=== PATIENT | female | born 1995 | race American Indian/Alaskan Native ===

== ENCOUNTER 2016-09-30 19:11 | Emergency (ER) | payer MEDICAID ==
[2016-09-30 20:48] VITALS: BP 125/92
[2016-09-30 21:47] LABS: Basophils % (Auto) 1.4 % (0.0-1.8); White Blood Count 12.9 K/mm3 (4.5-11.0)
[2016-09-30 21:54] LABS: Hematocrit 52.4 % (30.3-42.9); Mean Corpuscular HGB Conc 34 % (30-34); Mean Corpuscular Hemoglobin 28 pg (28-32); Mean Corpuscular Volume 81 fl (79-97); Platelet Count 429 K/mm3 (140-440); Red Blood Count 6.44 M/mm3 (3.65-5.03); Red Cell Distribution Width 13.1 % (13.2-15.2)
[2016-09-30 21:59] LABS: B-Hydroxybutyrate 11.6 mg/dL (0.2-2.8); BUN/Creatinine Ratio 46.31; Calcium 10.3 mg/dL (8.4-10.2); Chloride 86.8 mmol/L (98-107); Potassium 4.2 mmol/L (3.6-5.0)
--- NOTE | 2016-10-03 19:11 | ED Elopement Review ---
ED Pt Elopement review - Results review Lab results: Laboratory Tests 09/30/16 09/30/16 09/30/16 20:45 21:27 21:27 WBC 12.9 H RBC 6.44 H Hgb 18.0 H Hct 52.4 H MCV 81 MCH 28 MCHC 34 RDW 13.1 L Plt Count 429 Lymph % (Auto) 14.2 [place] % (Auto) 13.1 H Eos % (Auto) 0.0 Baso % (Auto) 1.4 Lymph # 1.8 Grady # 1.7 H Eos # 0.0 Baso # 0.2 H Seg Neutrophils % 71.3 H Seg Neutrophils # 9.2 H Sodium 133 L Potassium 4.2 Chloride 86.8 L Carbon Dioxide 21 L Anion Gap 29 BUN 88 H Creatinine 1.9 H Estimated GFR 41 BUN/Creatinine Ratio 46.31 Glucose 344 H POC Glucose 304 H Calcium 10.3 H Ketones 11.6 H - Call Back decision Pt Call Back Decision: Call pt to return to ED LYN (tachycardia and hemoconcentration should be addressed)
== END 2016-10-01 01:35 | disposition left against medical advice (07) ==
LOC: ED 19:11
DX: R11.2 Nausea with vomiting, unspecified (principal); Z53.21 Procedure and treatment not carried out due to patient leaving prior to being seen by health care provider
CPT/HCPCS: 36415; 80048; 82010; 82962; 85025

== ENCOUNTER 2018-02-28 01:21 | Emergency (ER) | payer MEDICAID ==
[2018-02-28 01:37] VITALS: BP 136/91
== END 2018-02-28 02:50 | disposition left against medical advice (07) ==
LOC: ED 01:21
DX: R11.10 Vomiting, unspecified (principal); Z53.21 Procedure and treatment not carried out due to patient leaving prior to being seen by health care provider

== ENCOUNTER 2018-11-10 20:10 | Emergency (ER) | payer OTHER ==
[2018-11-10 21:15] VITALS: BP 135/80
[2018-11-10] MEDS ORDERED: NACL 0.9% 1000 ML 1,000 ML IV ONE (21:15)
[2018-11-10] MEDS ORDERED: REGLAN IV ONE (21:15)
--- NOTE | 2018-11-10 21:16 | Emergency Department Report ---
Blank Doc - Documentation Documentation: 23 y o female presents at 11 weeks with n/v x 3 weeks, states worsening to day states nausea meds not working [facility] follows labs acc eval
[2018-11-10 21:31] LABS: Basophils # (Auto) 0.1 K/mm3 (0.0-0.1); Basophils % (Auto) 0.5 % (0.0-1.8); Eosinophils % (Auto) 0.2 % (0.0-4.3); Hematocrit 38.7 % (30.3-42.9); Hemoglobin 13.1 gm/dl (10.1-14.3); Lymphocytes # (Auto) 1.6 K/mm3 (1.2-5.4); Lymphocytes % (Auto) 11.5 % (13.4-35.0); Mean Corpuscular HGB Conc 34 % (30-34); Mean Corpuscular Volume 85 fl (79-97); Monocytes # (Auto) 0.6 K/mm3 (0.0-0.8); Monocytes % (Auto) 4.1 % (0.0-7.3); Platelet Count 295 K/mm3 (140-440); Red Blood Count 4.54 M/mm3 (3.65-5.03); Red Cell Distribution Width 12.4 % (13.2-15.2)
[2018-11-10 21:44] LABS: BUN/Creatinine Ratio 20; Blood Urea Nitrogen 14 mg/dL (7-17); Calcium 10.3 mg/dL (8.4-10.2); Hemolysis Index 7
[2018-11-10 23:21] LABS: Amorphous Crystals,Urine Few; Bilirubin,Urine NEG (Negative); Blood,Urine SM (Negative); Color,Urine Yellow (Yellow); Mucus,Urine FEW /HPF; Urobilinogen,Urine < 2.0 mg/dL (<2.0)
[2018-11-10 23:22] LABS: Protein,Urine >500 mg/dL (Negative)
--- NOTE | 2018-11-10 23:54 | Emergency Department Report ---
ED General Adult HPI - General Chief complaint: Nausea/Vomiting/Diarrhea Stated complaint: VOMITING Time Seen by Provider: 11/10/18 21:11 Source: patient Mode of arrival: Ambulatory Limitations: No Limitations - History of Present Illness Initial comments: 23-year-old -[place] female with a current history of diabetes type 1 that is 11 weeks comes in for abdominal pain nausea and vomiting. Patient reports that she is on NovoLog but uses are in scale. Patient reports that she's had her insulin this morning. Patient reports that she's been having nausea and vomiting since she was 6 weeks . This is 1 para 0. Patient is followed by [facility]. -: This morning Location: abdomen Radiation: non-radiation Severity scale (0 -10): 10 Quality: other (cramping) Consistency: constant Worsens with: none Associated Symptoms: nausea/vomiting. denies: fever/chills Treatments Prior to Arrival: none - Related Data Previous Rx's Medication Instructions Recorded Last Taken Type Famotidine [Pepcid] 10 mg PO BID #30 tablet 05/25/16 Unknown Rx Insulin Glargine [Lantus VIAL] 15 units SUB-Q QAMDIAB 30 Days 05/25/16 Unknown Rx units Insulin Regular, Human [HumuLIN R] 5 units SUB-Q ACHS 30 Days units 05/25/16 Unknown Rx Metoclopramide [Reglan] 10 mg PO TID PRN #20 tab 10/04/16 Unknown Rx Ondansetron [Zofran TAB] 4 mg PO Q8HR PRN #15 tablet 10/04/16 Unknown Rx guaiFENesin [Robitussin] 200 mg PO TID #90 ml 06/06/18 Unknown Rx prednisoLONE SOD PHOSPHAT [Orapred] 15 mg PO DAILY #30 ml 06/06/18 Unknown Rx Allergies Allergy/AdvReac Type Severity Reaction Status Date / Time Penicillins Allergy Rash Verified 07/20/13 00:39 ED Review of Systems ROS: Stated complaint: VOMITING Other details as noted in HPI Comment: All other systems reviewed and negative Gastrointestinal: abdominal pain, nausea, vomiting ED Past Medical Hx - Past Medical History Previous Medical History?: Yes Hx Congestive Heart Failure: No Hx Diabetes: Yes Hx Renal Disease: No Hx Asthma: No Hx COPD: No Additional medical history: gastroparesis. neuropathy - Surgical History Past Surgical History?: Yes Additional Surgical History: Insulin pump - Social History Smoking Status: Never Smoker Substance Use Type: None - Medications Home Medications: Home Medications Medication Instructions Recorded Confirmed Last Taken Type Famotidine [Pepcid] 10 mg PO BID #30 tablet 05/25/16 10/03/16 Unknown Rx Insulin Glargine [Lantus VIAL] 15 units SUB-Q QAMDIAB 30 Days 05/25/16 10/03/16 Unknown Rx units Insulin Regular, Human [HumuLIN R] 5 units SUB-Q ACHS 30 Days units 05/25/16 10/03/16 Unknown Rx Metoclopramide [Reglan] 10 mg PO TID PRN #20 tab 10/04/16 Unknown Rx Ondansetron [Zofran TAB] 4 mg PO Q8HR PRN #15 tablet 10/04/16 Unknown Rx guaiFENesin [Robitussin] 200 mg PO TID #90 ml 06/06/18 Unknown Rx prednisoLONE SOD PHOSPHAT [Orapred] 15 mg PO DAILY #30 ml 06/06/18 Unknown Rx ED Physical Exam - General Limitations: No Limitations General appearance: alert, in no apparent distress - Head Head exam: Present: atraumatic, normocephalic - Eye Eye exam: Present: EOMI - ENT ENT exam: Present: mucous membranes moist - Neck Neck exam: Present: normal inspection - Respiratory Respiratory exam: Present: normal lung sounds bilaterally. Absent: respiratory distress - Cardiovascular Cardiovascular Exam: Present: regular rate, normal rhythm. Absent: systolic murmur, diastolic murmur, rubs, gallop - GI/Abdominal GI/Abdominal exam: Present: soft, normal bowel sounds. Absent: distended, tenderness - Extremities Exam Extremities exam: Present: normal inspection - Back Exam Back exam: Present: normal inspection - Neurological Exam Neurological exam: Present: alert, oriented X3 - Psychiatric Psychiatric exam: Present: normal affect, normal mood - Skin Skin exam: Present: warm, dry, intact, normal color. Absent: rash ED Course Vital Signs 11/10/18 21:13 Temperature 98 F Pulse Rate 78 Respiratory 20 Rate Blood Pressure 135/80 O2 Sat by Pulse 99 Oximetry ED Medical Decision Making - Lab Data Result diagrams: 11/10/18 21:18 11/10/18 21:18 - Radiology Data Radiology results: report reviewed Patient: EVELIN NUNEZ MR#: [id number] : 1995 Acct:[id number] Age/Sex: 23 / F ADM Date: 11/10/18 Loc: ED Attending Dr: Ordering Physician: MARIELENA ADAMS Date of Service: 11/10/18 Procedure(s): US OB <= 14 weeks fetus Accession Number(s): [id number] cc: MARIELENA ADAMS PROCEDURE: US OB <= 14 WEEKS FETUS TECHNIQUE: Routine transabdominal imaging was obtained of the pelvis. HISTORY: abd pain preg COMPARISONS: None FINDINGS: The uterus is anteverted measuring 9.7 x 8.0 x 6.4 cm. Within the uterus is a gestational sac containing a pole with a crown-rump length of 49.4 mm. This corresponds to an 11 week 5 day . The heart rate is 176 BPM. There is no evidence of subchorionic hemorrhage. Free fluid is not seen. Both ovaries are normal in size contour and echotexture. The right ovary me asures 2.5 x 1.9 x 1.6 cm. Left ovary measures 3.2 x 1.4 x 1.5 cm. The blood flow is normal to both ovaries. The EDC is 05/28/2019. IMPRESSION: Single viable IUP, 11 weeks 5 days. The heart rate is 176 BPM. The EDC is 05/28/2019. This document is electronically signed by Anat Borden MD., November 11 2018 12:54:51 AM ET Transcribed By: RB Dictated By: ANAT BORDEN MD Electronically Authenticated By: ANAT BORDEN MD Signed Date/Time: 11/11/18 0056 DD/ TD/TT: 11/11/18 0048 Critical care attestation.: If time is entered above; I have spent that time in minutes in the direct care of this critically ill patient, excluding procedure time. ED Disposition Clinical Impression: Dehydration Disposition: DC-07 LEFT AGAINST MED ADVICE Is pt being admited?: No Does the pt Need Aspirin: No Condition: Stable Referrals: IHSAN MCKEON MD [Primary Care Provider] - 3-5 Days Forms: AMA Form
[2018-11-10] MEDS ORDERED: REGLAN ONE (23:56)
--- NOTE | 2018-11-11 00:56 | Ultrasound Report ---
PROCEDURE: US OB <= 14 WEEKS FETUS TECHNIQUE: Routine transabdominal imaging was obtained of the pelvis. HISTORY: abd pain preg COMPARISONS: None FINDINGS: The uterus is anteverted measuring 9.7 x 8.0 x 6.4 cm. Within the uterus is a gestational sac contain ing a pole with a crown-rump length of 49.4 mm. This corresponds to an 11 week 5 day . The heart rate is 176 BPM. There is no evidence of subchorionic hemorrhage. Free fluid is not seen. Both ovaries are normal in size contour and echotexture. The right ovary measures 2.5 x 1.9 x 1.6 cm. Left ovary measures 3.2 x 1.4 x 1.5 cm. The blood flow is normal to both ovaries. The EDC is 019. IMPRESSION: Single viable IUP, 11 weeks 5 days. The heart rate is 176 BPM. The EDC is 05/28/2019. This document is electronically signed by Tony Borden MD., November 11 2018 12:54:51 AM ET
[2018-11-11] MEDS ORDERED: ZOFRAN IV ONE (01:00)
[2018-11-11] MEDS ORDERED: ZOFRAN ONE (01:01)
[2018-11-11] MEDS ORDERED: NACL 0.9% 1000 ML 1,000 ML IV ONE (02:23)
[2018-11-11] MEDS ORDERED: HumuLIN R IV ONE (02:23)
== END 2018-11-11 02:42 ==
LOC: ED 20:10
DX: O21.9 Vomiting of pregnancy, unspecified (principal); O26.891 Other specified pregnancy related conditions, first trimester; R10.9 Unspecified abdominal pain; O24.911 Unspecified diabetes mellitus in pregnancy, first trimester; Z3A.11 11 weeks gestation of pregnancy; Z79.4 Long term (current) use of insulin; Z88.0 Allergy status to penicillin
CPT/HCPCS: 36415; 76801; 80048; 81001; 82150; 82962; 83690; 84702; 85025; 96361; 96374; 96375; 99284; J2405; J2765; J7030; J1815

== ENCOUNTER 2019-02-27 16:12 | Outpatient (CLI) | payer OTHER ==
[2019-02-27 17:39] LABS: Hematocrit 28.4 % (30.3-42.9); Hemoglobin 9.7 gm/dl (10.1-14.3); Mean Corpuscular HGB Conc 34 % (30-34); Mean Corpuscular Volume 88 fl (79-97); Platelet Count 277 K/mm3 (140-440); Red Blood Count 3.24 M/mm3 (3.65-5.03); Red Cell Distribution Width 12.7 % (13.2-15.2)
[2019-02-27] MEDS ORDERED: NACL 0.9% 1000 ML 1,000 ML ONE (17:59)
[2019-02-27] MEDS ORDERED: NACL 0.9% IV SCH (18:00)
[2019-02-27 18:01] LABS: Alanine Aminotransferase 8 units/L (7-56); Albumin 3.1 g/dL (3.9-5); BUN/Creatinine Ratio 18; Blood Urea Nitrogen 11 mg/dL (7-17); Calcium 8.9 mg/dL (8.4-10.2); Hemolysis Index 7
[2019-02-27 19:33] LABS: Total Cells Counted 100
[2019-02-27 19:34] LABS: Band Neutrophils # (Manual) 0.5 K/mm3; Basophils % (Manual) 0 % (0.0-1.8); Eosinophils % (Manual) 0 % (0.0-4.3); Ovalocytes Few; Platelet Estimate Consistent w Auto
--- NOTE | 2019-02-27 19:40 | Ultrasound Report ---
ULTRASOUND ABDOMEN, COMPLETE INDICATION: Diffuse pain in the upper abdomen. COMPARISON: No relevant prior imaging study available. FINDINGS: Pancreas: No significant abnormality. Abdominal Aorta: No significant abnormality. IVC: No significant abnormality. Liver: No significant abnormality. Normal hepatopedal blood flow in the main portal vein. Gallbladder: Mild gallbladder sludge. Bile ducts: No significant abnormality. Common bile duct measures 3 mm. Kidneys: Right: Slight prominence of the right collecting system.. Left: No significant abnormality. Spleen: No significant abnormality. Free fluid: None. Additional Findings: None. IMPRESSION: Slight prominence of the right collecting system which could be seen with mild right hydronephrosis. Signer Name: Chad Neil MD Signed: 02/27/2019 7:35 PM Workstation Name: [id number]
--- NOTE | 2019-02-27 19:43 | Ultrasound Report ---
ULTRASOUND BIOPHYSICAL PROFILE INDICATION / CLINICAL INFORMATION: well being. COMPARISON: None available. FINDINGS: BREATHING MOVEMENT = 2 GROSS BODY MOVEMENT = 2 TONE = 2 QUALITATIVE AMNIOTIC FLUID VOLUME = 2 TOTAL BIOPHYSICAL SCORE = 03/09 AMNIOTIC FLUID INDEX (cm) = 13.5 PRESENTATION: Cephalic. HEART RATE (beats per minute): 152 IMPRESSION: 1. biophysical profile = 03/09 Signer Name: Chad Neil MD Signed: 02/27/2019 7:38 PM Workstation Name: [email or web address]
[2019-02-27 20:27] VITALS: BP 131/85
[2019-02-27 22:19] LABS: Bilirubin,Urine NEG (Negative); Blood,Urine SM (Negative); Color,Urine Yellow (Yellow); Urobilinogen,Urine < 2.0 mg/dL (<2.0)
[2019-02-27 22:21] LABS: Protein,Urine >500 mg/dL (Negative)
== END 2019-02-27 22:13 | disposition home or self-care (01) ==
LOC: TRG 16:12
PROVIDERS: ATTEND Obstetrics & Gynecology
DX: O21.2 Late vomiting of pregnancy (principal); O26.892 Other specified pregnancy related conditions, second trimester; R07.9 Chest pain, unspecified; R10.10 Upper abdominal pain, unspecified; O47.02 False labor before 37 completed weeks of gestation, second trimester; O24.312 Unspecified pre-existing diabetes mellitus in pregnancy, second trimester; E11.9 Type 2 diabetes mellitus without complications; Z3A.27 27 weeks gestation of pregnancy; Z79.4 Long term (current) use of insulin
CPT/HCPCS: 36415; 59025; 76700; 76815; 76819; 80053; 81001; 82150; 82962; 83690; 85007; 85025; 85027; 96361; 96365; 96366; 96368; 96372; 96375; J1815; J2405; J2765; J3480; J7030; 96360; 96374

== ENCOUNTER 2019-04-12 11:35 | Inpatient (IN) | payer OTHER ==
[~2019-04-12 11:35] MED LIST: AMBIEN PO PRN
[2019-04-12] MEDS ORDERED: LACTATED RINGERS 500 ML IV ONE (12:24)
[2019-04-12] MEDS ORDERED: NACL 0.9% 1000 ML 1,000 ML ONE (13:33)
[2019-04-12] MEDS ORDERED: ZOFRAN IM ONE (14:00)
[2019-04-12 14:11] LABS: Hematocrit 32.6 % (30.3-42.9); Hemoglobin 11.1 gm/dl (10.1-14.3); Mean Corpuscular HGB Conc 34 % (30-34); Mean Corpuscular Volume 84 fl (79-97); Platelet Count 305 K/mm3 (140-440); Red Blood Count 3.86 M/mm3 (3.65-5.03); Red Cell Distribution Width 12.5 % (13.2-15.2)
--- NOTE | 2019-04-12 14:30 | History and Physical Report ---
History of Present Illness Date of examination: 04/12/19 Date of admission: 04/12/19. Chief complaint: SIUP at 33 weeks with nauseas, vomiting. Pre-gestational diabetes type 1 with insulin pump. History of present illness: Patient is a 23 year old , LMP 08/04/18, EDC 05/29/19 who presented to triage complaining of having nausea, vomiting and inability to retain PO intake for several days. She denies any fever, chills, contractions, fluid leakage or bleeding, urinary symptoms. URI symptoms. She reports good movement. She is a pre-gestational diabetic type-1 on insulin pump for years. Her glucose has not been controlled prior to this . She sees an community organization worker and [facility]. On admission, her vitals were stable. Labs showed WBC of 14.3, K+ 3.4, +RBC in the urine, glucose 284. tracing is CAT1. Past History Past Medical History: diabetes, other (gastroparesis) RN INVASIVE History: abnormal PAP smear, chlamydia, gonorrhea - Obstetrical History Expected Date of Delivery: 05/29/19 Actual Gestation: 33 Week(s) 2 Day(s) : 1 Number of Living Children: 0 Medications and Allergies Allergies Allergy/AdvReac Type Severity Reaction Status Date / Time Penicillins AdvReac Severe Rash Verified 02/27/19 16:40 Home Medications Medication Instructions Recorded Confirmed Last Taken Type Famotidine [Pepcid] 10 mg PO BID #30 tablet 05/25/16 10/03/16 Unknown Rx Insulin Glargine [Lantus VIAL] 15 units SUB-Q QAMDIAB 30 Days 05/25/16 10/03/16 Unknown Rx units Insulin Regular, Human [HumuLIN R] 5 units SUB-Q ACHS 30 Days units 05/25/16 10/03/16 Unknown Rx Metoclopramide [Reglan] 10 mg PO TID PRN #20 tab 10/04/16 Unknown Rx Ondansetron [Zofran TAB] 4 mg PO Q8HR PRN #15 tablet 10/04/16 Unknown Rx guaiFENesin [Robitussin] 200 mg PO TID #90 ml 06/06/18 Unknown Rx prednisoLONE SOD PHOSPHAT [Orapred] 15 mg PO DAILY #30 ml 06/06/18 Unknown Rx Active Meds: Active Medications Sodium Chloride (Nacl 0.9% 1000 Ml) 125 ml IV DIRECT JENNIE - Vital Signs Vital signs: Vital Signs Temp Pulse Resp BP Pulse Ox 99.3 F 103 H 18 118/77 100 04/12/19 12:50 04/12/19 12:50 04/12/19 12:50 04/12/19 12:50 04/12/19 12:50 Temp Pulse Resp BP Pulse Ox 99.3 F 102 H 18 118/77 100 04/12/19 12:50 04/12/19 13:08 04/12/19 12:50 04/12/19 13:05 04/12/19 13:08 - Physical Exam Cardiovascular: Normal S1, Normal S2 Lungs: Positive: Clear to auscultation Vulva: both: normal Deep Tendon Reflex Grade: Normal +2 - Obstetrical FHR: category 1 Uterine Contraction Monitor Mode: External Uterine Contraction Pattern: Absent Results Result Diagrams: 04/12/19 13:37 04/12/19 13:37 Abnormal lab results 04/12/19 04/12/19 Range/Units 12:06 13:37 WBC 14.3 H (4.5-11.0) K/mm3 RDW 12.5 L (13.2-15.2) % POC Glucose 270 H (70-105) All other labs normal. Assessment and Plan - Patient Problems (1) 33 weeks gestation of Current Visit: Yes Status: Acute (2) Vomiting Current Visit: Yes Status: Acute Plan to address problem: Admit to antepartum. Keep NPO. Labs done. IVF with normal saline, bolus given. Will maintain at 125 cc/hr. Zofran Q6-8 hrs PRN. Insulin pump was not working yesterday as per pt's mother. But she had a new one placed. I am not sure if that is working properly at this time. Will stop the pump and manage her with FS Q4 hrs with sliding scale insulin. Medical consult Dr. Brar called. (3) Diabetes 1.5, managed as type 1 Current Visit: Yes Status: Acute (4) UTI (urinary tract infection) Current Visit: Yes Status: Acute Plan to address problem: IV antibiotics given. Urine culture ordered. (5) Uncontrolled blood glucose Current Visit: Yes Status: Acute Plan to address problem: Manage with sliding scale. [facility] consult. Medical consult called. Sonogram for BPP and ANGIE. (6) Dehydration Current Visit: No Status: Acute (7) Hypokalemia Current Visit: No Status: Acute Plan to address problem: K-rider ordered. Will repeat potassium in 4 hrs. (8) Abnormal renal function Current Visit: Yes Status: Acute
[2019-04-12 14:34] LABS: Albumin 3.3 g/dL (3.9-5); Calcium 9.4 mg/dL (8.4-10.2)
[2019-04-12 14:42] LABS: Bacteria,Urine 1+ /HPF (Negative); Bilirubin,Urine NEG (Negative); Blood,Urine NEG (Negative); Color,Urine Yellow (Yellow); Urobilinogen,Urine < 2.0 mg/dL (<2.0)
[2019-04-12] MEDS: NACL 0.9% 1000 ML IV SCH (15:39)
[2019-04-12] MEDS: ZOFRAN IV PRN ×2 (15:51→17:40)
[2019-04-12] MEDS ORDERED: ZOFRAN IV PRN (16:40)
[2019-04-12] MEDS ORDERED: COLACE PO PRN (16:40)
[2019-04-12] MEDS ORDERED: MYLICON PO PRN (16:40)
[2019-04-12] MEDS ORDERED: TYLENOL PO PRN (16:40)
[2019-04-12] MEDS ORDERED: KCL 10MEQ/100ML 10 MEQ/100 ML BAG IV ONE (16:46)
[2019-04-12] MEDS: CLEOCIN 600 MG/50 mL 600 MG/50 ML BAG IV SCH (22:53)
[2019-04-13] MEDS ORDERED: ANCEF/NS 1 GM/50 ML 1 GM/50 ML BAG IV SCH (00:42)
--- NOTE | 2019-04-13 01:13 | Ultrasound Report ---
biophysical profile INDICATION: , diabetes, vomiting for one week breathing movements, movements, posturing tone, and qualitative amniotic fluid volu me are all scored at 2/2 for a total biophysical profile score of 8/8 which is within normal limits. heart rate was recorded at 162 bpm. Signer Name: Miguel Javed MD Signed: 04/13/2019 1:09 AM Workstation Name: [id number]
[2019-04-13] MEDS: HumaLOG SUB-Q SCH ×3 (01:28→10:26)
[2019-04-13] MEDS: NACL 0.9% 1000 ML IV SCH (01:48)
--- NOTE | 2019-04-13 06:05 | Event Note ---
Date: 04/12/19 Medical consult dictated Poorly controlled IDDM --Type 1 On Insulin pump Switch over to accucheks q4h and coverage
--- NOTE | 2019-04-13 06:27 | Consultation ---
MEDICAL CONSULT REASON FOR MEDICAL CONSULT: Management of poorly controlled diabetes. HISTORY OF PRESENT ILLNESS: A 23-year-old G1, P0 with LMP of 08/04/2018 and expected date of delivery is 05/29/2019, comes into labor and delivery for nausea, vomiting and unable to retain p.o. intake for the last one week. The patient has insulin-dependent diabetes from a young age around 8 years and the patient is on insulin pump. No fever or chills. Reports good movement. Her glucose levels have been running in the 300 levels. PAST MEDICAL HISTORY: Significant for diabetes and gastroparesis. GYNECOLOGIC HISTORY: Abnormal Pap smear. Chlamydia and gonorrhea in the past, but not clear. PAST SURGICAL HISTORY: None. FAMILY HISTORY: No significant family history. SOCIAL HISTORY: Does not smoke. No alcohol, no recreational drugs. REVIEW OF SYSTEMS: Significant for nausea and vomiting. Unable to tolerate p.o. food. Review of systems is otherwise negative. Feels weak. PHYSICAL EXAMINATION: GENERAL: Young female, cooperative during examination. VITAL SIGNS: Pulse is 112-122, blood pressure is 140/92, heart rate is 110. HEENT: Unremarkable. Slightly dry tongue. NECK: Supple, no lymphadenopathy, no thyromegaly. LUNGS: Clear to auscultation and percussion. Good air entry. CARDIOVASCULAR: S1, S2 heard. No gallop, no murmur, no rub. Apical impulse in left fifth intercostal space and midclavicular line. ABDOMEN: Soft and benign. No hepatosplenomegaly. No guarding, no rigidity. Hernial orifices are normal. EXTREMITIES: Good pedal pulses. No pedal edema. CENTRAL NERVOUS SYSTEM: Alert and oriented x 4, nonfocal exam. SKIN: Normal. LABORATORY DATA: Significant for white count of 14,300, hemoglobin of 11.1, hematocrit of 32.6, platelet count of 305,000. Sodium is 132, potassium is 3.4, BUN and creatinine is 18 and 1.6, glucose is 286. A1c is pending. Albumin is 3.3. Urine shows glucose of more than 500, but no urinary tract infection. ASSESSMENT AND PLAN: 1. Poorly controlled insulin-dependent diabetes, insulin pump to be stopped, Accu-Cheks q.4 hours with high dose sliding scale coverage. 2. Gastroparesis. The patient on IV Zofran and IV Reglan. IV fluids. 3. Hyponatremia should correct with correction of blood glucose levels. 4. Hypokalemia, supplemented. 5. Deep venous thrombosis prophylaxis, SCDs. In summary, the patient has poorly controlled insulin-dependent diabetes, to be controlled with high dose insulin sliding scale coverage and stop the insulin pump and gastroparesis, once the symptoms are controlled for gastroparesis, the patient can be discharged and the patient to follow up with a perinatologist and social staff worker. Hypokalemia and hyponatremia. Hypokalemia supplemented. Thank you for the consult Dr. Pooja Moreau. JOB# [id number] KADY/LOTTIE RIOS
[2019-04-13] MEDS ORDERED: K-DUR PO ONE ×2 (06:32→18:05)
[2019-04-13 07:08] LABS: Basophils % (Auto) 0.3 % (0.0-1.8); Hematocrit 34.9 % (30.3-42.9); Hemoglobin 11.9 gm/dl (10.1-14.3); Lymphocytes # (Auto) 1.6 K/mm3 (1.2-5.4); Lymphocytes % (Auto) 10.8 % (13.4-35.0); Mean Corpuscular HGB Conc 34 % (30-34); Mean Corpuscular Volume 85 fl (79-97); Monocytes # (Auto) 0.7 K/mm3 (0.0-0.8); Monocytes % (Auto) 4.9 % (0.0-7.3); Platelet Count 290 K/mm3 (140-440); Red Blood Count 4.09 M/mm3 (3.65-5.03); Red Cell Distribution Width 12.6 % (13.2-15.2)
[2019-04-13] MEDS ORDERED: HumuLIN R SUB-Q SCH (07:30)
[2019-04-13 07:37] LABS: Alanine Aminotransferase 8 units/L (7-56); Albumin 3.6 g/dL (3.9-5); BUN/Creatinine Ratio 12; Blood Urea Nitrogen 15 mg/dL (7-17); Calcium 10.2 mg/dL (8.4-10.2); Hemolysis Index 4
[2019-04-13] MEDS: PRENATAL VITAMIN PO SCH (10:07)
[2019-04-13] MEDS: CLEOCIN 600 MG/50 mL 600 MG/50 ML BAG IV SCH ×3 (12:50→21:14)
[2019-04-13 14:35] LABS: Basophils % (Manual) 0 % (0.0-1.8); Eosinophils % (Manual) 0 % (0.0-4.3); RBC Morphology Normal; Total Cells Counted 100
[2019-04-13 14:36] LABS: Platelet Estimate Consistent w Auto
--- NOTE | 2019-04-13 14:36 | Progress Note ---
Assessment and Plan Assessment and plan: --Diabetic ketoacidosis; Initiate DKA protocol, insulin drip IV fluids, sodium bicarbonate, monitor electrolytes Clear liquid diet, supportive care --Severe metabolic acidosis; IV fluids Dictated the underlying cause, sodium bicarbonate --Severe dehydration; IV fluids, clear liquid diet Supportive care --Hyponatremia/pseudohyponatremia Secondary to hyperglycemia, treated the underlying cause Monitor electrolytes --Hypokalemia; replace per protocol and monitor levels --Acute kidney injury; getting more vasomotor nephropathy IV fluids, monitor renal function, avoid nephrotoxins --Leukocytosis; probably secondary to dehydration Patient is already on empiric antibiotics clindamycin per ENVIRONMENTAL AUDITOR Follow cultures --33 weeks ; Management per WOOD MACHINE CARVER --DVT prophylaxis; SCDs/Lovenox Admit to ICU Critical care consult, discussed with the assistant grocery Dr. Kaur Monitor closely and adjust the management as needed Critical care time 40 minutes History Interval history: Patient seen and examined medical records reviewed Hospitalist service was consulted for management of diabetes mellitus Patient's blood sugars are uncontrolled, elevated anion gap, metabolic acidosis Patient is in DKA, we will start DKA protocol Transfer the patient to ICU Patient is in severe distress, severely dehydrated, cachectic Vital signs noted Hospitalist Physical - Constitutional Vitals: Temp Pulse Resp BP Pulse Ox 97.4 F L 103 H 18 133/73 100 04/13/19 12:57 04/13/19 12:57 04/13/19 12:57 04/13/19 12:57 04/12/19 13:08 General appearance: Present: severe distress, cachectic, disheveled, other (for dehydration) - EENT Eyes: Present: PERRL, EOM intact - Neck Neck: Present: supple, normal ROM - Respiratory Respiratory effort: normal Respiratory: bilateral: diminished, rhonchi, negative: rales, wheezing - Cardiovascular Rhythm: regular Heart Sounds: Present: S1 & S2 - Extremities Extremities: no ischemia, No edema - Abdominal General gastrointestinal: soft, non-tender, non-distended, normal bowel sounds - Integumentary Integumentary: Present: clear, warm - Psychiatric Psychiatric: appropriate mood/affect, cooperative - Neurologic Neurologic: moves all extremities Results - Labs CBC & Chem 7: 04/13/19 19:30 04/13/19 19:30 Labs: Laboratory Last Values WBC 14.9 K/mm3 (4.5-11.0) H 04/13/19 06:37 RBC 4.09 M/mm3 (3.65-5.03) 04/13/19 06:37 Hgb 11.9 gm/dl (10.1-14.3) 04/13/19 06:37 Hct 34.9 % (30.3-42.9) 04/13/19 06:37 MCV 85 fl (79-97) 04/13/19 06:37 MCH 29 pg (28-32) 04/13/19 06:37 MCHC 34 % (30-34) 04/13/19 06:37 RDW 12.6 % (13.2-15.2) L 04/13/19 06:37 Plt Count 290 K/mm3 (140-440) 04/13/19 06:37 Lymph % (Auto) 10.8 % (13.4-35.0) L 04/13/19 06:37 [place] % (Auto) 4.9 % (0.0-7.3) 04/13/19 06:37 Eos % (Auto) 0.0 % (0.0-4.3) 04/13/19 06:37 Baso % (Auto) 0.3 % (0.0-1.8) 04/13/19 06:37 Lymph # 1.6 K/mm3 (1.2-5.4) 04/13/19 06:37 [place] # 0.7 K/mm3 (0.0-0.8) 04/13/19 06:37 Eos # 0.0 K/mm3 (0.0-0.4) 04/13/19 06:37 Baso # 0.0 K/mm3 (0.0-0.1) 04/13/19 06:37 Seg Neutrophils % 84.0 % (40.0-70.0) H 04/13/19 06:37 Seg Neutrophils # 12.5 K/mm3 (1.8-7.7) H 04/13/19 06:37 VBG pH 7.322 (7.320-7.420) 04/13/19 13:55 Sodium 135 mmol/L (137-145) L 04/13/19 06:37 Potassium 3.3 mmol/L (3.6-5.0) L 04/13/19 06:37 Chloride 90.4 mmol/L (98-107) L 04/13/19 06:37 Carbon Dioxide 9 mmol/L (22-30) L* 04/13/19 06:37 39 mmol/L 04/13/19 06:37 BUN 15 mg/dL (7-17) 04/13/19 06:37 1.3 mg/dL (0.7-1.2) H 04/13/19 06:37 Estimated GFR > 60 ml/min 04/13/19 06:37 12 % 04/13/19 06:37 Glucose 309 mg/dL (65-100) H 04/13/19 06:37 POC Glucose 261 (70-105) H 04/13/19 12:13 Moderate (Negative) 04/12/19 13:37 Calcium 10.2 mg/dL (8.4-10.2) 04/13/19 06:37 0.60 mg/dL (0.1-1.2) 04/13/19 06:37 AST 9 units/L (5-40) 04/13/19 06:37 ALT 8 units/L (7-56) 04/13/19 06:37 98 units/L (35-129) 04/13/19 06:37 6.8 g/dL (6.3-8.2) 04/13/19 06:37 3.6 g/dL (3.9-5) L 04/13/19 06:37 1.1 % 04/13/19 06:37 Amylase 32 units/L (27-131) 04/12/19 13:37 19 units/L (13-60) 04/12/19 13:37 Yellow (Yellow) 04/12/19 14:00 Slightly-cloudy (Clear) 04/12/19 14:00 5.0 (5.0-7.0) 04/12/19 14:00 Ur Specific [place] 1.014 (1.003-1.030) 04/12/19 14:00 100 mg/dl mg/dL (Negative) 04/12/19 14:00 >=500 mg/dL (Negative) 04/12/19 14:00 80 mg/dL (Negative) 04/12/19 14:00 Neg (Negative) 04/12/19 14:00 Neg (Negative) 04/12/19 14:00 Neg (Negative) 04/12/19 14:00 < 2.0 mg/dL (<2.0) 04/12/19 14:00 Ur Leukocyte Esterase Neg (Negative) 04/12/19 14:00 2.0 /HPF (0.0-6.0) 04/12/19 14:00 2.0 /HPF (0.0-6.0) 04/12/19 14:00 U Epithel Cells (Auto) 11.0 /HPF (0-13.0) 04/12/19 14:00 1+ /HPF (Negative) 04/12/19 14:00 Active Medications - Current Medications Current Medications: Generic Name Dose Route Start Last Admin Trade Name Freq PRN Reason Stop Dose Admin Acetaminophen 650 mg 04/12/19 16:40 Tylenol PO Q4H PRN Pain MILD(1-3)/Fever >100.5/RICH Dextrose 0 ml 04/13/19 14:09 D50w (25gm) Syringe IV PRN PRN Hypoglycemia Docusate Sodium 100 mg 04/12/19 16:40 Colace PO Q12H PRN Constipation Clindamycin HCl 600 mg in 50 mls @ 100 mls/hr 04/12/19 20:00 04/13/19 12:50 Cleocin 600 Mg/50 Ml IV 100 mls/hr Q8H JENNIE Administration Protocol Insulin Human Regular 100 100 mls @ 1 mls/hr 04/13/19 15:00 units/ Sodium Chloride IV TITR JENNIE Protocol 1 UNITS/HR Sodium Bicarbonate 50 meq/ 1,050 mls @ 100 mls/hr 04/13/19 15:00 Sodium Chloride IV DIRECT [facility] Metoclopramide HCl 10 mg 04/13/19 06:17 Reglan IV Q6H PRN Nausea And Vomiting Multivitamins/Iron/Calcium 1 each 04/13/19 10:00 04/13/19 10:07 Vitamin PO Not Given QDAY [facility] Ondansetron HCl 4 mg 04/13/19 06:17 Zofran IV Q4H PRN Nausea And Vomiting Simethicone 80 mg 04/12/19 16:40 Mylicon PO Q6H PRN Gas pain Sodium Chloride 125 ml 04/12/19 14:00 04/13/19 01:48 Nacl 0.9% 1000 Ml IV 125 ml DIRECT JENNIE Administration Zolpidem Tartrate 2.5 mg 04/12/19 10:00 Ambien PO QHS PRN Sleep
[2019-04-13] MEDS ORDERED: ZOFRAN ONE (15:50)
[2019-04-13] MEDS: ZOFRAN IV PRN (15:51)
--- NOTE | 2019-04-13 15:53 | Consultation ---
History of Present Illness Consult date: 04/13/19 Reason for consult: other (Poorly Controlled Type 1 DM) History of present illness: Ms. Mcdonough is a 23 year old , STACY 05/29/19, who presented to [facility] on 04/12/19 due to nausea, vomiting and inability to retain PO intake for several days. She has been followed by [facility] outpatient due her Type 1 DM history, but she has been noncompliant with her care. Endocrinology referral was made for patient due to continued poor management of Type 1 DM, but patient never made appointment. She denies contractions, leaking of fluid, or bleeding. She admits to positive, but sluggish movement. Currently she is being followed by [facility] while hospitalized for Diabetic management. 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: abnormal PAP smear, chlamydia, gonorrhea - Obstetrical History : 1 Medications and Allergies Allergies Allergy/AdvReac Type Severity Reaction Status Date / Time Penicillins AdvReac Severe Rash Verified 02/27/19 16:40 Home Medications Medication Instructions Recorded Confirmed Last Taken Type Famotidine [Pepcid] 10 mg PO BID #30 tablet 05/25/16 10/03/16 Unknown Rx RX: Insulin Glargine [Lantus VIAL] 15 units SUB-Q QAMDIAB 30 Days 05/25/16 10/03/16 Unknown Rx units RX: Insulin Regular, Human 5 units SUB-Q ACHS 30 Days units 05/25/16 10/03/16 Unknown Rx [HumuLIN R] Metoclopramide [Reglan] 10 mg PO TID PRN #20 tab 10/04/16 Unknown Rx Ondansetron [Zofran TAB] 4 mg PO Q8HR PRN #15 tablet 10/04/16 Unknown Rx RX: guaiFENesin [Robitussin] 200 mg PO TID #90 ml 06/06/18 Unknown Rx RX: prednisoLONE SOD PHOSPHAT 15 mg PO DAILY #30 ml 06/06/18 Unknown Rx [Orapred] Active Meds: Active Medications Acetaminophen (Tylenol) 650 mg PO Q4H PRN PRN Reason: Pain MILD(1-3)/Fever >100.5/RICH Dextrose (D50w (25gm) Syringe) 0 ml IV PRN PRN PRN Reason: Hypoglycemia Docusate Sodium (Colace) 100 mg PO Q12H PRN PRN Reason: Constipation Clindamycin HCl (Cleocin 600 Mg/50 Ml) 600 mg in 50 mls @ 100 mls/hr IV Q8H JENNIE; Protocol Last Admin: 04/13/19 12:50 Dose: 100 mls/hr Documented by: Insulin Human Regular 100 (units/ Sodium Chloride) 100 mls @ 1 mls/hr IV TITR JENNIE; Protocol Sodium Bicarbonate 50 meq/ (Sodium Chloride) 1,050 mls @ 100 mls/hr IV DIRECT JENNIE Metoclopramide HCl (Reglan) 10 mg IV Q6H PRN PRN Reason: Nausea And Vomiting Multivitamins/Iron/Calcium ( Vitamin) 1 each PO QDAY JENNIE Last Admin: 04/13/19 10:07 Dose: Not Given Documented by: Ondansetron HCl (Zofran) 4 mg IV Q4H PRN PRN Reason: Nausea And Vomiting Simethicone (Mylicon) 80 mg PO Q6H PRN PRN Reason: Gas pain Zolpidem Tartrate (Ambien) 2.5 mg PO QHS PRN PRN Reason: Sleep Review of Systems Constitutional: fatigue, other (denies fever, chills) Eyes: other (denies visual disturbances) Ears, nose, mouth and throat: deferred Cardiovascular: other (denies chest pain, palpitations, edema) Respiratory: other (denies SOB, wheezing, coughing) Breasts: deferred Gastrointestinal: nausea, vomiting, other (denies constipation, diarrhea, RUQ pain) Genitourinary: other (denies contractions, leaking of fluid, vaginal bleeding) Rectal Exam: deferred Neurological: other (denies headaches) - Vital Signs Vital signs: Vital Signs Temp Pulse Resp BP Pulse Ox 99.3 F 103 H 18 118/77 100 04/12/19 12:50 04/12/19 12:50 04/12/19 12:50 04/12/19 12:50 04/12/19 12:50 Temp Pulse Resp BP Pulse Ox 97.4 F L 103 H 18 133/73 100 04/13/19 12:57 04/13/19 12:57 04/13/19 12:57 04/13/19 12:57 04/12/19 13:08 - Physical Exam Breasts: Positive: deferred Cardiovascular: Regular rate, Normal S1, Normal S2 Lungs: Positive: Clear to auscultation, Normal air movement Abdomen: Positive: soft, other (nontender, gravid) Results Result Diagrams: 04/13/19 06:37 04/13/19 06:37 Abnormal lab results 04/12/19 04/12/19 04/13/19 Range/Units 13:37 18:34 00:49 WBC (4.5-11.0) K/mm3 RDW (13.2-15.2) % Lymph % (Auto) (13.4-35.0) % Seg Neutrophils % (40.0-70.0) % Seg Neuts % (Manual) 84.0 H (40.0-70.0) % Lymphocytes % (Manual) 12.0 L (13.4-35.0) % Seg Neutrophils # (1.8-7.7) K/mm3 Seg Neutrophils # Man 12.0 H (1.8-7.7) K/mm3 Sodium (137-145) mmol/L Potassium (3.6-5.0) mmol/L Chloride (98-107) mmol/L Carbon Dioxide (22-30) mmol/L Creatinine (0.7-1.2) mg/dL Glucose (65-100) mg/dL POC Glucose 201 H 227 H (70-105) Albumin (3.9-5) g/dL 04/13/19 04/13/19 04/13/19 Range/Units 05:30 06:37 06:37 WBC 14.9 H (4.5-11.0) K/mm3 RDW 12.6 L (13.2-15.2) % Lymph % (Auto) 10.8 L (13.4-35.0) % Seg Neutrophils % 84.0 H (40.0-70.0) % Seg Neuts % (Manual) (40.0-70.0) % Lymphocytes % (Manual) (13.4-35.0) % Seg Neutrophils # 12.5 H (1.8-7.7) K/mm3 Seg Neutrophils # Man (1.8-7.7) K/mm3 Sodium 135 L (137-145) mmol/L Potassium 3.3 L (3.6-5.0) mmol/L Chloride 90.4 L (98-107) mmol/L Carbon Dioxide 9 L* (22-30) mmol/L Creatinine 1.3 H (0.7-1.2) mg/dL Glucose 309 H (65-100) mg/dL POC Glucose 258 H (70-105) Albumin 3.6 L (3.9-5) g/dL 04/13/19 04/13/19 04/13/19 Range/Units 10:24 12:13 14:46 WBC (4.5-11.0) K/mm3 RDW (13.2-15.2) % Lymph % (Auto) (13.4-35.0) % Seg Neutrophils % (40.0-70.0) % Seg Neuts % (Manual) (40.0-70.0) % Lymphocytes % (Manual) (13.4-35.0) % Seg Neutrophils # (1.8-7.7) K/mm3 Seg Neutrophils # Man (1.8-7.7) K/mm3 Sodium (137-145) mmol/L Potassium (3.6-5.0) mmol/L Chloride (98-107) mmol/L Carbon Dioxide (22-30) mmol/L Creatinine (0.7-1.2) mg/dL Glucose (65-100) mg/dL POC Glucose 302 H 261 H 190 H (70-105) Albumin (3.9-5) g/dL 04/13/19 Range/Units 15:49 WBC (4.5-11.0) K/mm3 RDW (13.2-15.2) % Lymph % (Auto) (13.4-35.0) % Seg Neutrophils % (40.0-70.0) % Seg Neuts % (Manual) (40.0-70.0) % Lymphocytes % (Manual) (13.4-35.0) % Seg Neutrophils # (1.8-7.7) K/mm3 Seg Neutrophils # Man (1.8-7.7) K/mm3 Sodium (137-145) mmol/L Potassium (3.6-5.0) mmol/L Chloride (98-107) mmol/L Carbon Dioxide (22-30) mmol/L Creatinine (0.7-1.2) mg/dL Glucose (65-100) mg/dL POC Glucose 174 H (70-105) Albumin (3.9-5) g/dL All other labs normal. Assessment and Plan A- Youssef IUP 33.0 weeks- STACY 05/29/19 Poorly Controlled Type 1 DM/ DKA Transferred to ICU today for Insulin drip for management Labs- NA 135, K+ 3.3, Cl 90.4, CO2 9, Anion Gap 39, BUN 15, Cr 1.3, Glucose 309 U/A and culture pending Denies PIH symptoms Denies PTL symptoms Admits positive, but sluggish movements Noncompliant with [facility] visits and with outpatient Endocrinology referral- last [facility] visit March 06, 2019 I discussed maternal and risks of poorly controlled DM in with pt. I discussed that in addition to her having DKA, she has additional maternal risks for kidney dysfuction, hypertension/Preeclampsia, as well as poor outcomes, especially IUFD. She verbalized understanding. She is aware that she will remain hospitalized until glucose levels are controlled. P- Continue with plan of care in ICU IMS to manage DM on Insulin gtt monitoring Qshift Document ultrasound for weight - STACY 05/29/19 BPP and Dopplers biweekly while hospitalized for surveillance Thank you for your consult. For any additional questions/concerns, please contact [facility] fusion juncture grinder ( Dr. Martinez). Carla Ruelas NP
[2019-04-13] MEDS ORDERED: HumuLIN R 100 UNITS in NACL 0.9% 99 ML IV SCH (16:00)
--- NOTE | 2019-04-13 16:10 | Progress Note ---
Assessment and Plan - Patient Problems (1) 33 weeks gestation of Current Visit: Yes Status: Acute Plan to address problem: A- Youssef IUP 33.0 weeks- STACY 05/29/19 Poorly Controlled Type 1 DM/ DKA Admitted to ICU today for Insulin drip for management Denies PIH symptoms P- Continue with plan of care IMS to manage DM on Insulin gtt monitoring Q 8 hours BPP biweekly while hospitalized (2) Diabetes 1.5, managed as type 1 Current Visit: Yes Status: Acute (3) Uncontrolled blood glucose Current Visit: Yes Status: Acute (4) Vomiting Current Visit: Yes Status: Acute Subjective Date of service: 04/13/19 Principal diagnosis: Interval history: Patient is a 23 year old , LMP 08/04/18, EDC 05/29/19 who presented to [facility] complaining of having nausea, vomiting and inability to retain PO intake for several days. She denies any fever, chills, contractions, fluid leakage or bleeding, urinary symptoms. URI symptoms. She reports good movement. She is a pre-gestational diabetic type-1 on insulin pump for years. Her glucose has not been controlled prior to this . 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 She was restless during rounding this morning and requesting to be allowed to shower. Objective - Constitutional Vitals: Vital Signs - 12hr 04/13/19 04/13/19 04/13/19 06:00 09:24 12:56 Temperature Pulse Rate 112 H 113 H 103 H Respiratory Rate Blood Pressure 128/69 125/67 133/73 Blood Pressure [Right] 04/13/19 12:57 Temperature 97.4 F L Pulse Rate 103 H Respiratory 18 Rate Blood Pressure Blood Pressure 133/73 [Right] General appearance: Present: mild distress - Respiratory Respiratory effort: normal - Breasts Breasts: deferred - Cardiovascular Rhythm: regular - Gastrointestinal General gastrointestinal: Present: non-tender - Genitourinary Female genitourinary: deferred - Labs CBC & Chem 7: 04/13/19 06:37 04/13/19 06:37 Labs: Abnormal lab results 04/12/19 04/12/19 04/13/19 Range/Units 13:37 18:34 00:49 WBC (4.5-11.0) K/mm3 RDW (13.2-15.2) % Lymph % (Auto) (13.4-35.0) % Seg Neutrophils % (40.0-70.0) % Seg Neuts % (Manual) 84.0 H (40.0-70.0) % Lymphocytes % (Manual) 12.0 L (13.4-35.0) % Seg Neutrophils # (1.8-7.7) K/mm3 Seg Neutrophils # Man 12.0 H (1.8-7.7) K/mm3 Sodium (137-145) mmol/L Potassium (3.6-5.0) mmol/L Chloride (98-107) mmol/L Carbon Dioxide (22-30) mmol/L Creatinine (0.7-1.2) mg/dL Glucose (65-100) mg/dL POC Glucose 201 H 227 H (70-105) Albumin (3.9-5) g/dL 04/13/19 04/13/19 04/13/19 Range/Units 05:30 06:37 06:37 WBC 14.9 H (4.5-11.0) K/mm3 RDW 12.6 L (13.2-15.2) % Lymph % (Auto) 10.8 L (13.4-35.0) % Seg Neutrophils % 84.0 H (40.0-70.0) % Seg Neuts % (Manual) (40.0-70.0) % Lymphocytes % (Manual) (13.4-35.0) % Seg Neutrophils # 12.5 H (1.8-7.7) K/mm3 Seg Neutrophils # Man (1.8-7.7) K/mm3 Sodium 135 L (137-145) mmol/L Potassium 3.3 L (3.6-5.0) mmol/L Chloride 90.4 L (98-107) mmol/L Carbon Dioxide 9 L* (22-30) mmol/L Creatinine 1.3 H (0.7-1.2) mg/dL Glucose 309 H (65-100) mg/dL POC Glucose 258 H (70-105) Albumin 3.6 L (3.9-5) g/dL 04/13/19 04/13/19 04/13/19 Range/Units 10:24 12:13 14:46 WBC (4.5-11.0) K/mm3 RDW (13.2-15.2) % Lymph % (Auto) (13.4-35.0) % Seg Neutrophils % (40.0-70.0) % Seg Neuts % (Manual) (40.0-70.0) % Lymphocytes % (Manual) (13.4-35.0) % Seg Neutrophils # (1.8-7.7) K/mm3 Seg Neutrophils # Man (1.8-7.7) K/mm3 Sodium (137-145) mmol/L Potassium (3.6-5.0) mmol/L Chloride (98-107) mmol/L Carbon Dioxide (22-30) mmol/L Creatinine (0.7-1.2) mg/dL Glucose (65-100) mg/dL POC Glucose 302 H 261 H 190 H (70-105) Albumin (3.9-5) g/dL 04/13/19 Range/Units 15:49 WBC (4.5-11.0) K/mm3 RDW (13.2-15.2) % Lymph % (Auto) (13.4-35.0) % Seg Neutrophils % (40.0-70.0) % Seg Neuts % (Manual) (40.0-70.0) % Lymphocytes % (Manual) (13.4-35.0) % Seg Neutrophils # (1.8-7.7) K/mm3 Seg Neutrophils # Man (1.8-7.7) K/mm3 Sodium (137-145) mmol/L Potassium (3.6-5.0) mmol/L Chloride (98-107) mmol/L Carbon Dioxide (22-30) mmol/L Creatinine (0.7-1.2) mg/dL Glucose (65-100) mg/dL POC Glucose 174 H (70-105) Albumin (3.9-5) g/dL Medications & Allergies - Medications Allergies/Adverse Reactions: Allergies Penicillins Adverse Reaction (Severe, Verified 02/27/19 16:40) Rash Home Medications: Home Medications Medication Instructions Recorded Confirmed Last Taken Type Famotidine [Pepcid] 10 mg PO BID #30 tablet 05/25/16 10/03/16 Unknown Rx Insulin Glargine [Lantus VIAL] 15 units SUB-Q QAMDIAB 30 Days 05/25/16 10/03/16 Unknown Rx units Insulin Regular, Human [HumuLIN R] 5 units SUB-Q ACHS 30 Days units 05/25/16 10/03/16 Unknown Rx Metoclopramide [Reglan] 10 mg PO TID PRN #20 tab 10/04/16 Unknown Rx Ondansetron [Zofran TAB] 4 mg PO Q8HR PRN #15 tablet 10/04/16 Unknown Rx guaiFENesin [Robitussin] 200 mg PO TID #90 ml 06/06/18 Unknown Rx prednisoLONE SOD PHOSPHAT [Orapred] 15 mg PO DAILY #30 ml 06/06/18 Unknown Rx Active Medications: Generic Name Dose Route Start Last Admin Trade Name Freq PRN Reason Stop Dose Admin Acetaminophen 650 mg 04/12/19 16:40 Tylenol PO Q4H PRN Pain MILD(1-3)/Fever >100.5/RICH Dextrose 0 ml 04/13/19 15:00 D50w (25gm) Syringe IV PRN PRN Hypoglycemia Docusate Sodium 100 mg 04/12/19 16:40 Colace PO Q12H PRN Constipation Clindamycin HCl 600 mg in 50 mls @ 100 mls/hr 04/12/19 20:00 04/13/19 12:50 Cleocin 600 Mg/50 Ml IV 100 mls/hr Q8H JENNIE Administration Protocol Insulin Human Regular 100 100 mls @ 1 mls/hr 04/13/19 16:00 units/ Sodium Chloride IV TITR JENNIE Protocol 1 UNITS/HR Sodium Bicarbonate 50 meq/ 1,050 mls @ 100 mls/hr 04/13/19 15:00 Sodium Chloride IV DIRECT JENNIE Metoclopramide HCl 10 mg 04/13/19 06:17 Reglan IV Q6H PRN Nausea And Vomiting Multivitamins/Iron/Calcium 1 each 04/13/19 10:00 04/13/19 10:07 Vitamin PO Not Given QDAY JENNIE Ondansetron HCl 4 mg 04/13/19 06:17 04/13/19 15:51 Zofran IV 4 mg Q4H PRN Administration Nausea And Vomiting Simethicone 80 mg 04/12/19 16:40 Mylicon PO Q6H PRN Gas pain Zolpidem Tartrate 2.5 mg 04/12/19 10:00 Ambien PO QHS PRN Sleep
[2019-04-13 16:58] LABS: BUN/Creatinine Ratio 12; Blood Urea Nitrogen 16 mg/dL (7-17); Calcium 10.6 mg/dL (8.4-10.2); Hemolysis Index 3
[2019-04-13] MEDS: NACL 0.9% 1000 ML 1,000 ML with SODIUM BICARBONATE 50 MEQ IV SCH (17:02)
[2019-04-13] MEDS: KCL 10MEQ/100ML 10 MEQ/100 ML BAG IV SCH ×4 (18:35→22:29)
[2019-04-13 18:42] LABS: BUN/Creatinine Ratio 12; Blood Urea Nitrogen 14 mg/dL (7-17); Calcium 10.2 mg/dL (8.4-10.2); Hemolysis Index 8
[2019-04-13] MEDS: REGLAN IV PRN ×2 (18:42→23:46)
[2019-04-13] MEDS: D50W (25GM) Syringe IV PRN (19:20)
[2019-04-13 19:45] LABS: Hematocrit 35.9 % (30.3-42.9); Hemoglobin 12.2 gm/dl (10.1-14.3); Mean Corpuscular HGB Conc 34 % (30-34); Mean Corpuscular Volume 83 fl (79-97); Platelet Count 304 K/mm3 (140-440); Red Blood Count 4.32 M/mm3 (3.65-5.03); Red Cell Distribution Width 12.2 % (13.2-15.2)
[2019-04-13 20:08] LABS: Alanine Aminotransferase 7 units/L (7-56); Albumin 3.5 g/dL (3.9-5); BUN/Creatinine Ratio 12; Blood Urea Nitrogen 14 mg/dL (7-17); Calcium 10.3 mg/dL (8.4-10.2); Hemolysis Index 22
[2019-04-13] MEDS ORDERED: KPHOS 30 MMOL in NACL 0.9% 500 ML 500 ML IV ONE (20:29)
[2019-04-13 21:22] LABS: Band Neutrophils # (Manual) 0.4 K/mm3; Basophils % (Manual) 0 % (0.0-1.8); Eosinophils % (Manual) 0 % (0.0-4.3); RBC Morphology Normal; Total Cells Counted 100
[2019-04-13 23:25] LABS: BUN/Creatinine Ratio 12; Blood Urea Nitrogen 13 mg/dL (7-17); Calcium 9.8 mg/dL (8.4-10.2); Hemolysis Index 6
[2019-04-14] MEDS: NACL 0.9% 1000 ML 1,000 ML with SODIUM BICARBONATE 50 MEQ IV SCH ×2 (03:45→15:20)
[2019-04-14] MEDS: CLEOCIN 600 MG/50 mL 600 MG/50 ML BAG IV SCH ×3 (04:01→19:45)
[2019-04-14 06:36] LABS: BUN/Creatinine Ratio 12; Blood Urea Nitrogen 12 mg/dL (7-17); Calcium 9.4 mg/dL (8.4-10.2); Hemolysis Index 2
[2019-04-14] MEDS: HumaLOG SUB-Q SCH ×2 (08:22→21:04)
[2019-04-14] MEDS: PRENATAL VITAMIN PO SCH (10:36)
--- NOTE | 2019-04-14 11:12 | Progress Note ---
Assessment and Plan Assessment and plan: --Diabetic ketoacidosis; On DKA protocol, insulin drip Acidosis and anion gap significantly improved Start ADA diet, be seen sibling, low-dose long-acting insulin IV fluids, sodium bicarbonate, monitor electrolytes Advance to ADA diet --Severe metabolic acidosis; IV fluids Dictated the underlying cause, sodium bicarbonate --Severe dehydration; IV fluids, clear liquid diet Supportive care --Hyponatremia/pseudohyponatremia Secondary to hyperglycemia, treated the underlying cause Monitor electrolytes --Hypokalemia; replace per protocol and monitor levels --Acute kidney injury; getting more vasomotor nephropathy IV fluids, monitor renal function, avoid nephrotoxins --Leukocytosis; probably secondary to dehydration Patient is already on empiric antibiotics clindamycin per ORTHODONTIST VICE PRESIDENT Follow cultures --33 weeks ; Management per MECHANICAL ESTIMATOR --DVT prophylaxis; SCDs/Lovenox Admit to ICU Critical care consult, discussed with the housekeeper/laundry assistant Dr. Kaur Monitor closely and adjust the management as needed Critical care time 40 minutes History Interval history: Patient seen and examined medical records reviewed Patient feels better vomited once since morning Still has intermittent nausea Admitted for DKA on insulin drip Blood sugars reasonable level Patient feels better, wants to go home Vital signs noted Hospitalist Physical - Constitutional Vitals: Temp Pulse Resp BP Pulse Ox 98.2 F 106 H 16 130/77 98 04/14/19 08:00 04/14/19 09:00 04/14/19 09:00 04/14/19 09:00 04/14/19 09:00 General appearance: Present: severe distress, cachectic, disheveled, other (for dehydration) - EENT Eyes: Present: PERRL, EOM intact - Neck Neck: Present: supple, normal ROM - Respiratory Respiratory effort: normal Respiratory: bilateral: diminished, negative: rales, rhonchi, wheezing - Cardiovascular Rhythm: regular Heart Sounds: Present: S1 & S2 - Extremities Extremities: no ischemia, No edema - Abdominal General gastrointestinal: soft, non-tender, non-distended, normal bowel sounds - Integumentary Integumentary: Present: clear, warm - Psychiatric Psychiatric: appropriate mood/affect, cooperative - Neurologic Neurologic: CNII-XII intact, moves all extremities Results - Labs CBC & Chem 7: 04/13/19 19:30 04/14/19 05:54 Labs: Laboratory Last Values WBC 14.2 K/mm3 (4.5-11.0) H 04/13/19 19:30 RBC 4.32 M/mm3 (3.65-5.03) 04/13/19 19:30 Hgb 12.2 gm/dl (10.1-14.3) 04/13/19 19:30 Hct 35.9 % (30.3-42.9) 04/13/19 19:30 MCV 83 fl (79-97) 04/13/19 19:30 MCH 28 pg (28-32) 04/13/19 19:30 MCHC 34 % (30-34) 04/13/19 19:30 RDW 12.2 % (13.2-15.2) L 04/13/19 19:30 Plt Count 304 K/mm3 (140-440) 04/13/19 19:30 Lymph % (Auto) 10.8 % (13.4-35.0) L 04/13/19 06:37 Hooker % (Auto) 4.9 % (0.0-7.3) 04/13/19 06:37 Eos % (Auto) 0.0 % (0.0-4.3) 04/13/19 06:37 Baso % (Auto) 0.3 % (0.0-1.8) 04/13/19 06:37 Lymph # 1.6 K/mm3 (1.2-5.4) 04/13/19 06:37 Hooker # 0.7 K/mm3 (0.0-0.8) 04/13/19 06:37 Eos # 0.0 K/mm3 (0.0-0.4) 04/13/19 06:37 Baso # 0.0 K/mm3 (0.0-0.1) 04/13/19 06:37 Add Manual Diff Complete 04/13/19 19:30 Total Counted 100 04/13/19 19:30 Seg Neutrophils % 84.0 % (40.0-70.0) H 04/13/19 06:37 Seg Neuts % (Manual) 77.0 % (40.0-70.0) H 04/13/19 19:30 3.0 % 04/13/19 19:30 15.0 % (13.4-35.0) 04/13/19 19:30 Reactive Lymphs % (Man) 0 % 04/13/19 19:30 5.0 % (0.0-7.3) 04/13/19 19:30 0 % (0.0-4.3) 04/13/19 19:30 0 % (0.0-1.8) 04/13/19 19:30 0 % 04/13/19 19:30 0 % 04/13/19 19:30 0 % 04/13/19 19:30 0 % 04/13/19 19:30 Nucleated RBC % Not Reportable 04/13/19 19:30 Seg Neutrophils # 12.5 K/mm3 (1.8-7.7) H 04/13/19 06:37 Seg Neutrophils # Man 10.9 K/mm3 (1.8-7.7) H 04/13/19 19:30 Band Neutrophils # 0.4 K/mm3 04/13/19 19:30 2.1 K/mm3 (1.2-5.4) 04/13/19 19:30 Abs React Lymphs (Man) 0.0 K/mm3 04/13/19 19:30 0.7 K/mm3 (0.0-0.8) 04/13/19 19:30 0.0 K/mm3 (0.0-0.4) 04/13/19 19:30 0.0 K/mm3 (0.0-0.1) 04/13/19 19:30 0.0 K/mm3 04/13/19 19:30 0.0 K/mm3 04/13/19 19:30 0.0 K/mm3 04/13/19 19:30 Blast Cells # 0.0 K/mm3 04/13/19 19:30 WBC Morphology Not Reportable 04/13/19 19:30 Hypersegmented Neuts Not Reportable 04/13/19 19:30 Hyposegmented Neuts Not Reportable 04/13/19 19:30 Hypogranular Neuts Not Reportable 04/13/19 19:30 Not Reportable 04/13/19 19:30 Not Reportable 04/13/19 19:30 Not Reportable 04/13/19 19:30 Not Reportable 04/13/19 19:30 Not Reportable 04/13/19 19:30 Not Reportable 04/13/19 19:30 Appears normal 04/13/19 19:30 Not Reportable 04/13/19 19:30 Plt Clumps, EDTA Not Reportable 04/13/19 19:30 Not Reportable 04/13/19 19:30 Not Reportable 04/13/19 19:30 Not Reportable 04/13/19 19:30 Plt Morphology Comment Not Reportable 04/13/19 19:30 RBC Morphology Normal 04/13/19 19:30 Dimorphic RBCs Not Reportable 04/13/19 19:30 Not Reportable 04/13/19 19:30 Not Reportable 04/13/19 19:30 Not Reportable 04/13/19 19:30 Not Reportable 04/13/19 19:30 Not Reportable 04/13/19 19:30 Not Reportable 04/13/19 19:30 Not Reportable 04/13/19 19:30 Not Reportable 04/13/19 19:30 Not Reportable 04/13/19 19:30 Not Reportable 04/13/19 19:30 Not Reportable 04/13/19 19:30 Not Reportable 04/13/19 19:30 Not Reportable 04/13/19 19:30 Not Reportable 04/13/19 19:30 Not Reportable 04/13/19 19:30 Not Reportable 04/13/19 19:30 Not Reportable 04/13/19 19:30 Not Reportable 04/13/19 19:30 Not Reportable 04/13/19 19:30 Acanthocytes (Spur) Not Reportable 04/13/19 19:30 Rouleaux Not Reportable 04/13/19 19:30 Not Reportable 04/13/19 19:30 Not Reportable 04/13/19 19:30 Not Reportable 04/13/19 19:30 Not Reportable 04/13/19 19:30 Hem Pathologist Commnt No 04/13/19 19:30 VBG pH 7.322 (7.320-7.420) 04/13/19 13:55 Sodium 136 mmol/L (137-145) L 04/14/19 05:54 Potassium 3.5 mmol/L (3.6-5.0) L 04/14/19 05:54 Chloride 92.4 mmol/L (98-107) L 04/14/19 05:54 Carbon Dioxide 19 mmol/L (22-30) L 04/14/19 05:54 28 mmol/L 04/14/19 05:54 BUN 12 mg/dL (7-17) 04/14/19 05:54 1.0 mg/dL (0.7-1.2) 04/14/19 05:54 Estimated GFR > 60 ml/min 04/14/19 05:54 12 % 04/14/19 05:54 Glucose 138 mg/dL (65-100) H 04/14/19 05:54 POC Glucose 148 (70-105) H 04/14/19 07:37 6.6 % (4-6) H 04/13/19 16:07 Moderate (Negative) 04/12/19 13:37 Calcium 9.4 mg/dL (8.4-10.2) 04/14/19 05:54 Phosphorus 2.80 mg/dL (2.5-4.5) D 04/14/19 04:10 Magnesium 1.90 mg/dL (1.7-2.3) 04/14/19 04:10 0.50 mg/dL (0.1-1.2) 04/13/19 19:30 AST 12 units/L (5-40) 04/13/19 19:30 ALT 7 units/L (7-56) 04/13/19 19:30 85 units/L (35-129) 04/13/19 19:30 6.6 g/dL (6.3-8.2) 04/13/19 19:30 3.5 g/dL (3.9-5) L 04/13/19 19:30 1.1 % 04/13/19 19:30 Amylase 32 units/L (27-131) 04/12/19 13:37 19 units/L (13-60) 04/12/19 13:37 Yellow (Yellow) 04/12/19 14:00 Slightly-cloudy (Clear) 04/12/19 14:00 5.0 (5.0-7.0) 04/12/19 14:00 Ur Specific Hammond 1.014 (1.003-1.030) 04/12/19 14:00 100 mg/dl mg/dL (Negative) 04/12/19 14:00 >=500 mg/dL (Negative) 04/12/19 14:00 80 mg/dL (Negative) 04/12/19 14:00 Neg (Negative) 04/12/19 14:00 Neg (Negative) 04/12/19 14:00 Neg (Negative) 04/12/19 14:00 < 2.0 mg/dL (<2.0) 04/12/19 14:00 Ur Leukocyte Esterase Neg (Negative) 04/12/19 14:00 2.0 /HPF (0.0-6.0) 04/12/19 14:00 2.0 /HPF (0.0-6.0) 04/12/19 14:00 U Epithel Cells (Auto) 11.0 /HPF (0-13.0) 04/12/19 14:00 1+ /HPF (Negative) 04/12/19 14:00 Active Medications - Current Medications Current Medications: Generic Name Dose Route Start Last Admin Trade Name Freq PRN Reason Stop Dose Admin Acetaminophen 650 mg 04/12/19 16:40 Tylenol PO Q4H PRN Pain MILD(1-3)/Fever >100.5/RICH Dextrose 0 ml 04/13/19 15:00 04/13/19 19:20 D50w (25gm) Syringe IV 10 ml PRN PRN Administration Hypoglycemia Docusate Sodium 100 mg 04/12/19 16:40 Colace PO Q12H PRN Constipation Clindamycin HCl 600 mg in 50 mls @ 100 mls/hr 04/12/19 20:00 04/14/19 04:01 Cleocin 600 Mg/50 Ml IV 100 mls/hr Q8H JENNIE Administration Protocol Insulin Human Regular 100 100 mls @ 1 mls/hr 04/13/19 16:00 04/14/19 10:30 units/ Sodium Chloride IV 1 units/hr TITR JENNIE 1 mls/hr Titration Protocol 1 UNITS/HR Sodium Bicarbonate 50 meq/ 1,050 mls @ 100 mls/hr 04/13/19 15:00 04/14/19 03:45 Sodium Chloride IV 100 mls/hr DIRECT JENNIE Administration Metoclopramide HCl 10 mg 04/13/19 06:17 04/13/19 23:46 Reglan IV 10 mg Q6H PRN Administration Nausea And Vomiting Multivitamins/Iron/Calcium 1 each 04/13/19 10:00 04/14/19 10:36 Vitamin PO 1 each QDAY JENNIE Administration Ondansetron HCl 4 mg 04/13/19 06:17 04/13/19 15:51 Zofran IV 4 mg Q4H PRN Administration Nausea And Vomiting Simethicone 80 mg 04/12/19 16:40 Mylicon PO Q6H PRN Gas pain Zolpidem Tartrate 2.5 mg 04/12/19 10:00 Ambien PO QHS PRN Sleep
[2019-04-14] MEDS ORDERED: ALUM-MAG HYDROX-SIMETH 200-200-20MG/5ML PO ONE (11:44)
--- NOTE | 2019-04-14 12:37 | Consultation ---
History of Present Illness Consult date: 04/14/19 Requesting physician: PORFIRIO SUE Medications and Allergies Allergies Allergy/AdvReac Type Severity Reaction Status Date / Time Penicillins AdvReac Severe Rash Verified 02/27/19 16:40 Home Medications Medication Instructions Recorded Confirmed Last Taken Type Famotidine [Pepcid] 10 mg PO BID #30 tablet 05/25/16 04/13/19 Unknown Rx Insulin Glargine [Lantus VIAL] 15 units SUB-Q QAMDIAB 30 Days 05/25/16 04/13/19 Unknown Rx units Insulin Regular, Human [HumuLIN R] 5 units SUB-Q ACHS 30 Days units 05/25/16 04/13/19 Unknown Rx Metoclopramide [Reglan] 10 mg PO TID PRN #20 tab 10/04/16 04/13/19 Unknown Rx Ondansetron [Zofran TAB] 4 mg PO Q8HR PRN #15 tablet 10/04/16 04/13/19 Unknown Rx guaiFENesin [Robitussin] 200 mg PO TID #90 ml 06/06/18 04/13/19 Unknown Rx prednisoLONE SOD PHOSPHAT [Orapred] 15 mg PO DAILY #30 ml 06/06/18 04/13/19 Unknown Rx Infusion Set For Insulin Pump 0.01 1000units SC PRN 04/13/19 04/13/19 04/12/19 19:00 History Protonix TAB 40 mg PO PRN PRN 04/13/19 04/13/19 Unknown History Active Meds: Active Medications Acetaminophen (Tylenol) 650 mg PO Q4H PRN PRN Reason: Pain MILD(1-3)/Fever >100.5/RICH Al Hydrox/Mg Hydrox/Simethicone (Alum-Mag Hydrox-Simeth [phone]/5ml) 30 ml PO Q4H PRN PRN Reason: Indigestion Dextrose (D50w (25gm) Syringe) 0 ml IV PRN PRN PRN Reason: Hypoglycemia Last Admin: 04/13/19 19:20 Dose: 10 ml Documented by: Docusate Sodium (Colace) 100 mg PO Q12H PRN PRN Reason: Constipation Clindamycin HCl (Cleocin 600 Mg/50 Ml) 600 mg in 50 mls @ 100 mls/hr IV Q8H JENNIE; Protocol Last Admin: 04/14/19 11:57 Dose: 100 mls/hr Documented by: Insulin Human Regular 100 (units/ Sodium Chloride) 100 mls @ 1 mls/hr IV TITR JENNIE; Protocol Last Titration: 04/14/19 11:42 Dose: 2 units/hr, 2 mls/hr Documented by: Sodium Bicarbonate 50 meq/ (Sodium Chloride) 1,050 mls @ 100 mls/hr IV DIRECT JENNIE Last Admin: 04/14/19 03:45 Dose: 100 mls/hr Documented by: Metoclopramide HCl (Reglan) 10 mg IV Q6H PRN PRN Reason: Nausea And Vomiting Last Admin: 04/13/19 23:46 Dose: 10 mg Documented by: Morphine Sulfate (Morphine) 2 mg IV Q6H PRN PRN Reason: Pain, Moderate (4-6) Multivitamins/Iron/Calcium ( Vitamin) 1 each PO [facility]DAY [facility] Last Admin: 04/14/19 10:36 Dose: 1 each Documented by: Ondansetron HCl (Zofran) 4 mg IV Q4H PRN PRN Reason: Nausea And Vomiting Last Admin: 04/13/19 15:51 Dose: 4 mg Documented by: Simethicone (Mylicon) 80 mg PO Q6H PRN PRN Reason: Gas pain Zolpidem Tartrate (Ambien) 2.5 mg PO QHS PRN PRN Reason: Sleep Physical Examination Vital signs: Vital Signs Temp Pulse Resp BP Pulse Ox 99.3 F 103 H 18 118/77 100 04/12/19 12:50 04/12/19 12:50 04/12/19 12:50 04/12/19 12:50 04/12/19 12:50 Vital Signs - 24 hr 04/13/19 04/13/19 04/13/19 12:56 12:57 15:42 Temperature 97.4 F L Pulse Rate 103 H 103 H 129 H Pulse Rate [ From Monitor] Pulse Rate [ Right Dorsalis Pedis] Respiratory 18 13 Rate Blood Pressure 133/73 Blood Pressure 133/73 [Right] O2 Sat by Pulse Oximetry 04/13/19 04/13/19 04/13/19 15:50 16:00 16:11 Temperature Pulse Rate 117 H 93 H 109 H Pulse Rate [ From Monitor] Pulse Rate [ Right Dorsalis Pedis] Respiratory 18 22 22 Rate Blood Pressure 143/101 Blood Pressure [Right] O2 Sat by Pulse 100 99 Oximetry 04/13/19 04/13/19 04/13/19 16:21 16:31 16:53 Temperature 97.8 F Pulse Rate 99 H 101 H 112 H Pulse Rate [ From Monitor] Pulse Rate [ Right Dorsalis Pedis] Respiratory 21 16 Rate Blood Pressure 130/97 130/97 130/97 Blood Pressure [Right] O2 Sat by Pulse 100 99 Oximetry 04/13/19 04/13/19 04/13/19 17:00 17:10 17:21 Temperature Pulse Rate 105 H 111 H 104 H Pulse Rate [ From Monitor] Pulse Rate [ Right Dorsalis Pedis] Respiratory 17 17 14 Rate Blood Pressure 144/107 130/97 144/107 Blood Pressure [Right] O2 Sat by Pulse 100 100 99 Oximetry 04/13/19 04/13/19 04/13/19 17:31 17:41 17:51 Temperature Pulse Rate 96 H 93 H 101 H Pulse Rate [ From Monitor] Pulse Rate [ Right Dorsalis Pedis] Respiratory 19 17 12 Rate Blood Pressure 144/107 144/107 144/107 Blood Pressure [Right] O2 Sat by Pulse 100 100 99 Oximetry 04/13/19 04/13/19 04/13/19 18:00 18:11 18:21 Temperature Pulse Rate 93 H 101 H 111 H Pulse Rate [ From Monitor] Pulse Rate [ Right Dorsalis Pedis] Respiratory 16 15 14 Rate Blood Pressure 136/96 136/96 136/96 Blood Pressure [Right] O2 Sat by Pulse 100 100 Oximetry 04/13/19 04/13/19 04/13/19 18:29 18:31 18:41 Temperature Pulse Rate 107 H 102 H Pulse Rate [ From Monitor] Pulse Rate [ Right Dorsalis Pedis] Respiratory 14 18 17 Rate Blood Pressure 136/96 136/96 Blood Pressure [Right] O2 Sat by Pulse 100 100 99 Oximetry 04/13/19 04/13/19 04/13/19 18:51 19:00 19:11 Temperature Pulse Rate 110 H 119 H 113 H Pulse Rate [ From Monitor] Pulse Rate [ Right Dorsalis Pedis] Respiratory 21 16 17 Rate Blood Pressure 136/96 129/88 129/88 Blood Pressure [Right] O2 Sat by Pulse 100 100 Oximetry 04/13/19 04/13/19 04/13/19 19:21 19:31 19:41 Temperature Pulse Rate 109 H 102 H 128 H Pulse Rate [ From Monitor] Pulse Rate [ Right Dorsalis Pedis] Respiratory 19 19 15 Rate Blood Pressure 129/88 129/88 129/88 Blood Pressure [Right] O2 Sat by Pulse 99 100 100 Oximetry 04/13/19 04/13/19 04/13/19 19:51 20:00 20:01 Temperature Pulse Rate 119 H 123 H Pulse Rate [ 101 H From Monitor] Pulse Rate [ 101 H Right Dorsalis Pedis] Respiratory 19 22 17 Rate Blood Pressure 129/88 129/88 Blood Pressure [Right] O2 Sat by Pulse 99 100 99 Oximetry 04/13/19 04/13/19 04/13/19 20:11 20:19 20:21 Temperature 98.4 F Pulse Rate 118 H 117 H Pulse Rate [ From Monitor] Pulse Rate [ Right Dorsalis Pedis] Respiratory 15 15 Rate Blood Pressure 129/88 129/88 Blood Pressure [Right] O2 Sat by Pulse 100 100 Oximetry 04/13/19 04/13/19 04/13/19 20:31 20:41 20:51 Temperature Pulse Rate 108 H 116 H 116 H Pulse Rate [ From Monitor] Pulse Rate [ Right Dorsalis Pedis] Respiratory 18 16 19 Rate Blood Pressure 129/88 129/88 129/88 Blood Pressure [Right] O2 Sat by Pulse 100 100 100 Oximetry 04/13/19 04/13/19 04/13/19 21:00 21:11 21:21 Temperature Pulse Rate 112 H 116 H 108 H Pulse Rate [ From Monitor] Pulse Rate [ Right Dorsalis Pedis] Respiratory 18 15 17 Rate Blood Pressure 130/89 130/89 130/89 Blood Pressure [Right] O2 Sat by Pulse 100 100 100 Oximetry 04/13/19 04/13/19 04/13/19 21:31 21:41 21:51 Temperature Pulse Rate 126 H 119 H 105 H Pulse Rate [ From Monitor] Pulse Rate [ Right Dorsalis Pedis] Respiratory 10 L 16 24 Rate Blood Pressure 130/89 130/89 130/89 Blood Pressure [Right] O2 Sat by Pulse 99 100 100 Oximetry 04/13/19 04/13/19 04/13/19 22:00 22:11 22:21 Temperature Pulse Rate 101 H 102 H 113 H Pulse Rate [ From Monitor] Pulse Rate [ Right Dorsalis Pedis] Respiratory 22 23 23 Rate Blood Pressure 139/86 139/86 139/86 Blood Pressure [Right] O2 Sat by Pulse 99 98 98 Oximetry 04/13/19 04/13/19 04/13/19 22:31 22:41 22:51 Temperature Pulse Rate 124 H 129 H 111 H Pulse Rate [ From Monitor] Pulse Rate [ Right Dorsalis Pedis] Respiratory 14 16 21 Rate Blood Pressure 139/86 139/86 139/86 Blood Pressure [Right] O2 Sat by Pulse 97 100 98 Oximetry 04/13/19 04/13/19 04/13/19 23:00 23:11 23:21 Temperature Pulse Rate 108 H 103 H 123 H Pulse Rate [ From Monitor] Pulse Rate [ Right Dorsalis Pedis] Respiratory 19 22 Rate Blood Pressure 132/90 132/90 132/90 Blood Pressure [Right] O2 Sat by Pulse 99 99 98 Oximetry 04/13/19 04/13/19 04/13/19 23:31 23:41 23:51 Temperature Pulse Rate 89 125 H 92 H Pulse Rate [ From Monitor] Pulse Rate [ Right Dorsalis Pedis] Respiratory 21 18 22 Rate Blood Pressure 132/90 132/90 132/90 Blood Pressure [Right] O2 Sat by Pulse 100 99 100 Oximetry 04/14/19 04/14/19 04/14/19 00:00 00:01 00:11 Temperature 98.9 F Pulse Rate 96 H 97 H Pulse Rate [ 101 H From Monitor] Pulse Rate [ 101 H Right Dorsalis Pedis] Respiratory 22 21 20 Rate Blood Pressure 132/90 132/90 Blood Pressure [Right] O2 Sat by Pulse 100 99 99 Oximetry 04/14/19 04/14/19 04/14/19 00:21 00:31 00:41 Temperature Pulse Rate 114 H 120 H 120 H Pulse Rate [ From Monitor] Pulse Rate [ Right Dorsalis Pedis] Respiratory 22 18 20 Rate Blood Pressure 132/90 139/78 139/78 Blood Pressure [Right] O2 Sat by Pulse 98 98 99 Oximetry 04/14/19 04/14/19 04/14/19 00:51 01:01 01:11 Temperature Pulse Rate 125 H 124 H 111 H Pulse Rate [ From Monitor] Pulse Rate [ Right Dorsalis Pedis] Respiratory 16 12 21 Rate Blood Pressure 139/78 139/78 136/90 Blood Pressure [Right] O2 Sat by Pulse 100 100 99 Oximetry 04/14/19 04/14/19 04/14/19 01:21 01:31 01:41 Temperature Pulse Rate 112 H 116 H 122 H Pulse Rate [ From Monitor] Pulse Rate [ Right Dorsalis Pedis] Respiratory 19 20 20 Rate Blood Pressure 136/90 136/90 136/90 Blood Pressure [Right] O2 Sat by Pulse 99 99 99 Oximetry 04/14/19 04/14/19 04/14/19 01:51 02:00 02:11 Temperature Pulse Rate 123 H 118 H 97 H Pulse Rate [ From Monitor] Pulse Rate [ Right Dorsalis Pedis] Respiratory 22 18 18 Rate Blood Pressure 136/90 110/66 110/66 Blood Pressure [Right] O2 Sat by Pulse 98 99 99 Oximetry 04/14/19 04/14/19 04/14/19 02:21 02:31 02:41 Temperature Pulse Rate 101 H 92 H 93 H Pulse Rate [ From Monitor] Pulse Rate [ Right Dorsalis Pedis] Respiratory 14 19 16 Rate Blood Pressure 110/66 110/66 110/66 Blood Pressure [Right] O2 Sat by Pulse 99 99 99 Oximetry 04/14/19 04/14/19 04/14/19 02:51 03:01 03:11 Temperature Pulse Rate 116 H 97 H 96 H Pulse Rate [ From Monitor] Pulse Rate [ Right Dorsalis Pedis] Respiratory 17 16 19 Rate Blood Pressure 110/66 110/66 110/66 Blood Pressure [Right] O2 Sat by Pulse 100 100 99 Oximetry 04/14/19 04/14/19 04/14/19 03:21 03:31 03:41 Temperature Pulse Rate 99 H 107 H 109 H Pulse Rate [ From Monitor] Pulse Rate [ Right Dorsalis Pedis] Respiratory 20 21 21 Rate Blood Pressure 110/66 110/66 110/66 Blood Pressure [Right] O2 Sat by Pulse 99 98 98 Oximetry 04/14/19 04/14/19 04/14/19 03:51 04:00 04:01 Temperature 98.4 F Pulse Rate 105 H 123 H Pulse Rate [ 101 H From Monitor] Pulse Rate [ 101 H Right Dorsalis Pedis] Respiratory 20 22 14 Rate Blood Pressure 137/95 137/95 Blood Pressure [Right] O2 Sat by Pulse 99 100 99 Oximetry 04/14/19 04/14/19 04/14/19 04:11 04:21 04:31 Temperature Pulse Rate 107 H 106 H 108 H Pulse Rate [ From Monitor] Pulse Rate [ Right Dorsalis Pedis] Respiratory 12 21 19 Rate Blood Pressure 137/95 137/93 137/93 Blood Pressure [Right] O2 Sat by Pulse 99 99 99 Oximetry 04/14/19 04/14/19 04/14/19 04:41 04:51 05:00 Temperature Pulse Rate 111 H 115 H 109 H Pulse Rate [ From Monitor] Pulse Rate [ Right Dorsalis Pedis] Respiratory 25 H 21 19 Rate Blood Pressure 137/93 137/93 128/85 Blood Pressure [Right] O2 Sat by Pulse 98 98 98 Oximetry 04/14/19 04/14/19 04/14/19 05:11 05:20 05:30 Temperature Pulse Rate 107 H 131 H Pulse Rate [ From Monitor] Pulse Rate [ Right Dorsalis Pedis] Respiratory 19 19 Rate Blood Pressure 128/85 128/85 128/85 Blood Pressure [Right] O2 Sat by Pulse 99 85 100 Oximetry 04/14/19 04/14/19 04/14/19 05:54 06:00 06:15 Temperature Pulse Rate Pulse Rate [ From Monitor] Pulse Rate [ Right Dorsalis Pedis] Respiratory Rate Blood Pressure 128/85 128/85 128/85 Blood Pressure [Right] O2 Sat by Pulse 85 100 Oximetry 04/14/19 04/14/19 04/14/19 06:21 06:31 06:41 Temperature Pulse Rate 99 H 101 H 105 H Pulse Rate [ From Monitor] Pulse Rate [ Right Dorsalis Pedis] Respiratory 19 19 21 Rate Blood Pressure 137/95 137/95 128/85 Blood Pressure [Right] O2 Sat by Pulse 100 99 99 Oximetry 04/14/19 04/14/19 04/14/19 06:51 07:00 07:11 Temperature Pulse Rate 114 H 110 H 97 H Pulse Rate [ From Monitor] Pulse Rate [ Right Dorsalis Pedis] Respiratory 19 19 20 Rate Blood Pressure 128/85 148/99 148/99 Blood Pressure [Right] O2 Sat by Pulse 99 77 L 53 L Oximetry 04/14/19 04/14/19 04/14/19 07:21 07:31 07:41 Temperature Pulse Rate 109 H 98 H 88 Pulse Rate [ From Monitor] Pulse Rate [ Right Dorsalis Pedis] Respiratory 16 15 15 Rate Blood Pressure 148/99 148/99 148/99 Blood Pressure [Right] O2 Sat by Pulse 99 100 100 Oximetry 04/14/19 04/14/19 04/14/19 07:51 08:00 08:11 Temperature 98.2 F Pulse Rate 76 78 96 H Pulse Rate [ 96 H From Monitor] Pulse Rate [ Right Dorsalis Pedis] Respiratory 20 19 18 Rate Blood Pressure 148/99 122/74 122/74 Blood Pressure [Right] O2 Sat by Pulse 98 99 94 Oximetry 04/14/19 04/14/19 04/14/19 08:21 08:31 08:41 Temperature Pulse Rate 101 H 110 H 109 H Pulse Rate [ From Monitor] Pulse Rate [ Right Dorsalis Pedis] Respiratory 20 20 19 Rate Blood Pressure 122/74 122/74 122/74 Blood Pressure [Right] O2 Sat by Pulse 98 99 99 Oximetry 04/14/19 04/14/19 08:51 09:00 Temperature Pulse Rate 114 H 106 H Pulse Rate [ From Monitor] Pulse Rate [ Right Dorsalis Pedis] Respiratory 21 16 Rate Blood Pressure 122/74 130/77 Blood Pressure [Right] O2 Sat by Pulse 98 98 Oximetry Results - Laboratory Findings CBC and BMP: 04/13/19 19:30 04/14/19 05:54 Abnormal lab findings: Abnormal Labs 04/12/19 04/12/19 04/12/19 12:06 13:37 13:37 WBC 14.3 H RDW 12.5 L Lymph % (Auto) Seg Neutrophils % Seg Neuts % (Manual) 84.0 H Lymphocytes % (Manual) 12.0 L Seg Neutrophils # Seg Neutrophils # Man 12.0 H Sodium 132 L Potassium 3.4 L Chloride 85.6 L Carbon Dioxide 13 L BUN 18 H Creatinine 1.6 H Glucose 286 H POC Glucose 270 H Hemoglobin A1c Calcium Phosphorus Albumin 3.3 L 04/12/19 04/13/19 04/13/19 18:34 00:49 05:30 WBC RDW Lymph % (Auto) Seg Neutrophils % Seg Neuts % (Manual) Lymphocytes % (Manual) Seg Neutrophils # Seg Neutrophils # Man Sodium Potassium Chloride Carbon Dioxide BUN Creatinine Glucose POC Glucose 201 H 227 H 258 H Hemoglobin A1c Calcium Phosphorus Albumin 04/13/19 04/13/19 04/13/19 06:37 06:37 10:24 WBC 14.9 H RDW 12.6 L Lymph % (Auto) 10.8 L Seg Neutrophils % 84.0 H Seg Neuts % (Manual) Lymphocytes % (Manual) Seg Neutrophils # 12.5 H Seg Neutrophils # Man Sodium 135 L Potassium 3.3 L Chloride 90.4 L Carbon Dioxide 9 L* BUN Creatinine 1.3 H Glucose 309 H POC Glucose 302 H Hemoglobin A1c Calcium Phosphorus Albumin 3.6 L 04/13/19 04/13/19 04/13/19 12:13 14:46 15:49 WBC RDW Lymph % (Auto) Seg Neutrophils % Seg Neuts % (Manual) Lymphocytes % (Manual) Seg Neutrophils # Seg Neutrophils # Man Sodium Potassium Chloride Carbon Dioxide BUN Creatinine Glucose POC Glucose 261 H 190 H 174 H Hemoglobin A1c Calcium Phosphorus Albumin 04/13/19 04/13/19 04/13/19 16:07 16:07 17:12 WBC RDW Lymph % (Auto) Seg Neutrophils % Seg Neuts % (Manual) Lymphocytes % (Manual) Seg Neutrophils # Seg Neutrophils # Man Sodium 136 L Potassium 3.5 L Chloride 90.7 L Carbon Dioxide 15 L BUN Creatinine 1.3 H Glucose 159 H POC Glucose 123 H Hemoglobin A1c 6.6 H Calcium 10.6 H Phosphorus Albumin 04/13/19 04/13/19 04/13/19 18:06 19:30 19:30 WBC 14.2 H RDW 12.2 L Lymph % (Auto) Seg Neutrophils % Seg Neuts % (Manual) 77.0 H Lymphocytes % (Manual) Seg Neutrophils # Seg Neutrophils # Man 10.9 H Sodium Potassium 2.9 L* 3.2 L Chloride 90.7 L 90.2 L Carbon Dioxide 16 L 18 L BUN Creatinine Glucose 109 H POC Glucose Hemoglobin A1c Calcium 10.3 H Phosphorus 2.30 L Albumin 3.5 L 04/13/19 04/13/19 04/13/19 22:00 22:44 23:01 WBC RDW Lymph % (Auto) Seg Neutrophils % Seg Neuts % (Manual) Lymphocytes % (Manual) Seg Neutrophils # Seg Neutrophils # Man Sodium 136 L Potassium Chloride 90.6 L Carbon Dioxide 14 L BUN Creatinine Glucose 179 H POC Glucose 136 H 183 H Hemoglobin A1c Calcium Phosphorus Albumin 04/13/19 04/14/19 04/14/19 23:54 01:09 02:20 WBC RDW Lymph % (Auto) Seg Neutrophils % Seg Neuts % (Manual) Lymphocytes % (Manual) Seg Neutrophils # Seg Neutrophils # Man Sodium Potassium Chloride Carbon Dioxide BUN Creatinine Glucose POC Glucose 206 H 160 H 108 H Hemoglobin A1c Calcium Phosphorus Albumin 04/14/19 04/14/19 04/14/19 04:58 05:54 06:12 WBC RDW Lymph % (Auto) Seg Neutrophils % Seg Neuts % (Manual) Lymphocytes % (Manual) Seg Neutrophils # Seg Neutrophils # Man Sodium 136 L Potassium 3.5 L Chloride 92.4 L Carbon Dioxide 19 L BUN Creatinine Glucose 138 H POC Glucose 130 H 131 H Hemoglobin A1c Calcium Phosphorus Albumin 04/14/19 04/14/19 04/14/19 07:37 08:14 11:49 WBC RDW Lymph % (Auto) Seg Neutrophils % Seg Neuts % (Manual) Lymphocytes % (Manual) Seg Neutrophils # Seg Neutrophils # Man Sodium Potassium Chloride Carbon Dioxide BUN Creatinine Glucose POC Glucose 148 H 121 H 160 H Hemoglobin A1c Calcium Phosphorus Albumin
[2019-04-14 14:54] LABS: BUN/Creatinine Ratio 9; Blood Urea Nitrogen 8 mg/dL (7-17); Calcium 8.7 mg/dL (8.4-10.2); Hemolysis Index 3
[2019-04-14] MEDS ORDERED: K-DUR PO ONE (15:05)
[2019-04-14] MEDS: KCL 10MEQ/100ML 10 MEQ/100 ML BAG IV SCH ×4 (15:31→19:37)
--- NOTE | 2019-04-14 17:13 | Progress Note ---
Subjective - Subjective Date of service: 04/14/19 Principal diagnosis: Patient reports: other (Patient seen and examined. Havnig irregular ctx, no lof, no vagnal bleedng.Ctx mild to palpation probale second to metabolic disturbace and dehydration. Not in Labor. status reassuring overall. Plan for continued expectanat managment, IV pain meds PRN. Maternal/ well being reassuring. Appreciate CCU managment of medical issues. ) Objective - Vital Signs Vital Signs: Vital Signs - 12hr 04/14/19 04/14/19 04/14/19 05:11 05:20 05:30 Temperature Pulse Rate 107 H 131 H Pulse Rate [ From Monitor] Respiratory 19 19 Rate Blood Pressure 128/85 128/85 128/85 O2 Sat by Pulse 99 85 100 Oximetry 04/14/19 04/14/19 04/14/19 05:54 06:00 06:15 Temperature Pulse Rate Pulse Rate [ From Monitor] Respiratory Rate Blood Pressure 128/85 128/85 128/85 O2 Sat by Pulse 85 100 Oximetry 04/14/19 04/14/19 04/14/19 06:21 06:31 06:41 Temperature Pulse Rate 99 H 101 H 105 H Pulse Rate [ From Monitor] Respiratory 19 19 21 Rate Blood Pressure 137/95 137/95 128/85 O2 Sat by Pulse 100 99 99 Oximetry 04/14/19 04/14/19 04/14/19 06:51 07:00 07:11 Temperature Pulse Rate 114 H 110 H 97 H Pulse Rate [ From Monitor] Respiratory 19 19 20 Rate Blood Pressure 128/85 148/99 148/99 O2 Sat by Pulse 99 77 L 53 L Oximetry 04/14/19 04/14/19 04/14/19 07:21 07:31 07:41 Temperature Pulse Rate 109 H 98 H 88 Pulse Rate [ From Monitor] Respiratory 16 15 15 Rate Blood Pressure 148/99 148/99 148/99 O2 Sat by Pulse 99 100 100 Oximetry 04/14/19 04/14/19 04/14/19 07:51 08:00 08:11 Temperature 98.2 F Pulse Rate 76 78 96 H Pulse Rate [ 96 H From Monitor] Respiratory 20 19 18 Rate Blood Pressure 148/99 122/74 122/74 O2 Sat by Pulse 98 99 94 Oximetry 04/14/19 04/14/19 04/14/19 08:21 08:31 08:41 Temperature Pulse Rate 101 H 110 H 109 H Pulse Rate [ From Monitor] Respiratory 20 20 19 Rate Blood Pressure 122/74 122/74 122/74 O2 Sat by Pulse 98 99 99 Oximetry 04/14/19 04/14/19 04/14/19 08:51 09:00 09:11 Temperature Pulse Rate 114 H 106 H 99 H Pulse Rate [ From Monitor] Respiratory 21 16 15 Rate Blood Pressure 122/74 130/77 130/77 O2 Sat by Pulse 98 98 99 Oximetry 04/14/19 04/14/19 04/14/19 09:21 09:31 09:41 Temperature Pulse Rate 94 H 105 H 117 H Pulse Rate [ From Monitor] Respiratory 21 16 10 L Rate Blood Pressure 130/77 130/77 130/77 O2 Sat by Pulse 100 100 100 Oximetry 04/14/19 04/14/19 04/14/19 09:51 10:01 10:11 Temperature Pulse Rate 93 H 98 H 111 H Pulse Rate [ From Monitor] Respiratory 20 18 19 Rate Blood Pressure 130/77 130/77 130/77 O2 Sat by Pulse 99 99 99 Oximetry 04/14/19 04/14/19 04/14/19 10:21 10:31 10:51 Temperature Pulse Rate 113 H 113 H 106 H Pulse Rate [ From Monitor] Respiratory 21 14 Rate Blood Pressure 130/77 130/77 111/77 O2 Sat by Pulse 99 99 Oximetry 04/14/19 04/14/19 04/14/19 11:00 11:11 11:21 Temperature Pulse Rate 100 H 103 H 105 H Pulse Rate [ From Monitor] Respiratory 19 19 15 Rate Blood Pressure 129/89 129/89 129/89 O2 Sat by Pulse 100 Oximetry 04/14/19 04/14/19 04/14/19 11:31 11:41 11:52 Temperature Pulse Rate 110 H 104 H Pulse Rate [ From Monitor] Respiratory 12 14 Rate Blood Pressure 111/77 111/77 111/77 O2 Sat by Pulse 98 Oximetry 04/14/19 04/14/19 04/14/19 12:00 12:11 12:21 Temperature 98 F Pulse Rate 94 H 92 H 94 H Pulse Rate [ 94 H From Monitor] Respiratory 16 13 15 Rate Blood Pressure 121/79 121/79 121/79 O2 Sat by Pulse 100 99 100 Oximetry 04/14/19 04/14/1919 12:31 12:41 12:51 Temperature Pulse Rate 75 95 H 98 H Pulse Rate [ From Monitor] Respiratory 19 16 18 Rate Blood Pressure 121/79 121/79 121/79 O2 Sat by Pulse 100 100 100 Oximetry 04/14/19 04/14/19 04/14/19 13:00 13:11 13:21 Temperature Pulse Rate 105 H 101 H 118 H Pulse Rate [ From Monitor] Respiratory 19 18 13 Rate Blood Pressure 141/80 141/80 141/80 O2 Sat by Pulse 99 100 100 Oximetry 04/14/19 04/14/19 04/14/19 13:31 13:41 13:51 Temperature Pulse Rate 111 H 108 H 103 H Pulse Rate [ From Monitor] Respiratory 22 18 21 Rate Blood Pressure 141/80 141/80 141/80 O2 Sat by Pulse 99 99 99 Oximetry 04/14/19 04/14/19 04/14/19 14:00 14:11 14:21 Temperature Pulse Rate 111 H 115 H 121 H Pulse Rate [ From Monitor] Respiratory 21 Rate Blood Pressure 135/86 135/86 135/86 O2 Sat by Pulse 97 98 98 Oximetry 04/14/19 04/14/19 04/14/19 14:31 14:45 14:51 Temperature Pulse Rate 114 H 110 H 100 H Pulse Rate [ From Monitor] Respiratory 18 14 20 Rate Blood Pressure 135/86 135/86 135/86 O2 Sat by Pulse 99 Oximetry 04/14/19 04/14/19 04/14/19 15:01 15:11 15:21 Temperature Pulse Rate 104 H 109 H 111 H Pulse Rate [ From Monitor] Respiratory 17 13 15 Rate Blood Pressure 135/86 135/86 131/82 O2 Sat by Pulse Oximetry 04/14/19 04/14/19 04/14/19 15:31 15:41 15:51 Temperature Pulse Rate 107 H 100 H 93 H Pulse Rate [ From Monitor] Respiratory 14 15 16 Rate Blood Pressure 131/82 131/82 131/82 O2 Sat by Pulse 99 99 Oximetry 04/14/19 04/14/19 04/14/19 16:00 16:11 16:21 Temperature Pulse Rate 93 H 115 H 95 H Pulse Rate [ From Monitor] Respiratory 20 18 20 Rate Blood Pressure 138/96 138/96 138/96 O2 Sat by Pulse 99 98 98 Oximetry 04/14/19 16:31 Temperature Pulse Rate 93 H Pulse Rate [ From Monitor] Respiratory 22 Rate Blood Pressure 138/96 O2 Sat by Pulse 97 Oximetry - Labs Labs: Abnormal Labs 04/12/19 04/12/19 04/12/19 12:06 13:37 13:37 WBC 14.3 H RDW 12.5 L Lymph % (Auto) Seg Neutrophils % Seg Neuts % (Manual) 84.0 H Lymphocytes % (Manual) 12.0 L Seg Neutrophils # Seg Neutrophils # Man 12.0 H Sodium 132 L Potassium 3.4 L Chloride 85.6 L Carbon Dioxide 13 L BUN 18 H Creatinine 1.6 H Glucose 286 H POC Glucose 270 H Hemoglobin A1c Calcium Phosphorus Albumin 3.3 L 04/12/19 04/13/19 04/13/19 18:34 00:49 05:30 WBC RDW Lymph % (Auto) Seg Neutrophils % Seg Neuts % (Manual) Lymphocytes % (Manual) Seg Neutrophils # Seg Neutrophils # Man Sodium Potassium Chloride Carbon Dioxide BUN Creatinine Glucose POC Glucose 201 H 227 H 258 H Hemoglobin A1c Calcium Phosphorus Albumin 04/13/19 04/13/19 04/13/19 06:37 06:37 10:24 WBC 14.9 H RDW 12.6 L Lymph % (Auto) 10.8 L Seg Neutrophils % 84.0 H Seg Neuts % (Manual) Lymphocytes % (Manual) Seg Neutrophils # 12.5 H Seg Neutrophils # Man Sodium 135 L Potassium 3.3 L Chloride 90.4 L Carbon Dioxide 9 L* BUN Creatinine 1.3 H Glucose 309 H POC Glucose 302 H Hemoglobin A1c Calcium Phosphorus Albumin 3.6 L 04/13/19 04/13/19 04/13/19 12:13 14:46 15:49 WBC RDW Lymph % (Auto) Seg Neutrophils % Seg Neuts % (Manual) Lymphocytes % (Manual) Seg Neutrophils # Seg Neutrophils # Man Sodium Potassium Chloride Carbon Dioxide BUN Creatinine Glucose POC Glucose 261 H 190 H 174 H Hemoglobin A1c Calcium Phosphorus Albumin 04/13/19 04/13/19 04/13/19 16:07 16:07 17:12 WBC RDW Lymph % (Auto) Seg Neutrophils % Seg Neuts % (Manual) Lymphocytes % (Manual) Seg Neutrophils # Seg Neutrophils # Man Sodium 136 L Potassium 3.5 L Chloride 90.7 L Carbon Dioxide 15 L BUN Creatinine 1.3 H Glucose 159 H POC Glucose 123 H Hemoglobin A1c 6.6 H Calcium 10.6 H Phosphorus Albumin 04/13/19 04/13/19 04/13/19 18:06 19:30 19:30 WBC 14.2 H RDW 12.2 L Lymph % (Auto) Seg Neutrophils % Seg Neuts % (Manual) 77.0 H Lymphocytes % (Manual) Seg Neutrophils # Seg Neutrophils # Man 10.9 H Sodium Potassium 2.9 L* 3.2 L Chloride 90.7 L 90.2 L Carbon Dioxide 16 L 18 L BUN Creatinine Glucose 109 H POC Glucose Hemoglobin A1c Calcium 10.3 H Phosphorus 2.30 L Albumin 3.5 L 04/13/19 04/13/19 04/13/19 22:00 22:44 23:01 WBC RDW Lymph % (Auto) Seg Neutrophils % Seg Neuts % (Manual) Lymphocytes % (Manual) Seg Neutrophils # Seg Neutrophils # Man Sodium 136 L Potassium Chloride 90.6 L Carbon Dioxide 14 L BUN Creatinine Glucose 179 H POC Glucose 136 H 183 H Hemoglobin A1c Calcium Phosphorus Albumin 04/13/19 04/14/19 04/14/19 23:54 01:09 02:20 WBC RDW Lymph % (Auto) Seg Neutrophils % Seg Neuts % (Manual) Lymphocytes % (Manual) Seg Neutrophils # Seg Neutrophils # Man Sodium Potassium Chloride Carbon Dioxide BUN Creatinine Glucose POC Glucose 206 H 160 H 108 H Hemoglobin A1c Calcium Phosphorus Albumin 04/14/19 04/14/19 04/14/19 04:58 05:54 06:12 WBC RDW Lymph % (Auto) Seg Neutrophils % Seg Neuts % (Manual) Lymphocytes % (Manual) Seg Neutrophils # Seg Neutrophils # Man Sodium 136 L Potassium 3.5 L Chloride 92.4 L Carbon Dioxide 19 L BUN Creatinine Glucose 138 H POC Glucose 130 H 131 H Hemoglobin A1c Calcium Phosphorus Albumin 04/14/19 04/14/19 04/14/19 07:37 08:14 11:49 WBC RDW Lymph % (Auto) Seg Neutrophils % Seg Neuts % (Manual) Lymphocytes % (Manual) Seg Neutrophils # Seg Neutrophils # Man Sodium Potassium Chloride Carbon Dioxide BUN Creatinine Glucose POC Glucose 148 H 121 H 160 H Hemoglobin A1c Calcium Phosphorus Albumin 04/14/19 04/14/19 04/14/19 13:35 14:26 14:45 WBC RDW Lymph % (Auto) Seg Neutrophils % Seg Neuts % (Manual) Lymphocytes % (Manual) Seg Neutrophils # Seg Neutrophils # Man Sodium 130 L Potassium 2.7 L* D Chloride 89.9 L Carbon Dioxide BUN Creatinine Glucose 238 H POC Glucose 241 H 245 H Hemoglobin A1c Calcium Phosphorus Albumin Laboratory Results - last 24 hr 04/13/19 04/13/19 04/13/19 17:12 18:06 18:17 WBC RBC Hgb Hct MCV MCH MCHC RDW Plt Count Add Manual Diff Total Counted Seg Neuts % (Manual) Band Neutrophils % Lymphocytes % (Manual) Reactive Lymphs % (Man) Monocytes % (Manual) Eosinophils % (Manual) Basophils % (Manual) Metamyelocytes % Myelocytes % Promyelocytes % Blast Cells % Nucleated RBC % Seg Neutrophils # Man Band Neutrophils # Lymphocytes # (Manual) Abs React Lymphs (Man) Monocytes # (Manual) Eosinophils # (Manual) Basophils # (Manual) Metamyelocytes # Myelocytes # Promyelocytes # Blast Cells # WBC Morphology Hypersegmented Neuts Hyposegmented Neuts Hypogranular Neuts Smudge Cells Toxic Granulation Toxic Vacuolation Dohle Bodies Pelger-Huet Anomaly Rebecca Rods Platelet Estimate Clumped Platelets Plt Clumps, EDTA Large Platelets Giant Platelets Platelet Satelliting Plt Morphology Comment RBC Morphology Dimorphic RBCs Polychromasia Hypochromasia Poikilocytosis Anisocytosis Microcytosis Macrocytosis Spherocytes Pappenheimer Bodies Sickle Cells Target Cells Tear Drop Cells Ovalocytes Helmet Cells [place] Bodies [place] Rings Coats Cells Bite Cells Crenated Cell Elliptocytes Acanthocytes (Spur) Rouleaux Hemoglobin C Crystals Schistocytes Malaria parasites Marco [place] Bodies Hem Pathologist Commnt Sodium 137 Potassium 2.9 L* Chloride 90.7 L Carbon Dioxide 16 L Anion Gap 33 BUN 14 Creatinine 1.2 Estimated GFR > 60 BUN/Creatinine Ratio 12 Glucose 94 POC Glucose 123 H 97 Calcium 10.2 Phosphorus Magnesium Total Bilirubin AST ALT Alkaline Phosphatase Total Protein Albumin Albumin/Globulin Ratio 04/13/19 04/13/19 04/13/19 19:22 19:30 19:30 WBC 14.2 H RBC 4.32 Hgb 12.2 Hct 35.9 MCV 83 MCH 28 MCHC 34 RDW 12.2 L Plt Count 304 Add Manual Diff Complete Total Counted 100 Seg Neuts % (Manual) 77.0 H Band Neutrophils % 3.0 Lymphocytes % (Manual) 15.0 Reactive Lymphs % (Man) 0 Monocytes % (Manual) 5.0 Eosinophils % (Manual) 0 Basophils % (Manual) 0 Metamyelocytes % 0 Myelocytes % 0 Promyelocytes % 0 Blast Cells % 0 Nucleated RBC % Not Reportable Seg Neutrophils # Man 10.9 H Band Neutrophils # 0.4 Lymphocytes # (Manual) 2.1 Abs React Lymphs (Man) 0.0 Monocytes # (Manual) 0.7 Eosinophils # (Manual) 0.0 Basophils # (Manual) 0.0 Metamyelocytes # 0.0 Myelocytes # 0.0 Promyelocytes # 0.0 Blast Cells # 0.0 WBC Morphology Not Reportable Hypersegmented Neuts Not Reportable Hyposegmented Neuts Not Reportable Hypogranular Neuts Not Reportable Smudge Cells Not Reportable Toxic Granulation Not Reportable Toxic Vacuolation Not Reportable Dohle Bodies Not Reportable Pelger-Huet Anomaly Not Reportable Rebecca Rods Not Reportable Platelet Estimate Appears normal Clumped Platelets Not Reportable Plt Clumps, EDTA Not Reportable Large Platelets Not Reportable Giant Platelets Not Reportable Platelet Satelliting Not Reportable Plt Morphology Comment Not Reportable RBC Morphology Normal Dimorphic RBCs Not Reportable Polychromasia Not Reportable Hypochromasia Not Reportable Poikilocytosis Not Reportable Anisocytosis Not Reportable Microcytosis Not Reportable Macrocytosis Not Reportable Spherocytes Not Reportable Pappenheimer Bodies Not Reportable Sickle Cells Not Reportable Target Cells Not Reportable Tear Drop Cells Not Reportable Ovalocytes Not Reportable Helmet Cells Not Reportable [place] Bodies Not Reportable [place] Rings Not Reportable Coats Cells Not Reportable Bite Cells Not Reportable Crenated Cell Not Reportable Elliptocytes Not Reportable Acanthocytes (Spur) Not Reportable Rouleaux Not Reportable Hemoglobin C Crystals Not Reportable Schistocytes Not Reportable Malaria parasites Not Reportable [place] Bodies Not Reportable Hem Pathologist Commnt No Sodium 137 Potassium 3.2 L Chloride 90.2 L Carbon Dioxide 18 L Anion Gap 32 BUN 14 Creatinine 1.2 Estimated GFR > 60 BUN/Creatinine Ratio 12 Glucose 109 H POC Glucose 77 Calcium 10.3 H Phosphorus 2.30 L Magnesium 1.90 Total Bilirubin 0.50 AST 12 ALT 7 Alkaline Phosphatase 85 Total Protein 6.6 Albumin 3.5 L Albumin/Globulin Ratio 1.1 04/13/19 04/13/19 04/13/19 20:17 21:14 22:00 WBC RBC Hgb Hct MCV MCH MCHC RDW Plt Count Add Manual Diff Total Counted Seg Neuts % (Manual) Band Neutrophils % Lymphocytes % (Manual) Reactive Lymphs % (Man) Monocytes % (Manual) Eosinophils % (Manual) Basophils % (Manual) Metamyelocytes % Myelocytes % Promyelocytes % Blast Cells % Nucleated RBC % Seg Neutrophils # Man Band Neutrophils # Lymphocytes # (Manual) Abs React Lymphs (Man) Monocytes # (Manual) Eosinophils # (Manual) Basophils # (Manual) Metamyelocytes # Myelocytes # Promyelocytes # Blast Cells # WBC Morphology Hypersegmented Neuts Hyposegmented Neuts Hypogranular Neuts Smudge Cells Toxic Granulation Toxic Vacuolation Dohle Bodies Pelger-Huet Anomaly Rebecca Rods Platelet Estimate Clumped Platelets Plt Clumps, EDTA Large Platelets Giant Platelets Platelet Satelliting Plt Morphology Comment RBC Morphology Dimorphic RBCs Polychromasia Hypochromasia Poikilocytosis Anisocytosis Microcytosis Macrocytosis Spherocytes Pappenheimer Bodies Sickle Cells Target Cells Tear Drop Cells Ovalocytes Helmet Cells [place] Bodies [place] Rings Priscilla Cells Bite Cells Crenated Cell Elliptocytes Acanthocytes (Spur) Rouleaux Hemoglobin C Crystals Schistocytes Malaria parasites [place] Bodies Hem Pathologist Commnt Sodium Potassium Chloride Carbon Dioxide Anion Gap BUN Creatinine Estimated GFR BUN/Creatinine Ratio Glucose POC Glucose 101 97 136 H Calcium Phosphorus Magnesium Total Bilirubin AST ALT Alkaline Phosphatase Total Protein Albumin Albumin/Globulin Ratio 04/13/19 04/13/19 04/13/19 22:44 23:01 23:54 WBC RBC Hgb Hct MCV MCH MCHC RDW Plt Count Add Manual Diff Total Counted Seg Neuts % (Manual) Band Neutrophils % Lymphocytes % (Manual) Reactive Lymphs % (Man) Monocytes % (Manual) Eosinophils % (Manual) Basophils % (Manual) Metamyelocytes % Myelocytes % Promyelocytes % Blast Cells % Nucleated RBC % Seg Neutrophils # Man Band Neutrophils # Lymphocytes # (Manual) Abs React Lymphs (Man) Monocytes # (Manual) Eosinophils # (Manual) Basophils # (Manual) Metamyelocytes # Myelocytes # Promyelocytes # Blast Cells # WBC Morphology Hypersegmented Neuts Hyposegmented Neuts Hypogranular Neuts Smudge Cells Toxic Granulation Toxic Vacuolation Dohle Bodies Pelger-Huet Anomaly Rebecca Rods Platelet Estimate Clumped Platelets Plt Clumps, EDTA Large Platelets Giant Platelets Platelet Satelliting Plt Morphology Comment RBC Morphology Dimorphic RBCs Polychromasia Hypochromasia Poikilocytosis Anisocytosis Microcytosis Macrocytosis Spherocytes Pappenheimer Bodies Sickle Cells Target Cells Tear Drop Cells Ovalocytes Helmet Cells [place] Bodies [place] Rings Priscilla Cells Bite Cells Crenated Cell Elliptocytes Acanthocytes (Spur) Rouleaux Hemoglobin C Crystals Schistocytes Malaria parasites [place] Bodies Hem Pathologist Commnt Sodium 136 L Potassium 4.0 D Chloride 90.6 L Carbon Dioxide 14 L Anion Gap 35 BUN 13 Creatinine 1.1 Estimated GFR > 60 BUN/Creatinine Ratio 12 Glucose 179 H POC Glucose 183 H 206 H Calcium 9.8 Phosphorus Magnesium Total Bilirubin AST ALT Alkaline Phosphatase Total Protein Albumin Albumin/Globulin Ratio 04/14/19 04/14/19 04/14/19 01:09 02:20 03:07 WBC RBC Hgb Hct MCV MCH MCHC RDW Plt Count Add Manual Diff Total Counted Seg Neuts % (Manual) Band Neutrophils % Lymphocytes % (Manual) Reactive Lymphs % (Man) Monocytes % (Manual) Eosinophils % (Manual) Basophils % (Manual) Metamyelocytes % Myelocytes % Promyelocytes % Blast Cells % Nucleated RBC % Seg Neutrophils # Man Band Neutrophils # Lymphocytes # (Manual) Abs React Lymphs (Man) Monocytes # (Manual) Eosinophils # (Manual) Basophils # (Manual) Metamyelocytes # Myelocytes # Promyelocytes # Blast Cells # WBC Morphology Hypersegmented Neuts Hyposegmented Neuts Hypogranular Neuts Smudge Cells Toxic Granulation Toxic Vacuolation Dohle Bodies Pelger-Huet Anomaly Rebecca Rods Platelet Estimate Clumped Platelets Plt Clumps, EDTA Large Platelets Giant Platelets Platelet Satelliting Plt Morphology Comment RBC Morphology Dimorphic RBCs Polychromasia Hypochromasia Poikilocytosis Anisocytosis Microcytosis Macrocytosis Spherocytes Pappenheimer Bodies Sickle Cells Target Cells Tear Drop Cells Ovalocytes Helmet Cells [place] Bodies [place] Rings Priscilla Cells Bite Cells Crenated Cell Elliptocytes Acanthocytes (Spur) Rouleaux Hemoglobin C Crystals Schistocytes Malaria parasites [place] Bodies Hem Pathologist Commnt Sodium Potassium Chloride Carbon Dioxide Anion Gap BUN Creatinine Estimated GFR BUN/Creatinine Ratio Glucose POC Glucose 160 H 108 H 95 Calcium Phosphorus Magnesium Total Bilirubin AST ALT Alkaline Phosphatase Total Protein Albumin Albumin/Globulin Ratio 04/14/19 04/14/19 04/14/19 04:08 04:10 04:58 WBC RBC Hgb Hct MCV MCH MCHC RDW Plt Count Add Manual Diff Total Counted Seg Neuts % (Manual) Band Neutrophils % Lymphocytes % (Manual) Reactive Lymphs % (Man) Monocytes % (Manual) Eosinophils % (Manual) Basophils % (Manual) Metamyelocytes % Myelocytes % Promyelocytes % Blast Cells % Nucleated RBC % Seg Neutrophils # Man Band Neutrophils # Lymphocytes # (Manual) Abs React Lymphs (Man) Monocytes # (Manual) Eosinophils # (Manual) Basophils # (Manual) Metamyelocytes # Myelocytes # Promyelocytes # Blast Cells # WBC Morphology Hypersegmented Neuts Hyposegmented Neuts Hypogranular Neuts Smudge Cells Toxic Granulation Toxic Vacuolation Dohle Bodies Pelger-Huet Anomaly Rebecca Rods Platelet Estimate Clumped Platelets Plt Clumps, EDTA Large Platelets Giant Platelets Platelet Satelliting Plt Morphology Comment RBC Morphology Dimorphic RBCs Polychromasia Hypochromasia Poikilocytosis Anisocytosis Microcytosis Macrocytosis Spherocytes Pappenheimer Bodies Sickle Cells Target Cells Tear Drop Cells Ovalocytes Helmet Cells [place] Bodies [place] Rings Priscilla Cells Bite Cells Crenated Cell Elliptocytes Acanthocytes (Spur) Rouleaux Hemoglobin C Crystals Schistocytes Malaria parasites [place] Bodies Hem Pathologist Commnt Sodium Potassium Chloride Carbon Dioxide Anion Gap BUN Creatinine Estimated GFR BUN/Creatinine Ratio Glucose POC Glucose 97 130 H Calcium Phosphorus 2.80 D Magnesium 1.90 Total Bilirubin AST ALT Alkaline Phosphatase Total Protein Albumin Albumin/Globulin Ratio 04/14/19 04/14/19 04/14/19 05:54 06:12 07:37 WBC RBC Hgb Hct MCV MCH MCHC RDW Plt Count Add Manual Diff Total Counted Seg Neuts % (Manual) Band Neutrophils % Lymphocytes % (Manual) Reactive Lymphs % (Man) Monocytes % (Manual) Eosinophils % (Manual) Basophils % (Manual) Metamyelocytes % Myelocytes % Promyelocytes % Blast Cells % Nucleated RBC % Seg Neutrophils # Man Band Neutrophils # Lymphocytes # (Manual) Abs React Lymphs (Man) Monocytes # (Manual) Eosinophils # (Manual) Basophils # (Manual) Metamyelocytes # Myelocytes # Promyelocytes # Blast Cells # WBC Morphology Hypersegmented Neuts Hyposegmented Neuts Hypogranular Neuts Smudge Cells Toxic Granulation Toxic Vacuolation Dohle Bodies Pelger-Huet Anomaly Rebecca Rods Platelet Estimate Clumped Platelets Plt Clumps, EDTA Large Platelets Giant Platelets Platelet Satelliting Plt Morphology Comment RBC Morphology Dimorphic RBCs Polychromasia Hypochromasia Poikilocytosis Anisocytosis Microcytosis Macrocytosis Spherocytes Pappenheimer Bodies Sickle Cells Target Cells Tear Drop Cells Ovalocytes Helmet Cells [place] Bodies [place] Rings Coats Cells Bite Cells Crenated Cell Elliptocytes Acanthocytes (Spur) Rouleaux Hemoglobin C Crystals Schistocytes Malaria parasites [place] Bodies Hem Pathologist Commnt Sodium 136 L Potassium 3.5 L Chloride 92.4 L Carbon Dioxide 19 L Anion Gap 28 BUN 12 Creatinine 1.0 Estimated GFR > 60 BUN/Creatinine Ratio 12 Glucose 138 H POC Glucose 131 H 148 H Calcium 9.4 Phosphorus Magnesium Total Bilirubin AST ALT Alkaline Phosphatase Total Protein Albumin Albumin/Globulin Ratio 04/14/19 04/14/19 04/14/19 08:14 11:49 13:35 WBC RBC Hgb Hct MCV MCH MCHC RDW Plt Count Add Manual Diff Total Counted Seg Neuts % (Manual) Band Neutrophils % Lymphocytes % (Manual) Reactive Lymphs % (Man) Monocytes % (Manual) Eosinophils % (Manual) Basophils % (Manual) Metamyelocytes % Myelocytes % Promyelocytes % Blast Cells % Nucleated RBC % Seg Neutrophils # Man Band Neutrophils # Lymphocytes # (Manual) Abs React Lymphs (Man) Monocytes # (Manual) Eosinophils # (Manual) Basophils # (Manual) Metamyelocytes # Myelocytes # Promyelocytes # Blast Cells # WBC Morphology Hypersegmented Neuts Hyposegmented Neuts Hypogranular Neuts Smudge Cells Toxic Granulation Toxic Vacuolation Dohle Bodies Pelger-Huet Anomaly Rebecca Rods Platelet Estimate Clumped Platelets Plt Clumps, EDTA Large Platelets Giant Platelets Platelet Satelliting Plt Morphology Comment RBC Morphology Dimorphic RBCs Polychromasia Hypochromasia Poikilocytosis Anisocytosis Microcytosis Macrocytosis Spherocytes Pappenheimer Bodies Sickle Cells Target Cells Tear Drop Cells Ovalocytes Helmet Cells [place] Bodies [place] Rings Priscilla Cells Bite Cells Crenated Cell Elliptocytes Acanthocytes (Spur) Rouleaux Hemoglobin C Crystals Schistocytes Malaria parasites [place] Bodies Hem Pathologist Commnt Sodium Potassium Chloride Carbon Dioxide Anion Gap BUN Creatinine Estimated GFR BUN/Creatinine Ratio Glucose POC Glucose 121 H 160 H 241 H Calcium Phosphorus Magnesium Total Bilirubin AST ALT Alkaline Phosphatase Total Protein Albumin Albumin/Globulin Ratio 04/14/19 04/14/19 14:26 14:45 WBC RBC Hgb Hct MCV MCH MCHC RDW Plt Count Add Manual Diff Total Counted Seg Neuts % (Manual) Band Neutrophils % Lymphocytes % (Manual) Reactive Lymphs % (Man) Monocytes % (Manual) Eosinophils % (Manual) Basophils % (Manual) Metamyelocytes % Myelocytes % Promyelocytes % Blast Cells % Nucleated RBC % Seg Neutrophils # Man Band Neutrophils # Lymphocytes # (Manual) Abs React Lymphs (Man) Monocytes # (Manual) Eosinophils # (Manual) Basophils # (Manual) Metamyelocytes # Myelocytes # Promyelocytes # Blast Cells # WBC Morphology Hypersegmented Neuts Hyposegmented Neuts Hypogranular Neuts Smudge Cells Toxic Granulation Toxic Vacuolation Dohle Bodies Pelger-Huet Anomaly Rebecca Rods Platelet Estimate Clumped Platelets Plt Clumps, EDTA Large Platelets Giant Platelets Platelet Satelliting Plt Morphology Comment RBC Morphology Dimorphic RBCs Polychromasia Hypochromasia Poikilocytosis Anisocytosis Microcytosis Macrocytosis Spherocytes Pappenheimer Bodies Sickle Cells Target Cells Tear Drop Cells Ovalocytes Helmet Cells [place] Bodies [place] Rings Priscilla Cells Bite Cells Crenated Cell Elliptocytes Acanthocytes (Spur) Rouleaux Hemoglobin C Crystals Schistocytes Malaria parasites [place] Bodies Hem Pathologist Commnt Sodium 130 L Potassium 2.7 L* D Chloride 89.9 L Carbon Dioxide 23 Anion Gap 20 BUN 8 Creatinine 0.9 Estimated GFR > 60 BUN/Creatinine Ratio 9 Glucose 238 H POC Glucose 245 H Calcium 8.7 Phosphorus Magnesium Total Bilirubin AST ALT Alkaline Phosphatase Total Protein Albumin Albumin/Globulin Ratio
[2019-04-14] MEDS: MORPHINE IV PRN ×2 (17:17→23:44)
[2019-04-14] MEDS: REGLAN IV PRN (17:23)
[2019-04-14] MEDS ORDERED: MAGNESIUM SULFATE 2GM/50ML 2 GM/50 ML BAG IV ONE (17:38)
[2019-04-14] MEDS: ZOFRAN IV PRN (20:57)
[2019-04-15] MEDS: CLEOCIN 600 MG/50 mL 600 MG/50 ML BAG IV SCH ×3 (04:47→20:04)
[2019-04-15] MEDS: ZOFRAN IV PRN (04:50)
[2019-04-15] MEDS: NACL 0.9% 1000 ML 1,000 ML with SODIUM BICARBONATE 50 MEQ IV SCH (06:25)
[2019-04-15] MEDS: HumaLOG SUB-Q SCH ×3 (06:32→17:15)
[2019-04-15 07:47] LABS: Hematocrit 29.6 % (30.3-42.9); Hemoglobin 10.3 gm/dl (10.1-14.3); Mean Corpuscular HGB Conc 35 % (30-34); Mean Corpuscular Volume 83 fl (79-97); Platelet Count 184 K/mm3 (140-440); Red Blood Count 3.56 M/mm3 (3.65-5.03); Red Cell Distribution Width 12.2 % (13.2-15.2)
[2019-04-15 08:04] LABS: BUN/Creatinine Ratio 6; Blood Urea Nitrogen 5 mg/dL (7-17); Calcium 8.6 mg/dL (8.4-10.2); Hemolysis Index 3
[2019-04-15] MEDS ORDERED: K-DUR PO ONE (08:16)
[2019-04-15] MEDS: PRENATAL VITAMIN PO SCH (10:23)
[2019-04-15] MEDS: REGLAN IV PRN (10:30)
--- NOTE | 2019-04-15 10:58 | Progress Note ---
Assessment and Plan Assessment and plan: --Diabetic ketoacidosis; resolved Patient tolerating ADA diet Accu-Chek sliding scale coverage ADA diet 70/30 insulin 4 units twice a day, increase as needed Patient's sugars are stable, patient may go back to using insulin pump --Severe metabolic acidosis; significantly improved --Severe dehydration; resolved --Hyponatremia/pseudohyponatremia Sodium levels improving --Hypokalemia; replace per protocol and monitor levels --Hypophosphatemia; IV sodium phosphate closely monitors Electrolytes --Acute kidney injury; due to vasomotor nephropathy Resolved, currently oral fluids --Leukocytosis; resolved --33 weeks ; Management per [facility] --DVT prophylaxis; SCDs/Lovenox Patient is stable to be transferred back to [facility]. Patient is medically stable for discharge home Patient advised to continue insulin pump as before Follow-up with primary care physician in 3-4 days' upon discharge I will sign off, thank you for this consult History Interval history: Assessment examined medical records reviewed Patient feels better no new complaints DKA resolved, blood sugars reasonable level Patient is alert awake oriented 3 Having her ADA diet breakfast this morning Vital signs noted Hospitalist Physical - Constitutional Vitals: Temp Pulse Resp BP Pulse Ox 97.2 F L 91 H 15 152/100 100 04/15/19 08:00 04/15/19 08:31 04/15/19 08:20 04/15/19 08:31 04/15/19 08:20 General appearance: Present: no acute distress, well-nourished - EENT Eyes: Present: PERRL, EOM intact - Neck Neck: Present: supple, normal ROM - Respiratory Respiratory effort: normal Respiratory: negative: rales, rhonchi, wheezing - Cardiovascular Rhythm: regular Heart Sounds: Present: S1 & S2 - Extremities Extremities: no ischemia, No edema - Abdominal General gastrointestinal: soft, non-tender, non-distended, normal bowel sounds - Integumentary Integumentary: Present: clear, warm - Psychiatric Psychiatric: appropriate mood/affect, cooperative - Neurologic Neurologic: CNII-XII intact, moves all extremities Results - Labs CBC & Chem 7: 04/15/19 07:27 04/15/19 07:27 Labs: Laboratory Last Values WBC 9.9 K/mm3 (4.5-11.0) 04/15/19 07:27 RBC 3.56 M/mm3 (3.65-5.03) L 04/15/19 07:27 Hgb 10.3 gm/dl (10.1-14.3) 04/15/19 07:27 Hct 29.6 % (30.3-42.9) L D 04/15/19 07:27 MCV 83 fl (79-97) 04/15/19 07:27 MCH 29 pg (28-32) 04/15/19 07:27 MCHC 35 % (30-34) H 04/15/19 07:27 RDW 12.2 % (13.2-15.2) L 04/15/19 07:27 Plt Count 184 K/mm3 (140-440) 04/15/19 07:27 Lymph % (Auto) 10.8 % (13.4-35.0) L 04/13/19 06:37 [place] % (Auto) 4.9 % (0.0-7.3) 04/13/19 06:37 Eos % (Auto) 0.0 % (0.0-4.3) 04/13/19 06:37 Baso % (Auto) 0.3 % (0.0-1.8) 04/13/19 06:37 Lymph # 1.6 K/mm3 (1.2-5.4) 04/13/19 06:37 [place] # 0.7 K/mm3 (0.0-0.8) 04/13/19 06:37 Eos # 0.0 K/mm3 (0.0-0.4) 04/13/19 06:37 Baso # 0.0 K/mm3 (0.0-0.1) 04/13/19 06:37 Add Manual Diff Complete 04/13/19 19:30 Total Counted 100 04/13/19 19:30 Seg Neutrophils % 84.0 % (40.0-70.0) H 04/13/19 06:37 Seg Neuts % (Manual) 77.0 % (40.0-70.0) H 04/13/19 19:30 3.0 % 04/13/19 19:30 15.0 % (13.4-35.0) 04/13/19 19:30 Reactive Lymphs % (Man) 0 % 04/13/19 19:30 5.0 % (0.0-7.3) 04/13/19 19:30 0 % (0.0-4.3) 04/13/19 19:30 0 % (0.0-1.8) 04/13/19 19:30 0 % 04/13/19 19:30 0 % 04/13/19 19:30 0 % 04/13/19 19:30 0 % 04/13/19 19:30 Nucleated RBC % Not Reportable 04/13/19 19:30 Seg Neutrophils # 12.5 K/mm3 (1.8-7.7) H 04/13/19 06:37 Seg Neutrophils # Man 10.9 K/mm3 (1.8-7.7) H 04/13/19 19:30 Band Neutrophils # 0.4 K/mm3 04/13/19 19:30 2.1 K/mm3 (1.2-5.4) 04/13/19 19:30 Abs React Lymphs (Man) 0.0 K/mm3 04/13/19 19:30 0.7 K/mm3 (0.0-0.8) 04/13/19 19:30 0.0 K/mm3 (0.0-0.4) 04/13/19 19:30 0.0 K/mm3 (0.0-0.1) 04/13/19 19:30 0.0 K/mm3 04/13/19 19:30 0.0 K/mm3 04/13/19 19:30 0.0 K/mm3 04/13/19 19:30 Blast Cells # 0.0 K/mm3 04/13/19 19:30 WBC Morphology Not Reportable 04/13/19 19:30 Hypersegmented Neuts Not Reportable 04/13/19 19:30 Hyposegmented Neuts Not Reportable 04/13/19 19:30 Hypogranular Neuts Not Reportable 04/13/19 19:30 Not Reportable 04/13/19 19:30 Not Reportable 04/13/19 19:30 Not Reportable 04/13/19 19:30 Not Reportable 04/13/19 19:30 Not Reportable 04/13/19 19:30 Not Reportable 04/13/19 19:30 Appears normal 04/13/19 19:30 Not Reportable 04/13/19 19:30 Plt Clumps, EDTA Not Reportable 04/13/19 19:30 Not Reportable 04/13/19 19:30 Not Reportable 04/13/19 19:30 Not Reportable 04/13/19 19:30 Plt Morphology Comment Not Reportable 04/13/19 19:30 RBC Morphology Normal 04/13/19 19:30 Dimorphic RBCs Not Reportable 04/13/19 19:30 Not Reportable 04/13/19 19:30 Not Reportable 04/13/19 19:30 Not Reportable 04/13/19 19:30 Not Reportable 04/13/19 19:30 Not Reportable 04/13/19 19:30 Not Reportable 04/13/19 19:30 Not Reportable 04/13/19 19:30 Not Reportable 04/13/19 19:30 Not Reportable 04/13/19 19:30 Not Reportable 04/13/19 19:30 Not Reportable 04/13/19 19:30 Not Reportable 04/13/19 19:30 Not Reportable 04/13/19 19:30 Not Reportable 04/13/19 19:30 Not Reportable 04/13/19 19:30 Not Reportable 04/13/19 19:30 Not Reportable 04/13/19 19:30 Not Reportable 04/13/19 19:30 Not Reportable 04/13/19 19:30 Acanthocytes (Spur) Not Reportable 04/13/19 19:30 Rouleaux Not Reportable 04/13/19 19:30 Not Reportable 04/13/19 19:30 Not Reportable 04/13/19 19:30 Not Reportable 04/13/19 19:30 Not Reportable 04/13/19 19:30 Hem Pathologist Commnt No 04/13/19 19:30 VBG pH 7.322 (7.320-7.420) 04/13/19 13:55 Sodium 134 mmol/L (137-145) L 04/15/19 07:27 Potassium 3.4 mmol/L (3.6-5.0) L D 04/15/19 07:27 Chloride 96.3 mmol/L (98-107) L 04/15/19 07:27 Carbon Dioxide 27 mmol/L (22-30) 04/15/19 07:27 14 mmol/L 04/15/19 07:27 BUN 5 mg/dL (7-17) L 04/15/19 07:27 0.9 mg/dL (0.7-1.2) 04/15/19 07:27 Estimated GFR > 60 ml/min 04/15/19 07:27 6 % 04/15/19 07:27 Glucose 93 mg/dL (65-100) 04/15/19 07:27 POC Glucose 91 (70-105) 04/15/19 05:52 6.6 % (4-6) H 04/13/19 16:07 Moderate (Negative) 04/12/19 13:37 Calcium 8.6 mg/dL (8.4-10.2) 04/15/19 07:27 Phosphorus 1.60 mg/dL (2.5-4.5) L D 04/15/19 07:27 Magnesium 2.10 mg/dL (1.7-2.3) 04/15/19 07:27 0.50 mg/dL (0.1-1.2) 04/13/19 19:30 AST 12 units/L (5-40) 04/13/19 19:30 ALT 7 units/L (7-56) 04/13/19 19:30 85 units/L (35-129) 04/13/19 19:30 6.6 g/dL (6.3-8.2) 04/13/19 19:30 3.5 g/dL (3.9-5) L 04/13/19 19:30 1.1 % 04/13/19 19:30 Amylase 32 units/L (27-131) 04/12/19 13:37 19 units/L (13-60) 04/12/19 13:37 Yellow (Yellow) 04/12/19 14:00 Slightly-cloudy (Clear) 04/12/19 14:00 5.0 (5.0-7.0) 04/12/19 14:00 Ur Specific [place] 1.014 (1.003-1.030) 04/12/19 14:00 100 mg/dl mg/dL (Negative) 04/12/19 14:00 >=500 mg/dL (Negative) 04/12/19 14:00 80 mg/dL (Negative) 04/12/19 14:00 Neg (Negative) 04/12/19 14:00 Neg (Negative) 04/12/19 14:00 Neg (Negative) 04/12/19 14:00 < 2.0 mg/dL (<2.0) 04/12/19 14:00 Ur Leukocyte Esterase Neg (Negative) 04/12/19 14:00 2.0 /HPF (0.0-6.0) 04/12/19 14:00 2.0 /HPF (0.0-6.0) 04/12/19 14:00 U Epithel Cells (Auto) 11.0 /HPF (0-13.0) 04/12/19 14:00 1+ /HPF (Negative) 04/12/19 14:00 Active Medications - Current Medications Current Medications: Generic Name Dose Route Start Last Admin Trade Name Freq PRN Reason Stop Dose Admin Acetaminophen 650 mg 04/12/19 16:40 Tylenol PO Q4H PRN Pain MILD(1-3)/Fever >100.5/RICH Al Hydrox/Mg Hydrox/Simethicone 30 ml 04/14/19 11:44 Alum-Mag Hydrox-Simeth 740-998-29eo/5ml PO Q4H PRN Indigestion Dextrose 0 ml 04/13/19 15:00 04/13/19 19:20 D50w (25gm) Syringe IV 10 ml PRN PRN Administration Hypoglycemia Docusate Sodium 100 mg 04/12/19 16:40 Colace PO Q12H PRN Constipation Clindamycin HCl 600 mg in 50 mls @ 100 mls/hr 04/12/19 20:00 04/15/19 04:47 Cleocin 600 Mg/50 Ml IV 100 mls/hr Q8H JENNIE Administration Protocol Sodium Bicarbonate 50 meq/ 1,050 mls @ 100 mls/hr 04/13/19 15:00 04/15/19 06:25 Sodium Chloride IV 100 mls/hr DIRECT JENNIE Administration Sodium Phosphate 45 mmol/ 515 mls @ 84 mls/hr 04/15/19 12:00 Sodium Chloride IV 04/15/19 18:07 ONCE ONE Insulin Human Isoph/Insulin Regular 4 unit 04/15/19 09:00 04/15/19 10:23 Humulin 70/30 SUB-Q 4 unit BIDDIAB JENNEI Administration Insulin Human Lispro 0 unit 04/14/19 22:00 04/15/19 06:32 Humalog SUB-Q Not Given ACHS [facility] Protocol Metoclopramide HCl 10 mg 04/13/19 06:17 04/15/19 10:30 Reglan IV 10 mg Q6H PRN Administration Nausea And Vomiting Morphine Sulfate 2 mg 04/14/19 11:44 04/14/19 23:44 Morphine IV 2 mg Q6H PRN Administration Pain, Moderate (4-6) Multivitamins/Iron/Calcium 1 each 04/13/19 10:00 04/15/19 10:23 Vitamin PO 1 each QDAY JENNIE Administration Ondansetron HCl 4 mg 04/13/19 06:17 04/15/19 04:50 Zofran IV 4 mg Q4H PRN Administration Nausea And Vomiting Simethicone 80 mg 04/12/19 16:40 Mylicon PO Q6H PRN Gas pain Zolpidem Tartrate 2.5 mg 04/12/19 10:00 Ambien PO QHS PRN Sleep Nutrition/Malnutrition Assess - Dietary Evaluation Nutrition/Malnutrition Findings: Nutrition Notes Start: 04/14/19 12:17 Freq: Status: Active Protocol: Document 04/14/19 12:17 PS (Rec: 04/14/19 13:14 PS [id number]) Co-Sign 04/14/19 12:17 LP Nutrition Notes Need for Assessment generated from: MD Order Initial or Follow up Assessment Current Diagnosis Acute Kidney Injury,Diabetes Other Pertinent Diagnosis DKA Current Diet Consistent Carb Labs/Tests Glucose 148 Na 136 K 3.5 Cl 92.4 A1C 6.6 Pertinent Medications Insulin Human Regular Height 5 ft 2 in Weight 61.235 kg Usual Body Weight 59 kg [place] Body Weight (kg) 50.00 BMI 24.7 Intake Prior to Admission Poor Weight change and time frame Pt. stated lost weight in the past 7 days. Not sure how much . Wt was 130 before . Weight Status Appropriate Subjective/Other Information Pt. was not eating before coming in. Vomiting when trying to eat [employer]. Admitted and given CLiq diet, still not tolerating. Weighed 130 lbs before . 33 weeks , currently 135 lbs. Pt stated was using insulin pump until admission and taking her medications until admission. Burn Absent Trauma Absent GI Symptoms Nausea,Vomiting Food Allergy No Current % PO Negligible Minimum of two criteria Yes Energy Intake (non-severe) <75% Estimated Energy Requirement >7 days Interpretation of Weight Loss (non- 1-2% in 1 week severe) #2 Nutrition Diagnosis Malnutrition Etiology poor oral intake As Evidenced by Signs and Symptoms 1-2% wt loss in a week. <75% estimated energy requirements > 7 days. #1 Nutrition Diagnosis Inadequate oral intake Etiology vomiting when eating and high blood sugar As Evidenced by Signs and Symptoms pt. stating she has not eaten in a week [employer] and not tolerating CLiq diet. Glu 160 . Is patient on ventilator? No Is Patient Ambulatory and/or Out of Bed Yes REE-([place]-St. Jeor-ambulatory/OOB) [ 1723.280 NUTR.[id number]] Calculation Used for Recommendations [place]-St Jeor Additional Notes Pro 67-73 g (1.1-1.2 g/kg) Fluid 1723 ml Nutrition Intervention Change Diet Order: Continue current diet Teaching Recipient Patient Learning Readiness Poor Response to Teaching Refuses to learn RD phone number provided Yes Patient aware of follow up options Yes Goal #1 to meet at least 80% kcal and protein needs Anticipated Discharge Needs: Consistent carb diet Follow-Up By: 04/17/19 Additional Comments Following up for intakes.
[2019-04-15] MEDS ORDERED: SODIUM PHOSPHATE 45 MMOL in NACL 0.9% 500 ML 500 ML IV ONE (12:00)
--- NOTE | 2019-04-15 12:34 | Progress Note ---
Assessment and Plan Impression: DKA, resolved Hypokalemia and hypo-phosphatemia, being replaced Third trimester Recommendation: Patient is off the insulin drip and being placed on long-acting insulin. Potassium and phosphates being replaced Stable for transfer out of ICU. Critical care time 31 minute Subjective Date of service: 04/15/19 Principal diagnosis: Interval history: Patient feeling better severe nausea and vomiting has resolved. Did have mild degree of morning sickness Objective Vital Signs - 12hr 04/15/19 04/15/19 04/15/19 00:41 00:51 01:01 Temperature Pulse Rate 78 89 87 Pulse Rate [ From Monitor] Pulse Rate [ Right Dorsalis Pedis] Respiratory 19 16 17 Rate Blood Pressure 121/82 121/82 121/82 O2 Sat by Pulse 98 98 98 Oximetry 04/15/19 04/15/19 04/15/19 01:11 01:21 01:31 Temperature Pulse Rate 90 93 H 94 H Pulse Rate [ From Monitor] Pulse Rate [ Right Dorsalis Pedis] Respiratory 17 18 17 Rate Blood Pressure 121/82 121/82 121/82 O2 Sat by Pulse 98 98 97 Oximetry 04/15/19 04/15/19 04/15/19 01:41 01:51 02:01 Temperature Pulse Rate 94 H 95 H 88 Pulse Rate [ From Monitor] Pulse Rate [ Right Dorsalis Pedis] Respiratory 17 17 20 Rate Blood Pressure 121/82 121/82 121/82 O2 Sat by Pulse 97 97 98 Oximetry 04/15/19 04/15/19 04/15/19 02:11 02:21 02:31 Temperature Pulse Rate 88 91 H 90 Pulse Rate [ From Monitor] Pulse Rate [ Right Dorsalis Pedis] Respiratory 19 18 17 Rate Blood Pressure 121/82 121/82 121/82 O2 Sat by Pulse 97 98 98 Oximetry 04/15/19 04/15/19 04/15/19 02:41 02:51 03:00 Temperature 97.8 F Pulse Rate 91 H 84 Pulse Rate [ From Monitor] Pulse Rate [ Right Dorsalis Pedis] Respiratory 16 18 Rate Blood Pressure 121/82 121/82 O2 Sat by Pulse 98 98 Oximetry 04/15/19 04/15/19 04/15/19 03:01 03:11 03:21 Temperature Pulse Rate 75 78 88 Pulse Rate [ From Monitor] Pulse Rate [ Right Dorsalis Pedis] Respiratory 16 17 18 Rate Blood Pressure 121/82 121/82 121/82 O2 Sat by Pulse 97 98 98 Oximetry 04/15/19 04/15/19 04/15/19 03:31 03:41 03:51 Temperature Pulse Rate 84 84 74 Pulse Rate [ From Monitor] Pulse Rate [ Right Dorsalis Pedis] Respiratory 17 18 17 Rate Blood Pressure 121/82 121/82 121/82 O2 Sat by Pulse 99 98 98 Oximetry 04/15/19 04/15/19 04/15/19 04:00 04:01 04:11 Temperature Pulse Rate 85 80 Pulse Rate [ 89 From Monitor] Pulse Rate [ 87 Right Dorsalis Pedis] Respiratory 18 21 17 Rate Blood Pressure 121/82 121/82 O2 Sat by Pulse 100 98 98 Oximetry 04/15/19 04/15/19 04/15/19 04:21 04:31 04:41 Temperature Pulse Rate 100 H 111 H 83 Pulse Rate [ From Monitor] Pulse Rate [ Right Dorsalis Pedis] Respiratory 20 20 19 Rate Blood Pressure 122/85 122/85 122/85 O2 Sat by Pulse 97 90 97 Oximetry 04/15/19 04/15/19 04/15/19 04:51 05:00 05:11 Temperature Pulse Rate 82 78 98 H Pulse Rate [ From Monitor] Pulse Rate [ Right Dorsalis Pedis] Respiratory 17 18 19 Rate Blood Pressure 122/85 122/78 122/78 O2 Sat by Pulse 97 97 Oximetry 04/15/19 04/15/19 04/15/19 05:21 05:31 05:41 Temperature Pulse Rate 97 H 90 95 H Pulse Rate [ From Monitor] Pulse Rate [ Right Dorsalis Pedis] Respiratory 17 18 21 Rate Blood Pressure 122/78 122/78 122/78 O2 Sat by Pulse 98 98 98 Oximetry 04/15/19 04/15/19 04/15/19 05:51 06:01 06:11 Temperature Pulse Rate 70 70 78 Pulse Rate [ From Monitor] Pulse Rate [ Right Dorsalis Pedis] Respiratory 18 18 18 Rate Blood Pressure 122/78 154/92 154/92 O2 Sat by Pulse 95 98 99 Oximetry 04/15/19 04/15/19 04/15/19 06:21 06:31 06:41 Temperature Pulse Rate 88 83 82 Pulse Rate [ From Monitor] Pulse Rate [ Right Dorsalis Pedis] Respiratory 19 18 16 Rate Blood Pressure 154/92 154/92 154/92 O2 Sat by Pulse 98 98 98 Oximetry 04/15/19 04/15/19 04/15/19 06:51 07:00 07:11 Temperature Pulse Rate 99 H 83 92 H Pulse Rate [ From Monitor] Pulse Rate [ Right Dorsalis Pedis] Respiratory 28 H 17 17 Rate Blood Pressure 154/92 114/75 114/75 O2 Sat by Pulse 96 96 97 Oximetry 04/15/19 04/15/19 04/15/19 07:20 07:30 07:40 Temperature Pulse Rate 84 82 73 Pulse Rate [ From Monitor] Pulse Rate [ Right Dorsalis Pedis] Respiratory 20 16 18 Rate Blood Pressure 114/75 114/75 114/75 O2 Sat by Pulse 98 98 99 Oximetry 04/15/19 04/15/19 04/15/19 07:50 08:00 08:10 Temperature 97.2 F L Pulse Rate 75 81 76 Pulse Rate [ 81 From Monitor] Pulse Rate [ Right Dorsalis Pedis] Respiratory 14 18 15 Rate Blood Pressure 114/75 166/102 166/102 O2 Sat by Pulse 99 99 100 Oximetry 04/15/19 04/15/19 04/15/19 08:20 08:31 08:40 Temperature Pulse Rate 68 91 H 75 Pulse Rate [ From Monitor] Pulse Rate [ Right Dorsalis Pedis] Respiratory 15 23 Rate Blood Pressure 166/102 152/100 152/100 O2 Sat by Pulse 100 100 Oximetry 04/15/19 04/15/19 04/15/19 08:50 09:00 09:10 Temperature Pulse Rate 90 84 72 Pulse Rate [ From Monitor] Pulse Rate [ Right Dorsalis Pedis] Respiratory 15 16 18 Rate Blood Pressure 152/100 152/100 152/100 O2 Sat by Pulse 100 95 Oximetry 04/15/19 04/15/19 04/15/19 09:20 09:30 09:40 Temperature Pulse Rate 76 75 76 Pulse Rate [ From Monitor] Pulse Rate [ Right Dorsalis Pedis] Respiratory 15 17 21 Rate Blood Pressure 152/100 132/85 132/85 O2 Sat by Pulse 99 98 Oximetry 04/15/19 04/15/19 04/15/19 09:50 10:00 10:10 Temperature Pulse Rate 83 78 75 Pulse Rate [ From Monitor] Pulse Rate [ Right Dorsalis Pedis] Respiratory 19 14 18 Rate Blood Pressure 132/85 129/84 129/84 O2 Sat by Pulse 99 99 99 Oximetry 04/15/19 04/15/19 04/15/19 10:20 10:30 10:40 Temperature Pulse Rate 74 69 74 Pulse Rate [ From Monitor] Pulse Rate [ Right Dorsalis Pedis] Respiratory 18 16 16 Rate Blood Pressure 129/84 129/84 129/84 O2 Sat by Pulse 99 100 99 Oximetry 04/15/19 04/15/19 04/15/19 10:50 11:00 11:10 Temperature Pulse Rate 76 76 83 Pulse Rate [ From Monitor] Pulse Rate [ Right Dorsalis Pedis] Respiratory 18 17 17 Rate Blood Pressure 129/84 119/86 119/86 O2 Sat by Pulse 98 98 99 Oximetry 04/15/19 04/15/19 04/15/19 11:20 11:30 11:42 Temperature Pulse Rate 81 82 Pulse Rate [ From Monitor] Pulse Rate [ Right Dorsalis Pedis] Respiratory 19 18 Rate Blood Pressure 119/86 119/86 119/86 O2 Sat by Pulse 99 99 89 Oximetry 04/15/19 04/15/19 11:51 12:00 Temperature 97.4 F L Pulse Rate 80 Pulse Rate [ From Monitor] Pulse Rate [ Right Dorsalis Pedis] Respiratory 16 Rate Blood Pressure 119/86 135/91 O2 Sat by Pulse 89 100 Oximetry Constitutional: no acute distress ENT: oropharynx moist Neck: supple Ascultation: Bilateral: clear Cardiovascular: regular rate and rhythm Gastrointestinal: normoactive bowel sounds, non-distended, other Integumentary: normal Extremities: no cyanosis Neurologic: normal mental status Psychiatric: mood appropriate CBC and BMP: 04/15/19 07:27 04/15/19 07:27 Abnormal lab findings: Abnormal Labs 04/12/19 04/12/19 04/12/19 12:06 13:37 13:37 WBC 14.3 H RBC Hct MCHC RDW 12.5 L Lymph % (Auto) Seg Neutrophils % Seg Neuts % (Manual) 84.0 H Lymphocytes % (Manual) 12.0 L Seg Neutrophils # Seg Neutrophils # Man 12.0 H Sodium 132 L Potassium 3.4 L Chloride 85.6 L Carbon Dioxide 13 L BUN 18 H Creatinine 1.6 H Glucose 286 H POC Glucose 270 H Hemoglobin A1c Calcium Phosphorus Magnesium Albumin 3.3 L 04/12/19 04/13/19 04/13/19 18:34 00:49 05:30 WBC RBC Hct MCHC RDW Lymph % (Auto) Seg Neutrophils % Seg Neuts % (Manual) Lymphocytes % (Manual) Seg Neutrophils # Seg Neutrophils # Man Sodium Potassium Chloride Carbon Dioxide BUN Creatinine Glucose POC Glucose 201 H 227 H 258 H Hemoglobin A1c Calcium Phosphorus Magnesium Albumin 04/13/19 04/13/19 04/13/19 06:37 06:37 10:24 WBC 14.9 H RBC Hct MCHC RDW 12.6 L Lymph % (Auto) 10.8 L Seg Neutrophils % 84.0 H Seg Neuts % (Manual) Lymphocytes % (Manual) Seg Neutrophils # 12.5 H Seg Neutrophils # Man Sodium 135 L Potassium 3.3 L Chloride 90.4 L Carbon Dioxide 9 L* BUN Creatinine 1.3 H Glucose 309 H POC Glucose 302 H Hemoglobin A1c Calcium Phosphorus Magnesium Albumin 3.6 L 04/13/19 04/13/19 04/13/19 12:13 14:46 15:49 WBC RBC Hct MCHC RDW Lymph % (Auto) Seg Neutrophils % Seg Neuts % (Manual) Lymphocytes % (Manual) Seg Neutrophils # Seg Neutrophils # Man Sodium Potassium Chloride Carbon Dioxide BUN Creatinine Glucose POC Glucose 261 H 190 H 174 H Hemoglobin A1c Calcium Phosphorus Magnesium Albumin 04/13/19 04/13/19 04/13/19 16:07 16:07 17:12 WBC RBC Hct MCHC RDW Lymph % (Auto) Seg Neutrophils % Seg Neuts % (Manual) Lymphocytes % (Manual) Seg Neutrophils # Seg Neutrophils # Man Sodium 136 L Potassium 3.5 L Chloride 90.7 L Carbon Dioxide 15 L BUN Creatinine 1.3 H Glucose 159 H POC Glucose 123 H Hemoglobin A1c 6.6 H Calcium 10.6 H Phosphorus Magnesium Albumin 04/13/19 04/13/19 04/13/19 18:06 19:30 19:30 WBC 14.2 H RBC Hct MCHC RDW 12.2 L Lymph % (Auto) Seg Neutrophils % Seg Neuts % (Manual) 77.0 H Lymphocytes % (Manual) Seg Neutrophils # Seg Neutrophils # Man 10.9 H Sodium Potassium 2.9 L* 3.2 L Chloride 90.7 L 90.2 L Carbon Dioxide 16 L 18 L BUN Creatinine Glucose 109 H POC Glucose Hemoglobin A1c Calcium 10.3 H Phosphorus 2.30 L Magnesium Albumin 3.5 L 04/13/19 04/13/19 04/13/19 22:00 22:44 23:01 WBC RBC Hct MCHC RDW Lymph % (Auto) Seg Neutrophils % Seg Neuts % (Manual) Lymphocytes % (Manual) Seg Neutrophils # Seg Neutrophils # Man Sodium 136 L Potassium Chloride 90.6 L Carbon Dioxide 14 L BUN Creatinine Glucose 179 H POC Glucose 136 H 183 H Hemoglobin A1c Calcium Phosphorus Magnesium Albumin 04/13/19 04/14/19 04/14/19 23:54 01:09 02:20 WBC RBC Hct MCHC RDW Lymph % (Auto) Seg Neutrophils % Seg Neuts % (Manual) Lymphocytes % (Manual) Seg Neutrophils # Seg Neutrophils # Man Sodium Potassium Chloride Carbon Dioxide BUN Creatinine Glucose POC Glucose 206 H 160 H 108 H Hemoglobin A1c Calcium Phosphorus Magnesium Albumin 04/14/19 04/14/19 04/14/19 04:58 05:54 06:12 WBC RBC Hct MCHC RDW Lymph % (Auto) Seg Neutrophils % Seg Neuts % (Manual) Lymphocytes % (Manual) Seg Neutrophils # Seg Neutrophils # Man Sodium 136 L Potassium 3.5 L Chloride 92.4 L Carbon Dioxide 19 L BUN Creatinine Glucose 138 H POC Glucose 130 H 131 H Hemoglobin A1c Calcium Phosphorus Magnesium Albumin 04/14/19 04/14/19 04/14/19 07:37 08:14 09:17 WBC RBC Hct MCHC RDW Lymph % (Auto) Seg Neutrophils % Seg Neuts % (Manual) Lymphocytes % (Manual) Seg Neutrophils # Seg Neutrophils # Man Sodium Potassium Chloride Carbon Dioxide BUN Creatinine Glucose POC Glucose 148 H 121 H 112 H Hemoglobin A1c Calcium Phosphorus Magnesium Albumin 04/14/19 04/14/19 04/14/19 10:43 11:49 12:50 WBC RBC Hct MCHC RDW Lymph % (Auto) Seg Neutrophils % Seg Neuts % (Manual) Lymphocytes % (Manual) Seg Neutrophils # Seg Neutrophils # Man Sodium Potassium Chloride Carbon Dioxide BUN Creatinine Glucose POC Glucose 113 H 160 H 174 H Hemoglobin A1c Calcium Phosphorus Magnesium Albumin 04/14/19 04/14/19 04/14/19 13:35 14:26 14:45 WBC RBC Hct MCHC RDW Lymph % (Auto) Seg Neutrophils % Seg Neuts % (Manual) Lymphocytes % (Manual) Seg Neutrophils # Seg Neutrophils # Man Sodium 130 L Potassium 2.7 L* D Chloride 89.9 L Carbon Dioxide BUN Creatinine Glucose 238 H POC Glucose 241 H 245 H Hemoglobin A1c Calcium Phosphorus Magnesium Albumin 04/14/19 04/14/19 04/14/19 16:50 16:51 20:11 WBC RBC Hct MCHC RDW Lymph % (Auto) Seg Neutrophils % Seg Neuts % (Manual) Lymphocytes % (Manual) Seg Neutrophils # Seg Neutrophils # Man Sodium Potassium Chloride Carbon Dioxide BUN Creatinine Glucose POC Glucose 232 H 136 H Hemoglobin A1c Calcium Phosphorus Magnesium 1.60 L Albumin 04/15/19 04/15/19 04/15/19 07:27 07:27 07:27 WBC RBC 3.56 L Hct 29.6 L D MCHC 35 H RDW 12.2 L Lymph % (Auto) Seg Neutrophils % Seg Neuts % (Manual) Lymphocytes % (Manual) Seg Neutrophils # Seg Neutrophils # Man Sodium 134 L Potassium 3.4 L D Chloride 96.3 L Carbon Dioxide BUN 5 L Creatinine Glucose POC Glucose Hemoglobin A1c Calcium Phosphorus 1.60 L D Magnesium Albumin
[2019-04-15 13:23] LABS: Band Neutrophils # (Manual) 0.2 K/mm3; Basophils % (Manual) 0 % (0.0-1.8); Eosinophils % (Manual) 0 % (0.0-4.3); Platelet Estimate Consistent w Auto; RBC Morphology Normal; Total Cells Counted 100
--- NOTE | 2019-04-15 15:34 | Progress Note ---
Assessment and Plan - Patient Problems (1) 33 weeks gestation of Current Visit: Yes Status: Acute (2) Diabetes 1.5, managed as type 1 Current Visit: Yes Status: Acute Plan to address problem: Non compliance with MD's has been an issue with patient during this . Guidance from M is needed re whether to allow home and if so when. For BPP and doppler studies today. Subjective - Subjective Date of service: 04/15/19 Principal diagnosis: Interval history: Patient is a 23 year old , 33+5 wks, LMP 08/04/18, EDC 05/29/19 who presented to triage complaining of having nausea, vomiting and inability to retain PO intake for several days. She denies any fever, chills, contractions, fluid leakage or bleeding, urinary symptoms. URI symptoms. She reports good movement. She is a pre-gestational diabetic type-1 on insulin pump for years. Her glucose has not been controlled prior to this . 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 Discharged out of the ICU earlier today after being managed for diabetic ketoacidosis. Non compliance with MD's has been an issue with patient during this . She had no complaints today and was resting comfortably in her bed and wanting to know when she could go home. Patient reports: other (Patient seen and examined. Havnig irregular ctx, no lof, no vagnal bleedng.Ctx mild to palpation probale second to metabolic disturbace and dehydration. Not in Labor. status reassuring overall. Plan for continued expectanat managment, IV pain meds PRN. Maternal/ well being reassuring. Appreciate CCU managment of medical issues. ) Objective - Vital Signs Vital Signs: Vital Signs - 12hr 04/15/19 04/15/19 04/15/19 03:41 03:51 04:00 Temperature Pulse Rate 84 74 Pulse Rate [ 89 From Monitor] Pulse Rate [ 87 Right Dorsalis Pedis] Respiratory 18 17 18 Rate Blood Pressure 121/82 121/82 O2 Sat by Pulse 98 98 100 Oximetry 04/15/19 04/15/19 04/15/19 04:01 04:11 04:21 Temperature Pulse Rate 85 80 100 H Pulse Rate [ From Monitor] Pulse Rate [ Right Dorsalis Pedis] Respiratory 21 17 20 Rate Blood Pressure 121/82 121/82 122/85 O2 Sat by Pulse 98 98 97 Oximetry 04/15/19 04/15/19 04/15/19 04:31 04:41 04:51 Temperature Pulse Rate 111 H 83 82 Pulse Rate [ From Monitor] Pulse Rate [ Right Dorsalis Pedis] Respiratory 20 19 17 Rate Blood Pressure 122/85 122/85 122/85 O2 Sat by Pulse 90 97 97 Oximetry 04/15/19 04/15/19 04/15/19 05:00 05:11 05:21 Temperature Pulse Rate 78 98 H 97 H Pulse Rate [ From Monitor] Pulse Rate [ Right Dorsalis Pedis] Respiratory 18 19 17 Rate Blood Pressure 122/78 122/78 122/78 O2 Sat by Pulse 97 98 Oximetry 04/15/19 04/15/19 04/15/19 05:31 05:41 05:51 Temperature Pulse Rate 90 95 H 70 Pulse Rate [ From Monitor] Pulse Rate [ Right Dorsalis Pedis] Respiratory 18 21 18 Rate Blood Pressure 122/78 122/78 122/78 O2 Sat by Pulse 98 98 95 Oximetry 04/15/19 04/15/19 04/15/19 06:01 06:11 06:21 Temperature Pulse Rate 70 78 88 Pulse Rate [ From Monitor] Pulse Rate [ Right Dorsalis Pedis] Respiratory 18 18 19 Rate Blood Pressure 154/92 154/92 154/92 O2 Sat by Pulse 98 99 98 Oximetry 04/15/19 04/15/19 04/15/19 06:31 06:41 06:51 Temperature Pulse Rate 83 82 99 H Pulse Rate [ From Monitor] Pulse Rate [ Right Dorsalis Pedis] Respiratory 18 16 28 H Rate Blood Pressure 154/92 154/92 154/92 O2 Sat by Pulse 98 98 96 Oximetry 04/15/19 04/15/19 04/15/19 07:00 07:11 07:20 Temperature Pulse Rate 83 92 H 84 Pulse Rate [ From Monitor] Pulse Rate [ Right Dorsalis Pedis] Respiratory 17 17 20 Rate Blood Pressure 114/75 114/75 114/75 O2 Sat by Pulse 96 97 98 Oximetry 04/15/19 04/15/19 04/15/19 07:30 07:40 07:50 Temperature Pulse Rate 82 73 75 Pulse Rate [ From Monitor] Pulse Rate [ Right Dorsalis Pedis] Respiratory 16 18 14 Rate Blood Pressure 114/75 114/75 114/75 O2 Sat by Pulse 98 99 99 Oximetry 04/15/19 04/15/19 04/15/19 08:00 08:10 08:20 Temperature 97.2 F L Pulse Rate 81 76 68 Pulse Rate [ 81 From Monitor] Pulse Rate [ Right Dorsalis Pedis] Respiratory 18 15 15 Rate Blood Pressure 166/102 166/102 166/102 O2 Sat by Pulse 99 100 100 Oximetry 04/15/19 04/15/19 04/15/19 08:31 08:40 08:50 Temperature Pulse Rate 91 H 75 90 Pulse Rate [ From Monitor] Pulse Rate [ Right Dorsalis Pedis] Respiratory 23 15 Rate Blood Pressure 152/100 152/100 152/100 O2 Sat by Pulse 100 100 Oximetry 04/15/19 04/15/19 04/15/19 09:00 09:10 09:20 Temperature Pulse Rate 84 72 76 Pulse Rate [ From Monitor] Pulse Rate [ Right Dorsalis Pedis] Respiratory 16 18 15 Rate Blood Pressure 152/100 152/100 152/100 O2 Sat by Pulse 95 Oximetry 04/15/19 04/15/19 04/15/19 09:30 09:40 09:50 Temperature Pulse Rate 75 76 83 Pulse Rate [ From Monitor] Pulse Rate [ Right Dorsalis Pedis] Respiratory 17 21 19 Rate Blood Pressure 132/85 132/85 132/85 O2 Sat by Pulse 99 98 99 Oximetry 04/15/19 04/15/19 04/15/19 10:00 10:10 10:20 Temperature Pulse Rate 80 75 74 Pulse Rate [ From Monitor] Pulse Rate [ Right Dorsalis Pedis] Respiratory 14 18 18 Rate Blood Pressure 129/84 129/84 129/84 O2 Sat by Pulse 99 99 99 Oximetry 04/15/19 04/15/19 04/15/19 10:30 10:40 10:50 Temperature Pulse Rate 69 74 76 Pulse Rate [ From Monitor] Pulse Rate [ Right Dorsalis Pedis] Respiratory 16 16 18 Rate Blood Pressure 129/84 129/84 129/84 O2 Sat by Pulse 100 99 98 Oximetry 04/15/19 04/15/19 04/15/19 11:00 11:10 11:20 Temperature Pulse Rate 76 83 81 Pulse Rate [ From Monitor] Pulse Rate [ Right Dorsalis Pedis] Respiratory 17 17 19 Rate Blood Pressure 119/86 119/86 119/86 O2 Sat by Pulse 98 99 99 Oximetry 04/15/19 04/15/19 04/15/19 11:30 11:42 11:51 Temperature Pulse Rate 82 Pulse Rate [ From Monitor] Pulse Rate [ Right Dorsalis Pedis] Respiratory 18 Rate Blood Pressure 119/86 119/86 119/86 O2 Sat by Pulse 99 89 89 Oximetry 04/15/19 04/15/19 12:00 12:30 Temperature 97.4 F L 97.8 F Pulse Rate 80 Pulse Rate [ From Monitor] Pulse Rate [ Right Dorsalis Pedis] Respiratory 16 18 Rate Blood Pressure 135/91 O2 Sat by Pulse 100 Oximetry - Exam Lungs: Normal air movement Uterus: Present: normal. Absent: tenderness FHR: category 1 - Labs Labs: Abnormal Labs 04/12/19 04/12/19 04/12/19 12:06 13:37 13:37 WBC 14.3 H RBC Hct MCHC RDW 12.5 L Lymph % (Auto) Seg Neutrophils % Seg Neuts % (Manual) 84.0 H Lymphocytes % (Manual) 12.0 L Seg Neutrophils # Seg Neutrophils # Man 12.0 H Sodium 132 L Potassium 3.4 L Chloride 85.6 L Carbon Dioxide 13 L BUN 18 H Creatinine 1.6 H Glucose 286 H POC Glucose 270 H Hemoglobin A1c Calcium Phosphorus Magnesium Albumin 3.3 L 04/12/19 04/13/19 04/13/19 18:34 00:49 05:30 WBC RBC Hct MCHC RDW Lymph % (Auto) Seg Neutrophils % Seg Neuts % (Manual) Lymphocytes % (Manual) Seg Neutrophils # Seg Neutrophils # Man Sodium Potassium Chloride Carbon Dioxide BUN Creatinine Glucose POC Glucose 201 H 227 H 258 H Hemoglobin A1c Calcium Phosphorus Magnesium Albumin 04/13/19 04/13/19 04/13/19 06:37 06:37 10:24 WBC 14.9 H RBC Hct MCHC RDW 12.6 L Lymph % (Auto) 10.8 L Seg Neutrophils % 84.0 H Seg Neuts % (Manual) Lymphocytes % (Manual) Seg Neutrophils # 12.5 H Seg Neutrophils # Man Sodium 135 L Potassium 3.3 L Chloride 90.4 L Carbon Dioxide 9 L* BUN Creatinine 1.3 H Glucose 309 H POC Glucose 302 H Hemoglobin A1c Calcium Phosphorus Magnesium Albumin 3.6 L 04/13/19 04/13/19 04/13/19 12:13 14:46 15:49 WBC RBC Hct MCHC RDW Lymph % (Auto) Seg Neutrophils % Seg Neuts % (Manual) Lymphocytes % (Manual) Seg Neutrophils # Seg Neutrophils # Man Sodium Potassium Chloride Carbon Dioxide BUN Creatinine Glucose POC Glucose 261 H 190 H 174 H Hemoglobin A1c Calcium Phosphorus Magnesium Albumin 04/13/19 04/13/19 04/13/19 16:07 16:07 17:12 WBC RBC Hct MCHC RDW Lymph % (Auto) Seg Neutrophils % Seg Neuts % (Manual) Lymphocytes % (Manual) Seg Neutrophils # Seg Neutrophils # Man Sodium 136 L Potassium 3.5 L Chloride 90.7 L Carbon Dioxide 15 L BUN Creatinine 1.3 H Glucose 159 H POC Glucose 123 H Hemoglobin A1c 6.6 H Calcium 10.6 H Phosphorus Magnesium Albumin 04/13/19 04/13/19 04/13/19 18:06 19:30 19:30 WBC 14.2 H RBC Hct MCHC RDW 12.2 L Lymph % (Auto) Seg Neutrophils % Seg Neuts % (Manual) 77.0 H Lymphocytes % (Manual) Seg Neutrophils # Seg Neutrophils # Man 10.9 H Sodium Potassium 2.9 L* 3.2 L Chloride 90.7 L 90.2 L Carbon Dioxide 16 L 18 L BUN Creatinine Glucose 109 H POC Glucose Hemoglobin A1c Calcium 10.3 H Phosphorus 2.30 L Magnesium Albumin 3.5 L 04/13/19 04/13/19 04/13/19 22:00 22:44 23:01 WBC RBC Hct MCHC RDW Lymph % (Auto) Seg Neutrophils % Seg Neuts % (Manual) Lymphocytes % (Manual) Seg Neutrophils # Seg Neutrophils # Man Sodium 136 L Potassium Chloride 90.6 L Carbon Dioxide 14 L BUN Creatinine Glucose 179 H POC Glucose 136 H 183 H Hemoglobin A1c Calcium Phosphorus Magnesium Albumin 04/13/19 04/14/19 04/14/19 23:54 01:09 02:20 WBC RBC Hct MCHC RDW Lymph % (Auto) Seg Neutrophils % Seg Neuts % (Manual) Lymphocytes % (Manual) Seg Neutrophils # Seg Neutrophils # Man Sodium Potassium Chloride Carbon Dioxide BUN Creatinine Glucose POC Glucose 206 H 160 H 108 H Hemoglobin A1c Calcium Phosphorus Magnesium Albumin 04/14/19 04/14/19 04/14/19 04:58 05:54 06:12 WBC RBC Hct MCHC RDW Lymph % (Auto) Seg Neutrophils % Seg Neuts % (Manual) Lymphocytes % (Manual) Seg Neutrophils # Seg Neutrophils # Man Sodium 136 L Potassium 3.5 L Chloride 92.4 L Carbon Dioxide 19 L BUN Creatinine Glucose 138 H POC Glucose 130 H 131 H Hemoglobin A1c Calcium Phosphorus Magnesium Albumin 04/14/19 04/14/19 04/14/19 07:37 08:14 09:17 WBC RBC Hct MCHC RDW Lymph % (Auto) Seg Neutrophils % Seg Neuts % (Manual) Lymphocytes % (Manual) Seg Neutrophils # Seg Neutrophils # Man Sodium Potassium Chloride Carbon Dioxide BUN Creatinine Glucose POC Glucose 148 H 121 H 112 H Hemoglobin A1c Calcium Phosphorus Magnesium Albumin 04/14/19 04/14/19 04/14/19 10:43 11:49 12:50 WBC RBC Hct MCHC RDW Lymph % (Auto) Seg Neutrophils % Seg Neuts % (Manual) Lymphocytes % (Manual) Seg Neutrophils # Seg Neutrophils # Man Sodium Potassium Chloride Carbon Dioxide BUN Creatinine Glucose POC Glucose 113 H 160 H 174 H Hemoglobin A1c Calcium Phosphorus Magnesium Albumin 04/14/19 04/14/19 04/14/19 13:35 14:26 14:45 WBC RBC Hct MCHC RDW Lymph % (Auto) Seg Neutrophils % Seg Neuts % (Manual) Lymphocytes % (Manual) Seg Neutrophils # Seg Neutrophils # Man Sodium 130 L Potassium 2.7 L* D Chloride 89.9 L Carbon Dioxide BUN Creatinine Glucose 238 H POC Glucose 241 H 245 H Hemoglobin A1c Calcium Phosphorus Magnesium Albumin 04/14/19 04/14/19 04/14/19 16:50 16:51 20:11 WBC RBC Hct MCHC RDW Lymph % (Auto) Seg Neutrophils % Seg Neuts % (Manual) Lymphocytes % (Manual) Seg Neutrophils # Seg Neutrophils # Man Sodium Potassium Chloride Carbon Dioxide BUN Creatinine Glucose POC Glucose 232 H 136 H Hemoglobin A1c Calcium Phosphorus Magnesium 1.60 L Albumin 04/15/19 04/15/19 04/15/19 07:27 07:27 07:27 WBC RBC 3.56 L Hct 29.6 L D MCHC 35 H RDW 12.2 L Lymph % (Auto) Seg Neutrophils % Seg Neuts % (Manual) 77.0 H Lymphocytes % (Manual) Seg Neutrophils # Seg Neutrophils # Man Sodium 134 L Potassium 3.4 L D Chloride 96.3 L Carbon Dioxide BUN 5 L Creatinine Glucose POC Glucose Hemoglobin A1c Calcium Phosphorus 1.60 L D Magnesium Albumin 04/15/19 11:56 WBC RBC Hct MCHC RDW Lymph % (Auto) Seg Neutrophils % Seg Neuts % (Manual) Lymphocytes % (Manual) Seg Neutrophils # Seg Neutrophils # Man Sodium Potassium Chloride Carbon Dioxide BUN Creatinine Glucose POC Glucose 167 H Hemoglobin A1c Calcium Phosphorus Magnesium Albumin Laboratory Results - last 24 hr 04/14/19 04/14/19 04/14/19 09:17 10:43 12:50 WBC RBC Hgb Hct MCV MCH MCHC RDW Plt Count Add Manual Diff Total Counted Seg Neuts % (Manual) Band Neutrophils % Lymphocytes % (Manual) Reactive Lymphs % (Man) Monocytes % (Manual) Eosinophils % (Manual) Basophils % (Manual) Metamyelocytes % Myelocytes % Promyelocytes % Blast Cells % Nucleated RBC % Seg Neutrophils # Man Band Neutrophils # Lymphocytes # (Manual) Abs React Lymphs (Man) Monocytes # (Manual) Eosinophils # (Manual) Basophils # (Manual) Metamyelocytes # Myelocytes # Promyelocytes # Blast Cells # WBC Morphology Hypersegmented Neuts Hyposegmented Neuts Hypogranular Neuts Smudge Cells Toxic Granulation Toxic Vacuolation Dohle Bodies Pelger-Huet Anomaly Rebecca Rods Platelet Estimate Clumped Platelets Plt Clumps, EDTA Large Platelets Giant Platelets Platelet Satelliting Plt Morphology Comment RBC Morphology Dimorphic RBCs Polychromasia Hypochromasia Poikilocytosis Anisocytosis Microcytosis Macrocytosis Spherocytes Pappenheimer Bodies Sickle Cells Target Cells Tear Drop Cells Ovalocytes Helmet Cells Marie[place] Bodies [place] Rings Priscilla Cells Bite Cells Crenated Cell Elliptocytes Acanthocytes (Spur) Rouleaux Hemoglobin C Crystals Schistocytes Malaria parasites Marco Antonio Bodies Hem Pathologist Commnt Sodium Potassium Chloride Carbon Dioxide Anion Gap BUN Creatinine Estimated GFR BUN/Creatinine Ratio Glucose POC Glucose 112 H 113 H 174 H Calcium Phosphorus Magnesium 04/14/19 04/14/19 04/14/19 14:45 16:50 16:51 WBC RBC Hgb Hct MCV MCH MCHC RDW Plt Count Add Manual Diff Total Counted Seg Neuts % (Manual) Band Neutrophils % Lymphocytes % (Manual) Reactive Lymphs % (Man) Monocytes % (Manual) Eosinophils % (Manual) Basophils % (Manual) Metamyelocytes % Myelocytes % Promyelocytes % Blast Cells % Nucleated RBC % Seg Neutrophils # Man Band Neutrophils # Lymphocytes # (Manual) Abs React Lymphs (Man) Monocytes # (Manual) Eosinophils # (Manual) Basophils # (Manual) Metamyelocytes # Myelocytes # Promyelocytes # Blast Cells # WBC Morphology Hypersegmented Neuts Hyposegmented Neuts Hypogranular Neuts Smudge Cells Toxic Granulation Toxic Vacuolation Dohle Bodies Pelger-Huet Anomaly Rebecca Rods Platelet Estimate Clumped Platelets Plt Clumps, EDTA Large Platelets Giant Platelets Platelet Satelliting Plt Morphology Comment RBC Morphology Dimorphic RBCs Polychromasia Hypochromasia Poikilocytosis Anisocytosis Microcytosis Macrocytosis Spherocytes Pappenheimer Bodies Sickle Cells Target Cells Tear Drop Cells Ovalocytes Helmet Cells Marie[place] Bodies [place] Rings Priscilla Cells Bite Cells Crenated Cell Elliptocytes Acanthocytes (Spur) Rouleaux Hemoglobin C Crystals Schistocytes Malaria parasites Marco Antonio Bodies Hem Pathologist Commnt Sodium Potassium Chloride Carbon Dioxide Anion Gap BUN Creatinine Estimated GFR BUN/Creatinine Ratio Glucose POC Glucose 245 H 232 H Calcium Phosphorus Magnesium 1.60 L 04/14/19 04/14/19 04/15/19 20:11 23:36 05:52 WBC RBC Hgb Hct MCV MCH MCHC RDW Plt Count Add Manual Diff Total Counted Seg Neuts % (Manual) Band Neutrophils % Lymphocytes % (Manual) Reactive Lymphs % (Man) Monocytes % (Manual) Eosinophils % (Manual) Basophils % (Manual) Metamyelocytes % Myelocytes % Promyelocytes % Blast Cells % Nucleated RBC % Seg Neutrophils # Man Band Neutrophils # Lymphocytes # (Manual) Abs React Lymphs (Man) Monocytes # (Manual) Eosinophils # (Manual) Basophils # (Manual) Metamyelocytes # Myelocytes # Promyelocytes # Blast Cells # WBC Morphology Hypersegmented Neuts Hyposegmented Neuts Hypogranular Neuts Smudge Cells Toxic Granulation Toxic Vacuolation Dohle Bodies Pelger-Huet Anomaly Rebecca Rods Platelet Estimate Clumped Platelets Plt Clumps, EDTA Large Platelets Giant Platelets Platelet Satelliting Plt Morphology Comment RBC Morphology Dimorphic RBCs Polychromasia Hypochromasia Poikilocytosis Anisocytosis Microcytosis Macrocytosis Spherocytes Pappenheimer Bodies Sickle Cells Target Cells Tear Drop Cells Ovalocytes Helmet Cells Marie[place] Bodies [place] Rings Priscilla Cells Bite Cells Crenated Cell Elliptocytes Acanthocytes (Spur) Rouleaux Hemoglobin C Crystals Schistocytes Malaria parasites Marco Antonio Bodies Hem Pathologist Commnt Sodium Potassium Chloride Carbon Dioxide Anion Gap BUN Creatinine Estimated GFR BUN/Creatinine Ratio Glucose POC Glucose 136 H 78 91 Calcium Phosphorus Magnesium 04/15/19 04/15/19 04/15/19 07:27 07:27 07:27 WBC 9.9 RBC 3.56 L Hgb 10.3 Hct 29.6 L D MCV 83 MCH 29 MCHC 35 H RDW 12.2 L Plt Count 184 Add Manual Diff Complete Total Counted 100 Seg Neuts % (Manual) 77.0 H Band Neutrophils % 2.0 Lymphocytes % (Manual) 14.0 Reactive Lymphs % (Man) 0 Monocytes % (Manual) 7.0 Eosinophils % (Manual) 0 Basophils % (Manual) 0 Metamyelocytes % 0 Myelocytes % 0 Promyelocytes % 0 Blast Cells % 0 Nucleated RBC % Not Reportable Seg Neutrophils # Man 7.6 Band Neutrophils # 0.2 Lymphocytes # (Manual) 1.4 Abs React Lymphs (Man) 0.0 Monocytes # (Manual) 0.7 Eosinophils # (Manual) 0.0 Basophils # (Manual) 0.0 Metamyelocytes # 0.0 Myelocytes # 0.0 Promyelocytes # 0.0 Blast Cells # 0.0 WBC Morphology Not Reportable Hypersegmented Neuts Not Reportable Hyposegmented Neuts Not Reportable Hypogranular Neuts Not Reportable Smudge Cells Not Reportable Toxic Granulation Not Reportable Toxic Vacuolation Not Reportable Dohle Bodies Not Reportable Pelger-Huet Anomaly Not Reportable Rebecca Rods Not Reportable Platelet Estimate Consistent w auto Clumped Platelets Not Reportable Plt Clumps, EDTA Not Reportable Large Platelets Not Reportable Giant Platelets Not Reportable Platelet Satelliting Not Reportable Plt Morphology Comment Not Reportable RBC Morphology Normal Dimorphic RBCs Not Reportable Polychromasia Not Reportable Hypochromasia Not Reportable Poikilocytosis Not Reportable Anisocytosis Not Reportable Microcytosis Not Reportable Macrocytosis Not Reportable Spherocytes Not Reportable Pappenheimer Bodies Not Reportable Sickle Cells Not Reportable Target Cells Not Reportable Tear Drop Cells Not Reportable Ovalocytes Not Reportable Helmet Cells Not Reportable Marie[place] Bodies Not Reportable [place] Rings Not Reportable Priscilla Cells Not Reportable Bite Cells Not Reportable Crenated Cell Not Reportable Elliptocytes Not Reportable Acanthocytes (Spur) Not Reportable Rouleaux Not Reportable Hemoglobin C Crystals Not Reportable Schistocytes Not Reportable Malaria parasites Not Reportable Marco Antonio Bodies Not Reportable Hem Pathologist Commnt No Sodium 134 L Potassium 3.4 L D Chloride 96.3 L Carbon Dioxide 27 Anion Gap 14 BUN 5 L Creatinine 0.9 Estimated GFR > 60 BUN/Creatinine Ratio 6 Glucose 93 POC Glucose Calcium 8.6 Phosphorus 1.60 L D Magnesium 2.10 04/15/19 11:56 WBC RBC Hgb Hct MCV MCH MCHC RDW Plt Count Add Manual Diff Total Counted Seg Neuts % (Manual) Band Neutrophils % Lymphocytes % (Manual) Reactive Lymphs % (Man) Monocytes % (Manual) Eosinophils % (Manual) Basophils % (Manual) Metamyelocytes % Myelocytes % Promyelocytes % Blast Cells % Nucleated RBC % Seg Neutrophils # Man Band Neutrophils # Lymphocytes # (Manual) Abs React Lymphs (Man) Monocytes # (Manual) Eosinophils # (Manual) Basophils # (Manual) Metamyelocytes # Myelocytes # Promyelocytes # Blast Cells # WBC Morphology Hypersegmented Neuts Hyposegmented Neuts Hypogranular Neuts Smudge Cells Toxic Granulation Toxic Vacuolation Dohle Bodies Pelger-Huet Anomaly Rebecca Rods Platelet Estimate Clumped Platelets Plt Clumps, EDTA Large Platelets Giant Platelets Platelet Satelliting Plt Morphology Comment RBC Morphology Dimorphic RBCs Polychromasia Hypochromasia Poikilocytosis Anisocytosis Microcytosis Macrocytosis Spherocytes Pappenheimer Bodies Sickle Cells Target Cells Tear Drop Cells Ovalocytes Helmet Cells [place] Bodies [place] Rings Priscilla Cells Bite Cells Crenated Cell Elliptocytes Acanthocytes (Spur) Rouleaux Hemoglobin C Crystals Schistocytes Malaria parasites Marco Antonio Bodies Hem Pathologist Commnt Sodium Potassium Chloride Carbon Dioxide Anion Gap BUN Creatinine Estimated GFR BUN/Creatinine Ratio Glucose POC Glucose 167 H Calcium Phosphorus Magnesium
--- NOTE | 2019-04-15 17:20 | Ultrasound Report ---
Biophysical profile Ultrasound Umbilical arterial ultrasound HISTORY: DKA. TECHNIQUE: Grayscale and color Doppler imaging performed. COMPARISON: Limited OB ultrasound from 04/12/2019 and BPP from 02/27/2019 FINDINGS: Biophysical profile: Fetus received a score of 2 out of 2 for breathing movement, movement, posture/t one, and ANGIE. Total score was 8 out of 8. Umbilical arterial ultrasound: 3 free loops of umbilical cord were evaluated. The systolic to diastol ic ratio of these loops was 2.47, 4.22, and 3.58. The systolic to diastolic average ratio is 3.42 (i. e. less than 4). There was persistent flow during diastole. The resistive indices ranged from 0.59-0. 76 with an average of 0.69. Diastolic flow pattern was persistent. Normal waveforms. IMPRESSION: 1. Normal AP PE. 2. Normal umbilical arterial findings. Signer Name: Bill Eugene MD Signed: 04/15/2019 5:15 PM Workstation Name: [id number]
[2019-04-15] MEDS ORDERED: AMPICILLIN/NS 2 GM/100 ML 2 GM/100 ML BAG IV ONE (22:55)
[2019-04-15] MEDS ORDERED: CELESTONE SOLUSPAN IM SCH (23:00)
[2019-04-15] MEDS ORDERED: MAGNESIUM SULFATE 40GM/1000ML 40 GM/1,000 ML BAG IV SCH ×3 (23:00)
[2019-04-15] MEDS ORDERED: MAGNESIUM SULFATE 4GM/100ML 4 GM/100 ML BAG IV ONE (23:02)
[2019-04-15] MEDS ORDERED: LACTATED RINGERS 1,000 ML ONE (23:15)
[2019-04-15] MEDS: CELESTONE SOLUSPAN IM SCH (23:33)
[2019-04-16] MEDS: HumaLOG SUB-Q SCH ×5 (00:01→22:47)
[2019-04-16 01:27] LABS: Alanine Aminotransferase 12 units/L (7-56); Albumin 2.8 g/dL (3.9-5); BUN/Creatinine Ratio 8; Blood Urea Nitrogen 6 mg/dL (7-17); Calcium 8.2 mg/dL (8.4-10.2); Hemolysis Index 11
[2019-04-16] MEDS: ZOFRAN IV PRN ×2 (01:54→14:37)
[2019-04-16] MEDS ORDERED: D5LR 1,000 ML IV ONE (03:56)
[2019-04-16] MEDS: D50W (25GM) Syringe IV PRN (03:56)
[2019-04-16] MEDS: REGLAN IV PRN ×3 (04:42→20:39)
[2019-04-16] MEDS: CLEOCIN 600 MG/50 mL 600 MG/50 ML BAG IV SCH ×2 (07:15→15:35)
--- NOTE | 2019-04-16 11:20 | Consultation ---
History of Present Illness Consult date: 04/16/19 Requesting physician: KELLY WOODARD History of present illness: Ms. Mcdonough is a 23 year old , STACY [birth year], who presented to [facility] on 04/12/19 due to nausea, vomiting and inability to retain PO intake for several days. Now 33 6/7 weeks She has been followed by [facility] outpatient due her Type 1 DM history, but she has been noncompliant with her care. Endocrinology referral was made for patient due to continued poor management of Type 1 DM, but patient never made appointment. Patient reports over past week prior to admission had increased N/V secondary to Gastroporesis - was on Reglan Reports when arrived to hospital her Insulin Pump had been discontinued and not receiving Insulin for ? 12 to 24 Hours started throwing up "coffee grains" Entered DKA sent to ICU now BS better - taking Insulin 70/30 and Reg sliding scale HgA1c on 04/13/19 at 6.6% Her mother Willa Lea and KERRI Artis present in room to provide history [facility] called and placed on Speaker Phone while I was in the Room - [facility] states they tried to call patient for over a week without success - Patient states when she is not feeling well she cannot answer phone and her boyfriend usually answers phone but at work Her Mother Willa Lea at [phone] - will have patient come home with her to help [facility] [employer] BS Control and answer phone if patient unable to BS's 04/15/19 12N - 167 1630 - 241 - got 70/30 4units and 4 units R 1200 - 212 - got 4 units R 4am - 30 - got D50 20 ml 4:30 am - 101 6am - 132 8an 203 EFM 120 - Categ I BPP 8/[address] at 3.42 EFW - ? Impression: 1. 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 DKA Resolved 4. Noncompliance 5. Gastroporesis 6. Weight Gain of 5# during Preg 130# to 135# Recommendations: 1. [facility] ) phone conference place with her mother Willa Lea ([phone]) and [facility] Chandra and Nurses Sheri and Dasia Brice (charge Nurse) present 2. Patient to stop SQ Insulin and restart Insulin Pump in House - Chandra ([facility]) to bring supplies - they will call [facility] and [facility] will assist with restarting basal rate and boluses 3. [facility] to call patient daily once stable on Pump and hopefully can be discharged to her mother (states she will contact [facility] daily) 4. Nutrition Consult 5. Consider GI consult while in House for Gastroporesis not responding to Reglan - (states she has GI consult scheduled 04/26/19) 6. Please Obtain US EFW before discharge if not done 7. Mg Discontinued (level at 6.9 and patient not klaudia) 8. Follow up with [facility] weekly once discharge Past History Past Medical History: diabetes, other (gastroparesis) [employer] History: abnormal PAP smear, chlamydia, gonorrhea - Obstetrical History : 1 Medications and Allergies Allergies Allergy/AdvReac Type Severity Reaction Status Date / Time Penicillins AdvReac Severe Rash Verified 02/27/19 16:40 Home Medications Medication Instructions Recorded Confirmed Last Taken Type Famotidine [Pepcid] 10 mg PO BID #30 tablet 05/25/16 04/13/19 Unknown Rx Insulin Glargine [Lantus VIAL] 15 units SUB-Q QAMDIAB 30 Days 05/25/16 04/13/19 Unknown Rx units Insulin Regular, Human [HumuLIN R] 5 units SUB-Q ACHS 30 Days units 05/25/16 04/13/19 Unknown Rx Metoclopramide [Reglan] 10 mg PO TID PRN #20 tab 10/04/16 04/13/19 Unknown Rx Ondansetron [Zofran TAB] 4 mg PO Q8HR PRN #15 tablet 10/04/16 04/13/19 Unknown Rx guaiFENesin [Robitussin] 200 mg PO TID #90 ml 06/06/18 04/13/19 Unknown Rx prednisoLONE SOD PHOSPHAT [Orapred] 15 mg PO DAILY #30 ml 06/06/18 04/13/19 Unknown Rx Infusion Set For Insulin Pump 0.01 1000units SC PRN 04/13/19 04/13/19 04/12/19 19:00 History Protonix TAB 40 mg PO PRN PRN 04/13/19 04/13/19 Unknown History Active Meds: Active Medications Acetaminophen (Tylenol) 650 mg PO Q4H PRN PRN Reason: Pain MILD(1-3)/Fever >100.5/RICH Last Admin: 04/15/19 21:10 Dose: 650 mg Documented by: Al Hydrox/Mg Hydrox/Simethicone (Alum-Mag Hydrox-Simeth [id number]/5ml) 30 ml PO Q4H PRN PRN Reason: Indigestion Betamethasone Acet/Betameth SodPhos (Celestone Soluspan) 12 mg IM Q24H JENNIE Stop: 04/16/19 23:01 Last Admin: 04/15/19 23:33 Dose: 12 mg Documented by: Dextrose (D50w (25gm) Syringe) 0 ml IV PRN PRN PRN Reason: Hypoglycemia Last Admin: 04/16/19 03:56 Dose: 20 ml Documented by: Docusate Sodium (Colace) 100 mg PO Q12H PRN PRN Reason: Constipation Magnesium Sulfate (Magnesium Sulfate 40gm/1000ml) 40 gm in 1,000 mls @ 50 mls/hr IV DIRECT JENNIE Last Admin: 04/16/19 00:05 Dose: 2 gm/hr, 50 mls/hr Documented by: Insulin Human Isoph/Insulin Regular (Humulin 70/30) 6 unit SUB-Q BIDDIAB [facility] Insulin Human Lispro (Humalog) 0 unit SUB-Q ACHS [facility]; Protocol Last Admin: 04/16/19 08:24 Dose: 4 unit Documented by: Metoclopramide HCl (Reglan) 10 mg IV Q6H PRN PRN Reason: Nausea And Vomiting Last Admin: 04/16/19 04:42 Dose: 10 mg Documented by: Morphine Sulfate (Morphine) 2 mg IV Q6H PRN PRN Reason: Pain, Moderate (4-6) Last Admin: 04/14/19 23:44 Dose: 2 mg Documented by: Multivitamins/Iron/Calcium ( Vitamin) 1 each PO QDAY JENNIE Last Admin: 04/15/19 10:23 Dose: 1 each Documented by: Ondansetron HCl (Zofran) 4 mg IV Q4H PRN PRN Reason: Nausea And Vomiting Last Admin: 04/16/19 01:54 Dose: 4 mg Documented by: Simethicone (Mylicon) 80 mg PO Q6H PRN PRN Reason: Gas pain Zolpidem Tartrate (Ambien) 2.5 mg PO QHS PRN PRN Reason: Sleep - Vital Signs Vital signs: Vital Signs Temp Pulse Resp BP Pulse Ox 99.3 F 103 H 18 118/77 100 04/12/19 12:50 04/12/19 12:50 04/12/19 12:50 04/12/19 12:50 04/12/19 12:50 Temp Pulse Resp BP Pulse Ox 97.3 F L 98 H 18 128/88 96 04/16/19 08:10 04/16/19 10:53 04/16/19 09:28 04/16/19 09:28 04/16/19 10:53 Results Result Diagrams: 04/15/19 07:27 04/15/19 07:27 Abnormal lab results 04/15/19 04/15/19 04/15/19 Range/Units 00:20 07:27 07:27 Seg Neuts % (Manual) 77.0 H (40.0-70.0) % Sodium 131 L 134 L (137-145) mmol/L Potassium 3.3 L D 3.4 L (3.6-5.0) mmol/L Chloride 91.4 L 96.3 L (98-107) mmol/L BUN 6 L 5 L (7-17) mg/dL Glucose 223 H (65-100) mg/dL POC Glucose (70-105) Calcium 8.2 L (8.4-10.2) mg/dL Magnesium (1.7-2.3) mg/dL Total Protein 4.9 L D (6.3-8.2) g/dL Albumin 2.8 L (3.9-5) g/dL 04/15/19 04/15/19 04/15/19 Range/Units 11:56 17:00 23:57 Seg Neuts % (Manual) (40.0-70.0) % Sodium (137-145) mmol/L Potassium (3.6-5.0) mmol/L Chloride (98-107) mmol/L BUN (7-17) mg/dL Glucose (65-100) mg/dL POC Glucose 167 H 241 H 212 H (70-105) Calcium (8.4-10.2) mg/dL Magnesium (1.7-2.3) mg/dL Total Protein (6.3-8.2) g/dL Albumin (3.9-5) g/dL 04/16/19 04/16/19 04/16/19 Range/Units 00:20 03:54 05:51 Seg Neuts % (Manual) (40.0-70.0) % Sodium (137-145) mmol/L Potassium (3.6-5.0) mmol/L Chloride (98-107) mmol/L BUN (7-17) mg/dL Glucose (65-100) mg/dL POC Glucose < 40 L 132 H (70-105) Calcium (8.4-10.2) mg/dL Magnesium 3.80 H (1.7-2.3) mg/dL Total Protein (6.3-8.2) g/dL Albumin (3.9-5) g/dL 04/16/19 04/16/19 Range/Units 06:02 08:18 Seg Neuts % (Manual) (40.0-70.0) % Sodium (137-145) mmol/L Potassium (3.6-5.0) mmol/L Chloride (98-107) mmol/L BUN (7-17) mg/dL Glucose (65-100) mg/dL POC Glucose 203 H (70-105) Calcium (8.4-10.2) mg/dL Magnesium 6.90 H (1.7-2.3) mg/dL Total Protein (6.3-8.2) g/dL Albumin (3.9-5) g/dL All other labs normal.
[2019-04-16] MEDS: PRENATAL VITAMIN PO SCH (11:50)
--- NOTE | 2019-04-16 17:12 | Progress Note ---
Assessment and Plan - Patient Problems (1) 33 weeks gestation of Current Visit: Yes Status: Acute (2) Diabetes 1.5, managed as type 1 Current Visit: Yes Status: Acute Plan to address problem: [facility] Recommendations: 1. [facility] ( [phone]) phone conference place with her mother Willa Lea ([phone]) and [facility] Chandra and Nurses Sheri and Dasia Brice (charge Nurse) present 2. Patient to stop SQ Insulin and restart Insulin Pump in House - Chandra ([facility]) to bring supplies - they will call [facility] and [facility] will assist with restarting basal rate and boluses 3. [facility] to call patient daily once stable on Pump and hopefully can be discharged to her mother (states she will contact [facility] daily) 4. Nutrition Consult: placed. 5. Consider GI consult while in House for Gastroporesis not responding to Reglan - (states she has GI consult scheduled 04/26/19): PATIENT WAS ENCOURAGED TO KEEP THIS APPT. 6. Please Obtain US EFW before discharge if not done: ORDERED by me today . 7. Mg Discontinued (level at 6.9 and patient not klaudia) 8. Follow up with [facility] weekly once discharge Subjective - Subjective Date of service: 04/16/19 Principal diagnosis: Interval history: Patient is a 23 year old , 33+6wks, LMP 08/04/18, EDC 05/29/19 who presented to triage complaining of having nausea, vomiting and inability to retain PO intake for several days. She denies any fever, chills, contractions, fluid leakage or bleeding, urinary symptoms. URI symptoms. She reports good movement. She is a pre-gestational diabetic type-1 on insulin pump for years. Her glucose has not been controlled prior to this . She sees an surgical assist and [facility]. Discharged out of the ICU earlier 04/15/2019 after being managed for diabetic ketoacidosis. Non compliance with MD's has been an issue with patient during this . She had no complaints today and was resting comfortably in her bed. Understood why she was being retained in the hospital which was to allow for better control of her diabetes. Patient reports: new complaints, movement normal, other (Patient seen and examined. Havnig irregular ctx, no lof, no vagnal bleedng.Ctx mild to palpation probale second to metabolic disturbace and dehydration. Not in Labor. status reassuring overall. Plan for continued expectanat managment, IV pain meds PRN. Maternal/ well being reassuring. Appreciate CCU managment of medical issues. ), no loss of fluid, no vaginal bleeding, no contractions Objective - Vital Signs Vital Signs: Vital Signs - 12hr 04/16/19 04/16/19 04/16/19 05:13 05:18 05:21 Temperature Pulse Rate 87 88 100 H Respiratory Rate Blood Pressure Blood Pressure [Right] O2 Sat by Pulse 99 100 92 Oximetry 04/16/19 04/16/19 04/16/19 05:23 05:25 05:28 Temperature Pulse Rate 89 96 H 92 H Respiratory Rate Blood Pressure 133/77 Blood Pressure [Right] O2 Sat by Pulse 100 100 Oximetry 04/16/19 04/16/19 04/16/19 05:33 05:38 05:43 Temperature Pulse Rate 96 H 96 H 94 H Respiratory Rate Blood Pressure Blood Pressure [Right] O2 Sat by Pulse 100 100 99 Oximetry 04/16/19 04/16/19 04/16/19 05:48 05:53 05:54 Temperature Pulse Rate 89 86 85 Respiratory Rate Blood Pressure 133/93 Blood Pressure [Right] O2 Sat by Pulse 98 99 Oximetry 04/16/19 04/16/19 04/16/19 05:58 06:03 06:08 Temperature Pulse Rate 82 91 H 87 Respiratory Rate Blood Pressure Blood Pressure [Right] O2 Sat by Pulse 99 98 99 Oximetry 04/16/19 04/16/19 04/16/19 06:13 06:18 06:23 Temperature Pulse Rate 88 86 89 Respiratory Rate Blood Pressure Blood Pressure [Right] O2 Sat by Pulse 99 99 98 Oximetry 04/16/19 04/16/19 04/16/19 06:24 06:28 06:33 Temperature Pulse Rate 88 86 86 Respiratory Rate Blood Pressure 130/87 Blood Pressure [Right] O2 Sat by Pulse 98 98 Oximetry 04/16/19 04/16/19 04/16/19 06:38 06:43 06:48 Temperature Pulse Rate 83 86 77 Respiratory Rate Blood Pressure Blood Pressure [Right] O2 Sat by Pulse 98 98 98 Oximetry 04/16/19 04/16/19 04/16/19 06:53 06:54 06:58 Temperature Pulse Rate 82 84 83 Respiratory Rate Blood Pressure 129/87 Blood Pressure [Right] O2 Sat by Pulse 97 98 Oximetry 04/16/19 04/16/19 04/16/19 07:03 07:08 07:13 Temperature Pulse Rate 79 75 89 Respiratory Rate Blood Pressure Blood Pressure [Right] O2 Sat by Pulse 97 97 97 Oximetry 04/16/19 04/16/19 04/16/19 07:18 07:23 07:24 Temperature Pulse Rate 83 78 77 Respiratory Rate Blood Pressure 156/105 Blood Pressure [Right] O2 Sat by Pulse 98 100 Oximetry 04/16/19 04/16/19 04/16/19 07:28 07:33 07:38 Temperature Pulse Rate 83 83 79 Respiratory Rate Blood Pressure Blood Pressure [Right] O2 Sat by Pulse 99 99 99 Oximetry 04/16/19 04/16/19 04/16/19 07:43 07:48 07:53 Temperature Pulse Rate 82 85 82 Respiratory Rate Blood Pressure Blood Pressure [Right] O2 Sat by Pulse 98 98 98 Oximetry 04/16/19 04/16/19 04/16/19 07:54 07:56 08:01 Temperature Pulse Rate 89 162 H 80 Respiratory Rate Blood Pressure 167/113 Blood Pressure [Right] O2 Sat by Pulse 79 L 85 Oximetry 04/16/19 04/16/19 04/16/19 08:04 08:06 08:07 Temperature Pulse Rate 96 H 93 H 95 H Respiratory Rate Blood Pressure 160/105 Blood Pressure [Right] O2 Sat by Pulse 100 87 Oximetry 04/16/19 04/16/19 04/16/19 08:10 08:11 08:13 Temperature 97.3 F L Pulse Rate 95 H 100 H Respiratory 18 Rate Blood Pressure Blood Pressure [Right] O2 Sat by Pulse 99 90 Oximetry 04/16/19 04/16/19 04/16/19 08:16 08:21 08:25 Temperature Pulse Rate 98 H 96 H 94 H Respiratory Rate Blood Pressure 148/102 Blood Pressure [Right] O2 Sat by Pulse 99 87 Oximetry 04/16/19 04/16/19 04/16/19 08:26 08:29 08:31 Temperature Pulse Rate 93 H 94 H 89 Respiratory Rate Blood Pressure Blood Pressure [Right] O2 Sat by Pulse 100 90 94 Oximetry 04/16/19 04/16/19 04/16/19 08:34 08:36 08:41 Temperature Pulse Rate 92 H 87 95 H Respiratory Rate Blood Pressure Blood Pressure [Right] O2 Sat by Pulse 94 91 97 Oximetry 04/16/19 04/16/19 04/16/19 08:44 08:46 08:51 Temperature Pulse Rate 96 H 94 H 86 Respiratory Rate Blood Pressure Blood Pressure [Right] O2 Sat by Pulse 92 99 97 Oximetry 04/16/19 04/16/19 04/16/19 08:54 08:56 09:01 Temperature Pulse Rate 91 H 94 H 100 H Respiratory Rate Blood Pressure Blood Pressure [Right] O2 Sat by Pulse 93 99 100 Oximetry 04/16/19 04/16/19 04/16/19 09:02 09:06 09:11 Temperature Pulse Rate 98 H 86 87 Respiratory Rate Blood Pressure Blood Pressure [Right] O2 Sat by Pulse 93 100 98 Oximetry 04/16/19 04/16/19 04/16/19 09:16 09:21 09:26 Temperature Pulse Rate 87 88 94 H Respiratory Rate Blood Pressure Blood Pressure [Right] O2 Sat by Pulse 98 95 99 Oximetry 04/16/19 04/16/19 04/16/19 09:28 09:31 09:36 Temperature Pulse Rate 93 H 88 96 H Respiratory 18 Rate Blood Pressure 128/88 Blood Pressure 128/88 [Right] O2 Sat by Pulse 99 100 Oximetry 04/16/19 04/16/19 04/16/19 09:41 09:46 09:51 Temperature Pulse Rate 90 90 92 H Respiratory Rate Blood Pressure Blood Pressure [Right] O2 Sat by Pulse 100 99 98 Oximetry 04/16/19 04/16/19 04/16/19 09:56 10:01 10:06 Temperature Pulse Rate 95 H 94 H 94 H Respiratory Rate Blood Pressure Blood Pressure [Right] O2 Sat by Pulse 98 97 96 Oximetry 04/16/19 04/16/19 04/16/19 10:11 10:16 10:28 Temperature Pulse Rate 96 H 96 H 104 H Respiratory Rate Blood Pressure Blood Pressure [Right] O2 Sat by Pulse 99 98 99 Oximetry 04/16/19 04/16/19 04/16/19 10:33 10:37 10:38 Temperature Pulse Rate 96 H 98 H 97 H Respiratory Rate Blood Pressure Blood Pressure [Right] O2 Sat by Pulse 97 94 94 Oximetry 04/16/19 04/16/19 04/16/19 10:42 10:43 10:48 Temperature Pulse Rate 95 H 95 H 95 H Respiratory Rate Blood Pressure Blood Pressure [Right] O2 Sat by Pulse 93 97 93 Oximetry 04/16/19 04/16/19 04/16/19 10:53 10:58 11:03 Temperature Pulse Rate 98 H 99 H 98 H Respiratory Rate Blood Pressure Blood Pressure [Right] O2 Sat by Pulse 96 96 98 Oximetry 04/16/19 04/16/19 04/16/19 11:08 11:13 11:19 Temperature Pulse Rate 101 H Respiratory Rate Blood Pressure Blood Pressure [Right] O2 Sat by Pulse 99 74 L 76 L Oximetry 04/16/19 04/16/19 04/16/19 11:24 11:31 11:33 Temperature Pulse Rate 52 L 129 H 86 Respiratory Rate Blood Pressure 140/98 Blood Pressure [Right] O2 Sat by Pulse 82 L 76 L Oximetry 04/16/19 04/16/19 04/16/19 11:34 11:39 11:40 Temperature 97.7 F Pulse Rate 83 90 Respiratory 18 Rate Blood Pressure Blood Pressure [Right] O2 Sat by Pulse 99 99 Oximetry 04/16/19 04/16/19 04/16/19 11:44 11:49 11:54 Temperature Pulse Rate 90 93 H 84 Respiratory Rate Blood Pressure Blood Pressure [Right] O2 Sat by Pulse 99 100 100 Oximetry 04/16/19 04/16/19 04/16/19 11:59 12:04 12:09 Temperature Pulse Rate 92 H 88 95 H Respiratory Rate Blood Pressure Blood Pressure [Right] O2 Sat by Pulse 99 99 100 Oximetry 04/16/19 04/16/19 04/16/19 12:14 12:19 12:24 Temperature Pulse Rate 87 83 86 Respiratory Rate Blood Pressure Blood Pressure [Right] O2 Sat by Pulse 100 99 99 Oximetry 04/16/19 04/16/19 04/16/19 12:29 12:34 12:39 Temperature Pulse Rate 90 87 88 Respiratory Rate Blood Pressure Blood Pressure [Right] O2 Sat by Pulse 99 99 99 Oximetry 04/16/19 04/16/19 04/16/19 12:44 12:49 12:51 Temperature Pulse Rate 91 H 93 H 116 H Respiratory Rate Blood Pressure Blood Pressure [Right] O2 Sat by Pulse 99 100 75 L Oximetry 04/16/19 04/16/19 04/16/19 12:57 12:59 13:05 Temperature Pulse Rate 56 L 87 Respiratory Rate Blood Pressure Blood Pressure [Right] O2 Sat by Pulse 80 L 80 L 80 L Oximetry 04/16/19 04/16/19 04/16/19 13:11 13:25 13:26 Temperature Pulse Rate 91 H Respiratory Rate Blood Pressure Blood Pressure [Right] O2 Sat by Pulse 85 81 L 80 L Oximetry 04/16/19 04/16/19 04/16/19 13:30 14:20 14:24 Temperature Pulse Rate 57 L 27 L 139 H Respiratory Rate Blood Pressure Blood Pressure [Right] O2 Sat by Pulse 0 L 69 L 85 Oximetry 04/16/19 04/16/19 04/16/19 14:25 14:29 14:30 Temperature Pulse Rate Respiratory Rate Blood Pressure Blood Pressure [Right] O2 Sat by Pulse 84 84 86 Oximetry 04/16/19 04/16/19 15:32 15:33 Temperature 98.1 F Pulse Rate 94 H 94 H Respiratory 18 Rate Blood Pressure 132/80 Blood Pressure 132/80 [Right] O2 Sat by Pulse Oximetry - Exam Lungs: Normal air movement Abdomen: Present: normal appearance, soft. Absent: tenderness (BPP and umbilical doppler negative) Uterine Contraction Pattern: Irregular Uterine Contraction Intensity: Mild Deep Tendon Reflex Grade: Normal +2 - Labs Labs: Abnormal Labs 04/12/19 04/12/19 04/12/19 12:06 13:37 13:37 WBC 14.3 H RBC Hct MCHC RDW 12.5 L Lymph % (Auto) Seg Neutrophils % Seg Neuts % (Manual) 84.0 H Lymphocytes % (Manual) 12.0 L Seg Neutrophils # Seg Neutrophils # Man 12.0 H Sodium 132 L Potassium 3.4 L Chloride 85.6 L Carbon Dioxide 13 L BUN 18 H Creatinine 1.6 H Glucose 286 H POC Glucose 270 H Hemoglobin A1c Calcium Phosphorus Magnesium Total Protein Albumin 3.3 L 04/12/19 04/13/19 04/13/19 18:34 00:49 05:30 WBC RBC Hct MCHC RDW Lymph % (Auto) Seg Neutrophils % Seg Neuts % (Manual) Lymphocytes % (Manual) Seg Neutrophils # Seg Neutrophils # Man Sodium Potassium Chloride Carbon Dioxide BUN Creatinine Glucose POC Glucose 201 H 227 H 258 H Hemoglobin A1c Calcium Phosphorus Magnesium Total Protein Albumin 04/13/19 04/13/19 04/13/19 06:37 06:37 10:24 WBC 14.9 H RBC Hct MCHC RDW 12.6 L Lymph % (Auto) 10.8 L Seg Neutrophils % 84.0 H Seg Neuts % (Manual) Lymphocytes % (Manual) Seg Neutrophils # 12.5 H Seg Neutrophils # Man Sodium 135 L Potassium 3.3 L Chloride 90.4 L Carbon Dioxide 9 L* BUN Creatinine 1.3 H Glucose 309 H POC Glucose 302 H Hemoglobin A1c Calcium Phosphorus Magnesium Total Protein Albumin 3.6 L 04/13/19 04/13/19 04/13/19 12:13 14:46 15:49 WBC RBC Hct MCHC RDW Lymph % (Auto) Seg Neutrophils % Seg Neuts % (Manual) Lymphocytes % (Manual) Seg Neutrophils # Seg Neutrophils # Man Sodium Potassium Chloride Carbon Dioxide BUN Creatinine Glucose POC Glucose 261 H 190 H 174 H Hemoglobin A1c Calcium Phosphorus Magnesium Total Protein Albumin 04/13/19 04/13/19 04/13/19 16:07 16:07 17:12 WBC RBC Hct MCHC RDW Lymph % (Auto) Seg Neutrophils % Seg Neuts % (Manual) Lymphocytes % (Manual) Seg Neutrophils # Seg Neutrophils # Man Sodium 136 L Potassium 3.5 L Chloride 90.7 L Carbon Dioxide 15 L BUN Creatinine 1.3 H Glucose 159 H POC Glucose 123 H Hemoglobin A1c 6.6 H Calcium 10.6 H Phosphorus Magnesium Total Protein Albumin 04/13/19 04/13/19 04/13/19 18:06 19:30 19:30 WBC 14.2 H RBC Hct MCHC RDW 12.2 L Lymph % (Auto) Seg Neutrophils % Seg Neuts % (Manual) 77.0 H Lymphocytes % (Manual) Seg Neutrophils # Seg Neutrophils # Man 10.9 H Sodium Potassium 2.9 L* 3.2 L Chloride 90.7 L 90.2 L Carbon Dioxide 16 L 18 L BUN Creatinine Glucose 109 H POC Glucose Hemoglobin A1c Calcium 10.3 H Phosphorus 2.30 L Magnesium Total Protein Albumin 3.5 L 04/13/19 04/13/19 04/13/19 22:00 22:44 23:01 WBC RBC Hct MCHC RDW Lymph % (Auto) Seg Neutrophils % Seg Neuts % (Manual) Lymphocytes % (Manual) Seg Neutrophils # Seg Neutrophils # Man Sodium 136 L Potassium Chloride 90.6 L Carbon Dioxide 14 L BUN Creatinine Glucose 179 H POC Glucose 136 H 183 H Hemoglobin A1c Calcium Phosphorus Magnesium Total Protein Albumin 04/13/19 04/14/19 04/14/19 23:54 01:09 02:20 WBC RBC Hct MCHC RDW Lymph % (Auto) Seg Neutrophils % Seg Neuts % (Manual) Lymphocytes % (Manual) Seg Neutrophils # Seg Neutrophils # Man Sodium Potassium Chloride Carbon Dioxide BUN Creatinine Glucose POC Glucose 206 H 160 H 108 H Hemoglobin A1c Calcium Phosphorus Magnesium Total Protein Albumin 04/14/19 04/14/19 04/14/19 04:58 05:54 06:12 WBC RBC Hct MCHC RDW Lymph % (Auto) Seg Neutrophils % Seg Neuts % (Manual) Lymphocytes % (Manual) Seg Neutrophils # Seg Neutrophils # Man Sodium 136 L Potassium 3.5 L Chloride 92.4 L Carbon Dioxide 19 L BUN Creatinine Glucose 138 H POC Glucose 130 H 131 H Hemoglobin A1c Calcium Phosphorus Magnesium Total Protein Albumin 04/14/19 04/14/19 04/14/19 07:37 08:14 09:17 WBC RBC Hct MCHC RDW Lymph % (Auto) Seg Neutrophils % Seg Neuts % (Manual) Lymphocytes % (Manual) Seg Neutrophils # Seg Neutrophils # Man Sodium Potassium Chloride Carbon Dioxide BUN Creatinine Glucose POC Glucose 148 H 121 H 112 H Hemoglobin A1c Calcium Phosphorus Magnesium Total Protein Albumin 04/14/19 04/14/19 04/14/19 10:43 11:49 12:50 WBC RBC Hct MCHC RDW Lymph % (Auto) Seg Neutrophils % Seg Neuts % (Manual) Lymphocytes % (Manual) Seg Neutrophils # Seg Neutrophils # Man Sodium Potassium Chloride Carbon Dioxide BUN Creatinine Glucose POC Glucose 113 H 160 H 174 H Hemoglobin A1c Calcium Phosphorus Magnesium Total Protein Albumin 04/14/19 04/14/19 04/14/19 13:35 14:26 14:45 WBC RBC Hct MCHC RDW Lymph % (Auto) Seg Neutrophils % Seg Neuts % (Manual) Lymphocytes % (Manual) Seg Neutrophils # Seg Neutrophils # Man Sodium 130 L Potassium 2.7 L* D Chloride 89.9 L Carbon Dioxide BUN Creatinine Glucose 238 H POC Glucose 241 H 245 H Hemoglobin A1c Calcium Phosphorus Magnesium Total Protein Albumin 04/14/19 04/14/19 04/14/19 16:50 16:51 20:11 WBC RBC Hct MCHC RDW Lymph % (Auto) Seg Neutrophils % Seg Neuts % (Manual) Lymphocytes % (Manual) Seg Neutrophils # Seg Neutrophils # Man Sodium Potassium Chloride Carbon Dioxide BUN Creatinine Glucose POC Glucose 232 H 136 H Hemoglobin A1c Calcium Phosphorus Magnesium 1.60 L Total Protein Albumin 04/15/19 04/15/19 04/15/19 00:20 07:27 07:27 WBC RBC 3.56 L Hct 29.6 L D MCHC 35 H RDW 12.2 L Lymph % (Auto) Seg Neutrophils % Seg Neuts % (Manual) 77.0 H Lymphocytes % (Manual) Seg Neutrophils # Seg Neutrophils # Man Sodium 131 L 134 L Potassium 3.3 L D 3.4 L Chloride 91.4 L 96.3 L Carbon Dioxide BUN 6 L 5 L Creatinine Glucose 223 H POC Glucose Hemoglobin A1c Calcium 8.2 L Phosphorus Magnesium Total Protein 4.9 L D Albumin 2.8 L 04/15/19 04/15/19 04/15/19 07:27 11:56 17:00 WBC RBC Hct MCHC RDW Lymph % (Auto) Seg Neutrophils % Seg Neuts % (Manual) Lymphocytes % (Manual) Seg Neutrophils # Seg Neutrophils # Man Sodium Potassium Chloride Carbon Dioxide BUN Creatinine Glucose POC Glucose 167 H 241 H Hemoglobin A1c Calcium Phosphorus 1.60 L D Magnesium Total Protein Albumin 04/15/19 04/16/19 04/16/19 23:57 00:20 03:54 WBC RBC Hct MCHC RDW Lymph % (Auto) Seg Neutrophils % Seg Neuts % (Manual) Lymphocytes % (Manual) Seg Neutrophils # Seg Neutrophils # Man Sodium Potassium Chloride Carbon Dioxide BUN Creatinine Glucose POC Glucose 212 H < 40 L Hemoglobin A1c Calcium Phosphorus Magnesium 3.80 H Total Protein Albumin 04/16/19 04/16/19 04/16/19 05:51 06:02 08:18 WBC RBC Hct MCHC RDW Lymph % (Auto) Seg Neutrophils % Seg Neuts % (Manual) Lymphocytes % (Manual) Seg Neutrophils # Seg Neutrophils # Man Sodium Potassium Chloride Carbon Dioxide BUN Creatinine Glucose POC Glucose 132 H 203 H Hemoglobin A1c Calcium Phosphorus Magnesium 6.90 H Total Protein Albumin 04/16/19 04/16/19 04/16/19 11:42 11:47 17:10 WBC RBC Hct MCHC RDW Lymph % (Auto) Seg Neutrophils % Seg Neuts % (Manual) Lymphocytes % (Manual) Seg Neutrophils # Seg Neutrophils # Man Sodium Potassium Chloride Carbon Dioxide BUN Creatinine Glucose POC Glucose 267 H 304 H Hemoglobin A1c Calcium Phosphorus Magnesium 6.40 H Total Protein Albumin Laboratory Results - last 24 hr 04/15/19 04/15/19 04/15/19 00:20 07:27 17:00 Sodium 131 L 134 L Potassium 3.3 L D 3.4 L Chloride 91.4 L 96.3 L Carbon Dioxide 24 27 Anion Gap 19 14 BUN 6 L 5 L Creatinine 0.8 0.9 Estimated GFR > 60 > 60 BUN/Creatinine Ratio 8 6 Glucose 223 H 93 POC Glucose 241 H Calcium 8.2 L 8.6 Magnesium 2.10 Total Bilirubin 0.50 AST 21 ALT 12 Alkaline Phosphatase 95 Total Protein 4.9 L D Albumin 2.8 L Albumin/Globulin Ratio 1.3 Blood Type Antibody Screen 04/15/19 04/15/19 04/16/19 20:40 23:57 00:20 Sodium Potassium Chloride Carbon Dioxide Anion Gap BUN Creatinine Estimated GFR BUN/Creatinine Ratio Glucose POC Glucose 212 H Calcium Magnesium 3.80 H Total Bilirubin AST ALT Alkaline Phosphatase Total Protein Albumin Albumin/Globulin Ratio Blood Type AB POSITIVE Antibody Screen Negative 04/16/19 04/16/19 04/16/19 03:54 04:29 05:51 Sodium Potassium Chloride Carbon Dioxide Anion Gap BUN Creatinine Estimated GFR BUN/Creatinine Ratio Glucose POC Glucose < 40 L 101 132 H Calcium Magnesium Total Bilirubin AST ALT Alkaline Phosphatase Total Protein Albumin Albumin/Globulin Ratio Blood Type Antibody Screen 04/16/19 04/16/19 04/16/19 06:02 08:18 11:42 Sodium Potassium Chloride Carbon Dioxide Anion Gap BUN Creatinine Estimated GFR BUN/Creatinine Ratio Glucose POC Glucose 203 H Calcium Magnesium 6.90 H 6.40 H Total Bilirubin AST ALT Alkaline Phosphatase Total Protein Albumin Albumin/Globulin Ratio Blood Type Antibody Screen 04/16/19 04/16/19 11:47 17:10 Sodium Potassium Chloride Carbon Dioxide Anion Gap BUN Creatinine Estimated GFR BUN/Creatinine Ratio Glucose POC Glucose 267 H 304 H Calcium Magnesium Total Bilirubin AST ALT Alkaline Phosphatase Total Protein Albumin Albumin/Globulin Ratio Blood Type Antibody Screen
[2019-04-16] MEDS: CELESTONE SOLUSPAN IM SCH (22:49)
[2019-04-17] MEDS ORDERED: D5LR 1,000 ML IV ONE (02:29)
[2019-04-17] MEDS: CLEOCIN 600 MG/50 mL 600 MG/50 ML BAG IV SCH ×3 (02:37→18:07)
[2019-04-17] MEDS: HumaLOG SUB-Q SCH (07:30)
[2019-04-17] MEDS: ALUM-MAG HYDROX-SIMETH 200-200-20MG/5ML PO PRN (08:58)
[2019-04-17] MEDS: ZOFRAN IV PRN ×2 (08:59→21:41)
[2019-04-17] MEDS: PRENATAL VITAMIN PO SCH (10:00)
--- NOTE | 2019-04-17 10:18 | Progress Note ---
Assessment and Plan - Patient Problems (1) 34 weeks gestation of Current Visit: Yes Status: Acute (2) Type 1 diabetes mellitus Current Visit: No Status: Acute Qualifiers: Diabetes mellitus complication status: with hypoglycemia (3) Uncontrolled blood glucose Current Visit: Yes Status: Acute Plan to address problem: Insulin pump was discontinued. She is on insulin sliding scale. [facility] and [facility] saw her yesterday. Plan is to restart the pump and to have [facility] service 3 times weekly. (4) DKA (diabetic ketoacidoses) Current Visit: No Status: Acute Qualifiers: Diabetes mellitus type: type 1 Diabetes mellitus complication detail: without coma Qualified Code(s): E10.10 - Type 1 diabetes mellitus with ketoacidosis without coma Plan to address problem: Resolved. (5) Hypokalemia Current Visit: Yes Status: Acute Plan to address problem: Resolved. Subjective - Subjective Date of service: 04/17/19 Principal diagnosis: 34 weeks gestation, DM-1, pre-eclampsia, s/p DKA Interval history: Patient is a 23 year old , LMP 08/04/18, EDC 05/29/19 at 34 weeks gestation who was admitted on 04/12 for nausea, vomiting and inability to retain PO intake for several days. She denies any fever, chills, contractions, fluid leakage or bleeding, urinary symptoms. URI symptoms. She reports good movement. She is a pre-gestational diabetic type-1 on insulin pump for years. Her glucose has not been controlled prior to this . She states that she sees an vice president of brand management routinely but as per [facility], they recommended that she follow with endocrine but she did not go. On admission, her glucose was 286. The insulin pump was discontinued and she was switched to sliding scale. She was later diagnosed with DKA as her electrolytes were worsening. She was transferred to the medical ICU for DKA management. Her labs became stable and she was sent back to the labor floor. [facility] service has seen her. [facility] consult done. Patient reports: new complaints, movement normal, other (Patient seen and examined. Havnig irregular ctx, no lof, no vagnal bleedng.Ctx mild to palpation probale second to metabolic disturbace and dehydration. Not in Labor. status reassuring overall. Plan for continued expectanat managment, IV pain meds PRN. Maternal/ well being reassuring. Appreciate CCU managment of medical issues. ), no loss of fluid, no vaginal bleeding, no contractions Objective - Vital Signs Vital Signs: Vital Signs - 12hr 04/17/19 09:21 Temperature 98.6 F - Exam Cardiovascular: Normal S1, Normal S2 Lungs: Clear to auscultation Vulva: both: normal FHR: category 1 Uterine Contraction Monitor Mode: External Uterine Contraction Pattern: Absent Deep Tendon Reflex Grade: Normal +2 - Labs Labs: Abnormal Labs 04/12/19 04/12/19 04/12/19 12:06 13:37 13:37 WBC 14.3 H RBC Hct MCHC RDW 12.5 L Lymph % (Auto) Seg Neutrophils % Seg Neuts % (Manual) 84.0 H Lymphocytes % (Manual) 12.0 L Seg Neutrophils # Seg Neutrophils # Man 12.0 H Sodium 132 L Potassium 3.4 L Chloride 85.6 L Carbon Dioxide 13 L BUN 18 H Creatinine 1.6 H Glucose 286 H POC Glucose 270 H Hemoglobin A1c Calcium Phosphorus Magnesium Total Protein Albumin 3.3 L 04/12/19 04/13/19 04/13/19 18:34 00:49 05:30 WBC RBC Hct MCHC RDW Lymph % (Auto) Seg Neutrophils % Seg Neuts % (Manual) Lymphocytes % (Manual) Seg Neutrophils # Seg Neutrophils # Man Sodium Potassium Chloride Carbon Dioxide BUN Creatinine Glucose POC Glucose 201 H 227 H 258 H Hemoglobin A1c Calcium Phosphorus Magnesium Total Protein Albumin 04/13/19 04/13/19 04/13/19 06:37 06:37 10:24 WBC 14.9 H RBC Hct MCHC RDW 12.6 L Lymph % (Auto) 10.8 L Seg Neutrophils % 84.0 H Seg Neuts % (Manual) Lymphocytes % (Manual) Seg Neutrophils # 12.5 H Seg Neutrophils # Man Sodium 135 L Potassium 3.3 L Chloride 90.4 L Carbon Dioxide 9 L* BUN Creatinine 1.3 H Glucose 309 H POC Glucose 302 H Hemoglobin A1c Calcium Phosphorus Magnesium Total Protein Albumin 3.6 L 04/13/19 04/13/19 04/13/19 12:13 14:46 15:49 WBC RBC Hct MCHC RDW Lymph % (Auto) Seg Neutrophils % Seg Neuts % (Manual) Lymphocytes % (Manual) Seg Neutrophils # Seg Neutrophils # Man Sodium Potassium Chloride Carbon Dioxide BUN Creatinine Glucose POC Glucose 261 H 190 H 174 H Hemoglobin A1c Calcium Phosphorus Magnesium Total Protein Albumin 04/13/19 04/13/19 04/13/19 16:07 16:07 17:12 WBC RBC Hct MCHC RDW Lymph % (Auto) Seg Neutrophils % Seg Neuts % (Manual) Lymphocytes % (Manual) Seg Neutrophils # Seg Neutrophils # Man Sodium 136 L Potassium 3.5 L Chloride 90.7 L Carbon Dioxide 15 L BUN Creatinine 1.3 H Glucose 159 H POC Glucose 123 H Hemoglobin A1c 6.6 H Calcium 10.6 H Phosphorus Magnesium Total Protein Albumin 04/13/19 04/13/19 04/13/19 18:06 19:30 19:30 WBC 14.2 H RBC Hct MCHC RDW 12.2 L Lymph % (Auto) Seg Neutrophils % Seg Neuts % (Manual) 77.0 H Lymphocytes % (Manual) Seg Neutrophils # Seg Neutrophils # Man 10.9 H Sodium Potassium 2.9 L* 3.2 L Chloride 90.7 L 90.2 L Carbon Dioxide 16 L 18 L BUN Creatinine Glucose 109 H POC Glucose Hemoglobin A1c Calcium 10.3 H Phosphorus 2.30 L Magnesium Total Protein Albumin 3.5 L 04/13/19 04/13/19 04/13/19 22:00 22:44 23:01 WBC RBC Hct MCHC RDW Lymph % (Auto) Seg Neutrophils % Seg Neuts % (Manual) Lymphocytes % (Manual) Seg Neutrophils # Seg Neutrophils # Man Sodium 136 L Potassium Chloride 90.6 L Carbon Dioxide 14 L BUN Creatinine Glucose 179 H POC Glucose 136 H 183 H Hemoglobin A1c Calcium Phosphorus Magnesium Total Protein Albumin 04/13/19 04/14/19 04/14/19 23:54 01:09 02:20 WBC RBC Hct MCHC RDW Lymph % (Auto) Seg Neutrophils % Seg Neuts % (Manual) Lymphocytes % (Manual) Seg Neutrophils # Seg Neutrophils # Man Sodium Potassium Chloride Carbon Dioxide BUN Creatinine Glucose POC Glucose 206 H 160 H 108 H Hemoglobin A1c Calcium Phosphorus Magnesium Total Protein Albumin 04/14/19 04/14/19 04/14/19 04:58 05:54 06:12 WBC RBC Hct MCHC RDW Lymph % (Auto) Seg Neutrophils % Seg Neuts % (Manual) Lymphocytes % (Manual) Seg Neutrophils # Seg Neutrophils # Man Sodium 136 L Potassium 3.5 L Chloride 92.4 L Carbon Dioxide 19 L BUN Creatinine Glucose 138 H POC Glucose 130 H 131 H Hemoglobin A1c Calcium Phosphorus Magnesium Total Protein Albumin 04/14/19 04/14/19 04/14/19 07:37 08:14 09:17 WBC RBC Hct MCHC RDW Lymph % (Auto) Seg Neutrophils % Seg Neuts % (Manual) Lymphocytes % (Manual) Seg Neutrophils # Seg Neutrophils # Man Sodium Potassium Chloride Carbon Dioxide BUN Creatinine Glucose POC Glucose 148 H 121 H 112 H Hemoglobin A1c Calcium Phosphorus Magnesium Total Protein Albumin 04/14/19 04/14/19 04/14/19 10:43 11:49 12:50 WBC RBC Hct MCHC RDW Lymph % (Auto) Seg Neutrophils % Seg Neuts % (Manual) Lymphocytes % (Manual) Seg Neutrophils # Seg Neutrophils # Man Sodium Potassium Chloride Carbon Dioxide BUN Creatinine Glucose POC Glucose 113 H 160 H 174 H Hemoglobin A1c Calcium Phosphorus Magnesium Total Protein Albumin 04/14/19 04/14/19 04/14/19 13:35 14:26 14:45 WBC RBC Hct MCHC RDW Lymph % (Auto) Seg Neutrophils % Seg Neuts % (Manual) Lymphocytes % (Manual) Seg Neutrophils # Seg Neutrophils # Man Sodium 130 L Potassium 2.7 L* D Chloride 89.9 L Carbon Dioxide BUN Creatinine Glucose 238 H POC Glucose 241 H 245 H Hemoglobin A1c Calcium Phosphorus Magnesium Total Protein Albumin 04/14/19 04/14/19 04/14/19 16:50 16:51 20:11 WBC RBC Hct MCHC RDW Lymph % (Auto) Seg Neutrophils % Seg Neuts % (Manual) Lymphocytes % (Manual) Seg Neutrophils # Seg Neutrophils # Man Sodium Potassium Chloride Carbon Dioxide BUN Creatinine Glucose POC Glucose 232 H 136 H Hemoglobin A1c Calcium Phosphorus Magnesium 1.60 L Total Protein Albumin 04/15/19 04/15/19 04/15/19 00:20 07:27 07:27 WBC RBC 3.56 L Hct 29.6 L D MCHC 35 H RDW 12.2 L Lymph % (Auto) Seg Neutrophils % Seg Neuts % (Manual) 77.0 H Lymphocytes % (Manual) Seg Neutrophils # Seg Neutrophils # Man Sodium 131 L 134 L Potassium 3.3 L D 3.4 L Chloride 91.4 L 96.3 L Carbon Dioxide BUN 6 L 5 L Creatinine Glucose 223 H POC Glucose Hemoglobin A1c Calcium 8.2 L Phosphorus Magnesium Total Protein 4.9 L D Albumin 2.8 L 04/15/19 04/15/19 04/15/19 07:27 11:56 17:00 WBC RBC Hct MCHC RDW Lymph % (Auto) Seg Neutrophils % Seg Neuts % (Manual) Lymphocytes % (Manual) Seg Neutrophils # Seg Neutrophils # Man Sodium Potassium Chloride Carbon Dioxide BUN Creatinine Glucose POC Glucose 167 H 241 H Hemoglobin A1c Calcium Phosphorus 1.60 L D Magnesium Total Protein Albumin 04/15/19 04/16/19 04/16/19 23:57 00:20 03:54 WBC RBC Hct MCHC RDW Lymph % (Auto) Seg Neutrophils % Seg Neuts % (Manual) Lymphocytes % (Manual) Seg Neutrophils # Seg Neutrophils # Man Sodium Potassium Chloride Carbon Dioxide BUN Creatinine Glucose POC Glucose 212 H < 40 L Hemoglobin A1c Calcium Phosphorus Magnesium 3.80 H Total Protein Albumin 04/16/19 04/16/19 04/16/19 05:51 06:02 08:18 WBC RBC Hct MCHC RDW Lymph % (Auto) Seg Neutrophils % Seg Neuts % (Manual) Lymphocytes % (Manual) Seg Neutrophils # Seg Neutrophils # Man Sodium Potassium Chloride Carbon Dioxide BUN Creatinine Glucose POC Glucose 132 H 203 H Hemoglobin A1c Calcium Phosphorus Magnesium 6.90 H Total Protein Albumin 04/16/19 04/16/19 04/16/19 11:42 11:47 17:10 WBC RBC Hct MCHC RDW Lymph % (Auto) Seg Neutrophils % Seg Neuts % (Manual) Lymphocytes % (Manual) Seg Neutrophils # Seg Neutrophils # Man Sodium Potassium Chloride Carbon Dioxide BUN Creatinine Glucose POC Glucose 267 H 304 H Hemoglobin A1c Calcium Phosphorus Magnesium 6.40 H Total Protein Albumin 04/16/19 04/17/19 22:41 07:49 WBC RBC Hct MCHC RDW Lymph % (Auto) Seg Neutrophils % Seg Neuts % (Manual) Lymphocytes % (Manual) Seg Neutrophils # Seg Neutrophils # Man Sodium Potassium Chloride Carbon Dioxide BUN Creatinine Glucose POC Glucose 228 H 334 H Hemoglobin A1c Calcium Phosphorus Magnesium Total Protein Albumin Laboratory Results - last 24 hr 04/16/19 04/16/19 04/16/19 11:42 11:47 17:10 POC Glucose 267 H 304 H Magnesium 6.40 H 04/16/19 04/17/19 22:41 07:49 POC Glucose 228 H 334 H Magnesium
[2019-04-17 11:04] LABS: Basophils % (Auto) 0.1 % (0.0-1.8); Hematocrit 33.1 % (30.3-42.9); Hemoglobin 11.4 gm/dl (10.1-14.3); Lymphocytes # (Auto) 1.1 K/mm3 (1.2-5.4); Lymphocytes % (Auto) 16.1 % (13.4-35.0); Mean Corpuscular HGB Conc 35 % (30-34); Mean Corpuscular Volume 83 fl (79-97); Monocytes # (Auto) 0.4 K/mm3 (0.0-0.8); Monocytes % (Auto) 5.5 % (0.0-7.3); Platelet Count 204 K/mm3 (140-440); Red Blood Count 3.98 M/mm3 (3.65-5.03); Red Cell Distribution Width 12.2 % (13.2-15.2)
[2019-04-17 11:24] LABS: Alanine Aminotransferase 20 units/L (7-56); Albumin 3.2 g/dL (3.9-5); BUN/Creatinine Ratio 8; Blood Urea Nitrogen 8 mg/dL (7-17); Calcium 8.4 mg/dL (8.4-10.2); Hemolysis Index 1
--- NOTE | 2019-04-17 14:05 | Event Note ---
Date: 04/17/19 Late entry : Yesterday evening I discussed with patient's nurse, if hospitalist should manage uncontrolled blood sugars of Ms.Scales. Ms.Felisha Anderson[the patient's nurse] informed me that, [employer] physician Dr.Neuman Lopez ,who manages High risk pregnancies is managing the patient and the hospitalist's services are not needed at this point.
--- NOTE | 2019-04-17 14:19 | Ultrasound Report ---
ULTRASOUND BIOPHYSICAL PROFILE ULTRASOUND OB LIMITED INDICATION: diabetes TECHNIQUE: Transabdominal ultrasound imaging. COMPARISON: None FINDINGS: breathing movement = 0 Gross body movement = 0 tone = 0 Qualitative amniotic fluid volume = 2 Total biophysical score = 2/8 Amniotic fluid index is 16.6 cm. Presentation is cephalic. heart rate is 156 beats per minute. IMPRESSION: biophysical profile equals 2/8. Signer Name: Mack Carter Jr, MD Signed: 04/17/2019 2:15 PM Workstation Name: [id number]
--- NOTE | 2019-04-17 14:36 | Ultrasound Report ---
ULTRASOUND OB VELOCIMETRY UMBILICAL ARTERY HISTORY: Diabetes. TECHNIQUE: Transabdominal grayscale ultrasound with color and spectral Doppler imaging. COMPARISON: 04/15/2019. FINDINGS: 3 segments of the umbilical cord were evaluated. heart rate measures 162 bpm. The spectral wave forms are normal and persistent. The average resistive index measures 0.52. (0.51, 0.50, and 0.55). The average S/D ratio measures 2.1. (2.06, 2.01, 2.23). IMPRESSION: Umbilical cord Doppler within normal limits. Signer Name: Mack Carter Jr, MD Signed: 04/17/2019 2:32 PM Workstation Name: [id number]
[2019-04-17] MEDS ORDERED: NACL 0.9% 1000 ML 1,000 ML ONE ×2 (14:57→17:24)
--- NOTE | 2019-04-17 16:10 | Event Note ---
Date: 04/17/19 Patient is a 23 year old with a history of pre-gestational diabetes at 34 weeks who was admitted for vomiting, elevated glucose and later developed DKA. She was treated in the ICU and transferred back to the labor floor. She has an insulin pump which was discontinued on admission and she has been on a sliding scale. Her fasting glucose today was 334 and 2-hr was 374. She had just restarted her pump right after her lunch. BPP today was 2/8 (-2 for movement, tone, breathing), ANGIE was 13. tracing was reactive earlier but now is non-reactive for the past 30 mins. Patient is looking well now and has been ambulating without any complaint. I spoke with Dr. Martinez from [facility] who has seen the patient over the weekend and discuss these findings with him. He recommend to have repeat BPP now and if is the same, to proceed with delivery. Patient has been put NPO.
--- NOTE | 2019-04-17 16:34 | Event Note ---
Date: 04/17/19 PPP is now 03/09 (done by the same quarry supervisor dimension stone). Umbilical cord doppler result is pending. Result was discussed with the patient. Will continue to monitor her glucose.
--- NOTE | 2019-04-17 17:24 | Ultrasound Report ---
OBSTETRICAL ULTRASOUND WITH BIOPHYSICAL PROFILE AND UMBILICAL ARTERY DOPPLER. HISTORY: Earlier abnormal examination. FINDINGS: Biophysical profile is now normal at 8 of 8. Umbilical artery Doppler was performed. 3 segments of the umbilical cord were evaluated. Estimated fe jack age is 34 weeks. heart tones are 156 bpm. The average resistive index is 0.63 (0.7, 0.6, 0.6). The average S/D ratio is 2.7 (3.2, 2.5, 2.5). IMPRESSION: 1. Biophysical profile is 8 of 8. 2. Umbilical artery Doppler within normal limits. Signer Name: Nigel Mi MD Signed: 04/17/2019 5:19 PM Workstation Name: [id number]
[2019-04-17] MEDS ORDERED: NACL 0.9% 1000 ML 1,000 ML IV SCH (21:00)
[2019-04-17] MEDS ORDERED: PHENERGAN PR ONE (22:17)
[2019-04-18] MEDS: CLEOCIN 600 MG/50 mL 600 MG/50 ML BAG IV SCH ×2 (02:06→08:00)
--- NOTE | 2019-04-18 08:33 | Progress Note ---
Assessment and Plan - Patient Problems (1) 34 weeks gestation of Current Visit: Yes Status: Acute (2) Type 1 diabetes mellitus Current Visit: No Status: Acute Qualifiers: Diabetes mellitus complication status: with hypoglycemia Diabetes mellitus complication detail: without coma Qualified Code(s): E10.649 - Type 1 diabetes mellitus with hypoglycemia without coma Plan to address problem: 34+1wks Diabetes under management by JUAN ALBERTO BOLAÑOS. Patient on insulin pump under supervision of [employer]. Two BPP and doppler were done yesterday , the second being to reassess an abnormal earlier one. tracing this am category 1. Patient had a mild hematemesis overnight and needs to observed in house still. Subjective - Subjective Principal diagnosis: 34 weeks gestation, DM-1, pre-eclampsia, s/p DKA Interval history: Patient is a 23 year old , 33+6wks, LMP 08/04/18, EDC 05/29/19 who presented to triage complaining of having nausea, vomiting and inability to retain PO intake for several days. She denies any fever, chills, contractions, fluid leakage or bleeding, urinary symptoms. URI symptoms. She reports good movement. She is a pre-gestational diabetic type-1 on insulin pump for years. Her glucose has not been controlled prior to this . She sees an office technologist and [facility]. Discharged out of the ICU earlier 04/15/2019 after being managed for diabetic ketoacidosis. Non compliance with MD's has been an issue with patient during this . She had no complaints today and was resting comfortably in her bed. Understood why she was being retained in the hospital which was to allow for better control of her diabetes. Patient reports: no new complaints, movement normal, other not having contractions. Not in Labor. status reassuring overall. Plan for continued expectanat managment, IV pain meds PRN. Maternal/ well being reassuring. Patient reports: new complaints, movement normal, other (Patient seen and examined. Havnig irregular ctx, no lof, no vagnal bleedng.Ctx mild to palpation probale second to metabolic disturbace and dehydration. Not in Labor. status reassuring overall. Plan for continued expectanat managment, IV pain meds PRN. Maternal/ well being reassuring. Appreciate CCU managment of medical issues. ), no loss of fluid, no vaginal bleeding, no contractions Objective - Vital Signs Vital Signs: Vital Signs - 12hr 04/17/19 04/17/19 04/18/19 22:49 23:21 00:03 Temperature Pulse Rate 104 H 122 H 104 H Respiratory Rate Blood Pressure 131/102 150/103 134/87 04/18/19 04/18/19 04/18/19 01:00 06:38 06:46 Temperature 98.1 F 97.9 F Pulse Rate 81 Respiratory 18 17 Rate Blood Pressure 133/81 04/18/19 08:10 Temperature 97.8 F Pulse Rate Respiratory Rate Blood Pressure - Exam Abdomen: Present: soft. Absent: tenderness (mild hematemesis overnight.) FHR: category 1 Uterine Contraction Pattern: Absent Deep Tendon Reflex Grade: Normal +2 - Labs Labs: Abnormal Labs 04/12/19 04/12/19 04/12/19 12:06 13:37 13:37 WBC 14.3 H RBC Hct MCHC RDW 12.5 L Lymph % (Auto) Lymph # Seg Neutrophils % Seg Neuts % (Manual) 84.0 H Lymphocytes % (Manual) 12.0 L Seg Neutrophils # Seg Neutrophils # Man 12.0 H Sodium 132 L Potassium 3.4 L Chloride 85.6 L Carbon Dioxide 13 L BUN 18 H Creatinine 1.6 H Glucose 286 H POC Glucose 270 H Hemoglobin A1c Calcium Phosphorus Magnesium Total Protein Albumin 3.3 L 04/12/19 04/13/19 04/13/19 18:34 00:49 05:30 WBC RBC Hct MCHC RDW Lymph % (Auto) Lymph # Seg Neutrophils % Seg Neuts % (Manual) Lymphocytes % (Manual) Seg Neutrophils # Seg Neutrophils # Man Sodium Potassium Chloride Carbon Dioxide BUN Creatinine Glucose POC Glucose 201 H 227 H 258 H Hemoglobin A1c Calcium Phosphorus Magnesium Total Protein Albumin 04/13/19 04/13/19 04/13/19 06:37 06:37 10:24 WBC 14.9 H RBC Hct MCHC RDW 12.6 L Lymph % (Auto) 10.8 L Lymph # Seg Neutrophils % 84.0 H Seg Neuts % (Manual) Lymphocytes % (Manual) Seg Neutrophils # 12.5 H Seg Neutrophils # Man Sodium 135 L Potassium 3.3 L Chloride 90.4 L Carbon Dioxide 9 L* BUN Creatinine 1.3 H Glucose 309 H POC Glucose 302 H Hemoglobin A1c Calcium Phosphorus Magnesium Total Protein Albumin 3.6 L 04/13/19 04/13/19 04/13/19 12:13 14:46 15:49 WBC RBC Hct MCHC RDW Lymph % (Auto) Lymph # Seg Neutrophils % Seg Neuts % (Manual) Lymphocytes % (Manual) Seg Neutrophils # Seg Neutrophils # Man Sodium Potassium Chloride Carbon Dioxide BUN Creatinine Glucose POC Glucose 261 H 190 H 174 H Hemoglobin A1c Calcium Phosphorus Magnesium Total Protein Albumin 04/13/19 04/13/19 04/13/19 16:07 16:07 17:12 WBC RBC Hct MCHC RDW Lymph % (Auto) Lymph # Seg Neutrophils % Seg Neuts % (Manual) Lymphocytes % (Manual) Seg Neutrophils # Seg Neutrophils # Man Sodium 136 L Potassium 3.5 L Chloride 90.7 L Carbon Dioxide 15 L BUN Creatinine 1.3 H Glucose 159 H POC Glucose 123 H Hemoglobin A1c 6.6 H Calcium 10.6 H Phosphorus Magnesium Total Protein Albumin 04/13/19 04/13/19 04/13/19 18:06 19:30 19:30 WBC 14.2 H RBC Hct MCHC RDW 12.2 L Lymph % (Auto) Lymph # Seg Neutrophils % Seg Neuts % (Manual) 77.0 H Lymphocytes % (Manual) Seg Neutrophils # Seg Neutrophils # Man 10.9 H Sodium Potassium 2.9 L* 3.2 L Chloride 90.7 L 90.2 L Carbon Dioxide 16 L 18 L BUN Creatinine Glucose 109 H POC Glucose Hemoglobin A1c Calcium 10.3 H Phosphorus 2.30 L Magnesium Total Protein Albumin 3.5 L 04/13/19 04/13/19 04/13/19 22:00 22:44 23:01 WBC RBC Hct MCHC RDW Lymph % (Auto) Lymph # Seg Neutrophils % Seg Neuts % (Manual) Lymphocytes % (Manual) Seg Neutrophils # Seg Neutrophils # Man Sodium 136 L Potassium Chloride 90.6 L Carbon Dioxide 14 L BUN Creatinine Glucose 179 H POC Glucose 136 H 183 H Hemoglobin A1c Calcium Phosphorus Magnesium Total Protein Albumin 04/13/19 04/14/19 04/14/19 23:54 01:09 02:20 WBC RBC Hct MCHC RDW Lymph % (Auto) Lymph # Seg Neutrophils % Seg Neuts % (Manual) Lymphocytes % (Manual) Seg Neutrophils # Seg Neutrophils # Man Sodium Potassium Chloride Carbon Dioxide BUN Creatinine Glucose POC Glucose 206 H 160 H 108 H Hemoglobin A1c Calcium Phosphorus Magnesium Total Protein Albumin 04/14/19 04/14/19 04/14/19 04:58 05:54 06:12 WBC RBC Hct MCHC RDW Lymph % (Auto) Lymph # Seg Neutrophils % Seg Neuts % (Manual) Lymphocytes % (Manual) Seg Neutrophils # Seg Neutrophils # Man Sodium 136 L Potassium 3.5 L Chloride 92.4 L Carbon Dioxide 19 L BUN Creatinine Glucose 138 H POC Glucose 130 H 131 H Hemoglobin A1c Calcium Phosphorus Magnesium Total Protein Albumin 04/14/19 04/14/19 04/14/19 07:37 08:14 09:17 WBC RBC Hct MCHC RDW Lymph % (Auto) Lymph # Seg Neutrophils % Seg Neuts % (Manual) Lymphocytes % (Manual) Seg Neutrophils # Seg Neutrophils # Man Sodium Potassium Chloride Carbon Dioxide BUN Creatinine Glucose POC Glucose 148 H 121 H 112 H Hemoglobin A1c Calcium Phosphorus Magnesium Total Protein Albumin 04/14/19 04/14/19 04/14/19 10:43 11:49 12:50 WBC RBC Hct MCHC RDW Lymph % (Auto) Lymph # Seg Neutrophils % Seg Neuts % (Manual) Lymphocytes % (Manual) Seg Neutrophils # Seg Neutrophils # Man Sodium Potassium Chloride Carbon Dioxide BUN Creatinine Glucose POC Glucose 113 H 160 H 174 H Hemoglobin A1c Calcium Phosphorus Magnesium Total Protein Albumin 04/14/19 04/14/19 04/14/19 13:35 14:26 14:45 WBC RBC Hct MCHC RDW Lymph % (Auto) Lymph # Seg Neutrophils % Seg Neuts % (Manual) Lymphocytes % (Manual) Seg Neutrophils # Seg Neutrophils # Man Sodium 130 L Potassium 2.7 L* D Chloride 89.9 L Carbon Dioxide BUN Creatinine Glucose 238 H POC Glucose 241 H 245 H Hemoglobin A1c Calcium Phosphorus Magnesium Total Protein Albumin 04/14/19 04/14/19 04/14/19 16:50 16:51 20:11 WBC RBC Hct MCHC RDW Lymph % (Auto) Lymph # Seg Neutrophils % Seg Neuts % (Manual) Lymphocytes % (Manual) Seg Neutrophils # Seg Neutrophils # Man Sodium Potassium Chloride Carbon Dioxide BUN Creatinine Glucose POC Glucose 232 H 136 H Hemoglobin A1c Calcium Phosphorus Magnesium 1.60 L Total Protein Albumin 04/15/19 04/15/19 04/15/19 00:20 07:27 07:27 WBC RBC 3.56 L Hct 29.6 L D MCHC 35 H RDW 12.2 L Lymph % (Auto) Lymph # Seg Neutrophils % Seg Neuts % (Manual) 77.0 H Lymphocytes % (Manual) Seg Neutrophils # Seg Neutrophils # Man Sodium 131 L 134 L Potassium 3.3 L D 3.4 L Chloride 91.4 L 96.3 L Carbon Dioxide BUN 6 L 5 L Creatinine Glucose 223 H POC Glucose Hemoglobin A1c Calcium 8.2 L Phosphorus Magnesium Total Protein 4.9 L D Albumin 2.8 L 04/15/19 04/15/19 04/15/19 07:27 11:56 17:00 WBC RBC Hct MCHC RDW Lymph % (Auto) Lymph # Seg Neutrophils % Seg Neuts % (Manual) Lymphocytes % (Manual) Seg Neutrophils # Seg Neutrophils # Man Sodium Potassium Chloride Carbon Dioxide BUN Creatinine Glucose POC Glucose 167 H 241 H Hemoglobin A1c Calcium Phosphorus 1.60 L D Magnesium Total Protein Albumin 04/15/19 04/16/19 04/16/19 23:57 00:20 03:54 WBC RBC Hct MCHC RDW Lymph % (Auto) Lymph # Seg Neutrophils % Seg Neuts % (Manual) Lymphocytes % (Manual) Seg Neutrophils # Seg Neutrophils # Man Sodium Potassium Chloride Carbon Dioxide BUN Creatinine Glucose POC Glucose 212 H < 40 L Hemoglobin A1c Calcium Phosphorus Magnesium 3.80 H Total Protein Albumin 04/16/19 04/16/19 04/16/19 05:51 06:02 08:18 WBC RBC Hct MCHC RDW Lymph % (Auto) Lymph # Seg Neutrophils % Seg Neuts % (Manual) Lymphocytes % (Manual) Seg Neutrophils # Seg Neutrophils # Man Sodium Potassium Chloride Carbon Dioxide BUN Creatinine Glucose POC Glucose 132 H 203 H Hemoglobin A1c Calcium Phosphorus Magnesium 6.90 H Total Protein Albumin 04/16/19 04/16/19 04/16/19 11:42 11:47 17:10 WBC RBC Hct MCHC RDW Lymph % (Auto) Lymph # Seg Neutrophils % Seg Neuts % (Manual) Lymphocytes % (Manual) Seg Neutrophils # Seg Neutrophils # Man Sodium Potassium Chloride Carbon Dioxide BUN Creatinine Glucose POC Glucose 267 H 304 H Hemoglobin A1c Calcium Phosphorus Magnesium 6.40 H Total Protein Albumin 04/16/19 04/17/19 04/17/19 22:41 07:49 10:23 WBC RBC Hct MCHC 35 H RDW 12.2 L Lymph % (Auto) Lymph # 1.1 L Seg Neutrophils % 78.3 H Seg Neuts % (Manual) Lymphocytes % (Manual) Seg Neutrophils # Seg Neutrophils # Man Sodium Potassium Chloride Carbon Dioxide BUN Creatinine Glucose POC Glucose 228 H 334 H Hemoglobin A1c Calcium Phosphorus Magnesium Total Protein Albumin 04/17/19 04/17/19 04/17/19 10:23 14:04 15:20 WBC RBC Hct MCHC RDW Lymph % (Auto) Lymph # Seg Neutrophils % Seg Neuts % (Manual) Lymphocytes % (Manual) Seg Neutrophils # Seg Neutrophils # Man Sodium 132 L Potassium Chloride 90.4 L Carbon Dioxide BUN Creatinine Glucose 376 H POC Glucose 314 H 271 H Hemoglobin A1c Calcium Phosphorus Magnesium Total Protein 6.2 L D Albumin 3.2 L 04/17/19 04/18/19 04/18/19 21:01 01:12 08:10 WBC RBC Hct MCHC RDW Lymph % (Auto) Lymph # Seg Neutrophils % Seg Neuts % (Manual) Lymphocytes % (Manual) Seg Neutrophils # Seg Neutrophils # Man Sodium Potassium Chloride Carbon Dioxide BUN Creatinine Glucose POC Glucose 327 H 120 H 46 L Hemoglobin A1c Calcium Phosphorus Magnesium Total Protein Albumin Laboratory Results - last 24 hr 04/17/19 04/17/19 04/17/19 10:23 10:23 14:04 WBC 6.6 RBC 3.98 Hgb 11.4 Hct 33.1 MCV 83 MCH 29 MCHC 35 H RDW 12.2 L Plt Count 204 Lymph % (Auto) 16.1 [place] % (Auto) 5.5 Eos % (Auto) 0.0 Baso % (Auto) 0.1 Lymph # 1.1 L [place] # 0.4 Eos # 0.0 Baso # 0.0 Seg Neutrophils % 78.3 H Seg Neutrophils # 5.2 Sodium 132 L Potassium 3.7 Chloride 90.4 L Carbon Dioxide 27 Anion Gap 18 BUN 8 Creatinine 1.0 Estimated GFR > 60 BUN/Creatinine Ratio 8 Glucose 376 H POC Glucose 314 H Calcium 8.4 Total Bilirubin 0.40 AST 26 ALT 20 Alkaline Phosphatase 111 Total Protein 6.2 L D Albumin 3.2 L Albumin/Globulin Ratio 1.1 04/17/19 04/17/19 04/18/19 15:20 21:01 01:12 WBC RBC Hgb Hct MCV MCH MCHC RDW Plt Count Lymph % (Auto) [place] % (Auto) Eos % (Auto) Baso % (Auto) Lymph # [place] # Eos # Baso # Seg Neutrophils % Seg Neutrophils # Sodium Potassium Chloride Carbon Dioxide Anion Gap BUN Creatinine Estimated GFR BUN/Creatinine Ratio Glucose POC Glucose 271 H 327 H 120 H Calcium Total Bilirubin AST ALT Alkaline Phosphatase Total Protein Albumin Albumin/Globulin Ratio 04/18/19 08:10 WBC RBC Hgb Hct MCV MCH MCHC RDW Plt Count Lymph % (Auto) [place] % (Auto) Eos % (Auto) Baso % (Auto) Lymph # [place] # Eos # Baso # Seg Neutrophils % Seg Neutrophils # Sodium Potassium Chloride Carbon Dioxide Anion Gap BUN Creatinine Estimated GFR BUN/Creatinine Ratio Glucose POC Glucose 46 L Calcium Total Bilirubin AST ALT Alkaline Phosphatase Total Protein Albumin Albumin/Globulin Ratio
[2019-04-18 08:55] VITALS: BP 155/98
[2019-04-18 09:09] LABS: Hemoglobin 10.7 gm/dl (10.1-14.3); Mean Corpuscular HGB Conc 35 % (30-34); Mean Corpuscular Volume 83 fl (79-97); Platelet Count 198 K/mm3 (140-440); Red Blood Count 3.74 M/mm3 (3.65-5.03); Red Cell Distribution Width 12.2 % (13.2-15.2)
[2019-04-18 09:39] LABS: Alanine Aminotransferase 24 units/L (7-56); Albumin 2.9 g/dL (3.9-5); BUN/Creatinine Ratio 11; Blood Urea Nitrogen 9 mg/dL (7-17); Calcium 8.7 mg/dL (8.4-10.2); Hemolysis Index 18
[2019-04-18 10:41] LABS: Total Cells Counted 100
[2019-04-18 10:42] LABS: Anisocytosis 1+; Basophils % (Manual) 0 % (0.0-1.8); Eosinophils % (Manual) 0 % (0.0-4.3); Platelet Estimate Consistent w Auto
[2019-04-18] MEDS: PRENATAL VITAMIN PO SCH (11:51)
[2019-04-18] MEDS: ALUM-MAG HYDROX-SIMETH 200-200-20MG/5ML PO PRN (11:51)
--- NOTE | 2019-04-18 12:09 | Event Note ---
Date: 04/18/19 [facility] M specialist MD Caprice called me with directives to recheck hemoglobin in light of patient's reported GI bleed and to allow patient go home if within normal range for a .
== END 2019-04-18 12:45 | disposition home or self-care (01) | DRG 781 ==
LOC: TRG 11:35 → LD 16:00 → TRG 19:06 → CC1 04-13 15:47 → OBSVTOIN 04-14 02:30 → LD 04-15 12:54
PROVIDERS: ADMIT Obstetrics & Gynecology; ATTEND Obstetrics & Gynecology
DX: O24.013 Pre-existing type 1 diabetes mellitus, in pregnancy, third trimester (principal); E10.10 Type 1 diabetes mellitus with ketoacidosis without coma; N17.0 Acute kidney failure with tubular necrosis; E87.1 Hypo-osmolality and hyponatremia; O23.43 Unspecified infection of urinary tract in pregnancy, third trimester; O99.283 Endocrine, nutritional and metabolic diseases complicating pregnancy, third trimester; O99.113 Other diseases of the blood and blood-forming organs and certain disorders involving the immune mechanism complicating pregnancy, third trimester; O26.833 Pregnancy related renal disease, third trimester; E86.0 Dehydration; E87.6 Hypokalemia; D72.829 Elevated white blood cell count, unspecified; Z88.0 Allergy status to penicillin; Z79.4 Long term (current) use of insulin; Z79.899 Other long term (current) drug therapy; Z91.19 Patient's noncompliance with other medical treatment and regimen; Z3A.33 33 weeks gestation of pregnancy
CPT/HCPCS: 36415; 76815; 76819; 76820; 80048; 80053; 81001; 82010; 82150; 82805; 82962; 83036; 83690; 83735; 84100; 85007; 85025; 86850; 86900; 86901; 87086; 87116; G0378; J0702; J1815; J2270; J2405; J2765; J3475; J3480; J7030; J7040; J7120; J7121

== ENCOUNTER 2019-05-01 15:45 | Inpatient (IN) | payer OTHER ==
[2019-05-01 17:11] LABS: Bacteria,Urine 1+ /HPF (Negative); Bilirubin,Urine NEG (Negative); Blood,Urine NEG (Negative); Color,Urine Yellow (Yellow); Urobilinogen,Urine < 2.0 mg/dL (<2.0)
[2019-05-01 18:32] LABS: Hemoglobin 9.7 gm/dl (10.1-14.3); Mean Corpuscular HGB Conc 36 % (30-34); Mean Corpuscular Volume 83 fl (79-97); Platelet Count 267 K/mm3 (140-440); Red Blood Count 3.25 M/mm3 (3.65-5.03); Red Cell Distribution Width 12.7 % (13.2-15.2)
[2019-05-01 18:55] LABS: Alanine Aminotransferase 14 units/L (7-56); Uric Acid 4.2 mg/dL (3.5-7.6)
[2019-05-01] MEDS ORDERED: ACETAMINOPHEN 325 MG TAB PO PRN (19:03)
[2019-05-02] MEDS: PRENATAL VIT27-FE FUMARATE-FOLIC ACID VIT TAB PO SCH (09:41)
--- NOTE | 2019-05-02 13:01 | Consultation ---
History of Present Illness Consult date: 05/02/19 Reason for consult: other (Type 1 DM, Gestational hypertension) History of present illness: Ms. Mcdonough is a 23yo, , with poorly controlled Type 1 Diabetes this . She was sent from [facility] on 05/01/19 to [facility] due to elevated blood pressures in office. She has a course of noncompliance with Type 1 DM. She was recently discharged from [facility] due to management of DKA in the ICU. After discharge, [employer] has been on board to assist with management of insulin pump and glucose levels. With the new onset of elevated BPs, she currently complains of visual disturbances, mild headaches, and 3+ pedal edema. She denies RUQ pain. 24 hour urine in progress. She reports irregular contractions. She denies leaking of fluid and bleeding. She admits to positive movements. Past History Past Medical History: diabetes (Type 1, insulin pump) Past Surgical History: no surgical history Social history: no significant social history, single (FOB involved) - Obstetrical History Expected Date of Delivery: 05/29/19 Actual Gestation: 36 Week(s) 1 Day(s) : 1 Para: 0 Medications and Allergies Allergies Allergy/AdvReac Type Severity Reaction Status Date / Time Penicillins AdvReac Severe Rash Verified 02/27/19 16:40 Home Medications Medication Instructions Recorded Confirmed Last Taken Type Famotidine [Pepcid] 10 mg PO BID #30 tablet 05/25/16 04/13/19 Unknown Rx Insulin Glargine [Lantus VIAL] 15 units SUB-Q QAMDIAB 30 Days 05/25/16 04/13/19 Unknown Rx units Insulin Regular, Human [HumuLIN R] 5 units SUB-Q ACHS 30 Days units 05/25/16 04/13/19 Unknown Rx Metoclopramide [Reglan] 10 mg PO TID PRN #20 tab 10/04/16 04/13/19 Unknown Rx Ondansetron [Zofran TAB] 4 mg PO Q8HR PRN #15 tablet 10/04/16 04/13/19 Unknown Rx guaiFENesin [Robitussin] 200 mg PO TID #90 ml 06/06/18 04/13/19 Unknown Rx prednisoLONE SOD PHOSPHAT [Orapred] 15 mg PO DAILY #30 ml 06/06/18 04/13/19 Unknown Rx Infusion Set For Insulin Pump 0.01 1000units SC PRN 04/13/19 04/13/19 04/12/19 19:00 History Protonix TAB 40 mg PO PRN PRN 04/13/19 04/13/19 Unknown History Active Meds: Active Medications Acetaminophen (Tylenol) 650 mg PO Q4H PRN PRN Reason: Pain MILD(1-3)/Fever >100.5/RICH Last Admin: 05/02/19 12:16 Dose: 650 mg Documented by: Docusate Sodium (Colace) 100 mg PO Q12H PRN PRN Reason: Constipation Lactated Ringer's (Lactated Ringers) 1,000 mls @ 125 mls/hr IV DIRECT [facility] Labetalol HCl (Normodyne) 200 mg PO BID [facility] Last Admin: 05/02/19 09:41 Dose: 200 mg Documented by: Multivitamins/Iron/Calcium ( Vitamin) 1 each PO QDAY [facility] Last Admin: 05/02/19 09:41 Dose: 1 each Documented by: Review of Systems Constitutional: other (denies fatigue, fever, chills) Eyes: other (Complains of visual disturbances- "floaters") Ears, nose, mouth and throat: deferred Cardiovascular: high blood pressure, leg edema (3+), other (denies chest pain, palpitations) Respiratory: other (denies SOB, wheezing, coughing) Breasts: deferred Gastrointestinal: other (denies diarrhea, constipation, nausea, vomiting) Genitourinary: contractions (irregular), other (denies leaking of fluid and bleeding) Rectal Exam: deferred Neurological: headaches (mild) - Vital Signs Vital signs: Vital Signs Pulse Pulse Ox 82 96 05/01/19 16:34 05/01/19 16:34 Temp Pulse Resp BP Pulse Ox 98.5 F 71 16 142/93 99 05/02/19 09:03 05/02/19 11:54 05/02/19 09:03 05/02/19 11:54 05/01/19 19:06 - Physical Exam Breasts: Positive: deferred Cardiovascular: Regular rate, Normal S1, Normal S2 Lungs: Positive: Clear to auscultation Abdomen: Positive: soft, other (nontender, gravid) Deep Tendon Reflex Grade: Dull/Diminished +1 Results Result Diagrams: 05/01/19 17:20 05/01/19 17:20 Abnormal lab results 05/01/19 05/01/19 05/01/19 Range/Units 17:20 17:20 18:06 RBC 3.25 L (3.65-5.03) M/mm3 Hgb 9.7 L (10.1-14.3) gm/dl Hct 27.0 L (30.3-42.9) % MCHC 36 H (30-34) % RDW 12.7 L (13.2-15.2) % Creatinine 0.6 L (0.7-1.2) mg/dL POC Glucose 263 H (70-105) 05/02/19 05/02/19 Range/Units 06:47 12:18 RBC (3.65-5.03) M/mm3 Hgb (10.1-14.3) gm/dl Hct (30.3-42.9) % MCHC (30-34) % RDW (13.2-15.2) % Creatinine (0.7-1.2) mg/dL POC Glucose 174 H 367 H (70-105) All other labs normal. Assessment and Plan A- -IUP 36.1 weeks -Blood pressure range [id number]/50s-90s, mainly in range of 140s/80s-90s, managed on Labetalol 200mg BID -Gestational Hypertension vs Preeclampsia -24 hour urine pending -Complains of visual disturbances, mild headache, 3+ edema -Previous concern of noncompliance with glucose monitoring -Poorly Controlled Type 1 DM managed on personal insulin pump -Glucose levels while admitted 263, 174, 367- managed on insulin pump -Polyhydramnios per [facility] ultrasound on 05/01/19- 27.46cm I discussed patient's history and current findings with Dr. Gordon. Recommendations for induction of labor due to poorly controlled Type 1 DM with Gestational Hypertension vs Suspected Preeclampsia. P- - Recommend induction of labor due to concern for poorly controlled Type 1 DM with superimposed Gestational Hypertension vs Preeclampsia - While patient is not in active labor, continued insulin pump use is fine. - Once patient is in active labor, insulin pump to be stopped and insulin drip is recommended for management of Type 1 DM per protocol. - Once , basal insulin pump dose should be adjusted to half of the dose and adjusted subsequently thereafter. - Complete 24 hour urine protein - Continuous monitoring - Consult NICU - Consult Endocrinology as indicated - Accuchecks QAC and QHS With any additional questions or concerns, please contact continuity clerk MD ( Dr. Gordon). Thank you for your consult.
[2019-05-02] MEDS ORDERED: DEXTROSE 50% IN WATER (25GM) 50 ML SYRINGE IV PRN (14:38)
--- NOTE | 2019-05-02 14:38 | Consultation ---
History of Present Illness - Reason for Consult Consult date: 05/02/19 Diabetes Requesting physician: MISA SANABRIA - History of Present Illness 23 YO Female at 36 Weeks Gestation with DM with Insulin Pump in place, Gestational HTN. Consult placed for DM. PT seen and evaluated in her room. Pt denies fever, chills, CP, Palpitations, Polydipsia, Polyuria, Polyphagia. Pt acknowledges noncompliance with Consistent Carbohydrate diet. Pt reports that she can feel her insulin pump clicking on and off, and acknowledges that it is functional without kinks in her tubing. Pt has reported glucose levels ranging from 174-367. Pt denies any complaints at time of admission. Past History Past Medical History: hypertension Past Surgical History: No surgical history, Other (reviewed) Social history: no significant social history, single (FOB involved). denies: smoking, alcohol abuse, prescription drug abuse Family history: diabetes, hypertension Medications and Allergies Allergies Allergy/AdvReac Type Severity Reaction Status Date / Time Penicillins AdvReac Severe Rash Verified 02/27/19 16:40 Home Medications Medication Instructions Recorded Confirmed Last Taken Type Famotidine [Pepcid] 10 mg PO BID #30 tablet 05/25/16 04/13/19 Unknown Rx Insulin Glargine [Lantus VIAL] 15 units SUB-Q QAMDIAB 30 Days 05/25/16 04/13/19 Unknown Rx units Insulin Regular, Human [HumuLIN R] 5 units SUB-Q ACHS 30 Days units 05/25/16 04/13/19 Unknown Rx Metoclopramide [Reglan] 10 mg PO TID PRN #20 tab 10/04/16 04/13/19 Unknown Rx Ondansetron [Zofran TAB] 4 mg PO Q8HR PRN #15 tablet 10/04/16 04/13/19 Unknown Rx guaiFENesin [Robitussin] 200 mg PO TID #90 ml 06/06/18 04/13/19 Unknown Rx prednisoLONE SOD PHOSPHAT [Orapred] 15 mg PO DAILY #30 ml 06/06/18 04/13/19 Unknown Rx Infusion Set For Insulin Pump 0.01 1000units SC PRN 04/13/19 04/13/19 04/12/19 19:00 History Protonix TAB 40 mg PO PRN PRN 04/13/19 04/13/19 Unknown History Active Meds: Active Medications Acetaminophen (Tylenol) 650 mg PO Q4H PRN PRN Reason: Pain MILD(1-3)/Fever >100.5/RICH Last Admin: 05/02/19 12:16 Dose: 650 mg Documented by: Docusate Sodium (Colace) 100 mg PO Q12H PRN PRN Reason: Constipation Lactated Ringer's (Lactated Ringers) 1,000 mls @ 125 mls/hr IV DIRECT [facility] Labetalol HCl (Normodyne) 200 mg PO BID [facility] Last Admin: 05/02/19 09:41 Dose: 200 mg Documented by: Multivitamins/Iron/Calcium ( Vitamin) 1 each PO QDAY [facility] Last Admin: 05/02/19 09:41 Dose: 1 each Documented by: Review of Systems Constitutional: no weight loss, no weight gain, no fever, no chills Ears, nose, mouth and throat: no ear pain, no ear discharge, no tinnitis, no nasal congestion, no nasal discharge Breasts: no change in shape, no swelling, no mass Cardiovascular: no chest pain, no orthopnea, no rapid/irregular heart beat, no syncope Respiratory: no cough, no cough with sputum, no excessive sputum Gastrointestinal: no abdominal pain, no nausea, no vomiting, no diarrhea, no constipation, no change in bowel habits, no hematemesis Genitourinary Female: no pelvic pain, no flank pain, no menorrhagia, no dysuria Rectal: no pain, no incontinence, no bleeding Musculoskeletal: no neck stiffness, no neck pain, no low back pain Integumentary: no rash, no pruritis, no redness, no sores, no wounds, no jaundice Neurological: no head injury, no paralysis, no weakness, no numbness, no syncope, no ataxia Psychiatric: no anxiety, no memory loss, no insomnia, no hypersomnia Endocrine: high blood sugars, no cold intolerance, no heat intolerance, no polyphagia, no excessive thirst, no polydipsia, no polyuria, no nocturia, no excessive sweating, no flushing, no thyroid mass Hematologic/Lymphatic: no easy bruising, no easy bleeding, no lymphadenopathy, no lymphedema Allergic/Immunologic: no urticaria, no allergic rhinitis, no wheezing, no maurisio phylaxis, no angioedema Exam - Constitutional Vitals: Temp Pulse Resp BP Pulse Ox 98.5 F 71 16 142/93 99 05/02/19 09:03 05/02/19 11:54 05/02/19 09:03 05/02/19 11:54 05/01/19 19:06 General appearance: Present: no acute distress, well-nourished - EENT Eyes: Present: PERRL ENT: hearing intact, clear oral mucosa - Neck Neck: Present: supple, normal ROM - Respiratory Respiratory effort: normal Respiratory: bilateral: CTA - Cardiovascular Heart Sounds: Present: S1 & S2. Absent: rub, click - Extremities Extremities: pulses symmetrical, No edema Peripheral Pulses: within normal limits - Abdominal General gastrointestinal: Present: soft, non-tender, non-distended, normal bowel sounds, other (Gravid uterus) Female genitourinary: Present: normal - Integumentary Integumentary: Present: clear, warm, dry - Musculoskeletal Musculoskeletal: gait normal, strength equal bilaterally - Psychiatric Psychiatric: appropriate mood/affect, intact judgment & insight - Neurologic Neurologic: CNII-XII intact, moves all extremities Results - Labs CBC & Chem 7: 05/01/19 17:20 05/01/19 17:20 Labs: Abnormal lab results 05/01/19 05/01/19 05/01/19 Range/Units 17:20 17:20 18:06 RBC 3.25 L (3.65-5.03) M/mm3 Hgb 9.7 L (10.1-14.3) gm/dl Hct 27.0 L (30.3-42.9) % MCHC 36 H (30-34) % RDW 12.7 L (13.2-15.2) % Creatinine 0.6 L (0.7-1.2) mg/dL POC Glucose 263 H (70-105) 05/02/19 05/02/19 Range/Units 06:47 12:18 RBC (3.65-5.03) M/mm3 Hgb (10.1-14.3) gm/dl Hct (30.3-42.9) % MCHC (30-34) % RDW (13.2-15.2) % Creatinine (0.7-1.2) mg/dL POC Glucose 174 H 367 H (70-105) Assessment and Plan - Patient Problems (1) Diabetes Current Visit: Yes Status: Acute Qualifiers: Diabetes mellitus type: type 1 Plan to address problem: consistent carbohydrate diet, Pt has insulin pump in place and is currently functional. Pt expresses desire to continue with her current insulin pump. Will cover patient with additional therapy with low dose sliding scale insulin therapy as well as Accu check q 6 hrs. Continue Insulin pump. Will monitor with a target mean glucose of 200 or less overnight. If mean is above 200 then recommend increased to moderate dose Sliding Scale Insulin in am. hypoglycemia protocol. Pt counseled regarding dietary noncompliance.
[2019-05-02] MEDS: LACTATED RINGERS 1,000 ML IV SCH (15:29)
[2019-05-02] MEDS ORDERED: MAGNESIUM SULFATE 4 GM/100 ML BAG IV ONE (16:00)
[2019-05-02] MEDS: MAGNESIUM SULFATE 40GM/1000ML 40 GM/1,000 ML BAG IV SCH (16:11)
[2019-05-02] MEDS ORDERED: DINOPROSTONE 10 MG VAG SUPP VG ONE (16:16)
--- NOTE | 2019-05-02 16:28 | History and Physical Report ---
History of Present Illness Date of examination: 05/02/19 Date of admission: 05/01/2019 Chief complaint: Ms. Mcdonough is a 23yo, , with poorly controlled Type 1 Diabetes this . She was sent from [facility] on 05/01/19 to [facility] due to elevated blood pressures in office. She has a course of noncompliance with Type 1 DM. She was recently discharged from [facility] due to management of DKA in the ICU. After discharge, [employer] has been on board to assist with management of insulin pump and glucose levels. With the new onset of elevated BPs, she currently complains of visual disturbances, mild headaches, and 3+ pedal edema. She denies RUQ pain. 24 hour urine in progress. She reports irregular contractions. She denies leaking of fluid and bleeding. She admits to positive movements. History of present illness: , 36+1wks. STACY 05/29/2019. Ms. Mcdonough is a 23yo, , with poorly controlled Type 1 Diabetes this . She was sent from [facility] on 05/01/19 to [facility] due to elevated blood pressures in office. She has a course of noncompliance with Type 1 DM. She was recently discharged from [facility] due to management of DKA in the ICU. After discharge, [employer] has been on board to assist with management of insulin pump and glucose levels. With the new onset of elevated BPs, she currently complains of visual disturbances, mild headaches, and 3+ pedal edema. She denies RUQ pain. 24 hour urine in progress. She reports irregular contractions. She denies leaking of fluid and bleeding. She admits to positive movements. Past History Past Medical History: diabetes (Type 1, insulin pump) Past Surgical History: no surgical history - Obstetrical History Expected Date of Delivery: 05/29/19 Actual Gestation: 36 Week(s) 1 Day(s) : 1 Para: 0 Medications and Allergies Allergies Allergy/AdvReac Type Severity Reaction Status Date / Time Penicillins AdvReac Severe Rash Verified 02/27/19 16:40 Home Medications Medication Instructions Recorded Confirmed Last Taken Type Famotidine [Pepcid] 10 mg PO BID #30 tablet 05/25/16 04/13/19 Unknown Rx Insulin Glargine [Lantus VIAL] 15 units SUB-Q QAMDIAB 30 Days 05/25/16 04/13/19 Unknown Rx units Insulin Regular, Human [HumuLIN R] 5 units SUB-Q ACHS 30 Days units 05/25/16 04/13/19 Unknown Rx Metoclopramide [Reglan] 10 mg PO TID PRN #20 tab 10/04/16 04/13/19 Unknown Rx Ondansetron [Zofran TAB] 4 mg PO Q8HR PRN #15 tablet 10/04/16 04/13/19 Unknown Rx guaiFENesin [Robitussin] 200 mg PO TID #90 ml 06/06/18 04/13/19 Unknown Rx prednisoLONE SOD PHOSPHAT [Orapred] 15 mg PO DAILY #30 ml 06/06/18 04/13/19 Unknown Rx Infusion Set For Insulin Pump 0.01 1000units SC PRN 04/13/19 04/13/19 04/12/19 19:00 History Protonix TAB 40 mg PO PRN PRN 04/13/19 04/13/19 Unknown History Active Meds: Active Medications Acetaminophen (Tylenol) 650 mg PO Q4H PRN PRN Reason: Pain MILD(1-3)/Fever >100.5/RICH Last Admin: 05/02/19 12:16 Dose: 650 mg Documented by: Dextrose (D50w (25gm) Syringe) 50 ml IV PRN PRN PRN Reason: Hypoglycemia Docusate Sodium (Colace) 100 mg PO Q12H PRN PRN Reason: Constipation Lactated Ringer's (Lactated Ringers) 1,000 mls @ 125 mls/hr IV DIRECT [facility] Last Admin: 05/02/19 15:29 Dose: 100 mls/hr Documented by: Magnesium Sulfate (Magnesium Sulfate 40gm/1000ml) 40 gm in 1,000 mls @ 25 mls/hr IV DIRECT [facility] Last Admin: 05/02/19 16:11 Dose: 1 gm/hr, 25 mls/hr Documented by: Insulin Human Lispro (Humalog) 0 unit SUB-Q Q6HR [facility]; Protocol Labetalol HCl (Normodyne) 200 mg PO BID [facility] Last Admin: 05/02/19 09:41 Dose: 200 mg Documented by: Multivitamins/Iron/Calcium ( Vitamin) 1 each PO QDAY [facility] Last Admin: 05/02/19 09:41 Dose: 1 each Documented by: Review of Systems All systems: negative Ears, nose, mouth and throat: headache Cardiovascular: no chest pain Respiratory: no cough, no shortness of breath, no dyspnea on exertion Gastrointestinal: no abdominal pain, no nausea, no vomiting, no hematemesis Genitourinary: no vaginal bleeding, no leakage of fluid Neurological: headaches - Vital Signs Vital signs: Vital Signs Pulse Pulse Ox 82 96 05/01/19 16:34 05/01/19 16:34 Temp Pulse Resp BP Pulse Ox 98.5 F 71 16 142/93 99 05/02/19 09:03 05/02/19 11:54 05/02/19 09:03 05/02/19 11:54 05/01/19 19:06 - Physical Exam Lungs: Positive: Normal air movement Abdomen: Positive: normal appearance, soft Deep Tendon Reflex Grade: Normal +2 - Obstetrical FHR: auscultation normal Results Result Diagrams: 05/01/19 17:20 05/01/19 17:20 Abnormal lab results 05/01/19 05/01/19 05/01/19 Range/Units 17:20 17:20 18:06 RBC 3.25 L (3.65-5.03) M/mm3 Hgb 9.7 L (10.1-14.3) gm/dl Hct 27.0 L (30.3-42.9) % MCHC 36 H (30-34) % RDW 12.7 L (13.2-15.2) % Creatinine 0.6 L (0.7-1.2) mg/dL POC Glucose 263 H (70-105) 05/02/19 05/02/19 Range/Units 06:47 12:18 RBC (3.65-5.03) M/mm3 Hgb (10.1-14.3) gm/dl Hct (30.3-42.9) % MCHC (30-34) % RDW (13.2-15.2) % Creatinine (0.7-1.2) mg/dL POC Glucose 174 H 367 H (70-105) All other labs normal. Assessment and Plan - Patient Problems (1) 36 to 37 weeks gestation of Current Visit: Yes Status: Acute Plan to address problem: Recommendations of MFM at [facility] noted. Due to preeclampsia with symptoms, MgSO4 was started. Induction of labor begun with cervidil for ripening. Hospitalist, MD Jay has accepted to manage patient's diabetic needs. NICU consult placed. As long as mom and fetus are stable the plan is aimed at a vaginal delivery as soon as possible. (2) Preeclampsia Current Visit: Yes Status: Acute (3) Type 1 diabetes mellitus Current Visit: No Status: Acute Qualifiers: Diabetes mellitus complication status: with hypoglycemia Diabetes mellitus complication detail: without coma Qualified Code(s): E10.649 - Type 1 diabetes mellitus with hypoglycemia without coma
[2019-05-02] MEDS ORDERED: INSULIN LISPRO 100 UNIT/ML SUB-Q SCH (18:00)
--- NOTE | 2019-05-02 18:17 | Consultation ---
Consult Note - Parent Education I met with parent(s) and discussed the following:: Need for NICU admission (if i nfant has persistent hypolgycemia without improvement after 3 doses of glucose gel and poor feeding vigor), Temperature regulation, Possible need for IV fluids/TPN and IV antibiotics, Importance of providing breast milk & encouraged pumping aft delivery, Slow feeding advancement and monitoring of tolerance. NG/OG feeds, Need to monitor for jaundice, Data for survival & survival without significant co-morbidities Parent(s) demonstrated understanding of all the information:: Yes Assessment and Plan - Assessment Gestation:: 36 Baby's gender: Female Baby's name: Jazz Additional Comment: 23YO mother with poorly controlled type I IDM on insulin pump and elevated BP - Plan Plan: Will attend delivery Please call NICU with questions
[2019-05-02] MEDS: ONDANSETRON 4 MG/2 ML INJ IV PRN (20:08)
[2019-05-03] MEDS: LACTATED RINGERS 1,000 ML IV SCH ×3 (00:09→19:45)
[2019-05-03] MEDS: ONDANSETRON 4 MG/2 ML INJ IV PRN ×3 (01:30→22:47)
[2019-05-03] MEDS ORDERED: BENZOCAINE/MENTHOL 20/0.5% TOP SPRAY 56 GM TP PRN (04:52)
[2019-05-03] MEDS ORDERED: fentaNYL 100 MCG/2 ML INJ IV PRN (04:53)
[2019-05-03] MEDS: BUTORPHANOL 2 MG/1 ML INJ IV PRN ×3 (05:05→23:58)
[2019-05-03] MEDS: DOCUSATE SODIUM 100 MG CAP PO PRN ×2 (09:58→22:14)
[2019-05-03] MEDS: PRENATAL VIT27-FE FUMARATE-FOLIC ACID VIT TAB PO SCH (09:59)
[2019-05-03] MEDS ORDERED: DINOPROSTONE 10 MG VAG SUPP VG ONE (10:00)
--- NOTE | 2019-05-03 10:55 | Progress Note ---
Assessment and Plan Assessment and plan: - History of Present Illness 23 YO Female at 36 Weeks Gestation with DM with Insulin Pump in place, Gestational HTN. Consult placed for DM. she presented to hospital with complaints of visual disturbances, mild headaches, and 3+ pedal edema. She denies RUQ pain Past History Past Medical History: hypertension Preeclampsia Management per obstetrics, plan for delivery today Type 1 diabetes [employer] insulins History Interval history: she currently complains of visual disturbances, mild headaches, and 3+ pedal edema. She denies RUQ pain Review of systems Constitutional: No fevers, no malaise, no joint pains CVS: No chest pain, GI: No abdominal pain, no diarrhea, no vomiting, no constipation Respiratory: no wheezing, no coughing Hospitalist Physical - Physical exam Narrative exam: General.: Appears well, no distress, nontoxic HEENT: Moist mucous membranes, extraocular muscles intact, no lymphadenopathy Neck: supple Cardiac: S1-S2 heard Lungs: clear to auscultation bilaterally Abdomen: soft , gravid uterus Extremities: Pedal edema Skin: no rash or lesions Neurologic: no gross focal deficits Psych: calm, and cooperative - Constitutional Vitals: Temp Pulse Resp BP Pulse Ox 98.2 F 76 18 124/84 99 05/03/19 08:40 05/03/19 10:32 05/03/19 08:40 05/03/19 10:32 05/01/19 19:06 General appearance: Present: no acute distress, well-nourished Results - Labs CBC & Chem 7: 05/01/19 17:20 05/01/19 17:20 Labs: Laboratory Last Values WBC 7.8 K/mm3 (4.5-11.0) 05/01/19 17:20 RBC 3.25 M/mm3 (3.65-5.03) L 05/01/19 17:20 Hgb 9.7 gm/dl (10.1-14.3) L 05/01/19 17:20 Hct 27.0 % (30.3-42.9) L 05/01/19 17:20 MCV 83 fl (79-97) 05/01/19 17:20 MCH 30 pg (28-32) 05/01/19 17:20 MCHC 36 % (30-34) H 05/01/19 17:20 RDW 12.7 % (13.2-15.2) L 05/01/19 17:20 Plt Count 267 K/mm3 (140-440) 05/01/19 17:20 Creatinine 0.6 mg/dL (0.7-1.2) L 05/01/19 17:20 Estimated GFR > 60 ml/min 05/01/19 17:20 POC Glucose 75 (70-105) 05/03/19 06:02 Uric Acid 4.2 mg/dL (3.5-7.6) 05/01/19 17:20 Magnesium 3.70 mg/dL (1.7-2.3) H 05/03/19 06:27 AST 15 units/L (5-40) 05/01/19 17:20 ALT 14 units/L (7-56) 05/01/19 17:20 Lactate Dehydrogenase 174 units/L (91-180) 05/01/19 17:20 Urine Color Yellow (Yellow) 05/01/19 15:40 Urine Turbidity Clear (Clear) 05/01/19 15:40 Urine pH 7.0 (5.0-7.0) 05/01/19 15:40 Ur Specific [place] 1.011 (1.003-1.030) 05/01/19 15:40 Urine Protein 30 mg/dl mg/dL (Negative) 05/01/19 15:40 Urine Glucose (UA) >=500 mg/dL (Negative) 05/01/19 15:40 Urine Ketones Neg mg/dL (Negative) 05/01/19 15:40 Urine Blood Neg (Negative) 05/01/19 15:40 Urine Nitrite Neg (Negative) 05/01/19 15:40 Urine Bilirubin Neg (Negative) 05/01/19 15:40 Urine Urobilinogen < 2.0 mg/dL (<2.0) 05/01/19 15:40 Ur Leukocyte Esterase Tr (Negative) 05/01/19 15:40 Urine WBC (Auto) 4.0 /HPF (0.0-6.0) 05/01/19 15:40 Urine RBC (Auto) 2.0 /HPF (0.0-6.0) 05/01/19 15:40 U Epithel Cells (Auto) 11.0 /HPF (0-13.0) 05/01/19 15:40 Urine Bacteria (Auto) 1+ /HPF (Negative) 05/01/19 15:40 Blood Type AB POSITIVE 05/02/19 20:23 Antibody Screen Negative 05/02/19 20:23 Active Medications - Current Medications Current Medications: Generic Name Dose Route Start Last Admin Trade Name Freq PRN Reason Stop Dose Admin Acetaminophen 650 mg 05/01/19 19:03 05/02/19 12:16 Tylenol PO 650 mg Q4H PRN Administration Pain MILD(1-3)/Fever >100.5/RICH Benzocaine/Menthol 1 spray 05/03/19 04:52 05/03/19 05:06 Dermoplast TP 1 spray PRN PRN Administration Cervical Ripening Butorphanol Tartrate 2 mg 05/03/19 04:53 05/03/19 05:05 Stadol IV 2 mg Q2H PRN Administration Pain, Moderate (4-6) Dextrose 50 ml 05/02/19 14:38 D50w (25gm) Syringe IV PRN PRN Hypoglycemia Docusate Sodium 100 mg 05/01/19 19:03 05/03/19 09:58 Colace PO 100 mg Q12H PRN Administration Constipation Fentanyl 100 mcg 05/03/19 04:53 Sublimaze IV Q2HR PRN Pain, Mild (1-3) Lactated Ringer's 1,000 mls @ 125 mls/hr 05/01/19 17:00 05/03/19 00:09 Lactated Ringers IV 100 mls/hr DIRECT JENNIE Administration Magnesium Sulfate 40 gm in 1,000 mls @ 37.5 mls/hr 05/02/19 16:00 05/02/19 16:11 Magnesium Sulfate 40gm/1000ml IV 1 gm/hr DIRECT JENNIE 25 mls/hr Administration 1.5 GM/HR Insulin Human Lispro 0 unit 05/02/19 18:00 05/02/19 18:14 Humalog SUB-Q 1 unit Q6HR JENNIE Administration Protocol Labetalol HCl 200 mg 05/01/19 20:15 05/03/19 09:58 Normodyne PO 200 mg BID JENNIE Administration Multivitamins/Iron/Calcium 1 each 05/02/19 10:00 05/03/19 09:59 Vitamin PO 1 each QDAY JENNIE Administration Ondansetron HCl 4 mg 05/02/19 20:03 05/03/19 01:30 Zofran IV 4 mg Q6H PRN Administration Nausea And Vomiting
--- NOTE | 2019-05-03 11:03 | Progress Note ---
Assessment and Plan - Patient Problems (1) 36 weeks gestation of Current Visit: Yes Status: Acute (2) Type 1 diabetes mellitus Current Visit: Yes Status: Acute Plan to address problem: Monitor blood glucose. Continue insulin pump. Switch to sliding scale only during active labor. (3) Pre-eclampsia Current Visit: Yes Status: Acute Plan to address problem: Continue magnesium sulfate at 1.5 gm/hr. Monitor magnesium levels, DTRs, urine output. Monitor BP. Labetolol for BP control. Subjective - Subjective Date of service: 05/03/19 Principal diagnosis: SIUP at 36 weeks and 2 days with pre-gest DM-1, pre- eclampsia Interval history: Patient is a 23 year old who was admitted for elevated BP. She is a pre- gestational DM-1 on insulin pump whose glucose has been uncontrolled due to non- compliance with ADA diet. She has not been seeing her hand roller for months. She is a patient of [facility] who has been co-managed with [facility]. She went for a routine visit at [facility] 2 days ago and her BP was found to be elevated in the 150/90's. She was kept for observation after her toxemia labs were normal. She developed symptoms of headache and visual changes the following day. She was started on magnesium sulfate. [facility] saw her and recommended delivery. Cervidil #1 was placed last night. Her cervix remains unchanged. Cervidil #2 placed at 9:50 AM today. Her BP has been stable. Urine output and DTRs are adequate. tracing is CAT1. She is using her insulin pump now, but that will be discontinued when she is in active labor. She will then be managed with insulin sliding scale. Medical consult done. NICU consult done. Objective - Vital Signs Vital Signs: Vital Signs - 12hr 05/02/19 05/03/19 05/03/19 23:32 00:00 00:31 Temperature 98 F Pulse Rate 82 81 Respiratory 18 Rate Blood Pressure 138/81 137/83 05/03/19 05/03/19 05/03/19 01:31 02:32 03:31 Temperature Pulse Rate 83 86 90 Respiratory Rate Blood Pressure 125/78 137/75 144/91 05/03/19 05/03/19 05/03/19 04:00 04:32 05:31 Temperature 98 F Pulse Rate 101 H 85 Respiratory 18 Rate Blood Pressure 138/97 103/57 05/03/19 05/03/19 05/03/19 06:31 08:31 08:40 Temperature 98.2 F Pulse Rate 89 79 Respiratory 18 Rate Blood Pressure 122/66 122/65 05/03/19 05/03/19 05/03/19 09:32 09:58 10:32 Temperature Pulse Rate 95 H 95 H 76 Respiratory Rate Blood Pressure 130/91 130/91 124/84 - Exam Cardiovascular: Normal S1, Normal S2 Lungs: Clear to auscultation Vulva: both: normal FHR: category 1 Uterine Contraction Monitor Mode: External Cervical Dilatation: 0 Cervical Effacement Percentage: 0 station: -2 Uterine Contraction Pattern: Irregular Uterine Contraction Intensity: Moderate Deep Tendon Reflex Grade: Normal +2 - Labs Labs: Abnormal Labs 05/01/19 05/01/19 05/01/19 17:20 17:20 18:06 RBC 3.25 L Hgb 9.7 L Hct 27.0 L MCHC 36 H RDW 12.7 L Creatinine 0.6 L POC Glucose 263 H Magnesium 05/02/19 05/02/19 05/02/19 06:47 12:18 18:13 RBC Hgb Hct MCHC RDW Creatinine POC Glucose 174 H 367 H 175 H Magnesium 05/02/19 05/03/19 05/03/19 23:04 00:08 06:27 RBC Hgb Hct MCHC RDW Creatinine POC Glucose 58 L Magnesium 3.40 H 3.70 H Laboratory Results - last 24 hr 05/02/19 05/02/19 05/02/19 12:18 18:13 20:23 POC Glucose 367 H 175 H Magnesium Blood Type AB POSITIVE Antibody Screen Negative 05/02/19 05/03/19 05/03/19 23:04 00:08 01:25 POC Glucose 58 L 78 Magnesium 3.40 H Blood Type Antibody Screen 05/03/19 05/03/19 06:02 06:27 POC Glucose 75 Magnesium 3.70 H Blood Type Antibody Screen - Results US- obstetric: report reviewed
[2019-05-03 11:50] LABS: Alanine Aminotransferase 11 units/L (7-56); BUN/Creatinine Ratio 5; Blood Urea Nitrogen 3 mg/dL (7-17); Calcium 9.1 mg/dL (8.4-10.2); Hemolysis Index 0
[2019-05-03] MEDS: MAGNESIUM SULFATE 40GM/1000ML 40 GM/1,000 ML BAG IV SCH (22:17)
[2019-05-04] MEDS: LACTATED RINGERS 1,000 ML IV SCH ×2 (06:17→16:39)
--- NOTE | 2019-05-04 09:17 | Progress Note ---
Assessment and Plan - Patient Problems (1) 36 weeks gestation of Current Visit: Yes Status: Acute (2) Type 1 diabetes mellitus Current Visit: Yes Status: Acute Plan to address problem: Monitor blood glucose. Continue insulin pump. Switch to sliding scale only during active labor. (3) Pre-eclampsia Current Visit: Yes Status: Acute Plan to address problem: Continue magnesium sulfate. Monitor magnesium levels, DTRs, urine output. Monitor BP. Labetolol for BP control. Cervidil #2 removed at 4:30 AM. Cervix still closed/50-60%/-3. Will placed cytotec. Subjective - Subjective Date of service: 05/04/19 Principal diagnosis: SIUP at 36 weeks and 3 days with pre-gest DM-1, pre- eclampsia Interval history: Patient is a 23 year old who was admitted for elevated BP. She is a pre- gestational DM-1 on insulin pump whose glucose has been uncontrolled due to non- compliance with ADA diet. She has not been seeing her emergency technician for months. She is a patient of [facility] who has been co-managed with [facility]. She went for a routine visit at [facility] and was sent here for BP in the 150/90's. She is on magnesium sulfate. Labor was induced. Cervidil #2 was removed this AM. Her BP has been stable. Urine output and DTRs are adequate. tracing is CAT1. Cervix is closed/50%/-3. Joes: mild, occasional contractions. She is using her insulin pump now, but that will be discontinued when she is in active labor. She will then be managed with insulin sliding scale. Medical consult done. NICU consult done. Objective - Vital Signs Vital Signs: Vital Signs - 12hr 05/03/19 05/03/19 05/03/19 21:14 21:15 21:20 Temperature Pulse Rate 80 72 74 Respiratory Rate Blood Pressure O2 Sat by Pulse 94 94 96 Oximetry 05/03/19 05/03/19 05/03/19 21:21 21:24 21:25 Temperature Pulse Rate 78 89 87 Respiratory Rate Blood Pressure 161/104 O2 Sat by Pulse 94 96 Oximetry 05/03/19 05/03/19 05/03/19 21:30 21:33 21:35 Temperature Pulse Rate 87 80 72 Respiratory Rate Blood Pressure 148/92 O2 Sat by Pulse 97 97 Oximetry 1005/03/19 05/03/19 21:40 21:45 21:50 Temperature Pulse Rate 76 77 80 Respiratory Rate Blood Pressure O2 Sat by Pulse 96 97 96 Oximetry 05/03/19 05/03/19 05/03/19 21:55 22:00 22:05 Temperature Pulse Rate 78 79 79 Respiratory Rate Blood Pressure 138/93 O2 Sat by Pulse 97 96 97 Oximetry 05/03/19 05/03/19 05/03/19 22:10 22:12 22:13 Temperature Pulse Rate 81 89 88 Respiratory Rate Blood Pressure 126/86 126/86 O2 Sat by Pulse 97 Oximetry 05/03/19 05/03/19 05/03/19 22:15 22:20 22:25 Temperature Pulse Rate 101 H 93 H 89 Respiratory Rate Blood Pressure O2 Sat by Pulse 98 98 98 Oximetry 05/03/19 05/03/19 05/03/19 22:26 22:30 22:35 Temperature Pulse Rate 84 89 91 H Respiratory Rate Blood Pressure 155/97 O2 Sat by Pulse 97 97 Oximetry 05/03/19 05/03/19 05/03/19 22:40 22:45 22:50 Temperature Pulse Rate 84 85 94 H Respiratory Rate Blood Pressure O2 Sat by Pulse 97 97 98 Oximetry 05/03/19 05/03/19 05/03/19 22:55 23:00 23:02 Temperature Pulse Rate 77 91 H 95 H Respiratory Rate Blood Pressure 156/97 O2 Sat by Pulse 96 98 93 Oximetry 05/03/19 05/03/19 05/03/19 23:05 23:10 23:15 Temperature Pulse Rate 91 H 90 79 Respiratory Rate Blood Pressure O2 Sat by Pulse 98 97 96 Oximetry 05/03/19 05/03/19 05/03/19 23:20 23:24 23:25 Temperature Pulse Rate 82 80 82 Respiratory Rate Blood Pressure 151/95 O2 Sat by Pulse 99 99 Oximetry 05/03/19 05/03/19 05/03/19 23:30 23:35 23:40 Temperature Pulse Rate 91 H 75 85 Respiratory Rate Blood Pressure O2 Sat by Pulse 98 97 98 Oximetry 05/03/19 05/03/19 05/03/19 23:45 23:50 23:55 Temperature Pulse Rate 80 82 85 Respiratory Rate Blood Pressure 136/93 O2 Sat by Pulse 97 97 97 Oximetry 05/04/19 05/04/1905/04/19 00:00 00:05 00:10 Temperature Pulse Rate 81 88 86 Respiratory Rate Blood Pressure O2 Sat by Pulse 97 96 95 Oximetry 05/04/19 05/04/19 05/04/19 00:15 00:20 00:24 Temperature Pulse Rate 85 87 86 Respiratory Rate Blood Pressure 126/79 O2 Sat by Pulse 96 96 94 Oximetry 05/04/19 05/04/19 05/04/19 00:25 00:30 00:35 Temperature Pulse Rate 86 83 84 Respiratory Rate Blood Pressure O2 Sat by Pulse 95 95 95 Oximetry 05/04/19 05/04/19 05/04/19 00:40 00:45 00:50 Temperature Pulse Rate 85 87 84 Respiratory Rate Blood Pressure O2 Sat by Pulse 96 96 96 Oximetry 05/04/19 05/04/19 05/04/19 00:54 00:55 00:59 Temperature Pulse Rate 87 88 82 Respiratory Rate Blood Pressure 126/75 O2 Sat by Pulse 96 91 Oximetry 05/04/19 05/04/19 05/04/19 01:00 01:05 01:10 Temperature Pulse Rate 79 83 82 Respiratory Rate Blood Pressure O2 Sat by Pulse 96 95 96 Oximetry 05/04/19 05/04/19 05/04/19 01:15 01:20 01:25 Temperature 97.8 F Pulse Rate 83 87 75 Respiratory Rate Blood Pressure 131/81 O2 Sat by Pulse 97 98 95 Oximetry 05/04/19 05/04/19 05/04/19 01:30 01:31 01:35 Temperature Pulse Rate 75 77 78 Respiratory Rate Blood Pressure O2 Sat by Pulse 95 94 95 Oximetry 05/04/19 05/04/19 05/04/19 01:36 01:40 01:42 Temperature Pulse Rate 75 76 76 Respiratory Rate Blood Pressure O2 Sat by Pulse 94 94 94 Oximetry 05/04/19 05/04/19 05/04/19 01:45 01:50 01:54 Temperature Pulse Rate 76 74 75 Respiratory Rate Blood Pressure 116/66 O2 Sat by Pulse 94 94 Oximetry 05/04/19 05/04/19 05/04/19 01:55 02:00 02:05 Temperature Pulse Rate 75 77 75 Respiratory Rate Blood Pressure O2 Sat by Pulse 94 93 93 Oximetry 05/04/19 05/04/19 05/04/19 02:10 02:15 02:20 Temperature Pulse Rate 76 76 77 Respiratory Rate Blood Pressure O2 Sat by Pulse 93 93 94 Oximetry 05/04/19 05/04/19 05/04/19 02:25 02:26 02:30 Temperature Pulse Rate 79 90 87 Respiratory Rate Blood Pressure 133/76 O2 Sat by Pulse 95 95 Oximetry 05/04/19 05/04/19 05/04/19 02:35 02:40 02:45 Temperature Pulse Rate 85 82 81 Respiratory Rate Blood Pressure O2 Sat by Pulse 96 95 95 Oximetry 05/04/19 05/04/19 05/04/19 02:50 02:54 02:55 Temperature Pulse Rate 84 84 85 Respiratory Rate Blood Pressure 126/85 O2 Sat by Pulse 95 94 95 Oximetry 05/04/19 05/04/19 05/04/19 03:00 03:05 03:10 Temperature Pulse Rate 84 87 85 Respiratory Rate Blood Pressure O2 Sat by Pulse 95 95 95 Oximetry 05/04/19 05/04/19 05/04/19 03:15 03:20 03:24 Temperature Pulse Rate 88 93 H 79 Respiratory Rate Blood Pressure 126/80 O2 Sat by Pulse 97 96 Oximetry 05/04/19 05/04/19 05/04/19 03:25 03:30 03:35 Temperature Pulse Rate 78 81 80 Respiratory Rate Blood Pressure O2 Sat by Pulse 96 96 96 Oximetry 05/04/19 05/04/19 05/04/19 03:40 03:45 03:50 Temperature Pulse Rate 81 82 84 Respiratory Rate Blood Pressure O2 Sat by Pulse 96 96 96 Oximetry 05/04/19 05/04/19 05/04/19 03:54 03:55 04:00 Temperature Pulse Rate 85 85 88 Respiratory Rate Blood Pressure 122/79 O2 Sat by Pulse 97 96 Oximetry 05/04/19 05/04/19 05/04/19 04:05 04:10 04:15 Temperature Pulse Rate 85 86 88 Respiratory Rate Blood Pressure O2 Sat by Pulse 96 96 96 Oximetry 05/04/19 05/04/19 05/04/19 04:20 04:23 04:25 Temperature Pulse Rate 85 92 H 97 H Respiratory Rate Blood Pressure 123/74 O2 Sat by Pulse 96 92 90 Oximetry 05/04/19 05/04/19 05/04/19 04:30 04:35 04:39 Temperature Pulse Rate 93 H 89 88 Respiratory Rate Blood Pressure O2 Sat by Pulse 89 92 93 Oximetry 05/04/19 05/04/19 05/04/19 04:40 04:45 04:50 Temperature Pulse Rate 83 93 H 78 Respiratory Rate Blood Pressure O2 Sat by Pulse 92 92 93 Oximetry 05/04/19 05/04/19 05/04/19 04:54 04:55 05:00 Temperature 97.9 F Pulse Rate 74 74 76 Respiratory Rate Blood Pressure 118/69 O2 Sat by Pulse 94 93 Oximetry 05/04/19 05/04/19 05/04/19 05:05 05:06 05:10 Temperature Pulse Rate 81 73 74 Respiratory Rate Blood Pressure O2 Sat by Pulse 95 94 93 Oximetry 05/04/19 05/04/19 05/04/19 05:12 05:15 05:17 Temperature Pulse Rate 76 75 74 Respiratory Rate Blood Pressure O2 Sat by Pulse 94 94 94 Oximetry 05/04/19 05/04/19 05/04/19 05:20 05:24 05:25 Temperature Pulse Rate 73 73 77 Respiratory Rate Blood Pressure 114/66 O2 Sat by Pulse 94 94 94 Oximetry 05/04/19 05/04/19 05/04/19 05:30 05:35 05:38 Temperature Pulse Rate 78 88 88 Respiratory Rate Blood Pressure O2 Sat by Pulse 94 94 93 Oximetry 05/04/19 05/04/19 05/04/19 05:40 05:45 05:50 Temperature Pulse Rate 98 H 88 79 Respiratory Rate Blood Pressure O2 Sat by Pulse 94 96 95 Oximetry 05/04/19 05/04/19 05/04/19 05:54 05:55 06:00 Temperature Pulse Rate 78 79 89 Respiratory Rate Blood Pressure 120/67 O2 Sat by Pulse 95 97 Oximetry 05/04/19 05/04/19 05/04/19 06:05 06:10 06:15 Temperature Pulse Rate 82 79 81 Respiratory Rate Blood Pressure O2 Sat by Pulse 96 96 96 Oximetry 05/04/19 05/04/19 05/04/19 06:20 06:21 06:25 Temperature Pulse Rate 79 85 79 Respiratory Rate Blood Pressure O2 Sat by Pulse 95 93 96 Oximetry 05/04/19 05/04/19 05/04/19 06:30 06:35 06:40 Temperature Pulse Rate 81 90 87 Respiratory Rate Blood Pressure O2 Sat by Pulse 95 97 96 Oximetry 05/04/19 05/04/19 05/04/19 06:45 06:50 06:55 Temperature Pulse Rate 85 90 88 Respiratory Rate Blood Pressure O2 Sat by Pulse 96 97 96 Oximetry 05/04/19 05/04/19 05/04/19 07:00 07:05 07:10 Temperature Pulse Rate 90 88 92 H Respiratory Rate Blood Pressure O2 Sat by Pulse 96 96 97 Oximetry 05/04/19 05/04/19 05/04/19 07:15 07:20 07:25 Temperature Pulse Rate 92 H 89 92 H Respiratory Rate Blood Pressure O2 Sat by Pulse 96 96 96 Oximetry 05/04/19 05/04/19 05/04/19 07:30 07:35 07:40 Temperature Pulse Rate 95 H 92 H 92 H Respiratory Rate Blood Pressure O2 Sat by Pulse 95 97 96 Oximetry 05/04/19 05/04/19 05/04/19 07:42 07:45 07:50 Temperature 98.7 F Pulse Rate 91 H 93 H Respiratory 17 Rate Blood Pressure O2 Sat by Pulse 96 96 Oximetry 05/04/19 05/04/19 05/04/19 07:55 08:00 08:05 Temperature Pulse Rate 101 H 106 H 105 H Respiratory Rate Blood Pressure O2 Sat by Pulse 97 96 98 Oximetry 05/04/19 05/04/19 05/04/19 08:10 08:15 08:20 Temperature Pulse Rate 104 H 104 H 104 H Respiratory Rate Blood Pressure O2 Sat by Pulse 98 98 98 Oximetry 05/04/19 05/04/19 05/04/19 08:25 08:30 08:35 Temperature Pulse Rate 102 H 92 H 94 H Respiratory Rate Blood Pressure O2 Sat by Pulse 98 97 98 Oximetry 05/04/19 05/04/19 05/04/19 08:40 08:45 08:50 Temperature Pulse Rate 90 98 H 89 Respiratory Rate Blood Pressure O2 Sat by Pulse 97 98 97 Oximetry 05/04/19 05/04/19 05/04/19 08:54 08:55 09:00 Temperature Pulse Rate 86 88 88 Respiratory Rate Blood Pressure 129/90 O2 Sat by Pulse 97 97 Oximetry 05/04/19 05/04/19 09:05 09:10 Temperature Pulse Rate 89 90 Respiratory Rate Blood Pressure O2 Sat by Pulse 97 97 Oximetry - Exam Cardiovascular: Normal S1, Normal S2 Lungs: Clear to auscultation Vulva: both: normal FHR: category 1 Uterine Contraction Monitor Mode: External Uterine Contraction Pattern: Irregular Deep Tendon Reflex Grade: Normal +2 - Labs Labs: Abnormal Labs 05/01/19 05/01/19 05/01/19 17:20 17:20 18:06 RBC 3.25 L Hgb 9.7 L Hct 27.0 L MCHC 36 H RDW 12.7 L Sodium Chloride BUN Creatinine 0.6 L Glucose POC Glucose 263 H Magnesium Total Protein Albumin 05/02/19 05/02/19 05/02/19 06:47 12:18 18:13 RBC Hgb Hct MCHC RDW Sodium Chloride BUN Creatinine Glucose POC Glucose 174 H 367 H 175 H Magnesium Total Protein Albumin 05/02/19 05/03/19 05/03/19 23:04 00:08 06:27 RBC Hgb Hct MCHC RDW Sodium Chloride BUN Creatinine Glucose POC Glucose 58 L Magnesium 3.40 H 3.70 H Total Protein Albumin 05/03/19 05/03/19 05/03/19 11:03 12:14 14:10 RBC Hgb Hct MCHC RDW Sodium 135 L Chloride 97.0 L BUN 3 L Creatinine 0.6 L Glucose 140 H POC Glucose 122 H Magnesium 5.00 H Total Protein 5.9 L Albumin 3.0 L 05/03/19 05/03/19 05/03/19 18:22 19:25 21:19 RBC Hgb Hct MCHC RDW Sodium Chloride BUN Creatinine Glucose POC Glucose 55 L 58 L Magnesium 5.70 H Total Protein Albumin 05/03/19 05/03/19 05/04/19 21:20 23:14 01:19 RBC Hgb Hct MCHC RDW Sodium Chloride BUN Creatinine Glucose POC Glucose 61 L 65 L 54 L Magnesium Total Protein Albumin 05/04/19 06:01 RBC Hgb Hct MCHC RDW Sodium Chloride BUN Creatinine Glucose POC Glucose Magnesium 6.30 H Total Protein Albumin Laboratory Results - last 24 hr 05/02/19 05/03/19 05/03/19 20:23 11:03 12:14 Sodium 135 L Potassium 3.7 Chloride 97.0 L Carbon Dioxide 25 Anion Gap 17 BUN 3 L Creatinine 0.6 L Estimated GFR > 60 BUN/Creatinine Ratio 5 Glucose 140 H POC Glucose 122 H Calcium 9.1 Magnesium Total Bilirubin 0.30 AST 13 ALT 11 Alkaline Phosphatase 96 Total Protein 5.9 L Albumin 3.0 L Albumin/Globulin Ratio 1.0 Urine Total Volume RPR Nonreactive 05/03/19 05/03/19 05/03/19 14:10 18:22 19:25 Sodium Potassium Chloride Carbon Dioxide Anion Gap BUN Creatinine Estimated GFR BUN/Creatinine Ratio Glucose POC Glucose 55 L 58 L Calcium Magnesium 5.00 H Total Bilirubin AST ALT Alkaline Phosphatase Total Protein Albumin Albumin/Globulin Ratio Urine Total Volume RPR 05/03/19 05/03/19 05/03/19 21:19 21:20 23:14 Sodium Potassium Chloride Carbon Dioxide Anion Gap BUN Creatinine Estimated GFR BUN/Creatinine Ratio Glucose POC Glucose 61 L 65 L Calcium Magnesium 5.70 H Total Bilirubin AST ALT Alkaline Phosphatase Total Protein Albumin Albumin/Globulin Ratio Urine Total Volume RPR 05/03/19 05/04/19 05/04/19 Unknown 01:19 03:29 Sodium Potassium Chloride Carbon Dioxide Anion Gap BUN Creatinine Estimated GFR BUN/Creatinine Ratio Glucose POC Glucose 54 L 73 Calcium Magnesium Total Bilirubin AST ALT Alkaline Phosphatase Total Protein Albumin Albumin/Globulin Ratio Urine Total Volume 5700 RPR 05/04/19 05/04/19 06:01 06:30 Sodium Potassium Chloride Carbon Dioxide Anion Gap BUN Creatinine Estimated GFR BUN/Creatinine Ratio Glucose POC Glucose 80 Calcium Magnesium 6.30 H Total Bilirubin AST ALT Alkaline Phosphatase Total Protein Albumin Albumin/Globulin Ratio Urine Total Volume RPR
[2019-05-04] MEDS ORDERED: miSOPROStol 25 MCG TAB VG PRN (09:50)
[2019-05-04] MEDS: PRENATAL VIT27-FE FUMARATE-FOLIC ACID VIT TAB PO SCH (10:01)
[2019-05-04] MEDS: DOCUSATE SODIUM 100 MG CAP PO PRN (10:01)
[2019-05-04] MEDS ORDERED: miSOPROStol 25 MCG TAB ONE (10:52)
[2019-05-04] MEDS: ONDANSETRON 4 MG/2 ML INJ IV PRN ×2 (11:10→19:45)
--- NOTE | 2019-05-04 11:15 | Event Note ---
Date: 05/04/19 Patient is not feeling any contractions now. Cervix is closed/50-60%/-3. tracing is CAT1. Sonogram at bedside confirmed vertex presentation. Cytotec 25 mcg inserted at 9:50 AM. Continue and toco monitoring.
[2019-05-04] MEDS ORDERED: miSOPROStol 100 MCG TAB ONE (15:13)
[2019-05-04] MEDS: BUTORPHANOL 2 MG/1 ML INJ IV PRN ×2 (17:40→22:17)
[2019-05-04] MEDS ORDERED: OXYTOCIN 20 UNIT/1000ML DRIP 20 UNITS/1,000 ML BAG IV SCH (19:00)
[2019-05-04] MEDS ORDERED: OXYTOCIN DRIP 30 UNITS/500 ML BAG IV SCH (19:00)
[2019-05-04] MEDS ORDERED: METOCLOPRAMIDE 10 MG/2 ML INJ ONE (19:15)
[2019-05-04] MEDS ORDERED: BICITRA ORAL LIQD 30ML PO ONE (20:00)
[2019-05-04] MEDS ORDERED: FAMOTIDINE 20 MG/2 ML INJ IV ONE (20:00)
[2019-05-04] MEDS ORDERED: METOCLOPRAMIDE 10 MG/2 ML INJ IV ONE (20:00)
[2019-05-04 20:13] LABS: Hematocrit 25.7 % (30.3-42.9); Hemoglobin 8.9 gm/dl (10.1-14.3); Mean Corpuscular HGB Conc 35 % (30-34); Mean Corpuscular Volume 83 fl (79-97); Platelet Count 251 K/mm3 (140-440); Red Blood Count 3.11 M/mm3 (3.65-5.03); Red Cell Distribution Width 12.9 % (13.2-15.2)
[2019-05-05] MEDS ORDERED: ePHEDrine SULFATE 50 MG/1 ML INJ IV PRN (00:52)
[2019-05-05] MEDS ORDERED: NALOXONE 2 MG/2 ML INJ IV PRN (00:52)
--- NOTE | 2019-05-05 00:55 | Anesthesia Consultation ---
Anesthesia Consult and Med Hx Date of service: 05/05/19 - Airway Anesthetic Teeth Evaluation: Good ROM Head & Neck: Adequate Mental/Hyoid Distance: Adequate Mallampati Class: Class II Intubation Access Assessment: Probably Good - Pulmonary Exam CTA: Yes - Cardiac Exam Cardiac Exam: RRR - Pre-Operative Health Status ASA Pre-Surgery Classification: ASA2 Proposed Anesthetic Plan: Epidural - Pulmonary Hx Smoking: No Hx Asthma: No Hx Respiratory Symptoms: No SOB: No COPD: No Home Oxygen Therapy: No Hx Pneumonia: No Hx Sleep Apnea: No - Cardiovascular System Hx Hypertension: No Hx Coronary Artery Disease: No Hx Heart Attack/AMI: No Hx Angina: No Hx Percutaneous Transluminal Coronary Angioplasty (PTCA): No Hx Cardia Arrhythmia: No Hx Pacemaker: No Hx Internal Defibrillator: No Hx Valvular Heart Disease: No Hx Heart Murmur: No Hx Peripheral Vascular Disease: No - Central Nervous System Hx Neuromuscular Disorder: No Hx Seizures: No CVA: No Hx Back Pain: No Hx Psychiatric Problems: No - Gastrointestinal Hx Ulcer: No Hx Gastroesophageal Reflux Disease: No - Endocrine Hx Renal Disease: No Hx End Stage Renal Disease: No Hx Cirrhosis: No Hx Liver Disease: No Hx Insulin Dependent Diabetes: Yes Hx Non-Insulin Dependent Diabetes: No Hx Thyroid Disease: No Hx Hypothyroidism: No Hx Hyperthyroidism: No - Hematic Hx Anemia: No Hx Sickle Cell Disease: No - Other Systems Hx Alcohol Use: No Hx Substance Use: No Hx Cancer: No Hx Obesity: No
[2019-05-05] MEDS ORDERED: fentaNYL-BUPIV 2 MCG/ML-0.125% 200 MCG/100 ML BAG EPIDURAL SCH (01:00)
[2019-05-05] MEDS ORDERED: BUPIVACAINE/PF (0.25%) 2.5 MG/ML 10 ML VIAL INFILTRATI ONE ×3 (01:23→09:27)
[2019-05-05] MEDS: LACTATED RINGERS 1,000 ML IV SCH (02:12)
[2019-05-05] MEDS ORDERED: SODIUM CHLORIDE 0.9% 500 ML 500 ML IV ONE ×3 (04:31→22:36)
[2019-05-05] MEDS: ONDANSETRON 4 MG/2 ML INJ IV PRN (05:57)
[2019-05-05] MEDS: MAGNESIUM SULFATE 40GM/1000ML 40 GM/1,000 ML BAG IV SCH (06:21)
[2019-05-05] MEDS ORDERED: LIDOCAINE MPF (2%) 20 MG/1 ML VIAL 5 ML ONE (08:44)
[2019-05-05] MEDS ORDERED: ceFAZolin/Water 2 GM/20 ML 2 GM/20 ML SYRINGE IV ONE (09:06)
--- NOTE | 2019-05-05 09:07 | Event Note ---
Date: 05/05/19 Came in to talk with patient about the overall clinical status. There was a SROM yesterday afternoon and as of this morning no significant cervical changes haves happened through induction of labor. Her diabetes and preeclampsia are stable. Fetus is stable. Patient was told of the significance of SROM and that it added another factor which dictated timing for delivery. Since the cervix was unlikely to change in a timely manner to effect a vaginal delivery, she was told arrangements were already in motion for a delivery. Dr. 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
--- NOTE | 2019-05-05 09:11 | Anesthesia Day of Surgery ---
Anesthesia Day of Surgery - Day of Surgery Patient Examined: Yes Patient H&P Reviewed: Yes Patient is NPO: Yes
--- NOTE | 2019-05-05 09:20 | Progress Note ---
Subjective - Subjective Date of service: 05/05/19 Principal diagnosis: SIUP at 36 weeks and 3 days with pre-gest DM-1, pre- eclampsia Interval history: Preoperative diagnosis: IUP at 36+4/7 weeks, failed IOL, poorly controlled DM Type 1,preeclampsia per [facility] Planned procedure: Primary LTCS via Pfannenstiel incision Surgeon: Dr Vanessa Simmons Patient NPO, oracle consultant to OR for procedure. Consents signed and in chart. Hb 8.9, two units PRBC's on hold for OR. Hemabate ordered. and maternal well being stable at bedside. tracing Category 1. Douglas REYNOLDS Objective - Vital Signs Vital Signs: Vital Signs - 12hr 05/04/19 05/04/19 05/04/19 21:21 21:23 21:26 Temperature Pulse Rate 93 H 90 Respiratory Rate Blood Pressure 124/91 O2 Sat by Pulse 100 100 Oximetry 05/04/19 05/04/19 05/04/19 21:31 21:36 21:41 Temperature Pulse Rate 94 H 97 H 91 H Respiratory Rate Blood Pressure O2 Sat by Pulse 100 100 100 Oximetry 05/04/19 05/04/19 05/04/19 21:46 21:51 21:53 Temperature Pulse Rate 98 H 92 H 96 H Respiratory Rate Blood Pressure 154/95 O2 Sat by Pulse 100 100 Oximetry 05/04/19 05/04/19 05/04/19 21:56 22:00 22:01 Temperature 98.3 F Pulse Rate 100 H 98 H Respiratory Rate Blood Pressure O2 Sat by Pulse 99 99 Oximetry 05/04/19 05/04/19 05/04/19 22:06 22:11 22:16 Temperature Pulse Rate 93 H 93 H 98 H Respiratory Rate Blood Pressure O2 Sat by Pulse 100 100 100 Oximetry 05/04/19 05/04/19 05/04/19 22:21 22:24 22:26 Temperature Pulse Rate 103 H 98 H 100 H Respiratory Rate Blood Pressure 129/81 O2 Sat by Pulse 98 94 96 Oximetry 05/04/19 05/04/19 05/04/19 22:29 22:31 22:35 Temperature Pulse Rate 95 H 94 H 94 H Respiratory Rate Blood Pressure O2 Sat by Pulse 93 94 94 Oximetry 05/04/19 05/04/19 05/04/19 22:36 22:41 22:42 Temperature Pulse Rate 95 H 91 H 93 H Respiratory Rate Blood Pressure O2 Sat by Pulse 95 95 94 Oximetry 05/04/19 05/04/19 05/04/19 22:46 22:51 22:54 Temperature Pulse Rate 95 H 93 H 94 H Respiratory Rate Blood Pressure 132/77 O2 Sat by Pulse 94 95 94 Oximetry 05/04/19 05/04/19 05/04/19 22:56 23:00 23:01 Temperature 98.9 F Pulse Rate 101 H 100 H Respiratory Rate Blood Pressure O2 Sat by Pulse 97 96 Oximetry 05/04/19 05/04/19 05/04/19 23:06 23:10 23:11 Temperature Pulse Rate 95 H 91 H 98 H Respiratory Rate Blood Pressure O2 Sat by Pulse 96 94 97 Oximetry 05/04/19 05/04/19 05/04/19 23:16 23:21 23:23 Temperature Pulse Rate 100 H 97 H 89 Respiratory Rate Blood Pressure 133/78 O2 Sat by Pulse 96 95 93 Oximetry 05/04/19 05/04/19 05/04/19 23:26 23:31 23:36 Temperature Pulse Rate 95 H 98 H 96 H Respiratory Rate Blood Pressure O2 Sat by Pulse 96 98 98 Oximetry 05/04/19 05/04/19 05/04/19 23:39 23:41 23:46 Temperature Pulse Rate 105 H 94 H 99 H Respiratory Rate Blood Pressure O2 Sat by Pulse 94 100 98 Oximetry 05/04/19 05/04/19 05/04/19 23:51 23:54 23:56 Temperature Pulse Rate 91 H 85 90 Respiratory Rate Blood Pressure 126/73 O2 Sat by Pulse 98 100 Oximetry 05/05/19 05/05/19 05/05/19 00:00 00:01 00:06 Temperature 98.4 F Pulse Rate 98 H 93 H Respiratory 18 Rate Blood Pressure O2 Sat by Pulse 99 98 Oximetry 05/05/19 05/05/19 05/05/19 00:11 00:16 00:21 Temperature Pulse Rate 86 85 86 Respiratory Rate Blood Pressure O2 Sat by Pulse 100 100 100 Oximetry 05/05/19 05/05/19 05/05/19 00:24 00:26 00:31 Temperature Pulse Rate 92 H 87 83 Respiratory Rate Blood Pressure 143/79 O2 Sat by Pulse 100 100 Oximetry 05/05/19 05/05/19 05/05/19 00:36 00:41 00:46 Temperature Pulse Rate 88 98 H 92 H Respiratory Rate Blood Pressure O2 Sat by Pulse 99 96 100 Oximetry 05/05/19 05/05/19 05/05/19 00:51 00:55 00:56 Temperature Pulse Rate 93 H 101 H 94 H Respiratory Rate Blood Pressure 114/87 O2 Sat by Pulse 100 97 Oximetry 05/05/19 05/05/19 05/05/19 01:00 01:01 01:06 Temperature 98.3 F Pulse Rate 98 H 95 H Respiratory Rate Blood Pressure O2 Sat by Pulse 98 96 Oximetry 05/05/19 05/05/19 05/05/19 01:10 01:11 01:12 Temperature Pulse Rate 93 H 97 H 95 H Respiratory Rate Blood Pressure 125/84 135/88 O2 Sat by Pulse 98 Oximetry 05/05/19 05/05/19 05/05/19 01:14 01:16 01:18 Temperature Pulse Rate 93 H 96 H 98 H Respiratory Rate Blood Pressure 126/83 122/76 103/59 O2 Sat by Pulse 98 Oximetry 05/05/19 05/05/19 05/05/19 01:21 01:23 01:26 Temperature Pulse Rate 91 H 92 H 88 Respiratory Rate Blood Pressure O2 Sat by Pulse 97 94 100 Oximetry 05/05/19 05/05/19 05/05/19 01:31 01:36 01:41 Temperature Pulse Rate 82 79 86 Respiratory Rate Blood Pressure 112/65 O2 Sat by Pulse 100 100 100 Oximetry 05/05/19 05/05/19 05/05/19 01:46 01:51 01:56 Temperature Pulse Rate 86 86 91 H Respiratory Rate Blood Pressure O2 Sat by Pulse 100 100 100 Oximetry 05/05/19 05/05/19 05/05/19 02:00 02:01 02:06 Temperature 98.3 F Pulse Rate 85 80 Respiratory Rate Blood Pressure O2 Sat by Pulse 100 100 Oximetry 05/05/19 05/05/19 05/05/19 02:11 02:16 02:17 Temperature Pulse Rate 87 84 85 Respiratory Rate Blood Pressure 126/83 O2 Sat by Pulse 100 100 Oximetry 05/05/19 05/05/19 05/05/19 02:21 02:26 02:31 Temperature Pulse Rate 82 96 H 91 H Respiratory Rate Blood Pressure O2 Sat by Pulse 100 100 97 Oximetry 05/05/19 05/05/19 05/05/19 02:36 02:41 02:46 Temperature Pulse Rate 87 80 79 Respiratory Rate Blood Pressure O2 Sat by Pulse 100 100 100 Oximetry 05/05/19 05/05/19 05/05/19 02:47 02:51 02:56 Temperature Pulse Rate 76 82 82 Respiratory Rate Blood Pressure 112/69 O2 Sat by Pulse 100 100 Oximetry 05/05/19 05/05/19 05/05/19 03:00 03:01 03:06 Temperature 98.7 F Pulse Rate 78 82 Respiratory Rate Blood Pressure O2 Sat by Pulse 100 100 Oximetry 05/05/19 05/05/19 05/05/19 03:11 03:16 03:18 Temperature Pulse Rate 86 81 76 Respiratory Rate Blood Pressure 103/55 O2 Sat by Pulse 100 100 Oximetry 05/05/19 05/05/19 05/05/19 03:21 03:26 03:31 Temperature Pulse Rate 81 77 78 Respiratory Rate Blood Pressure O2 Sat by Pulse 100 100 100 Oximetry 05/05/19 05/05/19 05/05/19 03:36 03:41 03:46 Temperature Pulse Rate 80 81 83 Respiratory Rate Blood Pressure O2 Sat by Pulse 100 100 100 Oximetry 05/05/19 05/05/19 05/05/19 03:47 03:51 03:56 Temperature Pulse Rate 82 84 82 Respiratory Rate Blood Pressure 114/70 O2 Sat by Pulse 100 100 Oximetry 05/05/19 05/05/19 05/05/19 04:00 04:01 04:06 Temperature 98 F Pulse Rate 82 81 Respiratory 16 Rate Blood Pressure O2 Sat by Pulse 100 100 Oximetry 05/05/19 05/05/19 05/05/19 04:11 04:16 04:18 Temperature Pulse Rate 83 79 75 Respiratory Rate Blood Pressure 101/55 O2 Sat by Pulse 100 100 Oximetry 05/05/19 05/05/19 05/05/19 04:21 04:26 04:31 Temperature Pulse Rate 76 77 77 Respiratory Rate Blood Pressure O2 Sat by Pulse 100 100 100 Oximetry 05/05/19 05/05/19 05/05/19 04:36 04:41 04:46 Temperature Pulse Rate 76 83 85 Respiratory Rate Blood Pressure O2 Sat by Pulse 100 100 100 Oximetry 05/05/19 05/05/19 05/05/19 04:48 04:51 04:56 Temperature Pulse Rate 76 80 84 Respiratory Rate Blood Pressure 106/58 O2 Sat by Pulse 100 100 Oximetry 05/05/19 05/05/19 05/05/19 05:00 05:01 05:06 Temperature 98.3 F Pulse Rate 79 80 Respiratory Rate Blood Pressure O2 Sat by Pulse 100 100 Oximetry 05/05/19 05/05/19 05/05/19 05:11 05:16 05:17 Temperature Pulse Rate 83 80 78 Respiratory Rate Blood Pressure 110/55 O2 Sat by Pulse 100 100 Oximetry 05/05/19 05/05/19 05/05/19 05:21 05:26 05:31 Temperature Pulse Rate 82 79 94 H Respiratory Rate Blood Pressure O2 Sat by Pulse 100 100 99 Oximetry 05/05/19 05/05/19 05/05/19 05:36 05:41 05:46 Temperature Pulse Rate 83 83 87 Respiratory Rate Blood Pressure O2 Sat by Pulse 100 100 99 Oximetry 05/05/19 05/05/19 05/05/19 05:47 05:51 05:56 Temperature Pulse Rate 82 88 89 Respiratory Rate Blood Pressure 114/68 O2 Sat by Pulse 100 100 Oximetry 05/05/19 05/05/19 05/05/19 06:00 06:01 06:06 Temperature 98.5 F Pulse Rate 81 82 Respiratory Rate Blood Pressure O2 Sat by Pulse 100 100 Oximetry 05/05/19 05/05/19 05/05/19 06:11 06:16 06:17 Temperature Pulse Rate 91 H 87 96 H Respiratory Rate Blood Pressure 129/82 O2 Sat by Pulse 100 97 Oximetry 05/05/19 05/05/19 05/05/19 06:21 06:26 06:31 Temperature Pulse Rate 86 99 H 85 Respiratory Rate Blood Pressure O2 Sat by Pulse 97 97 100 Oximetry 05/05/19 05/05/19 05/05/19 06:36 06:41 06:46 Temperature Pulse Rate 90 90 89 Respiratory Rate Blood Pressure O2 Sat by Pulse 100 100 100 Oximetry 05/05/19 05/05/19 05/05/19 06:48 06:51 06:56 Temperature Pulse Rate 85 89 89 Respiratory Rate Blood Pressure 131/77 O2 Sat by Pulse 100 99 Oximetry 05/05/19 05/05/19 05/05/19 07:01 07:06 07:11 Temperature Pulse Rate 88 91 H 88 Respiratory Rate Blood Pressure O2 Sat by Pulse 100 100 100 Oximetry 05/05/19 05/05/19 05/05/19 07:16 07:18 07:21 Temperature Pulse Rate 83 83 86 Respiratory Rate Blood Pressure 124/77 O2 Sat by Pulse 100 100 Oximetry 05/05/19 05/05/19 05/05/19 07:26 07:31 07:36 Temperature Pulse Rate 82 100 H 96 H Respiratory Rate Blood Pressure O2 Sat by Pulse 100 100 100 Oximetry 05/05/19 05/05/19 05/05/19 07:41 07:46 07:47 Temperature Pulse Rate 94 H 97 H 101 H Respiratory Rate Blood Pressure 118/74 O2 Sat by Pulse 100 97 Oximetry 05/05/19 05/05/19 05/05/19 07:51 07:56 08:01 Temperature Pulse Rate 96 H 87 95 H Respiratory Rate Blood Pressure O2 Sat by Pulse 97 98 100 Oximetry 05/05/19 05/05/19 05/05/19 08:06 08:11 08:16 Temperature Pulse Rate 98 H 93 H 91 H Respiratory Rate Blood Pressure O2 Sat by Pulse 98 100 100 Oximetry 05/05/19 05/05/19 05/05/19 08:17 08:21 08:26 Temperature Pulse Rate 90 89 90 Respiratory Rate Blood Pressure 119/62 O2 Sat by Pulse 100 100 Oximetry 05/05/19 05/05/19 05/05/19 08:31 08:36 08:41 Temperature Pulse Rate 92 H 97 H 97 H Respiratory Rate Blood Pressure O2 Sat by Pulse 100 98 98 Oximetry 05/05/19 05/05/19 05/05/19 08:44 08:45 08:46 Temperature Pulse Rate 96 H 103 H 103 H Respiratory Rate Blood Pressure 122/73 127/82 O2 Sat by Pulse 96 Oximetry 05/05/19 05/05/19 05/05/19 08:49 08:51 08:53 Temperature Pulse Rate 97 H 106 H 99 H Respiratory Rate Blood Pressure 127/81 O2 Sat by Pulse 97 94 Oximetry 05/05/19 05/05/19 05/05/19 08:54 08:55 08:56 Temperature Pulse Rate 96 H 96 H 90 Respiratory Rate Blood Pressure 144/70 115/57 O2 Sat by Pulse 100 Oximetry 05/05/19 05/05/19 05/05/19 08:59 09:01 09:04 Temperature Pulse Rate 94 H 89 101 H Respiratory Rate Blood Pressure 126/61 124/65 O2 Sat by Pulse 100 Oximetry 05/05/19 05/05/19 05/05/19 09:06 09:09 09:11 Temperature Pulse Rate 94 H 91 H 100 H Respiratory Rate Blood Pressure 101/58 O2 Sat by Pulse 100 98 Oximetry 05/05/19 09:14 Temperature Pulse Rate 91 H Respiratory Rate Blood Pressure 109/65 O2 Sat by Pulse Oximetry - Labs Labs: Abnormal Labs 05/01/19 05/01/19 05/01/19 17:20 17:20 18:06 RBC 3.25 L Hgb 9.7 L Hct 27.0 L MCHC 36 H RDW 12.7 L Sodium Chloride BUN Creatinine 0.6 L Glucose POC Glucose 263 H Magnesium Total Protein Albumin Crossmatch 05/02/19 05/02/19 05/02/19 06:47 12:18 18:13 RBC Hgb Hct MCHC RDW Sodium Chloride BUN Creatinine Glucose POC Glucose 174 H 367 H 175 H Magnesium Total Protein Albumin Crossmatch 05/02/19 05/02/19 05/03/19 20:23 23:04 00:08 RBC Hgb Hct MCHC RDW Sodium Chloride BUN Creatinine Glucose POC Glucose 58 L Magnesium 3.40 H Total Protein Albumin Crossmatch See Detail 05/03/19 05/03/19 05/03/19 06:27 11:03 12:14 RBC Hgb Hct MCHC RDW Sodium 135 L Chloride 97.0 L BUN 3 L Creatinine 0.6 L Glucose 140 H POC Glucose 122 H Magnesium 3.70 H Total Protein 5.9 L Albumin 3.0 L Crossmatch 05/03/19 05/03/19 05/03/19 14:10 18:22 19:25 RBC Hgb Hct MCHC RDW Sodium Chloride BUN Creatinine Glucose POC Glucose 55 L 58 L Magnesium 5.00 H Total Protein Albumin Crossmatch 05/03/19 05/03/19 05/03/19 21:19 21:20 23:14 RBC Hgb Hct MCHC RDW Sodium Chloride BUN Creatinine Glucose POC Glucose 61 L 65 L Magnesium 5.70 H Total Protein Albumin Crossmatch 05/04/19 05/04/19 05/04/19 01:19 06:01 10:19 RBC Hgb Hct MCHC RDW Sodium Chloride BUN Creatinine Glucose POC Glucose 54 L 152 H Magnesium 6.30 H Total Protein Albumin Crossmatch 05/04/19 05/04/19 05/04/19 13:51 14:11 18:33 RBC Hgb Hct MCHC RDW Sodium Chloride BUN Creatinine Glucose POC Glucose 116 H 196 H Magnesium 5.80 H Total Protein Albumin Crossmatch 05/04/19 05/05/19 05/05/19 19:55 02:27 02:40 RBC 3.11 L Hgb 8.9 L Hct 25.7 L MCHC 35 H RDW 12.9 L Sodium Chloride BUN Creatinine Glucose POC Glucose 110 H Magnesium 4.50 H Total Protein Albumin Crossmatch 05/05/19 05/05/19 05:54 06:07 RBC Hgb Hct MCHC RDW Sodium Chloride BUN Creatinine Glucose POC Glucose 127 H Magnesium 4.70 H Total Protein Albumin Crossmatch Laboratory Results - last 24 hr 05/02/19 05/04/19 05/04/19 20:23 10:19 13:51 WBC RBC Hgb Hct MCV MCH MCHC RDW Plt Count POC Glucose 152 H Magnesium 5.80 H Crossmatch See Detail 05/04/19 05/04/19 05/04/19 14:11 18:33 19:55 WBC 6.5 RBC 3.11 L Hgb 8.9 L Hct 25.7 L MCV 83 MCH 29 MCHC 35 H RDW 12.9 L Plt Count 251 POC Glucose 116 H 196 H Magnesium Crossmatch 05/04/19 05/05/19 05/05/19 22:11 02:27 02:40 WBC RBC Hgb Hct MCV MCH MCHC RDW Plt Count POC Glucose 99 110 H Magnesium 4.50 H Crossmatch 05/05/19 05/05/19 05:54 06:07 WBC RBC Hgb Hct MCV MCH MCHC RDW Plt Count POC Glucose 127 H Magnesium 4.70 H Crossmatch
[2019-05-05] MEDS ORDERED: DEXMEDETOMIDINE 200 MCG/2 ML VIAL IV ONE ×2 (09:24→11:08)
[2019-05-05] MEDS ORDERED: SODIUM CHLORIDE 0.9% 500 ML 500 ML IV NR (09:30)
[2019-05-05] MEDS ORDERED: PROMETHAZINE 25 MG TAB PO PRN (09:30)
[2019-05-05] MEDS ORDERED: ONDANSETRON 4 MG/2 ML INJ IV PRN ×2 (09:30→12:05)
[2019-05-05] MEDS ORDERED: HYDROmorphone 1 MG/1 ML INJ IV PRN ×2 (09:30)
[2019-05-05] MEDS ORDERED: NALOXONE 0.4 MG/1 ML INJ IV PRN ×2 (09:30→12:05)
[2019-05-05] MEDS ORDERED: CARBOPROST TROMETHAMINE 250 MCG/1 ML INJ IM NR (09:30)
[2019-05-05] MEDS ORDERED: PROMETHAZINE 25 MG RECT SUPP PR PRN ×2 (09:30→12:05)
[2019-05-05] MEDS ORDERED: SODIUM CHLORIDE 0.9% IRR 1,500 ML BOTTLE IR ONE (10:55)
[2019-05-05] MEDS ORDERED: WATER FOR IRRIG STERILE 1,500 ML BOTTLE IR ONE (10:55)
[2019-05-05] MEDS ORDERED: ONDANSETRON 4 MG/2 ML INJ ONE (11:08)
[2019-05-05] MEDS ORDERED: fentaNYL 100 MCG/2 ML INJ ONE (11:09)
[2019-05-05] MEDS ORDERED: miSOPROStol 200 MCG TAB ONE (11:18)
[2019-05-05] MEDS ORDERED: MIDAZOLAM 2 MG/2 ML INJ ONE (11:29)
[2019-05-05] MEDS ORDERED: HYDROmorphone 1 MG/1 ML INJ ONE (11:29)
[2019-05-05] MEDS ORDERED: diphenhydrAMINE 50 MG/ML VIAL ONE (11:36)
[2019-05-05] MEDS ORDERED: KETOROLAC 30 MG/1 ML INJ ONE (11:36)
[2019-05-05] MEDS ORDERED: SODIUM CHLORIDE 0.9% 100 ML ONE (11:39)
[2019-05-05] MEDS ORDERED: CLINDAMYCIN 150 MG/ML VIAL 6 ML ONE (11:39)
[2019-05-05] MEDS ORDERED: LANOLIN/ZINC/DIMETHICONE (LANSINOH) 7 GM TP PRN (12:05)
[2019-05-05] MEDS ORDERED: WITCH HAZEL/ GLYCERIN PAD TP PRN (12:05)
[2019-05-05] MEDS ORDERED: MAGNESIUM HYDROXIDE (MOM) ORAL LIQD UDC PO PRN (12:05)
[2019-05-05] MEDS ORDERED: MORPHINE 2 MG/1 ML INJ IV PRN (12:05)
[2019-05-05] MEDS ORDERED: KETOROLAC 30 MG/1 ML INJ IV PRN (12:05)
[2019-05-05] MEDS ORDERED: INFUSION SET FOR INSULIN PUMP SC SCH (12:15)
--- NOTE | 2019-05-05 12:23 | Procedure Note ---
OB Delivery Note - Delivery Date of Delivery: 05/05/19 Surgeon: JASMYN IRWIN Estimated blood loss: 500cc - Section Preop diagnosis: other (IUP at 36+4/7 weeks, failed IOL, DM Type 1, Preeclampsia) Postop diagnosis: same section procedure: section, primary low transverse Disposition: floor Complications: other (bleeding diasthesis with no nidus of active bleeding identified.poor coagulation at completion, pressure dressing applied, plan for serial H/H and coags. MGSO4 discontinued second to hypotension and bleeding diasthesis.) Narrative: Preoperative diagnosis: IUP at 36_4/7 weeks, failed IOL, type 1 DM, Preeclampsia Postoperative diagnosis: same Procedure: Primary Low Transverse section via Pfannenstiel incision Surgeon: Dr Jasmyn Irwin Assist: Scrub Anesthesia: epidural Findings: viable female, weight 2451gms and 7/8Normal Uterus, tubes and ovaries. Complications: Bleeding diasthesis at completion of procedure Drains: Vazquez to gravity EBL: 500mL IV Fluids: 1500ml Urine Output:50ml Procedure: Patient gave informed consent in OB room 2003. All questions and concerns addressed. R/B/C reviewed. She was taken to the OR where excellent spinal epidural anesthsia was confirmed. She was placed in the dorsal supine position with a leftward tilt. She was prepped and draped in a sterile fashion. A time out was verified. An Maryann clamp was used to assure adequate analgesia. A Pfannenstiel skin incision was made, taken down through the underlying fascia sharply and extended laterally with curved Sibley scissors. The superior and inferior aspect of the fascial incision was grasped with Aidee clamps and the rectus muscles dissected off sharply. The abdomen was entered sharply in the midline and extended laterally and inferiorly sharply with good visualization of the underlying structures.A bladder blade was inserted. The uterine incision was made sharply with a scalpel, taken down to the amnion and extended inferiorly and superiorly bluntly. The bladder blade removed and the baby delivered atraumatically. No nuchal cord, spontaneous cry at delivery. Cord clamped and cut and baby handed to waiting computerized mill recorder staff. Cord blood and cord gasses obtained. An intact placenta with three vessel cord delivered manually. The uterus cleared of all clots and debris. The uterus was exteriorized. The uterine incision closed with 2 layers of 0-Vicryl. The abdomen was irrigated with warm normal saline and the uterus placed back into the abdomen. A second look at the uterine incision showed areas of bleeding from every suture site. Procoagulant material applied. No individual nidus of bleeding identified: coags were ordered stat and Magnesium Sulfate discontinued second to maternal hypotension and bleeding diathesis. The peritoneum was closed with 3-0 Vicryl, the fascia closed with 0-Vicryl in the usual fashion and the underlying structures closed with interrupted suture of O-Vicryl. The skin closed with za and a pressure dressing applied. All sponge and needle counts correctx3. Mom and baby stable to . EBL 500ml. Urine output confirmed clearand adequate at completion of procedure.
--- NOTE | 2019-05-05 12:41 | Post Anesthesia Evaluation ---
- Post Anesthesia Evaluation Patient Participated: Yes Airway Patent: Yes Stable Respiratory Function: Yes Nausea/Vomiting: No Temp > 96.8F: Yes Pain Manageable: Yes Adequeate Hydration: Yes Anesthesia Complications: No Block Receding Appropriately: Yes Patient on Ventilator: No
[2019-05-05] MEDS ORDERED: OXYTOCIN 20 UNIT/1000ML DRIP 20 UNITS/1,000 ML BAG IV SCH (13:00)
[2019-05-05] MEDS ORDERED: SODIUM CHLORIDE 0.9% 1000 ML 1,000 ML ONE (14:03)
[2019-05-05 14:32] LABS: INR 0.99 (0.87-1.13)
[2019-05-05 14:33] LABS: Partial Thromboplastin Time 30.7 Sec. (24.2-36.6)
[2019-05-05] MEDS: KETOROLAC 30 MG/1 ML INJ IV PRN (17:37)
--- NOTE | 2019-05-05 20:08 | Progress Note ---
Subjective - Subjective Date of service: 05/05/19 Principal diagnosis: SIUP at 36 weeks and 3 days with pre-gest DM-1, pre- eclampsia Interval history: Preoperative diagnosis: IUP at 36+4/7 weeks, failed IOL, poorly controlled DM Type 1,preeclampsia per [facility] Planned procedure: Primary LTCS via Pfannenstiel incision Surgeon: Dr Vanessa Simmons Patient NPO, distribution technician to OR for procedure. Consents signed and in chart. Hb 8.9, two units PRBC's on hold for OR. Hemabate ordered. and maternal well being stable at bedside. tracing Category 1. Douglas RYENOLDS Patient seen and examined AAOX3 VSS ABD: soft, dry, no rebound or guarding FH at level of umbilicus Ext: +ve 2+edema b/l, neg homans sigg b/l Labs: coags WNL Postop H/H pending Continue current postop management monitor closely Kai Simmons MD Objective - Vital Signs Latest vital signs: Vital Signs Temp Pulse Resp BP BP Pulse Ox 05/05/19 17:37 20 05/05/19 16:22 99.0 F 95 H 16 103/67 100 05/05/19 13:50 98 F 96 H 20 83/45 97 05/05/19 13:30 86 11 L 99/64 92 05/05/19 13:15 76 12 102/65 95 05/05/19 13:00 76 12 107/69 94 05/05/19 12:45 77 13 107/73 96 05/05/19 12:30 81 12 99/72 96 05/05/19 12:25 84 12 106/66 97 05/05/19 12:20 97.9 F 88 14 107/69 97 05/05/19 12:15 97.9 F 62 14 103/64 93 05/05/19 10:49 97 H 119/67 05/05/19 10:46 99 H 95 05/05/19 10:45 96 H 119/65 05/05/19 10:41 105 H 97 05/05/19 10:39 98 H 119/78 05/05/19 10:36 95 H 96 05/05/19 10:35 96 H 130/74 91 05/05/19 10:31 94 H 94 05/05/19 10:29 95 H 117/69 05/05/19 10:27 97 H 94 05/05/19 10:26 97 H 95 05/05/19 10:25 100 H 123/74 05/05/19 10:22 99 H 94 05/05/19 10:21 95 H 93 05/05/19 10:19 95 H 117/71 05/05/19 10:16 98 H 95 05/05/19 10:14 93 H 113/65 94 05/05/19 10:11 94 H 93 05/05/19 10:09 91 H 121/78 93 05/05/19 10:06 95 H 94 05/05/19 10:03 94 05/05/19 10:01 90 94 05/05/19 09:59 90 121/73 05/05/19 09:56 92 H 94 05/05/19 09:54 87 122/73 05/05/19 09:53 90 94 05/05/19 09:51 90 95 05/05/19 09:49 90 123/74 05/05/19 09:48 88 94 05/05/19 09:46 88 94 05/05/19 09:45 98.2 F 05/05/19 09:44 89 117/73 05/05/19 09:42 89 94 05/05/19 09:41 89 95 05/05/19 09:39 88 115/68 05/05/19 09:36 89 100 05/05/19 09:34 88 113/67 05/05/19 09:31 89 100 05/05/19 09:29 84 112/65 05/05/19 09:26 93 H 106/58 97 05/05/19 09:21 89 100 05/05/19 09:19 88 108/64 05/05/19 09:16 91 H 96 05/05/19 09:14 91 H 109/65 05/05/19 09:11 100 H 98 05/05/19 09:09 91 H 101/58 05/05/19 09:06 94 H 100 05/05/19 09:04 101 H 124/65 05/05/19 09:01 89 100 05/05/19 08:59 94 H 126/61 05/05/19 08:56 90 100 05/05/19 08:55 96 H 115/57 05/05/19 08:54 96 H 144/70 05/05/19 08:53 99 H 94 05/05/19 08:51 106 H 97 05/05/19 08:49 97 H 127/81 05/05/19 08:46 103 H 96 05/05/19 08:45 103 H 127/82 05/05/19 08:44 96 H 122/73 05/05/19 08:41 97 H 98 05/05/19 08:36 97 H 98 05/05/19 08:31 92 H 100 05/05/19 08:26 90 100 05/05/19 08:21 89 100 05/05/19 08:17 90 119/62 05/05/19 08:16 91 H 100 05/05/19 08:11 93 H 100 05/05/19 08:06 98 H 98 05/05/19 08:01 95 H 100 05/05/19 08:00 98.2 F 05/05/19 07:56 87 98 05/05/19 07:51 96 H 97 05/05/19 07:47 101 H 118/74 05/05/19 07:46 97 H 97 05/05/19 07:41 94 H 100 05/05/19 07:36 96 H 100 05/05/19 07:31 100 H 100 05/05/19 07:26 82 100 05/05/19 07:21 86 100 05/05/19 07:18 83 124/77 05/05/19 07:16 83 100 05/05/19 07:11 88 100 05/05/19 07:06 91 H 100 05/05/19 07:01 88 100 05/05/19 06:56 89 99 05/05/19 06:51 89 100 05/05/19 06:48 85 131/77 05/05/19 06:46 89 100 05/05/19 06:41 90 100 05/05/19 06:36 90 100 05/05/19 06:31 85 100 05/05/19 06:26 99 H 97 05/05/19 06:21 86 97 05/05/19 06:17 96 H 129/82 05/05/19 06:16 87 97 05/05/19 06:11 91 H 100 05/05/19 06:06 82 100 05/05/19 06:01 81 100 05/05/19 06:00 98.5 F 05/05/19 05:56 89 100 05/05/19 05:51 88 100 05/05/19 05:47 82 114/68 05/05/19 05:46 87 99 05/05/19 05:41 83 100 05/05/19 05:36 83 100 05/05/19 05:31 94 H 99 05/05/19 05:26 79 100 05/05/19 05:21 82 100 05/05/19 05:17 78 110/55 05/05/19 05:16 80 100 05/05/19 05:11 83 100 05/05/19 05:06 80 100 05/05/19 05:01 79 100 05/05/19 05:00 98.3 F 05/05/19 04:56 84 100 05/05/19 04:51 80 100 05/05/19 04:48 76 106/58 05/05/19 04:46 85 100 05/05/19 04:41 83 100 05/05/19 04:36 76 100 05/05/19 04:31 77 100 05/05/19 04:26 77 100 05/05/19 04:21 76 100 05/05/19 04:18 75 101/55 05/05/19 04:16 79 100 05/05/19 04:11 83 100 05/05/19 04:06 81 100 05/05/19 04:01 82 100 05/05/19 04:00 98 F 16 05/05/19 03:56 82 100 05/05/19 03:51 84 100 05/05/19 03:47 82 114/70 05/05/19 03:46 83 100 05/05/19 03:41 81 100 05/05/19 03:36 80 100 05/05/19 03:31 78 100 05/05/19 03:26 77 100 05/05/19 03:21 81 100 05/05/19 03:18 76 103/55 05/05/19 03:16 81 100 05/05/19 03:11 86 100 05/05/19 03:06 82 100 05/05/19 03:01 78 100 05/05/19 03:00 98.7 F 05/05/19 02:56 82 100 05/05/19 02:51 82 100 05/05/19 02:47 76 112/69 05/05/19 02:46 79 100 05/05/19 02:41 80 100 05/05/19 02:36 87 100 05/05/19 02:31 91 H 97 05/05/19 02:26 96 H 100 05/05/19 02:21 82 100 05/05/19 02:17 85 126/83 05/05/19 02:16 84 100 05/05/19 02:11 87 100 05/05/19 02:06 80 100 05/05/19 02:01 85 100 05/05/19 02:00 98.3 F 05/05/19 01:56 91 H 100 05/05/19 01:51 86 100 05/05/19 01:46 86 100 05/05/19 01:41 86 100 05/05/19 01:36 79 112/65 100 05/05/19 01:31 82 100 05/05/19 01:26 88 100 05/05/19 01:23 92 H 94 05/05/19 01:21 91 H 97 05/05/19 01:18 98 H 103/59 05/05/19 01:16 96 H 122/76 98 05/05/19 01:14 93 H 126/83 05/05/19 01:12 95 H 135/88 05/05/19 01:11 97 H 98 05/05/19 01:10 93 H 125/84 05/05/19 01:06 95 H 96 05/05/19 01:01 98 H 98 05/05/19 01:00 98.3 F 05/05/19 00:56 94 H 97 05/05/19 00:55 101 H 114/87 05/05/19 00:51 93 H 100 05/05/19 00:46 92 H 100 05/05/19 00:41 98 H 96 05/05/19 00:36 88 99 05/05/19 00:31 83 100 05/05/19 00:26 87 100 05/05/19 00:24 92 H 143/79 05/05/19 00:21 86 100 05/05/19 00:16 85 100 05/05/19 00:11 86 100 05/05/19 00:06 93 H 98 05/05/19 00:01 98 H 99 05/05/19 00:00 98.4 F 18 05/04/19 23:56 90 100 05/04/19 23:54 85 126/73 05/04/19 23:51 91 H 98 05/04/19 23:46 99 H 98 05/04/19 23:41 94 H 100 05/04/19 23:39 105 H 94 05/04/19 23:36 96 H 98 05/04/19 23:31 98 H 98 05/04/19 23:26 95 H 96 05/04/19 23:23 89 133/78 93 05/04/19 23:21 97 H 95 05/04/19 23:16 100 H 96 05/04/19 23:11 98 H 97 05/04/19 23:10 91 H 94 05/04/19 23:06 95 H 96 05/04/19 23:01 100 H 96 05/04/19 23:00 98.9 F 05/04/19 22:56 101 H 97 05/04/19 22:54 94 H 132/77 94 05/04/19 22:51 93 H 95 05/04/19 22:46 95 H 94 05/04/19 22:42 93 H 94 05/04/19 22:41 91 H 95 05/04/19 22:36 95 H 95 05/04/19 22:35 94 H 94 05/04/19 22:31 94 H 94 05/04/19 22:29 95 H 93 05/04/19 22:26 100 H 96 05/04/19 22:24 98 H 129/81 94 05/04/19 22:21 103 H 98 05/04/19 22:16 98 H 100 05/04/19 22:11 93 H 100 05/04/19 22:06 93 H 100 05/04/19 22:01 98 H 99 05/04/19 22:00 98.3 F 05/04/19 21:56 100 H 99 05/04/19 21:53 96 H 154/95 05/04/19 21:51 92 H 100 05/04/19 21:46 98 H 100 05/04/19 21:41 91 H 100 05/04/19 21:36 97 H 100 05/04/19 21:31 94 H 100 05/04/19 21:26 90 100 05/04/19 21:23 124/91 05/04/19 21:21 93 H 100 05/04/19 21:16 100 H 100 05/04/19 21:11 97 H 100 05/04/19 21:06 99 H 100 05/04/19 21:01 102 H 100 05/04/19 21:00 98.3 F 05/04/19 20:56 99 H 100 05/04/19 20:53 99 H 141/108 05/04/19 20:51 93 H 100 05/04/19 20:46 90 100 05/04/19 20:41 95 H 100 05/04/19 20:36 95 H 100 05/04/19 20:31 92 H 100 05/04/19 20:26 101 H 100 05/04/19 20:22 90 137/83 05/04/19 20:21 89 100 05/04/19 20:16 87 100 05/04/19 20:11 89 100 Intake and Output 05/05/19 05/05/19 05/05/19 07:59 15:59 23:59 Intake Total 6942.228 3720 Output Total 338 500 200 Balance 3892.185 4748 -200 Intake: IV 3014.671 7682 Lactated Ringers 1,000 ml 935 @ 125 mls/hr IV DIRECT JENNIE Rx#:[id number] MAGNESIUM SULFATE 40GM/ 801.667 1000ML 40 gm In 1,000 ml @ 1 GM/HR 25 mls/hr IV DIRECT JENNIE Rx#:[id number] PITOCin/NS 30 UNIT/500ML 4.100 30 units In 500 ml @ As Directed IV TITR JENNIE Rx#: [id number] Output: Urine 338 500 200 Indwelling 400 Indwelling Catheter 257 200 Void 81 Other: Total, Output Amount 50 200 Estimated Blood Loss 500 - Labs Labs: Abnormal lab results 05/02/19 05/04/19 05/05/19 Range/Units 20:23 19:55 02:27 RBC 3.11 L (3.65-5.03) M/mm3 Hgb 8.9 L (10.1-14.3) gm/dl Hct 25.7 L (30.3-42.9) % MCHC 35 H (30-34) % RDW 12.9 L (13.2-15.2) % Fibrinogen (211-480) mg/dl POC ABG pH (7.35-7.45) POC ABG pCO2 (35-45) POC Glucose (70-105) Magnesium 4.50 H (1.7-2.3) mg/dL Crossmatch See Detail 05/05/19 05/05/19 05/05/19 Range/Units 02:40 05:54 06:07 RBC (3.65-5.03) M/mm3 Hgb (10.1-14.3) gm/dl Hct (30.3-42.9) % MCHC (30-34) % RDW (13.2-15.2) % Fibrinogen (211-480) mg/dl POC ABG pH (7.35-7.45) POC ABG pCO2 (35-45) POC Glucose 110 H 127 H (70-105) Magnesium 4.70 H (1.7-2.3) mg/dL Crossmatch 05/05/19 05/05/19 05/05/19 Range/Units 09:33 10:00 11:45 RBC (3.65-5.03) M/mm3 Hgb (10.1-14.3) gm/dl Hct (30.3-42.9) % MCHC (30-34) % RDW (13.2-15.2) % Fibrinogen (211-480) mg/dl POC ABG pH 7.280 L (7.35-7.45) POC ABG pCO2 62.8 H (35-45) POC Glucose 166 H (70-105) Magnesium (1.7-2.3) mg/dL Crossmatch See Detail 05/05/19 05/05/19 05/05/19 Range/Units 13:55 13:55 14:15 RBC (3.65-5.03) M/mm3 Hgb (10.1-14.3) gm/dl Hct (30.3-42.9) % MCHC (30-34) % RDW (13.2-15.2) % Fibrinogen 534 H (211-480) mg/dl POC ABG pH (7.35-7.45) POC ABG pCO2 (35-45) POC Glucose 133 H (70-105) Magnesium 3.80 H (1.7-2.3) mg/dL Crossmatch 05/05/19 Range/Units 17:38 RBC (3.65-5.03) M/mm3 Hgb (10.1-14.3) gm/dl Hct (30.3-42.9) % MCHC (30-34) % RDW (13.2-15.2) % Fibrinogen (211-480) mg/dl POC ABG pH (7.35-7.45) POC ABG pCO2 (35-45) POC Glucose 189 H (70-105) Magnesium (1.7-2.3) mg/dL Crossmatch
--- NOTE | 2019-05-05 20:09 | Progress Note ---
Assessment and Plan Assessment and plan: - History of Present Illness 23 YO Female at 36 Weeks Gestation with DM with Insulin Pump in place, Gestational HTN. Consult placed for DM. she presented to hospital with complaints of visual disturbances, mild headaches, and 3+ pedal edema. She denies RUQ pain Past History Past Medical History: hypertension Preeclampsia Management per obstetrics, sp C/s 05/05 Type 1 diabetes Optimize insulins acute blood loss anemia expected outcome after C/S, prbc ordered by OBGYN History Interval history: she currently complains of visual disturbances, mild headaches, and 3+ pedal edema. She denies RUQ pain Review of systems Constitutional: No fevers, no malaise, no joint pains CVS: No chest pain, GI: No abdominal pain, no diarrhea, no vomiting, no constipation Respiratory: no wheezing, no coughing Hospitalist Physical - Physical exam Narrative exam: General.: Appears well, no distress, nontoxic HEENT: Moist mucous membranes, extraocular muscles intact, no lymphadenopathy Neck: supple Cardiac: S1-S2 heard Lungs: clear to auscultation bilaterally Abdomen: soft , gravid uterus Extremities: Pedal edema Skin: no rash or lesions Neurologic: no gross focal deficits Psych: calm, and cooperative - Constitutional Vitals: Temp Pulse Resp BP Pulse Ox 99.0 F 95 H 20 103/67 100 05/05/19 16:22 05/05/19 16:22 05/05/19 17:37 05/05/19 16:22 05/05/19 16:22 General appearance: Present: no acute distress, well-nourished Results - Labs CBC & Chem 7: 05/06/19 13:50 05/06/19 13:50 Labs: Laboratory Last Values WBC 6.5 K/mm3 (4.5-11.0) 05/04/19 19:55 RBC 3.11 M/mm3 (3.65-5.03) L 05/04/19 19:55 Hgb 8.9 gm/dl (10.1-14.3) L 05/04/19 19:55 Hct 25.7 % (30.3-42.9) L 05/04/19 19:55 MCV 83 fl (79-97) 05/04/19 19:55 MCH 29 pg (28-32) 05/04/19 19:55 MCHC 35 % (30-34) H 05/04/19 19:55 RDW 12.9 % (13.2-15.2) L 05/04/19 19:55 Plt Count 251 K/mm3 (140-440) 05/04/19 19:55 PT 12.8 Sec. (12.2-14.9) 05/05/19 13:55 INR 0.99 (0.87-1.13) 05/05/19 13:55 APTT 30.7 Sec. (24.2-36.6) 05/05/19 13:55 Fibrinogen 534 mg/dl (211-480) H 05/05/19 13:55 POC ABG pH 7.280 (7.35-7.45) L 05/05/19 11:45 POC ABG pCO2 62.8 (35-45) H 05/05/19 11:45 POC ABG HCO3 29.6 (22-26 mml/L) 05/05/19 11:45 POC ABG Total CO2 31 (23-27mmol/L) 05/05/19 11:45 POC ABG O2 Sat 16 05/05/19 11:45 POC ABG Base Excess 3 ((-2) - (+3)mmol/L) 05/05/19 11:45 FiO2 21 % 05/05/19 11:45 Sodium 135 mmol/L (137-145) L 05/03/19 11:03 Potassium 3.7 mmol/L (3.6-5.0) 05/03/19 11:03 Chloride 97.0 mmol/L (98-107) L 05/03/19 11:03 Carbon Dioxide 25 mmol/L (22-30) 05/03/19 11:03 Anion Gap 17 mmol/L 05/03/19 11:03 BUN 3 mg/dL (7-17) L 05/03/19 11:03 Creatinine 0.6 mg/dL (0.7-1.2) L 05/03/19 11:03 Estimated GFR > 60 ml/min 05/03/19 11:03 BUN/Creatinine Ratio 5 % 05/03/19 11:03 Glucose 140 mg/dL (65-100) H 05/03/19 11:03 POC Glucose 189 (70-105) H 05/05/19 17:38 Uric Acid 4.2 mg/dL (3.5-7.6) 05/01/19 17:20 Calcium 9.1 mg/dL (8.4-10.2) 05/03/19 11:03 Magnesium 3.80 mg/dL (1.7-2.3) H 05/05/19 13:55 Total Bilirubin 0.30 mg/dL (0.1-1.2) 05/03/19 11:03 AST 13 units/L (5-40) 05/03/19 11:03 ALT 11 units/L (7-56) 05/03/19 11:03 Alkaline Phosphatase 96 units/L (35-129) 05/03/19 11:03 Lactate Dehydrogenase 174 units/L (91-180) 05/01/19 17:20 Total Protein 5.9 g/dL (6.3-8.2) L 05/03/19 11:03 Albumin 3.0 g/dL (3.9-5) L 05/03/19 11:03 Albumin/Globulin Ratio 1.0 % 05/03/19 11:03 Urine Color Yellow (Yellow) 05/01/19 15:40 Urine Turbidity Clear (Clear) 05/01/19 15:40 Urine pH 7.0 (5.0-7.0) 05/01/19 15:40 Ur Specific [place] 1.011 (1.003-1.030) 05/01/19 15:40 Urine Protein 30 mg/dl mg/dL (Negative) 05/01/19 15:40 Urine Glucose (UA) >=500 mg/dL (Negative) 05/01/19 15:40 Urine Ketones Neg mg/dL (Negative) 05/01/19 15:40 Urine Blood Neg (Negative) 05/01/19 15:40 Urine Nitrite Neg (Negative) 05/01/19 15:40 Urine Bilirubin Neg (Negative) 05/01/19 15:40 Urine Urobilinogen < 2.0 mg/dL (<2.0) 05/01/19 15:40 Ur Leukocyte Esterase Tr (Negative) 05/01/19 15:40 Urine WBC (Auto) 4.0 /HPF (0.0-6.0) 05/01/19 15:40 Urine RBC (Auto) 2.0 /HPF (0.0-6.0) 05/01/19 15:40 U Epithel Cells (Auto) 11.0 /HPF (0-13.0) 05/01/19 15:40 Urine Bacteria (Auto) 1+ /HPF (Negative) 05/01/19 15:40 Urine Total Volume 5700 ml 05/03/19 Unknown RPR Nonreactive (Nonreactive) 05/02/19 20:23 Blood Type AB POSITIVE 05/05/19 10:00 Antibody Screen Negative 05/05/19 10:00 Crossmatch See Detail 05/05/19 10:00 Active Medications - Current Medications Current Medications: Generic Name Dose Route Start Last Admin Trade Name Freq PRN Reason Stop Dose Admin Acetaminophen 650 mg 05/01/19 19:03 05/02/19 12:16 Tylenol PO 650 mg Q4H PRN Administration Pain MILD(1-3)/Fever >100.5/RICH Acetaminophen 650 mg 05/05/19 12:05 Tylenol PO Q4H PRN Fever >100.5/RICH Acetaminophen/Hydrocodone Bitart 1 each 05/05/19 12:05 [place] 5/325 PO Q6H PRN Pain, Moderate (4-6) Benzocaine/Menthol 1 spray 05/03/19 04:52 05/03/19 05:06 Dermoplast TP 1 spray PRN PRN Administration Cervical Ripening Butorphanol Tartrate 2 mg 05/03/19 04:53 05/04/19 22:17 Stadol IV 1 mg Q2H PRN Administration Pain, Moderate (4-6) Dextrose 50 ml 05/02/19 14:38 D50w (25gm) Syringe IV PRN PRN Hypoglycemia Docusate Sodium 100 mg 05/01/19 19:03 05/04/19 10:01 Colace PO 100 mg Q12H PRN Administration Constipation Ephedrine Sulfate 10 mg 05/05/19 00:52 Ephedrine Sulfate IV Q2M PRN Hypotension Fentanyl 100 mcg 05/03/19 04:53 05/04/19 19:45 Sublimaze IV 100 mcg Q2HR PRN Administration Pain, Mild (1-3) Hydromorphone HCl 0.5 mg 05/05/19 09:30 Dilaudid IV Q4H PRN breakthrough pain > 7/10 Lactated Ringer's 1,000 mls @ 125 mls/hr 05/01/19 17:00 10/04/19 03:42 Lactated Ringers IV 125 mls/hr DIRECT JENNIE Infusion Magnesium Sulfate 40 gm in 1,000 mls @ 25 mls/hr 05/02/19 16:00 05/05/19 06:21 Magnesium Sulfate 40gm/1000ml IV 1 gm/hr DIRECT JENNIE 25 mls/hr Administration 1 GM/HR Oxytocin/Sodium Chloride 20 units in 1,000 mls @ 0 mls/hr 05/04/19 19:00 Pitocin/Ns 20 Unit/1000ml Drip IV DIRECT JENNIE As Directed Oxytocin/Sodium Chloride 30 units in 500 mls @ 0 mls/hr 05/04/19 19:00 05/05/19 02:33 Pitocin/Ns 30 Unit/500ml IV 0 mls/hr TITR JENNIE Titration Protocol As Directed Fentanyl/Bupivacaine/Sodium Chlor 200 mcg in 100 mls @ 12 mls/hr 05/05/19 01:00 05/05/19 01:30 Fentanyl-Bupiv 2 Mcg/Ml-0.125% EPIDURAL 12 mls/hr TITR JENNIE Administration Protocol Oxytocin/Sodium Chloride 20 units in 1,000 mls @ 250 mls/hr 05/05/19 13:00 Pitocin/Ns 20 Unit/1000ml Drip IV DIRECT JENNIE Ibuprofen 800 mg 05/05/19 12:05 Ibuprofen PO Q6H PRN Pain, Mild (1-3) Insulin Human Lispro 0 unit 05/02/19 18:00 05/02/19 18:14 Humalog SUB-Q 1 unit Q6HR JENNIE Administration Protocol Ketorolac Tromethamine 15 mg 05/05/19 12:05 Toradol IV 05/10/19 12:04 Q6H PRN Pain, Mild (1-3) Ketorolac Tromethamine 30 mg 05/05/19 12:05 05/05/19 17:37 Toradol IV 05/10/19 12:04 30 mg Q6H PRN Administration Pain, Moderate (4-6) Labetalol HCl 200 mg 05/01/19 20:15 05/04/19 21:59 Normodyne PO 200 mg BID JENNIE Administration Magnesium Hydroxide 30 ml 05/05/19 12:05 Milk Of Magnesia PO QHS PRN Constip Unrelieved By Senna Miscellaneous Medication 0.01 1000units 05/05/19 12:15 Infusion Set For Insulin Pump SC PRN JENNIE Misoprostol 25 mcg 05/04/19 09:50 05/04/19 15:15 Cytotec VG 25 mcg Q4H PRN Administration Dilation Morphine Sulfate 2 mg 05/05/19 12:05 Morphine IV Q4H PRN Pain, Moderate (4-6) Morphine Sulfate 4 mg 05/05/19 12:05 Morphine IV Q4H PRN Pain , Severe (7-10) Multi-Ingredient Ointment 1 applic 05/05/19 12:05 Lansinoh TP PRN PRN dryness/cracking Multivitamins/Iron/Calcium 1 each 05/02/19 10:00 05/04/19 10:01 Vitamin PO 1 each QDAY JENNIE Administration Naloxone HCl 0.2 mg 05/05/19 09:30 Narcan 0.4 Mg/1 Ml IV Q2MIN PRN Res Rate </= 8 or 02 SAT < 92% Naloxone HCl 0.1 mg 05/05/19 12:05 Narcan 0.4 Mg/1 Ml IV Q2MIN PRN Res Rate </= 8 or 02 SAT < 92% Ondansetron HCl 4 mg 05/05/19 09:30 Zofran IV Q8H PRN Nausea And Vomiting Ondansetron HCl 4 mg 05/05/19 12:05 Zofran IV Q8H PRN Nausea And Vomiting Oxycodone/Acetaminophen 1 tab 05/05/19 12:05 Percocet 5/325 PO Q6H PRN Pain, Moderate (4-6) Promethazine HCl 25 mg 05/05/19 09:30 Phenergan PO Q6H PRN Nausea And Vomiting Promethazine HCl 25 mg 05/05/19 09:30 Phenergan MT Q6H PRN Nausea And Vomiting Promethazine HCl 25 mg 05/05/19 12:05 Phenergan MT Q6H PRN N/V IF NPO AND NO IV ACCESS Sodium Chloride 10 ml 05/05/19 10:00 Sodium Chloride Flush Syringe 10 Ml IV PRN PRN flush Sodium Chloride 10 ml 05/05/19 13:00 Sodium Chloride Flush Syringe 10 Ml IV 05/08/19 12:59 PRN NR Witch Nora/Glycerin 1 each 05/05/19 12:05 Tucks Pad TP PRN PRN Hemorrhoids/cleansing/soothing
[2019-05-05] MEDS: MORPHINE 4 MG/1 ML INJ IV PRN (20:39)
[2019-05-05 21:24] LABS: Hematocrit 14.2 % (30.3-42.9); Hemoglobin 4.8 gm/dl (10.1-14.3)
--- NOTE | 2019-05-05 22:16 | Event Note ---
Date: 05/05/19 Critical lab value for Hemoglobin reported as 4.8 at bedside patient AAOx3, able to sit up with assistance. VSS (see below) Abd: incision c/d/i +ve za Abd: soft, +ve tenderness at incision site, no fluid shift or peritoneal signs appreciated no signs of external bleeding from incision site Vazquez: ~150ml concentrated urine in Vazquez bag. ~200ml removed from Vazquez bag at 18:00. Plan for transfusion of at least 4 units pRBC's serial H/H Benadryl and Tylenol ordered to pre medicate Heplock IV fluids to diminish dilution anemia Clear liquids, continue Vazquez catheter until patient able to maintain hemoglobin Monitor closely. Patient stable at bedside. Vital Signs - 8 hr 05/05/19 05/05/19 05/05/19 16:22 17:37 20:28 Temperature 99.0 F 99.3 F Pulse Rate 95 H 99 H Respiratory 16 20 20 Rate Blood Pressure 103/67 121/75 O2 Sat by Pulse 100 99 Oximetry Laboratory Last Values WBC 6.5 K/mm3 (4.5-11.0) 05/04/19 19:55 RBC 3.11 M/mm3 (3.65-5.03) L 05/04/19 19:55 Hgb 4.8 gm/dl (10.1-14.3) L* D 05/05/19 20:55 Hct 14.2 % (30.3-42.9) L* D 05/05/19 20:55 MCV 83 fl (79-97) 05/04/19 19:55 MCH 29 pg (28-32) 05/04/19 19:55 MCHC 35 % (30-34) H 05/04/19 19:55 RDW 12.9 % (13.2-15.2) L 05/04/19 19:55 Plt Count 251 K/mm3 (140-440) 05/04/19 19:55 PT 12.8 Sec. (12.2-14.9) 05/05/19 13:55 INR 0.99 (0.87-1.13) 05/05/19 13:55 APTT 30.7 Sec. (24.2-36.6) 05/05/19 13:55 Fibrinogen 534 mg/dl (211-480) H 05/05/19 13:55 POC ABG pH 7.280 (7.35-7.45) L 05/05/19 11:45 POC ABG pCO2 62.8 (35-45) H 05/05/19 11:45 POC ABG HCO3 29.6 (22-26 mml/L) 05/05/19 11:45 POC ABG Total CO2 31 (23-27mmol/L) 05/05/19 11:45 POC ABG O2 Sat 16 05/05/19 11:45 POC ABG Base Excess 3 ((-2) - (+3)mmol/L) 05/05/19 11:45 FiO2 21 % 05/05/19 11:45 Sodium 135 mmol/L (137-145) L 05/03/19 11:03 Potassium 3.7 mmol/L (3.6-5.0) 05/03/19 11:03 Chloride 97.0 mmol/L (98-107) L 05/03/19 11:03 Carbon Dioxide 25 mmol/L (22-30) 05/03/19 11:03 Anion Gap 17 mmol/L 05/03/19 11:03 BUN 3 mg/dL (7-17) L 05/03/19 11:03 Creatinine 0.6 mg/dL (0.7-1.2) L 05/03/19 11:03 Estimated GFR > 60 ml/min 05/03/19 11:03 BUN/Creatinine Ratio 5 % 05/03/19 11:03 Glucose 140 mg/dL (65-100) H 05/03/19 11:03 POC Glucose 189 (70-105) H 05/05/19 17:38 Uric Acid 4.2 mg/dL (3.5-7.6) 05/01/19 17:20 Calcium 9.1 mg/dL (8.4-10.2) 05/03/19 11:03 Magnesium 3.80 mg/dL (1.7-2.3) H 05/05/19 13:55 Total Bilirubin 0.30 mg/dL (0.1-1.2) 05/03/19 11:03 AST 13 units/L (5-40) 05/03/19 11:03 ALT 11 units/L (7-56) 05/03/19 11:03 Alkaline Phosphatase 96 units/L (35-129) 05/03/19 11:03 Lactate Dehydrogenase 174 units/L (91-180) 05/01/19 17:20 Total Protein 5.9 g/dL (6.3-8.2) L 05/03/19 11:03 Albumin 3.0 g/dL (3.9-5) L 05/03/19 11:03 Albumin/Globulin Ratio 1.0 % 05/03/19 11:03 Urine Color Yellow (Yellow) 05/01/19 15:40 Urine Turbidity Clear (Clear) 05/01/19 15:40 Urine pH 7.0 (5.0-7.0) 05/01/19 15:40 Ur Specific [place] 1.011 (1.003-1.030) 05/01/19 15:40 Urine Protein 30 mg/dl mg/dL (Negative) 05/01/19 15:40 Urine Glucose (UA) >=500 mg/dL (Negative) 05/01/19 15:40 Urine Ketones Neg mg/dL (Negative) 05/01/19 15:40 Urine Blood Neg (Negative) 05/01/19 15:40 Urine Nitrite Neg (Negative) 05/01/19 15:40 Urine Bilirubin Neg (Negative) 05/01/19 15:40 Urine Urobilinogen < 2.0 mg/dL (<2.0) 05/01/19 15:40 Ur Leukocyte Esterase Tr (Negative) 05/01/19 15:40 Urine WBC (Auto) 4.0 /HPF (0.0-6.0) 05/01/19 15:40 Urine RBC (Auto) 2.0 /HPF (0.0-6.0) 05/01/19 15:40 U Epithel Cells (Auto) 11.0 /HPF (0-13.0) 05/01/19 15:40 Urine Bacteria (Auto) 1+ /HPF (Negative) 05/01/19 15:40 Urine Total Volume 5700 ml 05/03/19 Unknown RPR Nonreactive (Nonreactive) 05/02/19 20:23 Blood Type AB POSITIVE 05/05/19 10:00 Antibody Screen Negative 05/05/19 10:00 Crossmatch See Detail 05/05/19 10:00
[2019-05-05] MEDS: ACETAMINOPHEN 325 MG TAB PO PRN (22:32)
[2019-05-05] MEDS ORDERED: diphenhydrAMINE 50 MG/ML VIAL IV ONE (22:45)
[2019-05-06] MEDS: KETOROLAC 30 MG/1 ML INJ IV PRN ×2 (09:24→14:48)
--- NOTE | 2019-05-06 10:16 | Progress Note ---
Assessment and Plan - Patient Problems (1) Status post Onset Date: 05/06/19 Current Visit: Yes Status: Resolved Plan to address problem: A: S/P C Section - POD #1 Doing well Symptomatic anemia - currently being transfused blood IDDM - on an Insulin pump P: Continue RPOC Check post transfusion H/H Hospitalist managing BS's (2) Acute blood loss anemia Onset Date: 05/06/19 Current Visit: Yes Status: Resolved (3) Type 1 diabetes mellitus Onset Date: 05/06/19 Current Visit: No Status: Chronic Qualifiers: Diabetes mellitus complication status: with hypoglycemia Diabetes mellitus complication detail: without coma Qualified Code(s): E10.649 - Type 1 diabetes mellitus with hypoglycemia without coma Subjective - Subjective Date of service: 05/06/19 Principal diagnosis: s/p C Section - POD #1 Interval history: Pt is feeling much better, moved to room 2140 for closer observation. She is receiving her 4th unit of blood and tolerating a liquid diet without nausea or vomiting. Patient reports: appetite normal, voiding normally, pain well controlled, no dizzy ambulation, no flatus, no ambulating normally, no nauseated : doing well, in NICU Objective - Vital Signs Latest vital signs: Vital Signs Temp Pulse Resp BP BP Pulse Ox 05/06/19 09:11 79 18 153/88 100 05/06/19 08:19 60 129/73 98 05/06/19 06:50 98 F 80 18 115/77 98 05/06/19 06:30 98.5 F 80 20 106/77 97 05/06/19 06:00 98.4 F 71 18 103/68 96 05/06/19 05:35 98.2 F 71 18 101/65 97 05/06/19 05:10 98.3 F 75 20 91/64 97 05/06/19 04:40 98.5 F 73 20 116/67 05/06/19 04:37 98.0 F 63 16 107/60 98 05/06/19 03:20 98.6 F 87 20 106/60 97 05/06/19 02:50 98.7 F 78 18 106/67 98 05/06/19 02:20 98.6 F 79 18 116/70 98 05/06/19 01:50 98.5 F 85 18 110/75 97 05/06/19 01:18 98.1 F 85 18 129/85 100 05/06/19 01:04 98.4 F 83 20 123/81 98 05/06/19 01:03 98.4 F 83 18 123/81 97 05/06/19 00:40 99 F 84 18 105/68 97 05/06/19 00:20 98.1 F 82 18 111/66 96 05/05/19 23:40 98.7 F 88 18 101/66 96 05/05/19 23:11 99 F 82 18 111/72 97 05/05/19 23:08 92 H 111/73 05/05/19 22:57 99 F 92 H 18 111/73 97 05/05/19 22:40 99.1 F 100 H 18 119/76 98 05/05/19 20:28 99.3 F 99 H 20 121/75 99 05/05/19 17:37 20 05/05/19 16:22 99.0 F 95 H 16 103/67 100 05/05/19 13:50 98 F 96 H 20 83/45 97 05/05/19 13:30 86 11 L 99/64 92 05/05/19 13:15 76 12 102/65 95 05/05/19 13:00 76 12 107/69 94 05/05/19 12:45 77 13 107/73 96 05/05/19 12:30 81 12 99/72 96 05/05/19 12:25 84 12 106/66 97 05/05/19 12:20 97.9 F 88 14 107/69 97 05/05/19 12:15 97.9 F 62 14 103/64 93 05/05/19 10:49 97 H 119/67 05/05/19 10:46 99 H 95 05/05/19 10:45 96 H 119/65 05/05/19 10:41 105 H 97 05/05/19 10:39 98 H 119/78 05/05/19 10:36 95 H 96 05/05/19 10:35 96 H 130/74 91 05/05/19 10:31 94 H 94 05/05/19 10:29 95 H 117/69 05/05/19 10:27 97 H 94 05/05/19 10:26 97 H 95 05/05/19 10:25 100 H 123/74 05/05/19 10:22 99 H 94 10/04/19 10:21 95 H 93 05/05/19 10:19 95 H 117/71 05/05/19 10:16 98 H 95 05/05/19 10:14 93 H 113/65 94 Intake and Output 05/05/19 05/06/19 05/06/19 22:59 06:59 14:59 Intake Total 0 250 0 Output Total 200 650 Balance -200 -400 0 Intake: Blood Product 0 250 0 Leukoreduced Red Blood 0 Cells Unit [id number] Leukoreduced Red Blood 0 Cells Unit [id number] Leukoreduced Red Blood 0 250 Cells Unit [id number] Leukoreduced Red Blood 0 Cells Unit [id number] Output: Urine 200 650 Indwelling Catheter 200 650 Other: Total, Output Amount 200 650 Estimated Blood Loss 500 - Exam Breasts: Present: deferred Cardiovascular: Present: Regular rate Abdomen: Present: normal appearance, soft Uterus: Present: normal, firm, fundal height below umbilicus Extremities: Present: normal Incision: Present: normal, dry, intact, dressed - Labs Labs: Abnormal lab results 05/02/19 05/05/19 05/05/19 Range/Units 20:23 10:00 11:45 Hgb (10.1-14.3) gm/dl Hct (30.3-42.9) % Fibrinogen (211-480) mg/dl POC ABG pH 7.280 L (7.35-7.45) POC ABG pCO2 62.8 H (35-45) POC Glucose (70-105) Magnesium (1.7-2.3) mg/dL Crossmatch See Detail See Detail 05/05/19 05/05/19 05/05/19 Range/Units 13:55 13:55 14:15 Hgb (10.1-14.3) gm/dl Hct (30.3-42.9) % Fibrinogen 534 H (211-480) mg/dl POC ABG pH (7.35-7.45) POC ABG pCO2 (35-45) POC Glucose 133 H (70-105) Magnesium 3.80 H (1.7-2.3) mg/dL Crossmatch 05/05/19 05/05/19 05/05/19 Range/Units 17:38 20:55 23:10 Hgb 4.8 L* D (10.1-14.3) gm/dl Hct 14.2 L* D (30.3-42.9) % Fibrinogen (211-480) mg/dl POC ABG pH (7.35-7.45) POC ABG pCO2 (35-45) POC Glucose 189 H 173 H (70-105) Magnesium (1.7-2.3) mg/dL Crossmatch 05/06/19 05/06/19 Range/Units 08:11 09:02 Hgb (10.1-14.3) gm/dl Hct (30.3-42.9) % Fibrinogen (211-480) mg/dl POC ABG pH (7.35-7.45) POC ABG pCO2 (35-45) POC Glucose < 40 L 51 L (70-105) Magnesium (1.7-2.3) mg/dL Crossmatch
[2019-05-06] MEDS: PRENATAL VIT27-FE FUMARATE-FOLIC ACID VIT TAB PO SCH (10:20)
--- NOTE | 2019-05-06 11:07 | Progress Note ---
Assessment and Plan Assessment and plan: - History of Present Illness 23 YO Female at 36 Weeks Gestation with DM with Insulin Pump in place, Gestational HTN. Consult placed for DM. she presented to hospital with complaints of visual disturbances, mild headaches, and 3+ pedal edema. She denies RUQ pain Past History Past Medical History: hypertension Preeclampsia Management per obstetrics, sp C/s 05/05 Type 1 diabetes Patient has been persistently hypoglycemic, I have decreased basal on insulin pump, patient will continue to self administer her boluses at mealtime. Acute blood loss anemia expected outcome after surgery/ section prbc ordered by primary team History Interval history: she has had multiple episodes of hypoglycemia, she is complaining of severe swelling in both lower extremities that is not improving. Review of systems Constitutional: No fevers, no malaise, no joint pains CVS: No chest pain, Has bipedal edema GI: No abdominal pain, no diarrhea, no vomiting, no constipation Respiratory: no wheezing, no coughing Hospitalist Physical - Physical exam Narrative exam: General.: Appears well, no distress, nontoxic HEENT: Moist mucous membranes, extraocular muscles intact, no lymphadenopathy Neck: supple Cardiac: S1-S2 heard Lungs: clear to auscultation bilaterally Abdomen: soft , Extremities: Pedal edema Skin: no rash or lesions Neurologic: no gross focal deficits Psych: calm, and cooperative - Constitutional Vitals: Temp Pulse Resp BP Pulse Ox 97.9 F 76 16 159/92 100 05/06/19 10:15 05/06/19 10:20 05/06/19 10:15 05/06/19 10:20 05/06/19 10:15 General appearance: Present: no acute distress, well-nourished Results - Labs CBC & Chem 7: 05/06/19 13:50 05/06/19 13:50 Labs: Laboratory Last Values WBC 6.5 K/mm3 (4.5-11.0) 05/04/19 19:55 RBC 3.11 M/mm3 (3.65-5.03) L 05/04/19 19:55 Hgb 4.8 gm/dl (10.1-14.3) L* D 05/05/19 20:55 Hct 14.2 % (30.3-42.9) L* D 05/05/19 20:55 MCV 83 fl (79-97) 05/04/19 19:55 MCH 29 pg (28-32) 05/04/19 19:55 MCHC 35 % (30-34) H 05/04/19 19:55 RDW 12.9 % (13.2-15.2) L 05/04/19 19:55 Plt Count 251 K/mm3 (140-440) 05/04/19 19:55 PT 12.8 Sec. (12.2-14.9) 05/05/19 13:55 INR 0.99 (0.87-1.13) 05/05/19 13:55 APTT 30.7 Sec. (24.2-36.6) 05/05/19 13:55 Fibrinogen 534 mg/dl (211-480) H 05/05/19 13:55 POC ABG pH 7.280 (7.35-7.45) L 05/05/19 11:45 POC ABG pCO2 62.8 (35-45) H 05/05/19 11:45 POC ABG HCO3 29.6 (22-26 mml/L) 05/05/19 11:45 POC ABG Total CO2 31 (23-27mmol/L) 05/05/19 11:45 POC ABG O2 Sat 16 05/05/19 11:45 POC ABG Base Excess 3 ((-2) - (+3)mmol/L) 05/05/19 11:45 FiO2 21 % 05/05/19 11:45 Sodium 135 mmol/L (137-145) L 05/03/19 11:03 Potassium 3.7 mmol/L (3.6-5.0) 05/03/19 11:03 Chloride 97.0 mmol/L (98-107) L 05/03/19 11:03 Carbon Dioxide 25 mmol/L (22-30) 05/03/19 11:03 Anion Gap 17 mmol/L 05/03/19 11:03 BUN 3 mg/dL (7-17) L 05/03/19 11:03 Creatinine 0.6 mg/dL (0.7-1.2) L 05/03/19 11:03 Estimated GFR > 60 ml/min 05/03/19 11:03 BUN/Creatinine Ratio 5 % 05/03/19 11:03 Glucose 140 mg/dL (65-100) H 05/03/19 11:03 POC Glucose 51 (70-105) L 05/06/19 09:02 Uric Acid 4.2 mg/dL (3.5-7.6) 05/01/19 17:20 Calcium 9.1 mg/dL (8.4-10.2) 05/03/19 11:03 Magnesium 3.80 mg/dL (1.7-2.3) H 05/05/19 13:55 Total Bilirubin 0.30 mg/dL (0.1-1.2) 05/03/19 11:03 AST 13 units/L (5-40) 05/03/19 11:03 ALT 11 units/L (7-56) 05/03/19 11:03 Alkaline Phosphatase 96 units/L (35-129) 05/03/19 11:03 Lactate Dehydrogenase 174 units/L (91-180) 05/01/19 17:20 Total Protein 5.9 g/dL (6.3-8.2) L 05/03/19 11:03 Albumin 3.0 g/dL (3.9-5) L 05/03/19 11:03 Albumin/Globulin Ratio 1.0 % 05/03/19 11:03 Urine Color Yellow (Yellow) 05/01/19 15:40 Urine Turbidity Clear (Clear) 05/01/19 15:40 Urine pH 7.0 (5.0-7.0) 05/01/19 15:40 Ur Specific [place] 1.011 (1.003-1.030) 05/01/19 15:40 Urine Protein 30 mg/dl mg/dL (Negative) 05/01/19 15:40 Urine Glucose (UA) >=500 mg/dL (Negative) 05/01/19 15:40 Urine Ketones Neg mg/dL (Negative) 05/01/19 15:40 Urine Blood Neg (Negative) 05/01/19 15:40 Urine Nitrite Neg (Negative) 05/01/19 15:40 Urine Bilirubin Neg (Negative) 05/01/19 15:40 Urine Urobilinogen < 2.0 mg/dL (<2.0) 05/01/19 15:40 Ur Leukocyte Esterase Tr (Negative) 05/01/19 15:40 Urine WBC (Auto) 4.0 /HPF (0.0-6.0) 05/01/19 15:40 Urine RBC (Auto) 2.0 /HPF (0.0-6.0) 05/01/19 15:40 U Epithel Cells (Auto) 11.0 /HPF (0-13.0) 05/01/19 15:40 Urine Bacteria (Auto) 1+ /HPF (Negative) 05/01/19 15:40 Urine Total Volume 5700 ml 05/03/19 Unknown RPR Nonreactive (Nonreactive) 05/02/19 20:23 Blood Type AB POSITIVE 05/05/19 10:00 Antibody Screen Negative 05/05/19 10:00 Crossmatch See Detail 05/05/19 10:00 Active Medications - Current Medications Current Medications: Generic Name Dose Route Start Last Admin Trade Name Freq PRN Reason Stop Dose Admin Acetaminophen 650 mg 05/05/19 12:05 05/05/19 22:32 Tylenol PO 650 mg Q4H PRN Administration Fever >100.5/RICH Acetaminophen/Hydrocodone Bitart 1 each 05/05/19 12:05 Lucan 5/325 PO Q6H PRN Pain, Moderate (4-6) Benzocaine/Menthol 1 spray 05/03/19 04:52 05/03/19 05:06 Dermoplast TP 1 spray PRN PRN Administration Cervical Ripening Butorphanol Tartrate 2 mg 05/03/19 04:53 05/04/19 22:17 Stadol IV 1 mg Q2H PRN Administration Pain, Moderate (4-6) Dextrose 50 ml 05/02/19 14:38 05/06/19 09:05 D50w (25gm) Syringe IV 50 ml PRN PRN Administration Hypoglycemia Docusate Sodium 100 mg 05/01/19 19:03 05/04/19 10:01 Colace PO 100 mg Q12H PRN Administration Constipation Ephedrine Sulfate 10 mg 05/05/19 00:52 Ephedrine Sulfate IV Q2M PRN Hypotension Fentanyl 100 mcg 05/03/19 04:53 05/04/19 19:45 Sublimaze IV 100 mcg Q2HR PRN Administration Pain, Mild (1-3) Hydromorphone HCl 0.5 mg 05/05/19 09:30 Dilaudid IV Q4H PRN breakthrough pain > 7/10 Lactated Ringer's 1,000 mls @ 125 mls/hr 05/01/19 17:00 05/05/19 03:42 Lactated Ringers IV 125 mls/hr DIRECT JENNIE Infusion Magnesium Sulfate 40 gm in 1,000 mls @ 25 mls/hr 05/02/19 16:00 05/05/19 06:21 Magnesium Sulfate 40gm/1000ml IV 1 gm/hr DIRECT JENNIE 25 mls/hr Administration 1 GM/HR Oxytocin/Sodium Chloride 20 units in 1,000 mls @ 0 mls/hr 05/04/19 19:00 Pitocin/Ns 20 Unit/1000ml Drip IV DIRECT JENNIE As Directed Oxytocin/Sodium Chloride 30 units in 500 mls @ 0 mls/hr 05/04/19 19:00 05/05/19 02:33 Pitocin/Ns 30 Unit/500ml IV 0 mls/hr TITR JENNIE Titration Protocol As Directed Fentanyl/Bupivacaine/Sodium Chlor 200 mcg in 100 mls @ 12 mls/hr 05/05/19 01:00 05/05/19 01:30 Fentanyl-Bupiv 2 Mcg/Ml-0.125% EPIDURAL 12 mls/hr TITR JENNIE Administration Protocol Oxytocin/Sodium Chloride 20 units in 1,000 mls @ 250 mls/hr 05/05/19 13:00 Pitocin/Ns 20 Unit/1000ml Drip IV DIRECT JENNIE Ibuprofen 800 mg 05/05/19 12:05 Ibuprofen PO Q6H PRN Pain, Mild (1-3) Insulin Human Lispro 0 unit 05/02/19 18:00 05/02/19 18:14 Humalog SUB-Q 1 unit Q6HR JENNIE Administration Protocol Ketorolac Tromethamine 15 mg 05/05/19 12:05 Toradol IV 05/10/19 12:04 Q6H PRN Pain, Mild (1-3) Ketorolac Tromethamine 30 mg 05/05/19 12:05 05/06/19 09:24 Toradol IV 05/10/19 12:04 30 mg Q6H PRN Administration Pain, Moderate (4-6) Labetalol HCl 200 mg 05/01/19 20:15 05/06/19 10:20 Normodyne PO 200 mg BID JENNIE Administration Magnesium Hydroxide 30 ml 05/05/19 12:05 Milk Of Magnesia PO QHS PRN Constip Unrelieved By Senna Miscellaneous Medication 0.01 1000units 05/05/19 12:15 Infusion Set For Insulin Pump SC PRN JENNIE Misoprostol 25 mcg 05/04/19 09:50 05/04/19 15:15 Cytotec VG 25 mcg Q4H PRN Administration Dilation Morphine Sulfate 2 mg 05/05/19 12:05 Morphine IV Q4H PRN Pain, Moderate (4-6) Morphine Sulfate 4 mg 05/05/19 12:05 05/05/19 20:39 Morphine IV 4 mg Q4H PRN Administration Pain , Severe (7-10) Multi-Ingredient Ointment 1 applic 05/05/19 12:05 Lansinoh TP PRN PRN dryness/cracking Multivitamins/Iron/Calcium 1 each 05/02/19 10:00 05/06/19 10:20 Vitamin PO 1 each QDAY JENNIE Administration Naloxone HCl 0.2 mg 05/05/19 09:30 Narcan 0.4 Mg/1 Ml IV Q2MIN PRN Res Rate </= 8 or 02 SAT < 92% Naloxone HCl 0.1 mg 05/05/19 12:05 Narcan 0.4 Mg/1 Ml IV Q2MIN PRN Res Rate </= 8 or 02 SAT < 92% Ondansetron HCl 4 mg 05/05/19 09:30 Zofran IV Q8H PRN Nausea And Vomiting Ondansetron HCl 4 mg 05/05/19 12:05 Zofran IV Q8H PRN Nausea And Vomiting Oxycodone/Acetaminophen 1 tab 05/05/19 12:05 Percocet 5/325 PO Q6H PRN Pain, Moderate (4-6) Promethazine HCl 25 mg 05/05/19 09:30 Phenergan PO Q6H PRN Nausea And Vomiting Promethazine HCl 25 mg 05/05/19 09:30 Phenergan [place] Q6H PRN Nausea And Vomiting Promethazine HCl 25 mg 05/05/19 12:05 Phenergan [place] Q6H PRN N/V IF NPO AND NO IV ACCESS Sodium Chloride 10 ml 05/05/19 10:00 Sodium Chloride Flush Syringe 10 Ml IV PRN PRN flush Sodium Chloride 10 ml 05/05/19 13:00 Sodium Chloride Flush Syringe 10 Ml IV 05/08/19 12:59 PRN NR [place]/Glycerin 1 each 05/05/19 12:05 05/05/19 20:40 Tucks Pad TP 1 each PRN PRN Administration Hemorrhoids/cleansing/soothing
[2019-05-06] MEDS ORDERED: INSULIN LISPRO 100 UNIT/ML SUB-Q SCH (11:30)
[2019-05-06 12:43] LABS: Creatinine 24 Hour,Urine 0.6 (0.8-2.8); Creatinine,Urine 11.4 mg/dL (0.1-20.0)
[2019-05-06 14:12] LABS: Basophils % (Auto) 0.4 % (0.0-1.8); Hematocrit 32.1 % (30.3-42.9); Hemoglobin 11.3 gm/dl (10.1-14.3); Lymphocytes # (Auto) 1.3 K/mm3 (1.2-5.4); Lymphocytes % (Auto) 12.5 % (13.4-35.0); Mean Corpuscular HGB Conc 35 % (30-34); Mean Corpuscular Volume 88 fl (79-97); Monocytes # (Auto) 0.9 K/mm3 (0.0-0.8); Monocytes % (Auto) 9.1 % (0.0-7.3); Platelet Count 202 K/mm3 (140-440); Red Blood Count 3.67 M/mm3 (3.65-5.03)
[2019-05-06] MEDS: FUROSEMIDE 20 MG/2 ML INJ IV SCH (17:48)
[2019-05-06] MEDS: oxyCODONE /ACETAMINOPHEN 5-325MG TAB PO PRN (18:28)
[2019-05-06] MEDS: IBUPROFEN 800 MG TAB PO PRN (21:40)
[2019-05-06] MEDS ORDERED: INSULIN GLARGINE 100 UNITS/ML SUB-Q SCH (22:00)
[2019-05-06] MEDS: HYDROcodone/ACETAMINOPHEN 5-325 MG TAB PO PRN (22:35)
[2019-05-06] MEDS: MORPHINE 4 MG/1 ML INJ IV PRN (23:30)
[2019-05-06] MEDS: ACETAMINOPHEN 325 MG TAB PO PRN (23:33)
[2019-05-07] MEDS: MORPHINE 4 MG/1 ML INJ IV PRN (05:11)
[2019-05-07] MEDS: FUROSEMIDE 20 MG/2 ML INJ IV SCH ×2 (05:11→18:40)
[2019-05-07 06:50] LABS: BUN/Creatinine Ratio 14; Blood Urea Nitrogen 10 mg/dL (7-17); Calcium 7.8 mg/dL (8.4-10.2); Hemolysis Index 1
[2019-05-07] MEDS: oxyCODONE /ACETAMINOPHEN 5-325MG TAB PO PRN ×4 (08:27→22:01)
[2019-05-07] MEDS: IBUPROFEN 800 MG TAB PO PRN ×2 (08:27→14:59)
[2019-05-07] MEDS: PRENATAL VIT27-FE FUMARATE-FOLIC ACID VIT TAB PO SCH (09:53)
--- NOTE | 2019-05-07 10:00 | Progress Note ---
Assessment and Plan - Patient Problems (1) Status post Onset Date: 05/06/19 Current Visit: Yes Status: Resolved Plan to address problem: A: S/P C Section - POD #2 Doing well Asymptomatic anemia - stable IDDM - on an Insulin pump - stable P: Continue RPOC Hospitalist managing BS's Anticipate discharge in 24-48hrs (2) Acute blood loss anemia Onset Date: 05/06/19 Current Visit: Yes Status: Resolved (3) Type 1 diabetes mellitus Onset Date: 05/06/19 Current Visit: No Status: Chronic Qualifiers: Diabetes mellitus complication status: with hypoglycemia Diabetes mellitus complication detail: without coma Qualified Code(s): E10.649 - Type 1 diabetes mellitus with hypoglycemia without coma Subjective - Subjective Date of service: 05/07/19 Principal diagnosis: s/p C Section - POD #2 Interval history: Pt is feeling well without complaints. She is tolerating a reg diet without nausea or vomiting, ambulating and voiding without difficulty. Patient reports: appetite normal, voiding normally, flatus, bowel movement, pain poorly controlled, ambulating normally, no dizzy ambulation, no nauseated : doing well, in NICU Objective - Vital Signs Latest vital signs: Vital Signs Temp Pulse Resp BP BP Pulse Ox 05/07/19 09:55 123/87 05/07/19 05:41 18 05/07/19 05:11 18 05/07/19 00:33 18 05/07/19 00:26 98.4 F 99 H 18 110/69 94 05/07/19 00:00 18 05/06/19 23:35 18 05/06/19 23:33 20 05/06/19 23:30 20 05/06/19 22:36 18 05/06/19 22:35 18 05/06/19 21:40 99 H 18 143/80 05/06/19 19:28 18 05/06/19 17:05 98.4 F 95 H 18 121/82 99 05/06/19 11:43 98.2 F 87 18 146/92 100 05/06/19 10:20 76 159/92 05/06/19 10:15 97.9 F 76 16 159/92 100 Intake and Output 05/06/19 05/07/19 05/07/19 22:59 06:59 14:59 Intake Total 600 Balance 600 Intake: Oral 240 Intake, Free Water 360 Other: Total, Intake Amount 240 # Voids Indwelling Catheter 1 Void 1 - Exam Breasts: Present: deferred Abdomen: Present: normal appearance, soft Uterus: Present: normal, firm, fundal height below umbilicus Extremities: Present: normal Incision: Present: normal, dry, intact - Labs Labs: Abnormal lab results 05/03/19 05/05/19 05/06/19 Range/Units Unknown 10:00 13:46 MCHC (30-34) % RDW (13.2-15.2) % Lymph % (Auto) (13.4-35.0) % [place] % (Auto) (0.0-7.3) % [place] # (0.0-0.8) K/mm3 Seg Neutrophils % (40.0-70.0) % Seg Neutrophils # (1.8-7.7) K/mm3 Sodium (137-145) mmol/L Glucose (65-100) mg/dL POC Glucose 188 H (70-105) Calcium (8.4-10.2) mg/dL Ur Creatinine 24 Hour 0.6 L (0.8-2.8) Ur Total Protein 24 Hr 513.00 H (2-200) mg/dL Crossmatch See Detail 05/06/19 05/06/19 05/06/19 Range/Units 13:50 13:50 17:11 MCHC 35 H (30-34) % RDW 16.0 H (13.2-15.2) % Lymph % (Auto) 12.5 L (13.4-35.0) % [place] % (Auto) 9.1 H (0.0-7.3) % [place] # 0.9 H (0.0-0.8) K/mm3 Seg Neutrophils % 78.0 H (40.0-70.0) % Seg Neutrophils # 7.8 H (1.8-7.7) K/mm3 Sodium (137-145) mmol/L Glucose 176 H (65-100) mg/dL POC Glucose 350 H (70-105) Calcium (8.4-10.2) mg/dL Ur Creatinine 24 Hour (0.8-2.8) Ur Total Protein 24 Hr (2-200) mg/dL Crossmatch 05/06/19 05/07/19 05/07/19 Range/Units 21:53 05:37 08:25 MCHC (30-34) % RDW (13.2-15.2) % Lymph % (Auto) (13.4-35.0) % [place] % (Auto) (0.0-7.3) % [place] # (0.0-0.8) K/mm3 Seg Neutrophils % (40.0-70.0) % Seg Neutrophils # (1.8-7.7) K/mm3 Sodium 136 L (137-145) mmol/L Glucose (65-100) mg/dL POC Glucose 344 H 51 L (70-105) Calcium 7.8 L (8.4-10.2) mg/dL Ur Creatinine 24 Hour (0.8-2.8) Ur Total Protein 24 Hr (2-200) mg/dL Crossmatch Laboratory Results - last 24 hr 05/03/19 05/05/19 05/06/19 Unknown 10:00 13:46 WBC RBC Hgb Hct MCV MCH MCHC RDW Plt Count Lymph % (Auto) [place] % (Auto) Eos % (Auto) Baso % (Auto) Lymph # [place] # Eos # Baso # Seg Neutrophils % Seg Neutrophils # Sodium Potassium Chloride Carbon Dioxide Anion Gap BUN Creatinine Estimated GFR BUN/Creatinine Ratio Glucose POC Glucose 188 H Hemoglobin A1c Calcium Urine Creatinine 11.4 Ur Creatinine 24 Hour 0.6 L Ur Total Protein 24 Hr 513.00 H Urine Total Protein 9 Crossmatch See Detail 05/06/19 05/06/19 05/06/19 13:50 13:50 17:11 WBC 10.1 RBC 3.67 Hgb 11.3 D Hct 32.1 D MCV 88 MCH 31 MCHC 35 H RDW 16.0 H Plt Count 202 Lymph % (Auto) 12.5 L [place] % (Auto) 9.1 H Eos % (Auto) 0.0 Baso % (Auto) 0.4 Lymph # 1.3 [place] # 0.9 H Eos # 0.0 Baso # 0.0 Seg Neutrophils % 78.0 H Seg Neutrophils # 7.8 H Sodium Potassium Chloride Carbon Dioxide Anion Gap BUN Creatinine Estimated GFR BUN/Creatinine Ratio Glucose 176 H POC Glucose 350 H Hemoglobin A1c Calcium Urine Creatinine Ur Creatinine 24 Hour Ur Total Protein 24 Hr Urine Total Protein Crossmatch 05/06/19 05/07/19 05/07/19 21:53 05:15 05:37 WBC RBC Hgb Hct MCV MCH MCHC RDW Plt Count Lymph % (Auto) [place] % (Auto) Eos % (Auto) Baso % (Auto) Lymph # [place] # Eos # Baso # Seg Neutrophils % Seg Neutrophils # Sodium Potassium Chloride Carbon Dioxide Anion Gap BUN Creatinine Estimated GFR BUN/Creatinine Ratio Glucose POC Glucose 344 H 98 Hemoglobin A1c 6.0 Calcium Urine Creatinine Ur Creatinine 24 Hour Ur Total Protein 24 Hr Urine Total Protein Crossmatch 05/07/19 05/07/19 05:37 08:25 WBC RBC Hgb Hct MCV MCH MCHC RDW Plt Count Lymph % (Auto) [place] % (Auto) Eos % (Auto) Baso % (Auto) Lymph # [place] # Eos # Baso # Seg Neutrophils % Seg Neutrophils # Sodium 136 L Potassium 4.0 Chloride 101.6 Carbon Dioxide 24 Anion Gap 14 BUN 10 Creatinine 0.7 Estimated GFR > 60 BUN/Creatinine Ratio 14 Glucose 86 POC Glucose 51 L Hemoglobin A1c Calcium 7.8 L Urine Creatinine Ur Creatinine 24 Hour Ur Total Protein 24 Hr Urine Total Protein Crossmatch
--- NOTE | 2019-05-07 11:24 | Progress Note ---
Assessment and Plan Assessment and plan: - History of Present Illness 23 YO Female at 36 Weeks Gestation with DM with Insulin Pump in place, Gestational HTN. Consult placed for DM. she presented to hospital with complaints of visual disturbances, mild headaches, and 3+ pedal edema. She denies RUQ pain Past History Past Medical History: hypertension Preeclampsia Management per obstetrics, sp C/s 05/05 Type 1 diabetes Optimize insulins on insulin pump, I personally gave the instructions the patient and sat by her and watched while she changed the settings acute blood loss anemia expected outcome after C/S, status post blood transfusion, improved Bipedal edema Most likely due to preeclampsia, improving with diuretics, kidney function is stable. DVT prophylaxis per primary team History Interval history: s Review of systems Constitutional: No fevers, no malaise, no joint pains CVS: No chest pain, complaining of bipedal edema GI: No abdominal pain, no diarrhea, no vomiting, no constipation Respiratory: no wheezing, no coughing Hospitalist Physical - Physical exam Narrative exam: General.: Appears well, no distress, nontoxic HEENT: Moist mucous membranes, extraocular muscles intact, no lymphadenopathy Neck: supple Cardiac: S1-S2 heard Lungs: clear to auscultation bilaterally Abdomen: soft , Extremities: Pedal edema Skin: no rash or lesions Neurologic: no gross focal deficits Psych: calm, and cooperative - Constitutional Vitals: Temp Pulse Resp BP Pulse Ox 98.4 F 99 H 18 123/87 94 05/07/19 00:26 05/07/19 00:26 05/07/19 05:41 05/07/19 09:55 05/07/19 00:26 General appearance: Present: no acute distress, well-nourished Results - Labs CBC & Chem 7: 05/06/19 13:50 05/07/19 05:37 Labs: Laboratory Last Values WBC 10.1 K/mm3 (4.5-11.0) 05/06/19 13:50 RBC 3.67 M/mm3 (3.65-5.03) 05/06/19 13:50 Hgb 11.3 gm/dl (10.1-14.3) D 05/06/19 13:50 Hct 32.1 % (30.3-42.9) D 05/06/19 13:50 MCV 88 fl (79-97) 05/06/19 13:50 MCH 31 pg (28-32) 05/06/19 13:50 MCHC 35 % (30-34) H 05/06/19 13:50 RDW 16.0 % (13.2-15.2) H 05/06/19 13:50 Plt Count 202 K/mm3 (140-440) 05/06/19 13:50 Lymph % (Auto) 12.5 % (13.4-35.0) L 05/06/19 13:50 [place] % (Auto) 9.1 % (0.0-7.3) H 05/06/19 13:50 Eos % (Auto) 0.0 % (0.0-4.3) 05/06/19 13:50 Baso % (Auto) 0.4 % (0.0-1.8) 05/06/19 13:50 Lymph # 1.3 K/mm3 (1.2-5.4) 05/06/19 13:50 [place] # 0.9 K/mm3 (0.0-0.8) H 05/06/19 13:50 Eos # 0.0 K/mm3 (0.0-0.4) 05/06/19 13:50 Baso # 0.0 K/mm3 (0.0-0.1) 05/06/19 13:50 Seg Neutrophils % 78.0 % (40.0-70.0) H 05/06/19 13:50 Seg Neutrophils # 7.8 K/mm3 (1.8-7.7) H 05/06/19 13:50 PT 12.8 Sec. (12.2-14.9) 05/05/19 13:55 INR 0.99 (0.87-1.13) 05/05/19 13:55 APTT 30.7 Sec. (24.2-36.6) 05/05/19 13:55 Fibrinogen 534 mg/dl (211-480) H 05/05/19 13:55 POC ABG pH 7.280 (7.35-7.45) L 05/05/19 11:45 POC ABG pCO2 62.8 (35-45) H 05/05/19 11:45 POC ABG HCO3 29.6 (22-26 mml/L) 05/05/19 11:45 POC ABG Total CO2 31 (23-27mmol/L) 05/05/19 11:45 POC ABG O2 Sat 16 05/05/19 11:45 POC ABG Base Excess 3 ((-2) - (+3)mmol/L) 05/05/19 11:45 FiO2 21 % 05/05/19 11:45 Sodium 136 mmol/L (137-145) L 05/07/19 05:37 Potassium 4.0 mmol/L (3.6-5.0) 05/07/19 05:37 Chloride 101.6 mmol/L (98-107) 05/07/19 05:37 Carbon Dioxide 24 mmol/L (22-30) 05/07/19 05:37 Anion Gap 14 mmol/L 05/07/19 05:37 BUN 10 mg/dL (7-17) 05/07/19 05:37 Creatinine 0.7 mg/dL (0.7-1.2) 05/07/19 05:37 Estimated GFR > 60 ml/min 05/07/19 05:37 BUN/Creatinine Ratio 14 % 05/07/19 05:37 Glucose 86 mg/dL (65-100) 05/07/19 05:37 POC Glucose 51 (70-105) L 05/07/19 08:25 Hemoglobin A1c 6.0 % (4-6) 05/07/19 05:37 Uric Acid 4.2 mg/dL (3.5-7.6) 05/01/19 17:20 Calcium 7.8 mg/dL (8.4-10.2) L 05/07/19 05:37 Magnesium 3.80 mg/dL (1.7-2.3) H 05/05/19 13:55 Total Bilirubin 0.30 mg/dL (0.1-1.2) 05/03/19 11:03 AST 13 units/L (5-40) 05/03/19 11:03 ALT 11 units/L (7-56) 05/03/19 11:03 Alkaline Phosphatase 96 units/L (35-129) 05/03/19 11:03 Lactate Dehydrogenase 174 units/L (91-180) 05/01/19 17:20 Total Protein 5.9 g/dL (6.3-8.2) L 05/03/19 11:03 Albumin 3.0 g/dL (3.9-5) L 05/03/19 11:03 Albumin/Globulin Ratio 1.0 % 05/03/19 11:03 Urine Color Yellow (Yellow) 05/01/19 15:40 Urine Turbidity Clear (Clear) 05/01/19 15:40 Urine pH 7.0 (5.0-7.0) 05/01/19 15:40 Ur Specific [place] 1.011 (1.003-1.030) 05/01/19 15:40 Urine Protein 30 mg/dl mg/dL (Negative) 05/01/19 15:40 Urine Glucose (UA) >=500 mg/dL (Negative) 05/01/19 15:40 Urine Ketones Neg mg/dL (Negative) 05/01/19 15:40 Urine Blood Neg (Negative) 05/01/19 15:40 Urine Nitrite Neg (Negative) 05/01/19 15:40 Urine Bilirubin Neg (Negative) 05/01/19 15:40 Urine Urobilinogen < 2.0 mg/dL (<2.0) 05/01/19 15:40 Ur Leukocyte Esterase Tr (Negative) 05/01/19 15:40 Urine WBC (Auto) 4.0 /HPF (0.0-6.0) 05/01/19 15:40 Urine RBC (Auto) 2.0 /HPF (0.0-6.0) 05/01/19 15:40 U Epithel Cells (Auto) 11.0 /HPF (0-13.0) 05/01/19 15:40 Urine Bacteria (Auto) 1+ /HPF (Negative) 05/01/19 15:40 Urine Total Volume 5700 ml 05/03/19 Unknown Urine Creatinine 11.4 mg/dL (0.1-20.0) 05/03/19 Unknown Ur Creatinine 24 Hour 0.6 (0.8-2.8) L 05/03/19 Unknown Ur Total Protein 24 Hr 513.00 mg/dL (2-200) H 05/03/19 Unknown Urine Total Protein 9 mg/dL (5-11.8) 05/03/19 Unknown RPR Nonreactive (Nonreactive) 05/02/19 20:23 Blood Type AB POSITIVE 05/05/19 10:00 Antibody Screen Negative 05/05/19 10:00 Crossmatch See Detail 05/05/19 10:00 Active Medications - Current Medications Current Medications: Generic Name Dose Route Start Last Admin Trade Name Freq PRN Reason Stop Dose Admin Acetaminophen 650 mg 05/05/19 12:05 05/06/19 23:33 Tylenol PO 650 mg Q4H PRN Administration Fever >100.5/RICH Acetaminophen/Hydrocodone Bitart 1 each 05/05/19 12:05 05/06/19 22:35 [place] 5/325 PO 1 each Q6H PRN Administration Pain, Moderate (4-6) Benzocaine/Menthol 1 spray 05/03/19 04:52 05/03/19 05:06 Dermoplast TP 1 spray PRN PRN Administration Cervical Ripening Butorphanol Tartrate 2 mg 05/03/19 04:53 05/04/19 22:17 Stadol IV 1 mg Q2H PRN Administration Pain, Moderate (4-6) Dextrose 50 ml 05/02/19 14:38 05/06/19 09:05 D50w (25gm) Syringe IV 50 ml PRN PRN Administration Hypoglycemia Docusate Sodium 100 mg 05/01/19 19:03 05/04/19 10:01 Colace PO 100 mg Q12H PRN Administration Constipation Ephedrine Sulfate 10 mg 05/05/19 00:52 Ephedrine Sulfate IV Q2M PRN Hypotension Fentanyl 100 mcg 05/03/19 04:53 05/04/19 19:45 Sublimaze IV 100 mcg Q2HR PRN Administration Pain, Mild (1-3) Furosemide 20 mg 05/06/19 18:00 05/07/19 05:11 Lasix IV 20 mg 0600,1800 JENNIE Administration Hydromorphone HCl 0.5 mg 05/05/19 09:30 Dilaudid IV Q4H PRN breakthrough pain > 7/10 Lactated Ringer's 1,000 mls @ 125 mls/hr 05/01/19 17:00 05/05/19 03:42 Lactated Ringers IV 125 mls/hr DIRECT JENNIE Infusion Magnesium Sulfate 40 gm in 1,000 mls @ 25 mls/hr 05/02/19 16:00 05/05/19 06:21 Magnesium Sulfate 40gm/1000ml IV 1 gm/hr DIRECT JENNIE 25 mls/hr Administration 1 GM/HR Oxytocin/Sodium Chloride 20 units in 1,000 mls @ 0 mls/hr 05/04/19 19:00 Pitocin/Ns 20 Unit/1000ml Drip IV DIRECT JENNIE As Directed Oxytocin/Sodium Chloride 30 units in 500 mls @ 0 mls/hr 05/04/19 19:00 05/05/19 02:33 Pitocin/Ns 30 Unit/500ml IV 0 mls/hr TITR JENNIE Titration Protocol As Directed Fentanyl/Bupivacaine/Sodium Chlor 200 mcg in 100 mls @ 12 mls/hr 05/05/19 01:00 05/05/19 01:30 Fentanyl-Bupiv 2 Mcg/Ml-0.125% EPIDURAL 12 mls/hr TITR JENNIE Administration Protocol Oxytocin/Sodium Chloride 20 units in 1,000 mls @ 250 mls/hr 05/05/19 13:00 Pitocin/Ns 20 Unit/1000ml Drip IV DIRECT JENNIE Ibuprofen 800 mg 05/05/19 12:05 05/07/19 08:27 Ibuprofen PO 800 mg Q6H PRN Administration Pain, Mild (1-3) Ketorolac Tromethamine 15 mg 05/05/19 12:05 Toradol IV 05/10/19 12:04 Q6H PRN Pain, Mild (1-3) Ketorolac Tromethamine 30 mg 05/05/19 12:05 05/06/19 14:48 Toradol IV 05/10/19 12:04 30 mg Q6H PRN Administration Pain, Moderate (4-6) Labetalol HCl 200 mg 05/01/19 20:15 05/07/19 09:55 Normodyne PO 200 mg BID JENNIE Administration Magnesium Hydroxide 30 ml 05/05/19 12:05 Milk Of Magnesia PO QHS PRN Constip Unrelieved By Senna Miscellaneous Medication 0.01 1000units 05/05/19 12:15 Infusion Set For Insulin Pump SC PRN JENNIE Misoprostol 25 mcg 05/04/19 09:50 05/04/19 15:15 Cytotec VG 25 mcg Q4H PRN Administration Dilation Morphine Sulfate 2 mg 05/05/19 12:05 Morphine IV Q4H PRN Pain, Moderate (4-6) Morphine Sulfate 4 mg 05/05/19 12:05 05/07/19 05:11 Morphine IV 4 mg Q4H PRN Administration Pain , Severe (7-10) Multi-Ingredient Ointment 1 applic 05/05/19 12:05 Lansinoh TP PRN PRN dryness/cracking Multivitamins/Iron/Calcium 1 each 05/02/19 10:00 05/07/19 09:53 Vitamin PO 1 each QDAY JENNIE Administration Naloxone HCl 0.2 mg 05/05/19 09:30 Narcan 0.4 Mg/1 Ml IV Q2MIN PRN Res Rate </= 8 or 02 SAT < 92% Naloxone HCl 0.1 mg 05/05/19 12:05 Narcan 0.4 Mg/1 Ml IV Q2MIN PRN Res Rate </= 8 or 02 SAT < 92% Ondansetron HCl 4 mg 05/05/19 09:30 Zofran IV Q8H PRN Nausea And Vomiting Ondansetron HCl 4 mg 05/05/19 12:05 Zofran IV Q8H PRN Nausea And Vomiting Oxycodone/Acetaminophen 2 tab 05/07/19 10:00 Percocet 5/325 PO Q6H PRN Pain, Moderate (4-6) Promethazine HCl 25 mg 05/05/19 09:30 Phenergan PO Q6H PRN Nausea And Vomiting Promethazine HCl 25 mg 05/05/19 09:30 Phenergan [place] Q6H PRN Nausea And Vomiting Promethazine HCl 25 mg 05/05/19 12:05 Phenergan [place] Q6H PRN N/V IF NPO AND NO IV ACCESS Sodium Chloride 10 ml 05/05/19 10:00 Sodium Chloride Flush Syringe 10 Ml IV PRN PRN flush Sodium Chloride 10 ml 05/05/19 13:00 Sodium Chloride Flush Syringe 10 Ml IV 05/08/19 12:59 PRN NR [place]/Glycerin 1 each 05/05/19 12:05 05/05/19 20:40 Tucks Pad TP 1 each PRN PRN Administration Hemorrhoids/cleansing/soothing
[2019-05-08] MEDS: oxyCODONE /ACETAMINOPHEN 5-325MG TAB PO PRN ×2 (04:12→18:10)
[2019-05-08] MEDS ORDERED: FUROSEMIDE 20 MG/2 ML INJ IV SCH (08:00)
--- NOTE | 2019-05-08 08:22 | Progress Note ---
Assessment and Plan Assessment and plan: - History of Present Illness 23 YO Female at 36 Weeks Gestation with DM with Insulin Pump in place, Gestational HTN. Consult placed for DM. she presented to hospital with complaints of visual disturbances, mild headaches, and 3+ pedal edema. She denies RUQ pain Past History Past Medical History: hypertension Preeclampsia Management per obstetrics, sp C/s 05/05 Type 1 diabetes Optimize insulins on insulin pump, I personally explained to the patient. Insulin pump settings were changed by me. Continue boluses as specified by pump. Patient conveys understanding. Glucose is currently at goal. acute blood loss anemia expected outcome after C/S, status post blood transfusion, improved Bipedal edema Most likely due to preeclampsia, improving with diuretics, kidney function is stable. -Added potassium supplements DVT prophylaxis per primary tea Preventative health counseling performed for 17 minutes disposition, possible discharge tomorrow on oral diuretics. History Interval history: Review of systems Constitutional: No fevers, no malaise, no joint pains CVS: No chest pain, complaining of bipedal edema GI: No abdominal pain, no diarrhea, no vomiting, no constipation Respiratory: no wheezing, no coughing Hospitalist Physical - Physical exam Narrative exam: General.: Appears well, no distress, nontoxic HEENT: Moist mucous membranes, extraocular muscles intact, no lymphadenopathy Neck: supple Cardiac: S1-S2 heard Lungs: clear to auscultation bilaterally Abdomen: soft , Extremities: Pedal edema Skin: no rash or lesions Neurologic: no gross focal deficits Psych: calm, and cooperative - Constitutional Vitals: Temp Pulse Resp BP Pulse Ox 98.7 F 73 18 128/82 97 05/08/19 00:00 05/08/19 00:00 05/08/19 00:00 05/08/19 00:00 05/07/19 21:55 General appearance: Present: no acute distress, well-nourished Results - Labs CBC & Chem 7: 05/08/19 11:08 05/07/19 05:37 Labs: Laboratory Last Values WBC 10.1 K/mm3 (4.5-11.0) 05/06/19 13:50 RBC 3.67 M/mm3 (3.65-5.03) 05/06/19 13:50 Hgb 11.3 gm/dl (10.1-14.3) D 05/06/19 13:50 Hct 32.1 % (30.3-42.9) D 05/06/19 13:50 MCV 88 fl (79-97) 05/06/19 13:50 MCH 31 pg (28-32) 05/06/19 13:50 MCHC 35 % (30-34) H 05/06/19 13:50 RDW 16.0 % (13.2-15.2) H 05/06/19 13:50 Plt Count 202 K/mm3 (140-440) 05/06/19 13:50 Lymph % (Auto) 12.5 % (13.4-35.0) L 05/06/19 13:50 [place] % (Auto) 9.1 % (0.0-7.3) H 05/06/19 13:50 Eos % (Auto) 0.0 % (0.0-4.3) 05/06/19 13:50 Baso % (Auto) 0.4 % (0.0-1.8) 05/06/19 13:50 Lymph # 1.3 K/mm3 (1.2-5.4) 05/06/19 13:50 [place] # 0.9 K/mm3 (0.0-0.8) H 05/06/19 13:50 Eos # 0.0 K/mm3 (0.0-0.4) 05/06/19 13:50 Baso # 0.0 K/mm3 (0.0-0.1) 05/06/19 13:50 Seg Neutrophils % 78.0 % (40.0-70.0) H 05/06/19 13:50 Seg Neutrophils # 7.8 K/mm3 (1.8-7.7) H 05/06/19 13:50 PT 12.8 Sec. (12.2-14.9) 05/05/19 13:55 INR 0.99 (0.87-1.13) 05/05/19 13:55 APTT 30.7 Sec. (24.2-36.6) 05/05/19 13:55 Fibrinogen 534 mg/dl (211-480) H 05/05/19 13:55 POC ABG pH 7.280 (7.35-7.45) L 05/05/19 11:45 POC ABG pCO2 62.8 (35-45) H 05/05/19 11:45 POC ABG HCO3 29.6 (22-26 mml/L) 05/05/19 11:45 POC ABG Total CO2 31 (23-27mmol/L) 05/05/19 11:45 POC ABG O2 Sat 16 05/05/19 11:45 POC ABG Base Excess 3 ((-2) - (+3)mmol/L) 05/05/19 11:45 FiO2 21 % 05/05/19 11:45 Sodium 136 mmol/L (137-145) L 05/07/19 05:37 Potassium 4.0 mmol/L (3.6-5.0) 05/07/19 05:37 Chloride 101.6 mmol/L (98-107) 05/07/19 05:37 Carbon Dioxide 24 mmol/L (22-30) 05/07/19 05:37 Anion Gap 14 mmol/L 05/07/19 05:37 BUN 10 mg/dL (7-17) 05/07/19 05:37 Creatinine 0.7 mg/dL (0.7-1.2) 05/07/19 05:37 Estimated GFR > 60 ml/min 05/07/19 05:37 BUN/Creatinine Ratio 14 % 05/07/19 05:37 Glucose 86 mg/dL (65-100) 05/07/19 05:37 POC Glucose 204 (70-105) H 05/07/19 22:07 Hemoglobin A1c 6.0 % (4-6) 05/07/19 05:37 Uric Acid 4.2 mg/dL (3.5-7.6) 05/01/19 17:20 Calcium 7.8 mg/dL (8.4-10.2) L 05/07/19 05:37 Magnesium 3.80 mg/dL (1.7-2.3) H 05/05/19 13:55 Total Bilirubin 0.30 mg/dL (0.1-1.2) 05/03/19 11:03 AST 13 units/L (5-40) 05/03/19 11:03 ALT 11 units/L (7-56) 05/03/19 11:03 Alkaline Phosphatase 96 units/L (35-129) 05/03/19 11:03 Lactate Dehydrogenase 174 units/L (91-180) 05/01/19 17:20 Total Protein 5.9 g/dL (6.3-8.2) L 05/03/19 11:03 Albumin 3.0 g/dL (3.9-5) L 05/03/19 11:03 Albumin/Globulin Ratio 1.0 % 05/03/19 11:03 Urine Color Yellow (Yellow) 05/01/19 15:40 Urine Turbidity Clear (Clear) 05/01/19 15:40 Urine pH 7.0 (5.0-7.0) 05/01/19 15:40 Ur Specific [place] 1.011 (1.003-1.030) 05/01/19 15:40 Urine Protein 30 mg/dl mg/dL (Negative) 05/01/19 15:40 Urine Glucose (UA) >=500 mg/dL (Negative) 05/01/19 15:40 Urine Ketones Neg mg/dL (Negative) 05/01/19 15:40 Urine Blood Neg (Negative) 05/01/19 15:40 Urine Nitrite Neg (Negative) 05/01/19 15:40 Urine Bilirubin Neg (Negative) 05/01/19 15:40 Urine Urobilinogen < 2.0 mg/dL (<2.0) 05/01/19 15:40 Ur Leukocyte Esterase Tr (Negative) 05/01/19 15:40 Urine WBC (Auto) 4.0 /HPF (0.0-6.0) 05/01/19 15:40 Urine RBC (Auto) 2.0 /HPF (0.0-6.0) 05/01/19 15:40 U Epithel Cells (Auto) 11.0 /HPF (0-13.0) 05/01/19 15:40 Urine Bacteria (Auto) 1+ /HPF (Negative) 05/01/19 15:40 Urine Total Volume 5700 ml 05/03/19 Unknown Urine Creatinine 11.4 mg/dL (0.1-20.0) 05/03/19 Unknown Ur Creatinine 24 Hour 0.6 (0.8-2.8) L 05/03/19 Unknown Ur Total Protein 24 Hr 513.00 mg/dL (2-200) H 05/03/19 Unknown Urine Total Protein 9 mg/dL (5-11.8) 05/03/19 Unknown RPR Nonreactive (Nonreactive) 05/02/19 20:23 Blood Type AB POSITIVE 05/05/19 10:00 Antibody Screen Negative 05/05/19 10:00 Crossmatch See Detail 05/05/19 10:00 Active Medications - Current Medications Current Medications: Generic Name Dose Route Start Last Admin Trade Name Freq PRN Reason Stop Dose Admin Acetaminophen 650 mg 05/05/19 12:05 05/06/19 23:33 Tylenol PO 650 mg Q4H PRN Administration Fever >100.5/RICH Acetaminophen/Hydrocodone Bitart 1 each 05/05/19 12:05 05/06/19 22:35 [place] 5/325 PO 1 each Q6H PRN Administration Pain, Moderate (4-6) Benzocaine/Menthol 1 spray 05/03/19 04:52 05/03/19 05:06 Dermoplast TP 1 spray PRN PRN Administration Cervical Ripening Butorphanol Tartrate 2 mg 05/03/19 04:53 05/04/19 22:17 Stadol IV 1 mg Q2H PRN Administration Pain, Moderate (4-6) Dextrose 50 ml 05/02/19 14:38 05/06/19 09:05 D50w (25gm) Syringe IV 50 ml PRN PRN Administration Hypoglycemia Docusate Sodium 100 mg 05/01/19 19:03 05/04/19 10:01 Colace PO 100 mg Q12H PRN Administration Constipation Ephedrine Sulfate 10 mg 05/05/19 00:52 Ephedrine Sulfate IV Q2M PRN Hypotension Fentanyl 100 mcg 05/03/19 04:53 05/04/19 19:45 Sublimaze IV 100 mcg Q2HR PRN Administration Pain, Mild (1-3) Furosemide 40 mg 05/08/19 08:30 Lasix IV Q8HR JENNIE Hydromorphone HCl 0.5 mg 05/05/19 09:30 Dilaudid IV Q4H PRN breakthrough pain > 7/10 Lactated Ringer's 1,000 mls @ 125 mls/hr 05/01/19 17:00 05/05/19 03:42 Lactated Ringers IV 125 mls/hr DIRECT JENNIE Infusion Magnesium Sulfate 40 gm in 1,000 mls @ 25 mls/hr 05/02/19 16:00 05/05/19 06:21 Magnesium Sulfate 40gm/1000ml IV 1 gm/hr DIRECT JENNIE 25 mls/hr Administration 1 GM/HR Oxytocin/Sodium Chloride 20 units in 1,000 mls @ 0 mls/hr 05/04/19 19:00 Pitocin/Ns 20 Unit/1000ml Drip IV DIRECT JENNIE As Directed Oxytocin/Sodium Chloride 30 units in 500 mls @ 0 mls/hr 05/04/19 19:00 05/05/19 02:33 Pitocin/Ns 30 Unit/500ml IV 0 mls/hr TITR JENNIE Titration Protocol As Directed Fentanyl/Bupivacaine/Sodium Chlor 200 mcg in 100 mls @ 12 mls/hr 05/05/19 01:00 05/05/19 01:30 Fentanyl-Bupiv 2 Mcg/Ml-0.125% EPIDURAL 12 mls/hr TITR JENNIE Administration Protocol Oxytocin/Sodium Chloride 20 units in 1,000 mls @ 250 mls/hr 05/05/19 13:00 Pitocin/Ns 20 Unit/1000ml Drip IV DIRECT JENNIE Ibuprofen 800 mg 05/05/19 12:05 05/07/19 14:59 Ibuprofen PO 800 mg Q6H PRN Administration Pain, Mild (1-3) Ketorolac Tromethamine 15 mg 05/05/19 12:05 Toradol IV 05/10/19 12:04 Q6H PRN Pain, Mild (1-3) Ketorolac Tromethamine 30 mg 05/05/19 12:05 05/06/19 14:48 Toradol IV 05/10/19 12:04 30 mg Q6H PRN Administration Pain, Moderate (4-6) Labetalol HCl 200 mg 05/01/19 20:15 05/07/19 22:01 Normodyne PO 200 mg BID JENNIE Administration Magnesium Hydroxide 30 ml 05/05/19 12:05 Milk Of Magnesia PO QHS PRN Constip Unrelieved By Senna Miscellaneous Medication 0.01 1000units 05/05/19 12:15 Infusion Set For Insulin Pump SC PRN JENNIE Misoprostol 25 mcg 05/04/19 09:50 05/04/19 15:15 Cytotec VG 25 mcg Q4H PRN Administration Dilation Morphine Sulfate 2 mg 05/05/19 12:05 Morphine IV Q4H PRN Pain, Moderate (4-6) Morphine Sulfate 4 mg 05/05/19 12:05 05/07/19 05:11 Morphine IV 4 mg Q4H PRN Administration Pain , Severe (7-10) Multi-Ingredient Ointment 1 applic 05/05/19 12:05 Lansinoh TP PRN PRN dryness/cracking Multivitamins/Iron/Calcium 1 each 05/02/19 10:00 05/07/19 09:53 Vitamin PO 1 each QDAY JENNIE Administration Naloxone HCl 0.2 mg 05/05/19 09:30 Narcan 0.4 Mg/1 Ml IV Q2MIN PRN Res Rate </= 8 or 02 SAT < 92% Naloxone HCl 0.1 mg 05/05/19 12:05 Narcan 0.4 Mg/1 Ml IV Q2MIN PRN Res Rate </= 8 or 02 SAT < 92% Ondansetron HCl 4 mg 05/05/19 09:30 Zofran IV Q8H PRN Nausea And Vomiting Ondansetron HCl 4 mg 05/05/19 12:05 Zofran IV Q8H PRN Nausea And Vomiting Oxycodone/Acetaminophen 2 tab 05/07/19 10:00 05/08/19 04:12 Percocet 5/325 PO 2 tab Q6H PRN Administration Pain, Moderate (4-6) Promethazine HCl 25 mg 05/05/19 09:30 Phenergan PO Q6H PRN Nausea And Vomiting Promethazine HCl 25 mg 05/05/19 09:30 Phenergan [place] Q6H PRN Nausea And Vomiting Promethazine HCl 25 mg 05/05/19 12:05 Phenergan [place] Q6H PRN N/V IF NPO AND NO IV ACCESS Sodium Chloride 10 ml 05/05/19 10:00 Sodium Chloride Flush Syringe 10 Ml IV PRN PRN flush Sodium Chloride 10 ml 05/05/19 13:00 Sodium Chloride Flush Syringe 10 Ml IV 05/08/19 12:59 PRN NR [place]/Glycerin 1 each 05/05/19 12:05 05/05/19 20:40 Tucks Pad TP 1 each PRN PRN Administration Hemorrhoids/cleansing/soothing
[2019-05-08] MEDS: FUROSEMIDE 40 MG/4 ML INJ IV SCH ×2 (09:05→16:18)
[2019-05-08] MEDS: PRENATAL VIT27-FE FUMARATE-FOLIC ACID VIT TAB PO SCH ×2 (09:34→09:35)
[2019-05-08] MEDS: HYDROcodone/ACETAMINOPHEN 5-325 MG TAB PO PRN (11:08)
[2019-05-08 11:28] LABS: Basophils # (Auto) 0.1 K/mm3 (0.0-0.1); Basophils % (Auto) 1.1 % (0.0-1.8); Eosinophils # (Auto) 0.1 K/mm3 (0.0-0.4); Eosinophils % (Auto) 0.6 % (0.0-4.3); Hematocrit 30.1 % (30.3-42.9); Hemoglobin 10.1 gm/dl (10.1-14.3); Lymphocytes # (Auto) 1.6 K/mm3 (1.2-5.4); Mean Corpuscular HGB Conc 34 % (30-34); Mean Corpuscular Volume 88 fl (79-97); Monocytes # (Auto) 0.7 K/mm3 (0.0-0.8); Monocytes % (Auto) 6.7 % (0.0-7.3); Platelet Count 274 K/mm3 (140-440); Red Blood Count 3.42 M/mm3 (3.65-5.03); Red Cell Distribution Width 15.9 % (13.2-15.2)
[2019-05-08] MEDS: IBUPROFEN 800 MG TAB PO PRN ×2 (16:13→21:57)
[2019-05-08] MEDS: POTASSIUM CHLORIDE ER 20 MEQ TAB PO SCH (16:14)
[2019-05-08] MEDS: DOCUSATE SODIUM 100 MG CAP PO PRN (16:18)
--- NOTE | 2019-05-08 17:14 | Progress Note ---
Subjective - Subjective Date of service: 05/08/19 Principal diagnosis: s/p C Section - POD #2 Interval history: Patient seen and examined. Ambulatory, tolerating general diet, +ve flatus, +ve BM Afebrile, pain controlled on POP pain meds BS controlled. BP range stable Patient with 4+ pitting edema to knee. This is second to acute blood loss in with depletion of intravascular volume and third spacing. This will not improve until patient's hemopoetic system reached equilibrium after IV fluid infusion and transfusion of 4 units pRBC's.This could take 1-2 weeks. I have explained to the patient that with time she will diurese on her own. Aggressive diuresis with medication will cause patient to continue to third space and make the clinical picture worse. Patient is stable from a surgical and obstetric basis for discharge however co- management with medicine for hypokalemia and BP issues warrants at least another 24 hours. Vital Signs Temp 98.5 F 05/08/19 07:39 Pulse 89 05/08/19 07:39 Resp 18 05/08/19 07:39 BP 156/94 05/08/19 09:35 Pulse Ox 97 05/07/19 21:55 Intake & Output 05/07/19 05/08/19 05/08/19 23:59 11:59 23:59 Intake Total 240 980 Output Total 600 800 Balance 240 380 -800 Intake: Oral 240 680 Intake, Free Water 300 Output: Urine 600 800 Void 600 800 Other: Total, Intake Amount 240 480 Total, Output Amount 600 800 # Voids Void 1 1 1 O: Vitals as above BP range 110-160/69-101 RRR LCTAB ADB: soft, +ve tenderness on mons and incision site appropriately, +ve BS in all four quadrants Incision: C/D/I +ve za +ve ecchymosis on mons from retractors. A: SP C/Section Preeclampsia Type 1 DM Acute blood loss anemia with severe third spacing following transfusion P: Continue routine care patient stable plan of care reviewed with patient and her mother Kai Simmons MD Objective - Vital Signs Vital Signs: Vital Signs - 12hr 05/08/19 05/08/19 05/08/19 07:39 09:33 09:35 Temperature 98.5 F Pulse Rate 89 Respiratory 18 Rate Blood Pressure 154/96 156/94 Blood Pressure 154/96 [Right] - Labs Labs: Abnormal Labs 05/01/19 05/01/19 05/01/19 17:20 17:20 18:06 RBC 3.25 L Hgb 9.7 L Hct 27.0 L MCHC 36 H RDW 12.7 L Lymph % (Auto) [place] % (Auto) [place] # Seg Neutrophils % Seg Neutrophils # Fibrinogen POC ABG pH POC ABG pCO2 Sodium Chloride BUN Creatinine 0.6 L Glucose POC Glucose 263 H Calcium Magnesium Total Protein Albumin Ur Creatinine 24 Hour Ur Total Protein 24 Hr Crossmatch 05/02/19 05/02/19 05/02/19 06:47 12:18 18:13 RBC Hgb Hct MCHC RDW Lymph % (Auto) [place] % (Auto) [place] # Seg Neutrophils % Seg Neutrophils # Fibrinogen POC ABG pH POC ABG pCO2 Sodium Chloride BUN Creatinine Glucose POC Glucose 174 H 367 H 175 H Calcium Magnesium Total Protein Albumin Ur Creatinine 24 Hour Ur Total Protein 24 Hr Crossmatch 05/02/19 05/02/19 05/03/19 20:23 23:04 00:08 RBC Hgb Hct MCHC RDW Lymph % (Auto) [place] % (Auto) [place] # Seg Neutrophils % Seg Neutrophils # Fibrinogen POC ABG pH POC ABG pCO2 Sodium Chloride BUN Creatinine Glucose POC Glucose 58 L Calcium Magnesium 3.40 H Total Protein Albumin Ur Creatinine 24 Hour Ur Total Protein 24 Hr Crossmatch See Detail 05/03/19 05/03/19 05/03/19 06:27 11:03 12:14 RBC Hgb Hct MCHC RDW Lymph % (Auto) [place] % (Auto) [place] # Seg Neutrophils % Seg Neutrophils # Fibrinogen POC ABG pH POC ABG pCO2 Sodium 135 L Chloride 97.0 L BUN 3 L Creatinine 0.6 L Glucose 140 H POC Glucose 122 H Calcium Magnesium 3.70 H Total Protein 5.9 L Albumin 3.0 L Ur Creatinine 24 Hour Ur Total Protein 24 Hr Crossmatch 05/03/19 05/03/19 05/03/19 14:10 18:22 19:25 RBC Hgb Hct MCHC RDW Lymph % (Auto) [place] % (Auto) [place] # Seg Neutrophils % Seg Neutrophils # Fibrinogen POC ABG pH POC ABG pCO2 Sodium Chloride BUN Creatinine Glucose POC Glucose 55 L 58 L Calcium Magnesium 5.00 H Total Protein Albumin Ur Creatinine 24 Hour Ur Total Protein 24 Hr Crossmatch 05/03/19 05/03/19 05/03/19 21:19 21:20 23:14 RBC Hgb Hct MCHC RDW Lymph % (Auto) [place] % (Auto) [place] # Seg Neutrophils % Seg Neutrophils # Fibrinogen POC ABG pH POC ABG pCO2 Sodium Chloride BUN Creatinine Glucose POC Glucose 61 L 65 L Calcium Magnesium 5.70 H Total Protein Albumin Ur Creatinine 24 Hour Ur Total Protein 24 Hr Crossmatch 05/03/19 05/04/19 05/04/19 Unknown 01:19 06:01 RBC Hgb Hct MCHC RDW Lymph % (Auto) [place] % (Auto) [place] # Seg Neutrophils % Seg Neutrophils # Fibrinogen POC ABG pH POC ABG pCO2 Sodium Chloride BUN Creatinine Glucose POC Glucose 54 L Calcium Magnesium 6.30 H Total Protein Albumin Ur Creatinine 24 Hour 0.6 L Ur Total Protein 24 Hr 513.00 H Crossmatch 05/04/19 05/04/19 05/04/19 10:19 13:51 14:11 RBC Hgb Hct MCHC RDW Lymph % (Auto) [place] % (Auto) [place] # Seg Neutrophils % Seg Neutrophils # Fibrinogen POC ABG pH POC ABG pCO2 Sodium Chloride BUN Creatinine Glucose POC Glucose 152 H 116 H Calcium Magnesium 5.80 H Total Protein Albumin Ur Creatinine 24 Hour Ur Total Protein 24 Hr Crossmatch 05/04/19 05/04/19 05/05/19 18:33 19:55 02:27 RBC 3.11 L Hgb 8.9 L Hct 25.7 L MCHC 35 H RDW 12.9 L Lymph % (Auto) [place] % (Auto) [place] # Seg Neutrophils % Seg Neutrophils # Fibrinogen POC ABG pH POC ABG pCO2 Sodium Chloride BUN Creatinine Glucose POC Glucose 196 H Calcium Magnesium 4.50 H Total Protein Albumin Ur Creatinine 24 Hour Ur Total Protein 24 Hr Crossmatch 05/05/19 05/05/19 05/05/19 02:40 05:54 06:07 RBC Hgb Hct MCHC RDW Lymph % (Auto) [place] % (Auto) [place] # Seg Neutrophils % Seg Neutrophils # Fibrinogen POC ABG pH POC ABG pCO2 Sodium Chloride BUN Creatinine Glucose POC Glucose 110 H 127 H Calcium Magnesium 4.70 H Total Protein Albumin Ur Creatinine 24 Hour Ur Total Protein 24 Hr Crossmatch 05/05/19 05/05/19 05/05/19 09:33 10:00 11:45 RBC Hgb Hct MCHC RDW Lymph % (Auto) [place] % (Auto) [place] # Seg Neutrophils % Seg Neutrophils # Fibrinogen POC ABG pH 7.280 L POC ABG pCO2 62.8 H Sodium Chloride BUN Creatinine Glucose POC Glucose 166 H Calcium Magnesium Total Protein Albumin Ur Creatinine 24 Hour Ur Total Protein 24 Hr Crossmatch See Detail 05/05/19 05/05/19 05/05/19 13:55 13:55 14:15 RBC Hgb Hct MCHC RDW Lymph % (Auto) [place] % (Auto) [place] # Seg Neutrophils % Seg Neutrophils # Fibrinogen 534 H POC ABG pH POC ABG pCO2 Sodium Chloride BUN Creatinine Glucose POC Glucose 133 H Calcium Magnesium 3.80 H Total Protein Albumin Ur Creatinine 24 Hour Ur Total Protein 24 Hr Crossmatch 05/05/19 05/05/19 05/05/19 17:38 20:55 23:10 RBC Hgb 4.8 L* D Hct 14.2 L* D MCHC RDW Lymph % (Auto) [place] % (Auto) [place] # Seg Neutrophils % Seg Neutrophils # Fibrinogen POC ABG pH POC ABG pCO2 Sodium Chloride BUN Creatinine Glucose POC Glucose 189 H 173 H Calcium Magnesium Total Protein Albumin Ur Creatinine 24 Hour Ur Total Protein 24 Hr Crossmatch 05/06/19 05/06/19 05/06/19 08:11 09:02 13:46 RBC Hgb Hct MCHC RDW Lymph % (Auto) [place] % (Auto) [place] # Seg Neutrophils % Seg Neutrophils # Fibrinogen POC ABG pH POC ABG pCO2 Sodium Chloride BUN Creatinine Glucose POC Glucose < 40 L 51 L 188 H Calcium Magnesium Total Protein Albumin Ur Creatinine 24 Hour Ur Total Protein 24 Hr Crossmatch 05/06/19 05/06/19 05/06/19 13:50 13:50 17:11 RBC Hgb Hct MCHC 35 H RDW 16.0 H Lymph % (Auto) 12.5 L [place] % (Auto) 9.1 H [place] # 0.9 H Seg Neutrophils % 78.0 H Seg Neutrophils # 7.8 H Fibrinogen POC ABG pH POC ABG pCO2 Sodium Chloride BUN Creatinine Glucose 176 H POC Glucose 350 H Calcium Magnesium Total Protein Albumin Ur Creatinine 24 Hour Ur Total Protein 24 Hr Crossmatch 05/06/19 05/07/19 05/07/19 21:53 05:37 08:25 RBC Hgb Hct MCHC RDW Lymph % (Auto) [place] % (Auto) [place] # Seg Neutrophils % Seg Neutrophils # Fibrinogen POC ABG pH POC ABG pCO2 Sodium 136 L Chloride BUN Creatinine Glucose POC Glucose 344 H 51 L Calcium 7.8 L Magnesium Total Protein Albumin Ur Creatinine 24 Hour Ur Total Protein 24 Hr Crossmatch 05/07/19 05/07/19 05/07/19 13:27 17:15 22:07 RBC Hgb Hct MCHC RDW Lymph % (Auto) [place] % (Auto) [place] # Seg Neutrophils % Seg Neutrophils # Fibrinogen POC ABG pH POC ABG pCO2 Sodium Chloride BUN Creatinine Glucose POC Glucose 248 H 148 H 204 H Calcium Magnesium Total Protein Albumin Ur Creatinine 24 Hour Ur Total Protein 24 Hr Crossmatch 05/08/19 11:08 RBC 3.42 L Hgb Hct 30.1 L MCHC RDW 15.9 H Lymph % (Auto) [place] % (Auto) [place] # Seg Neutrophils % 75.6 H Seg Neutrophils # Fibrinogen POC ABG pH POC ABG pCO2 Sodium Chloride BUN Creatinine Glucose POC Glucose Calcium Magnesium Total Protein Albumin Ur Creatinine 24 Hour Ur Total Protein 24 Hr Crossmatch Laboratory Results - last 24 hr 05/05/19 05/07/19 05/07/19 10:00 17:15 22:07 WBC RBC Hgb Hct MCV MCH MCHC RDW Plt Count Lymph % (Auto) [place] % (Auto) Eos % (Auto) Baso % (Auto) Lymph # [place] # Eos # Baso # Seg Neutrophils % Seg Neutrophils # POC Glucose 148 H 204 H Crossmatch See Detail 05/08/19 05/08/19 08:35 11:08 WBC 10.2 RBC 3.42 L Hgb 10.1 Hct 30.1 L MCV 88 MCH 30 MCHC 34 RDW 15.9 H Plt Count 274 Lymph % (Auto) 16.0 [place] % (Auto) 6.7 Eos % (Auto) 0.6 Baso % (Auto) 1.1 Lymph # 1.6 [place] # 0.7 Eos # 0.1 Baso # 0.1 Seg Neutrophils % 75.6 H Seg Neutrophils # 7.7 POC Glucose 86 Crossmatch
[2019-05-09] MEDS: oxyCODONE /ACETAMINOPHEN 5-325MG TAB PO PRN ×2 (00:43→10:09)
[2019-05-09] MEDS: FUROSEMIDE 40 MG/4 ML INJ IV SCH ×2 (00:45→09:40)
[2019-05-09] MEDS: IBUPROFEN 800 MG TAB PO PRN (06:02)
[2019-05-09 06:14] LABS: BUN/Creatinine Ratio 16; Blood Urea Nitrogen 13 mg/dL (7-17); Calcium 8.1 mg/dL (8.4-10.2); Hemolysis Index 5
[2019-05-09] MEDS: PRENATAL VIT27-FE FUMARATE-FOLIC ACID VIT TAB PO SCH (09:40)
[2019-05-09] MEDS: POTASSIUM CHLORIDE ER 20 MEQ TAB PO SCH (09:40)
[2019-05-09 09:42] VITALS: BP 132/85
--- NOTE | 2019-05-09 10:03 | Discharge Summary ---
Providers - Providers Date of Admission: 05/05/19 12:33 Date of discharge: 05/09/19 Attending physician: KELLY WOODARD MD 05/02/19 16:44 Consult to Physician [CONS] Urgent Comment: induction for brittle diabetes and preeclampsia Consulting Provider: LAVONNE FERRIS Physician Instructions: Please be aware and prepare for a Reason For Exam: induction at 36wks, type 1 diabetes, preeclampsia Primary care physician: KELLY WOODARD MD Hospitalization Reason for admission: observation, induction of labor, other (Type 1 Diabetes, Preeclampsia) Delivery: Procedure: section, primary low transverse Incision: normal, erythematous, dry, intact (BRUISED on the mons pubis) Discharge diagnosis: other ( delivery for failure to progress.) [place] baby: female Condition at discharge: Good Disposition: DC- TO HOME OR SELFCARE - Discharge Diagnoses (1) 36 to 37 weeks gestation of Status: Resolved (2) Preeclampsia Status: Acute (3) Type 1 diabetes mellitus Status: Chronic Qualifiers: Diabetes mellitus complication status: with hypoglycemia Diabetes mellitus complication detail: without coma Qualified Code(s): E10.649 - Type 1 diabetes mellitus with hypoglycemia without coma Plan - Discharge Medications Prescriptions: Ibuprofen [Motrin] 600 mg PO Q8H PRN #30 tablet PRN Reason: Pain oxyCODONE /ACETAMINOPHEN [Percocet 5/325 mg] 1 tab PO Q6HR PRN #20 tablet PRN Reason: Pain - Provider Discharge Summary Activity: routine, no sex for 6 weeks, no heavy lifting 4 weeks, no strenuous exercise Diet: routine Instructions: other (Call [facility] to alert them patient is going home on insulin pump.) Additional instructions: [] Smoking cessation referral if applicable(refer to patient education folder for contact #) [] Refer to [facility] Booklet Call your doctor immediately for: * Fever > 100.5 * Heavy vaginal bleeding ( >1 pad per hour) * Severe persistent headache * Shortness of breath * Reddened, hot, painful area to leg or breast * Drainage or odor from incision. * Keep incision clean and dry at all times and follow doctor's instructions regarding bathing/showering - Follow up plan Follow up: KELLY WOODARD MD [Primary Care Provider] - 7 Days Forms: Work/School Excuse Out Patient
[2019-05-09] MEDS: DOCUSATE SODIUM 100 MG CAP PO PRN (10:09)
--- NOTE | 2019-05-09 13:54 | Event Note ---
Date: 05/09/19 Patient was discharge prior to me seeing her. I wrote prescription for a diuretic with potassium supplement based on hand off from Dr. Mckinney but when I went to give her the scripts, she was gone. RN will reach out to her.
[2019-05-10] MEDS ORDERED: FUROSEMIDE 40 MG TAB PO SCH (06:00)
== END 2019-05-09 12:35 | disposition home or self-care (01) | DRG 765 ==
LOC: TRG 15:45 → LD 16:39 → OBSVTOIN 05-05 12:33 → OB 05-05 14:09
PROVIDERS: ADMIT Obstetrics & Gynecology; ATTEND Obstetrics & Gynecology
PROC: 10D00Z1 Extraction of Products of Conception, Low, Open Approach (ICD-10-PCS; principal; 2019-05-05)
PROC: 30233N1 Transfusion of Nonautologous Red Blood Cells into Peripheral Vein, Percutaneous Approach (ICD-10-PCS; 2019-05-05)
PROC: 4A033R1 Measurement of Arterial Saturation, Peripheral, Percutaneous Approach (ICD-10-PCS; 2019-05-05)
PROC: 3E0P7VZ Introduction of Hormone into Female Reproductive, Via Natural or Artificial Opening (ICD-10-PCS; 2019-05-05)
DX: O24.02 Pre-existing type 1 diabetes mellitus, in childbirth (principal); D62 Acute posthemorrhagic anemia; O14.94 Unspecified pre-eclampsia, complicating childbirth; O13.4 Gestational [pregnancy-induced] hypertension without significant proteinuria, complicating childbirth; Z3A.36 36 weeks gestation of pregnancy; Z37.0 Single live birth; E10.649 Type 1 diabetes mellitus with hypoglycemia without coma; Z91.19 Patient's noncompliance with other medical treatment and regimen; Z88.0 Allergy status to penicillin; Z79.4 Long term (current) use of insulin; Z82.49 Family history of ischemic heart disease and other diseases of the circulatory system; Z83.3 Family history of diabetes mellitus; O61.0 Failed medical induction of labor; O90.81 Anemia of the puerperium
CPT/HCPCS: 36415; 80048; 80053; 81001; 82565; 82570; 82803; 82947; 82962; 83036; 83615; 83735; 84156; 84450; 84460; 84550; 85014; 85018; 85025; 85027; 85384; 85610; 85730; 86592; 86850; 86900; 86901; 86920; 88307; G0378; C1765; J0595; J0690; J1170; J1200; J1815; J1885; J1940; J2250; J2270; J2405; J2590; J2765; J3010; J3475; J3490; J7030; J7040; J7120; P9016

== ENCOUNTER 2020-09-24 07:25 | Emergency (ER) | payer SELFPAY ==
[2020-09-24 07:38] VITALS: BP 115/65
--- NOTE | 2020-09-24 07:59 | Emergency Department Report ---
ED ENT HPI - General Chief complaint: Sore Throat Stated complaint: SORE THRAOT Time Seen by Provider: 09/24/20 07:49 Source: patient Mode of arrival: Ambulatory Limitations: No Limitations - History of Present Illness Initial comments: 25-year-old female with type 1 diabetes presents to the ER today complaint of sore throat. She reports associated throat swelling, as well as swollen lymph nodes, pain with swallowing and white pus pockets to the back of her throat. She states that her symptoms started a couple days ago. She denies any ill contacts. She denies any fever, chills, URI symptoms or cough. She denies any difficulty breathing, drooling or trismus. MD complaint: sore throat -: Gradual (Couple days ago) - Related Data Previous Rx's Medication Instructions Recorded Last Taken Type Insulin Glargine [Lantus VIAL] 15 units SUB-Q QAMDIAB 30 Days 05/25/16 Unknown Rx units Insulin Regular, Human [HumuLIN R] 5 units SUB-Q ACHS 30 Days units 05/25/16 Unknown Rx Clindamycin [Clindamycin CAP] 300 mg PO Q8H #30 cap 09/24/20 Unknown Rx Ibuprofen [Motrin] 800 mg PO Q8HR PRN #30 tablet 09/24/20 Unknown Rx Allergies Allergy/AdvReac Type Severity Reaction Status Date / Time Penicillins AdvReac Severe Rash Verified 02/27/19 16:40 ED Dental HPI - General Chief complaint: Sore Throat Stated complaint: SORE THRAOT Time Seen by Provider: 09/24/20 07:49 Source: patient Mode of arrival: Ambulatory Limitations: No Limitations - Related Data Previous Rx's Medication Instructions Recorded Last Taken Type Insulin Glargine [Lantus VIAL] 15 units SUB-Q QAMDIAB 30 Days 05/25/16 Unknown Rx units Insulin Regular, Human [HumuLIN R] 5 units SUB-Q ACHS 30 Days units 05/25/16 Unknown Rx Clindamycin [Clindamycin CAP] 300 mg PO Q8H #30 cap 09/24/20 Unknown Rx Ibuprofen [Motrin] 800 mg PO Q8HR PRN #30 tablet 09/24/20 Unknown Rx Allergies Allergy/AdvReac Type Severity Reaction Status Date / Time Penicillins AdvReac Severe Rash Verified 02/27/19 16:40 ED Review of Systems ROS: Stated complaint: SORE THRAOT Other details as noted in HPI ED Past Medical Hx - Past Medical History Previous Medical History?: Yes Hx Hypertension: No Hx Heart Attack/AMI: No Hx Congestive Heart Failure: No Hx Diabetes: Yes (Type 1) Hx Deep Vein Thrombosis: No Hx Liver Disease: No Hx Renal Disease: No Hx Sickle Cell Disease: No Hx Seizures: No Hx Asthma: No Hx COPD: No Hx HIV: No Additional medical history: gastroparesis. neuropathy - Surgical History Past Surgical History?: Yes Hx Pacemaker: No Hx Internal Defibrillator: No Additional Surgical History: Insulin pump - Social History Smoking Status: Never Smoker Substance Use Type: None - Medications Home Medications: Home Medications Medication Instructions Recorded Confirmed Last Taken Type Insulin Glargine [Lantus VIAL] 15 units SUB-Q QAMDIAB 30 Days 05/25/16 05/06/19 Unknown Rx units Insulin Regular, Human [HumuLIN R] 5 units SUB-Q ACHS 30 Days units 05/25/16 05/06/19 Unknown Rx Clindamycin [Clindamycin CAP] 300 mg PO Q8H #30 cap 09/24/20 Unknown Rx Ibuprofen [Motrin] 800 mg PO Q8HR PRN #30 tablet 09/24/20 Unknown Rx ED Physical Exam - General Limitations: No Limitations ED Course Vital Signs 09/24/20 07:38 Temperature 99.2 F Pulse Rate 87 Respiratory 16 Rate Blood Pressure 115/65 [Right] O2 Sat by Pulse 100 Oximetry ED Medical Decision Making - Medical Decision Making The patient is resting comfortably and is well-appearing and in no acute distress. There is no respiratory distress, no stridor and the mental status is normal. The neurological exam is normal, there is no significant signs of dehydration. The history, exam, diagnostic testing and the patient current cond ition does not suggest an infectious process such as meningitis, retropharyngeal abscess, epiglottitis, peritonsillar abscess, Elsa's angina, mastoiditis, orbital cellulitis, periorbital cellulitis, severe meningitis, malignant otitis externa, sepsis or any significant pathology warranting further testing, continued ED treatment, admission, consultation or any other evaluation at this time. The vital signs have been stable. The patient condition is stable and appropriate for discharge. Critical care attestation.: If time is entered above; I have spent that time in minutes in the direct care of this critically ill patient, excluding procedure time. ED Disposition Clinical Impression: Exudative pharyngitis Disposition: DC-01 TO HOME OR SELFCARE Is pt being admited?: No Does the pt Need Aspirin: No Condition: Stable Instructions: Strep Throat, Adult, Pharyngitis, [id number] Additional Instructions: Take the antibiotics and the Motrin as prescribed. Drink lots of fluids to help maintain hydration. You can use [id number] throat lozenges or sprays to help with your pain as well. Follow-up closely with your primary care doctor. Return to the ER if your symptoms changes or worsens in any way. Prescriptions: Clindamycin [Clindamycin CAP] 300 mg PO Q8H #30 cap Ibuprofen [Motrin] 800 mg PO Q8HR PRN #30 tablet PRN Reason: Pain , Severe (7-10) Referrals: JESSICA GOOD MD [Staff Physician] - 3-5 Days Forms: Work/School Release Form(ED) Time of Disposition: 07:59
== END 2020-09-24 08:45 | disposition home or self-care (01) ==
LOC: ED 07:25
DX: J02.9 Acute pharyngitis, unspecified (principal); E10.9 Type 1 diabetes mellitus without complications; Z79.899 Other long term (current) drug therapy; Z88.0 Allergy status to penicillin
CPT/HCPCS: 99281

== ENCOUNTER 2020-10-12 19:10 | Emergency (ER) | payer SELFPAY ==
[2020-10-12] MEDS ORDERED: SODIUM CHLORIDE 0.9% 1000 ML 1,000 ML IV ONE ×2 (19:16→19:47)
[2020-10-12] MEDS ORDERED: METOCLOPRAMIDE 10 MG/2 ML INJ IV ONE (19:17)
--- NOTE | 2020-10-12 19:19 | Event Note ---
ED Screening Note Date of service: 10/12/20 Time: 19:17 ED Screening Note: Type 1 DM, hx of DKA and hx gastroparesis Pt reports vomiting x 2-3 weeks. Upper abdominal discomfort and constipation She states her BS has been running "fine" Has been out of her reglan This initial assessment/diagnostic orders/clinical plan/treatment(s) is/are subject to change based on patients health status, clinical progression and re- assessment by fellow clinical providers in the ED. Further treatment and workup at subsequent clinical providers discretion. Patient/guardian urged not to elope from the ED as their condition may be serious if not clinically assessed and managed. Initial orders include: FSBS CBC CMP lipase UA hcg
[2020-10-12] MEDS ORDERED: diphenhydrAMINE 50 MG/ML VIAL IV ONE (19:47)
[2020-10-12] MEDS ORDERED: FAMOTIDINE 20 MG/2 ML INJ IV ONE (19:47)
[2020-10-12 19:54] LABS: Basophils # (Auto) 0.1 K/mm3 (0.0-0.1); Basophils % (Auto) 0.8 % (0.0-1.8); Eosinophils # (Auto) 0.1 K/mm3 (0.0-0.4); Eosinophils % (Auto) 0.5 % (0.0-4.3); Hematocrit 43.9 % (30.3-42.9); Hemoglobin 15.5 gm/dl (10.1-14.3); Lymphocytes # (Auto) 3.6 K/mm3 (1.2-5.4); Lymphocytes % (Auto) 30.4 % (13.4-35.0); Mean Corpuscular HGB Conc 35 % (30-34); Mean Corpuscular Volume 85 fl (79-97); Monocytes # (Auto) 0.8 K/mm3 (0.0-0.8); Monocytes % (Auto) 6.5 % (0.0-7.3); Platelet Count 408 K/mm3 (140-440); Red Blood Count 5.17 M/mm3 (3.65-5.03); Red Cell Distribution Width 13.8 % (13.2-15.2)
--- NOTE | 2020-10-12 19:54 | Emergency Department Report ---
ED N/V/D HPI - General Chief complaint: Nausea/Vomiting/Diarrhea Stated complaint: N/V Source: patient Mode of arrival: Ambulatory Limitations: No Limitations - History of Present Illness Initial comments: Patient is a A0 25-year-old white female with a history of insulin-dependent diabetes and gastroparesis who presents to the ED with acute onset persistent intermittent nausea and vomiting and mild epigastric discomfort for the last 3 weeks, stating that she has not been able to eat much especially in the last 1 week due to persistent nausea and vomiting. Patient states that each time she eats anything with the food drinks any fluids, this triggers nausea and vomiting and she cannot keep anything down. Patient states that she has also not had bowel movement in over 1 week. Patient states that she has been using her insulin as instructed and that blood sugar has been "fine". Patient denies dizziness, syncope, chest pain, shortness of breath, fever, chills, diarrhea, dysuria, urinary frequency and urgency, sore throat, headache, cough or change in vision. MD complaint: nausea, vomiting, abdominal pain -: Gradual, week(s) (3) Description of Vomiting: food contents, watery Associated Abdominal Pain: Yes (epigastric discomfort) Location: epigastric Radiation: none Severity: moderate Pain Scale: 5 Quality: aching, dull Consistency: intermittent Improves with: none Worsens with: eating, vomiting Context: other (Type 1 DM, h/o chronic gastroparesis) Associated Symptoms: denies other symptoms, loss of appetite, malaise, nausea/vomiting. denies: myalgias, chest pain, cough, diaphoresis, fever/chills, headaches, shortness of breath, syncope, weakness - Related Data Previous Rx's Medication Instructions Recorded Last Taken Type Insulin Glargine [Lantus VIAL] 15 units SUB-Q QAMDIAB 30 Days 05/25/16 Unknown Rx units Insulin Regular, Human [HumuLIN R] 5 units SUB-Q ACHS 30 Days units 05/25/16 Unknown Rx Clindamycin [Clindamycin CAP] 300 mg PO Q8H #30 cap 09/24/20 Unknown Rx Ibuprofen [Motrin] 800 mg PO Q8HR PRN #30 tablet 09/24/20 Unknown Rx Dicyclomine [Bentyl] 20 mg PO Q6H PRN #24 tablet 10/12/20 Unknown Rx Famotidine [Pepcid] 20 mg PO Q12H #60 tablet 10/12/20 Unknown Rx Metoclopramide [Reglan] 10 mg PO Q6H #30 tab 10/12/20 Unknown Rx Sulfamethoxazole/Trimethoprim 1 each PO Q12H #20 tablet 10/12/20 Unknown Rx [Bactrim DS TAB] Promethazine [Phenergan] 25 mg DE Q6HR PRN #30 supp.rect 10/13/20 Unknown Rx Allergies Allergy/AdvReac Type Severity Reaction Status Date / Time Penicillins AdvReac Severe Rash Verified 02/27/19 16:40 ED Review of Systems ROS: Stated complaint: N/V Other details as noted in HPI Constitutional: malaise, weakness. denies: chills, fever Eyes: denies: eye pain, eye discharge, vision change ENT: denies: ear pain, throat pain Respiratory: denies: cough, shortness of breath, wheezing Cardiovascular: denies: chest pain, palpitations Endocrine: no symptoms reported Gastrointestinal: abdominal pain, nausea, vomiting. denies: diarrhea Genitourinary: denies: urgency, dysuria, discharge Musculoskeletal: denies: back pain, joint swelling, arthralgia Skin: denies: rash, lesions Neurological: denies: headache, weakness, paresthesias Psychiatric: denies: anxiety, depression Hematological/Lymphatic: denies: easy bleeding, easy bruising ED Past Medical Hx - Past Medical History Previous Medical History?: Yes Hx Hypertension: No Hx Heart Attack/AMI: No Hx Congestive Heart Failure: No Hx Diabetes: Yes (Type 1) Hx Deep Vein Thrombosis: No Hx Liver Disease: No Hx Renal Disease: No Hx Sickle Cell Disease: No Hx Seizures: No Hx Asthma: No Hx COPD: No Hx HIV: No Additional medical history: gastroparesis. neuropathy - Surgical History Past Surgical History?: Yes Hx Pacemaker: No Hx Internal Defibrillator: No Additional Surgical History: Insulin pump - Social History Smoking Status: Never Smoker Substance Use Type: None - Medications Home Medications: Home Medications Medication Instructions Recorded Confirmed Last Taken Type Insulin Glargine [Lantus VIAL] 15 units SUB-Q QAMDIAB 30 Days 05/25/16 05/06/19 Unknown Rx units Insulin Regular, Human [HumuLIN R] 5 units SUB-Q ACHS 30 Days units 05/25/16 05/06/19 Unknown Rx Clindamycin [Clindamycin CAP] 300 mg PO Q8H #30 cap 09/24/20 Unknown Rx Ibuprofen [Motrin] 800 mg PO Q8HR PRN #30 tablet 09/24/20 Unknown Rx Dicyclomine [Bentyl] 20 mg PO Q6H PRN #24 tablet 10/12/20 Unknown Rx Famotidine [Pepcid] 20 mg PO Q12H #60 tablet 10/12/20 Unknown Rx Metoclopramide [Reglan] 10 mg PO Q6H #30 tab 10/12/20 Unknown Rx Sulfamethoxazole/Trimethoprim 1 each PO Q12H #20 tablet 10/12/20 Unknown Rx [Bactrim DS TAB] Promethazine [Phenergan] 25 mg DE Q6HR PRN #30 supp.rect 10/13/20 Unknown Rx ED Physical Exam - General Limitations: No Limitations General appearance: alert, in no apparent distress - Head Head exam: Present: atraumatic, normocephalic, normal inspection - Eye Eye exam: Present: normal appearance, PERRL, EOMI Pupils: Present: normal accommodation - ENT ENT exam: Present: normal exam, normal orophraynx, mucous membranes moist, TM's normal bilaterally, normal external ear exam - Neck Neck exam: Present: normal inspection, full ROM - Respiratory Respiratory exam: Present: normal lung sounds bilaterally. Absent: respiratory distress, wheezes, rales, rhonchi, stridor, chest wall tenderness, accessory muscle use, prolonged expiratory - Cardiovascular Cardiovascular Exam: Present: normal rhythm, tachycardia, normal heart sounds. Absent: systolic murmur, diastolic murmur, rubs, gallop - GI/Abdominal GI/Abdominal exam: Present: soft, normal bowel sounds. Absent: tenderness, guarding, rebound, hyperactive bowel sounds, hypoactive bowel sounds, organomegaly - Extremities Exam Extremities exam: Present: normal inspection, full ROM, normal capillary refill - Back Exam Back exam: Present: normal inspection, full ROM. Absent: tenderness, CVA tenderness (R), CVA tenderness (L), muscle spasm, paraspinal tenderness, vertebral tenderness - Neurological Exam Neurological exam: Present: alert, oriented X3, CN II-XII intact, normal gait, reflexes normal - Psychiatric Psychiatric exam: Present: normal affect, normal mood - Skin Skin exam: Present: warm, dry, intact, normal color. Absent: rash ED Course Vital Signs 10/12/20 10/13/20 19:14 00:08 Temperature 98.8 F 97.5 F L Pulse Rate 106 H 79 Respiratory 18 18 Rate Blood Pressure 113/75 106/62 O2 Sat by Pulse 100 100 Oximetry ED Medical Decision Making - Lab Data Result diagrams: 10/12/20 19:22 10/12/20 19:22 - Medical Decision Making This is a A0 25-year-old white female with a history of insulin-dependent diabetes and gastroparesis who presents to the ED with acute onset persistent intermittent nausea and vomiting and mild epigastric discomfort for the last 3 weeks, stating that she has not been able to eat much especially in the last 1 week due to persistent nausea and vomiting. Patient states that each time she eats anything with the food drinks any fluids, this triggers nausea and vomiting and she cannot keep anything down. Patient states that she has also not had bowel movement in over 1 week. Patient states that she has been using her insulin as instructed and that blood sugar has been "fine". In the ED, patient is alert and oriented x3 and is not in distress but tachycardic and afebrile in triage. Patient was treated for nausea and vomiting and also given antacids and normal saline 2 L IV bolus x1. Lab test results were reviewed and are all nonactionable except for acute leukocytosis of 11,800 and mild hypokalemia of 3.4 mmol/L with a normal anion gap. Urinalysis also showed significant urinary tract infection. The patient was also treated in the ED with Rocephin 1 g IV x1. On reevaluation, patient felt better, tachycardia resolved and patient passed all fluid challenges in the ED. Patient was discharged home on medications including antiemetics, antacids and antispasmodics. Patient was advised to maintain a clear liquid diet for 12 to 24 hours, drink plenty of fluids and follow-up with her primary care physician in 5 to 7 days for reevaluation. Patient was otherwise advised return to the ED immediately if symptoms get worse. - Differential Diagnosis Dehydration; gastroparesis; DKA; UTI; GERD; gastroenteritis Critical care attestation.: If time is entered above; I have spent that time in minutes in the direct care of this critically ill patient, excluding procedure time. ED Disposition Clinical Impression: Nausea and vomiting in adult patient, Acute urinary tract infection, Abdominal pain, acute, epigastric Disposition: DC-01 TO HOME OR SELFCARE Is pt being admited?: No Does the pt Need Aspirin: No Condition: Stable Instructions: Nausea and Vomiting, Adult, [id number], Urinary Tract Infection, Adult, [id number], Abdominal Pain, Adult, [id number] Additional Instructions: All lab test results were reviewed and are all nonactionable except for significant urinary tract infection. Therefore maintain a clear liquid diet for 12 to 24 hours, take medications as needed for pain and for nausea and vomiting, follow-up with your primary care physician in 5 to 7 days for reevaluation or return to the ED immediately if symptoms get worse. Prescriptions: Sulfamethoxazole/Trimethoprim [Bactrim DS TAB] 1 each PO Q12H #20 tablet Dicyclomine [Bentyl] 20 mg PO Q6H PRN #24 tablet PRN Reason: Nausea And Vomiting Famotidine [Pepcid] 20 mg PO Q12H #60 tablet Promethazine [Phenergan] 25 mg DE Q6HR PRN #30 supp.rect PRN Reason: Vomiting Metoclopramide [Reglan] 10 mg PO Q6H #30 tab Referrals: [facility] [Provider Group] - 3-5 Days Time of Disposition: 23:39 Print Language: GEORGIAN
[2020-10-12 20:16] LABS: Alanine Aminotransferase 22 units/L (7-56); Albumin 4.4 g/dL (3.9-5); BUN/Creatinine Ratio 17; Blood Urea Nitrogen 19 mg/dL (7-17); Calcium 9.9 mg/dL (8.4-10.2); Hemolysis Index 4
[2020-10-12 20:24] LABS: Bacteria,Urine 1+ /HPF (Negative); Bilirubin,Urine SM (Negative); Blood,Urine NEG (Negative); Color,Urine Amber (Yellow); Mucus,Urine 3+ /HPF
[2020-10-12 20:25] LABS: Protein,Urine >500 mg/dL (Negative)
[2020-10-12 20:26] LABS: HCG Qualitative,Urine Negative (Negative)
[2020-10-12 20:30] LABS: Ictotest,Urine Positive (Negative)
[2020-10-12] MEDS ORDERED: cefTRIAXone/NS 1 GM/50 ML 1 GM/50 ML BAG IV ONE (20:34)
[2020-10-12] MEDS ORDERED: POTASSIUM CHLORIDE ER 20 MEQ TAB PO ONE (20:34)
[2020-10-13 00:15] VITALS: BP 106/62
== END 2020-10-13 00:40 | disposition home or self-care (01) ==
LOC: ED 19:10
DX: N39.0 Urinary tract infection, site not specified (principal); R10.13 Epigastric pain; R11.2 Nausea with vomiting, unspecified; Z98.890 Other specified postprocedural states; Z79.4 Long term (current) use of insulin; Z79.899 Other long term (current) drug therapy; Z88.0 Allergy status to penicillin
CPT/HCPCS: 36415; 80053; 81001; 81025; 82962; 83690; 85025; 87086; 96365; 96366; 96375; 99284; J0696; J1200; J2765; J7030; 96361